=== PATIENT | female | born 1940 | race African-American/Black ===

== ENCOUNTER 2020-01-22 16:33 | Inpatient (IN) | payer OTHER ==
[2020-01-22] MEDS ORDERED: ATROPINE SULFATE 1 MG/10 ML DISP.SYRIN ONE (17:16)
[2020-01-22] MEDS ORDERED: CALCIUM GLUCONATE 10% - 1,000 MG/10 ML VIAL IVPUSH ONE ×2 (17:20→18:12)
[2020-01-22 17:25] LABS: EOS % 0.3 % (0-4.5); HEMATOCRIT 29.9 % (32.4-45.2); HEMOGLOBIN 9.5 GM/dL (10.7-15.3); MCH 26.5 pg (25.7-33.7); MCHC 31.7 g/dl (32.0-36.0); MEAN CELL VOLUME 83.5 fl (80-96); MEAN PLT VOLUME 8.8 fl (7.5-11.1); MONO % 4.9 % (3.8-10.2); NEUT % 78.8 % (42.8-82.8); PLATELET COUNT 324 K/MM3 (134-434); RBC 3.59 M/mm3 (3.60-5.2); RDW 16.8 % (11.6-15.6); WHITE BLOOD COUNT 11.9 K/mm3 (4.0-10.0)
[2020-01-22] MEDS ORDERED: CALCIUM CHLORIDE 1 GM/10 ML *DISP.SYRIN ONE (17:29)
[2020-01-22] MEDS ORDERED: CALCIUM GLUCONATE 10% - 1,000 MG/10 ML VIAL ONE ×2 (17:29→18:13)
[2020-01-22 17:43] LABS: INR 0.94 (0.83-1.09); PROTHROMBIN TIME (PATIENT) 11.1 SEC (9.7-13.0)
--- NOTE | 2020-01-22 17:49 | PDOC ---
History of Present Illness <Jessica Lou - Last Filed: 01/22/20 17:49> - History of Present Illness Initial Comments: 01/22/20 17:44 HPI: 79 y/o F hx of NIDDM, Parkinson's, HTN presenting with generalized weakness and nausea x3-4 days. Reports mildly decreased appetite. She reports symptoms started without triggers. She denied fever, chills, chest pain, abd pain, SOB, dysuria; reports was otherwise feeling well. On EMS arrival noted to be ankita 40s and given atropine. On arrival to ED, HR 40s-50s. EKG performed and showed peaked T waves and wide QRS with SIN appearance. PMHx: as noted above ROS: as noted SHx: Denies tobacco use; no alcohol use; no rec drugs Allergies: NKDA ROS: GENERAL/CONSTITUTIONAL: No fever or chills. +gen weakness. HEAD, EYES, EARS, NOSE AND THROAT: No change in vision. No ear pain or discharge. No sore throat. CARDIOVASCULAR: No chest pain or shortness of breath RESPIRATORY: No cough, wheezing, or hemoptysis. GASTROINTESTINAL: +nausea, vomiting; no diarrhea or constipation. GENITOURINARY: No dysuria, frequency, or change in urination. MUSCULOSKELETAL: No joint or muscle swelling or pain. No neck or back pain. SKIN: No rash NEUROLOGIC: No headache, vertigo, loss of consciousness, or change in strength/sensation. ENDOCRINE: No increased thirst. No abnormal weight change HEMATOLOGIC/LYMPHATIC: No anemia, easy bleeding, or history of blood clots. ALLERGIC/IMMUNOLOGIC: No hives or skin allergy. PE: GENERAL: Awake, alert, and fully oriented, no acute distress HEAD: No signs of trauma, normocephalic, atraumatic EYES: EOMI, sclera anicteric, conjunctiva clear ENT: Auricles normal inspection, hearing grossly normal, nares patent, oropharynx clear without exudates. Moist mucosa NECK: Normal ROM, no lymphadenopathy LUNGS: No increased work of breathing, symmetrical chest rise, clear to auscultation bilaterally, no wheezes, crackles or rhonchi HEART: bradycardia, regular rhythm ABDOMEN: Soft, nondistended, nontender. No guarding, no rebound. No masses. No CVAT MUSCULOSKELETAL: FROM NEUROLOGICAL: Cranial nerves II through XII grossly intact. Normal speech, no focal sensorimotor deficits SKIN: Warm, Dry, normal turgor, no rashes or lesions noted <Kelle Rosario - Last Filed: 01/22/20 20:05> - General Chief Complaint: Nausea/Vomiting Stated Complaint: Altered Mental Status Time Seen by Provider: 01/22/20 17:21 Past History <Jessica Lou - Last Filed: 01/22/20 17:49> - Medical History Anemia: No Asthma: No Cancer: No Cardiac Disorders: No CVA: No COPD: No CHF: Yes Dementia: No Diabetes: Yes GI Disorders: No Disorders: No HTN: Yes Liver Disease: No Seizures: No Thyroid Disease: No - Surgical History Abdominal Surgery: No Appendectomy: No Cardiac Surgery: No Cholecystectomy: No Lung Surgery: No Neurologic Surgery: No Orthopedic Surgery: No - Psycho-Social/Smoking History Smoking History: Unknown if ever smoked Have you smoked in the past 12 months: No - Substance Abuse Hx (Audit-C & DAST Scrn) How often the patient has a drink containing alcohol: Never Score: In Men: 4 or > Positive; In Women: 3 or > Positive: 0 Screen Result (Pos requires Nsg. Audit-10AR): Negative In the last yr the pt used illegal drug/Rx for NonMed reason: No Score: Yes response is considered Positive: 0 Screen Result (Positive result requires Nsg. DAST-10): Negative <Kelle Rosario - Last Filed: 01/22/20 20:05> - Medical History Allergies/Adverse Reactions: Allergies Allergy/AdvReac Type Severity Reaction Status Date / Time No Known Allergies Allergy Verified 01/22/20 17:43 Home Medications: Ambulatory Orders Amlodipine Besylate [Norvasc -] 10 mg PO DAILY 01/22/20 Bethanechol Chloride [Urecholine -] 50 mg PO QID 01/22/20 Bimatoprost [Lumigan] 1 drop OU HS 01/22/20 Carbidopa/Levodopa *Cr* 50/200 [Sinemet *Cr* 50/200 -] 1 combo PO TID 01/22/20 Carvedilol 6.25 mg PO BID 01/22/20 Chlorthalidone 50 mg PO DAILY 01/22/20 Glycopyrrolate 1 tab PO DAILY 01/22/20 Ketoprofen 50 mg PO BID 01/22/20 Lisinopril [Prinivil -] 40 mg PO DAILY 01/22/20 Metformin HCl [Glucophage] 1,000 mg PO BID 01/22/20 Pantoprazole Sodium [Protonix -] 40 mg PO BID 01/22/20 *Physical Exam - Vital Signs Last Vital Signs Temp Pulse Resp BP Pulse Ox 40 L 32 H 99/56 L 99 01/22/20 17:04 01/22/20 17:04 01/22/20 17:04 01/22/20 17:04 <Jessica Lou - Last Filed: 01/22/20 17:49> - Vital Signs Last Vital Signs Temp Pulse Resp BP Pulse Ox 40 L 32 H 99/56 L 99 01/22/20 17:04 01/22/20 17:04 01/22/20 17:04 01/22/20 17:04 <Kelle Rosario - Last Filed: 01/22/20 20:05> Procedures - Central Line Central Line Lumen: triple Central Line Position: internal jugular (R) Anesthesia: 1% Lidocaine Amount of anesthesia (ccs): 5 Complications: none Post Central Line Insertion: sutured, good blood return, position confirmed w/ CXR <Kelle Rosario - Last Filed: 01/22/20 20:05> ED Treatment Course - LABORATORY CBC & Chemistry Diagram: 01/22/20 17:00 01/22/20 17:00 - ADDITIONAL ORDERS Additional order review: Laboratory Results 01/22/20 17:00 PT with INR 11.10 INR 0.94 01/22/20 17:00 RBC 3.59 L MCV 83.5 MCHC 31.7 L RDW 16.8 H MPV 8.8 D Neutrophils % 78.8 Lymphocytes % 15.0 Monocytes % 4.9 Eosinophils % 0.3 D Basophils % 1.0 - RADIOLOGY Radiology Studies Ordered: Category Date Time Status CHEST X-RAY PORTABLE* [RAD] Stat Radiology 01/22/20 17:21 Ordered - Medications Given in the ED: ED Medications Discontinued Medications Generic Name Dose Route Start Last Admin Trade Name Freq PRN Reason Stop Dose Admin Calcium Gluconate 1,000 mg 01/22/20 17:20 01/22/20 17:32 Calcium Gluconate 10% - IVPUSH 01/22/20 17:21 1,000 mg ONCE ONE Administration <Jessica Lou - Last Filed: 01/22/20 17:49> - LABORATORY CBC & Chemistry Diagram: 01/22/20 17:00 01/22/20 17:00 - ADDITIONAL ORDERS Additional order review: Laboratory Results 01/22/20 17:00 PT with INR 11.10 INR 0.94 01/22/20 17:00 RBC 3.59 L MCV 83.5 MCHC 31.7 L RDW 16.8 H MPV 8.8 D Neutrophils % 78.8 Lymphocytes % 15.0 Monocytes % 4.9 Eosinophils % 0.3 D Basophils % 1.0 - Medications Given in the ED: ED Medications Discontinued Medications Generic Name Dose Route Start Last Admin Trade Name Freq PRN Reason Stop Dose Admin Calcium Gluconate 1,000 mg 01/22/20 17:20 01/22/20 17:32 Calcium Gluconate 10% - IVPUSH 01/22/20 17:21 1,000 mg ONCE ONE Administration <Kelle Rosario - Last Filed: 01/22/20 20:05> Medical Decision Making - Medical Decision Making 01/22/20 20:01 79 y/o F hx of NIDDM, Parkinson's, HTN presenting with generalized weakness and nausea x3-4 days. HR 40s BP 90s/50s. PE otherwise unremarkable. Initial EKG with peaked t waves and sin wave. 1gm Ca given -cbc, cmp, ua, ucx, coags, card prod, ekg, cxr, uCr, Yecenia -2amps bicarb, insulin, 1amp D50, albuterol, ivf 01/22/20 20:03 Cr 3.1 BUN 55 K 9.5 renal consulted trialysis placed and confirmed with CXR trasferred to ICU for emergent dialysis <Kelle Rosario - Last Filed: 01/22/20 20:05> Discharge <Jessica Lou - Last Filed: 01/22/20 17:49> - Discharge Information Problems reviewed: Yes <Kelle Rosario - Last Filed: 01/22/20 20:05> - Discharge Information Clinical Impression/Diagnosis: UTI (urinary tract infection), Acute kidney injury, Hyperkalemia, Acute electrocardiogram changes Condition: Guarded - Follow up/Referral Referrals: Melisa Samuel MD [Primary Care Provider] - - Patient Discharge Instructions - Post Discharge Activity Vital Signs - Vital Signs Pulse Rate: 46 Respiratory Rate: 12 Blood Pressure: 107/80 <Jessica Lou - Last Filed: 01/22/20 17:49>
--- NOTE | 2020-01-22 17:57 | PDOC ---
Attending Attestation - Resident Resident Name: Kelle Rosario - ED Attending Attestation I have performed the following: I have examined & evaluated the patient, The case was reviewed & discussed with the resident, I agree w/resident's findings & plan, Exceptions are as noted - HPI HPI: 01/22/20 17:49 79 yo F multiple medical problems p/w generalized weakness, n/v diarrhea and abdominal discomfort x3-4 days. Denies cough, CP and SOB. Denies changes in urination. Denies sick contacts. Lives with grandson who has been feeling fine. No recent change in medications. - Physicial Exam PE: 01/22/20 17:50 General: non-toxic appearing Chest: CTAB, good air entry CVS: +s1 s2, ankita Abdomen: soft, nt nd no rebound no guarding Extremities: no LE edema, moving all extremities Neuro: awake, alert, responds appropriately to questions, no focal deficits - Critical Care Time Total Critical Care Time: 35 Critical Care Statement: The care of this patient involved high complexity decision making to prevent further life threatening deterioration of the patient's condition and/or to evaluate & treat vital organ system(s) failure or risk of failure. - Medical Decision Making 01/22/20 17:52 79 yo F here with weakness n/v/d, EKG ankita wth widened qrs, peaked T waves concerning for hyperkalemia. Possible ULICES vs. infection vs. ACS. Plan: -labs -cxr -urine -cardiac monitoring -pt given 1g calcium with increase in HR from 40's to 60's -IVF -albuterol -bicarb -insulin +/- D50 pending results of glucose -renal consult for possible dialysis pending results of K and Cr -critical care consult for concern for likely hyperkalemia with EKG changes possibly requiring dialysis This clinical encounter is taking place during a federal and state health care emergency attributable to the novel Leyva Virus pandemic. The Par[employer] of the Department of Health and Human Services has declared, pursuant to the Public Health Service Act 319F-3 (42 [place].S[place]C. 247d-6d), that a covered persons activities related to medical countermeasures against COVID-19 will be immune from liability under Federal and State law. k 9.5. Patient currently receiving medications for hyperkalemia. Renal consulted and recommend dialysis. Will place trialysis catheter for dialysis and consult critical care for possible ICU admission. Heart Score/ECG Review - ECG Impressions Comment:: 01/22/20 18:41 ankita, wide qrs, peaked T waves Discharge - Discharge Information Problems reviewed: Yes Clinical Impression/Diagnosis: UTI (urinary tract infection), Acute kidney injury, Hyperkalemia, Acute electrocardiogram changes Condition: Guarded - Follow up/Referral - Patient Discharge Instructions - Post Discharge Activity
[2020-01-22 17:58] LABS: ALBUMIN 3.4 g/dl (3.4-5.0); ALK PHOS 71 U/L (45-117); BILIRUBIN,TOTAL 0.4 mg/dL (0.2-1); BLOOD UREA NITROGEN 55.1 mg/dL (7-18); CALCIUM 8.9 mg/dL (8.5-10.1); CHLORIDE 108 mmol/L (98-107); CO2 10 mmol/L (21-32); CREATININE 3.1 mg/dL (0.55-1.3); GLUCOSE,RANDOM 92 mg/dL (74-106); SGOT/AST 47 U/L (15-37); SGPT/ALT 6 U/L (13-61); SODIUM 133 mmol/L (136-145); TOT PROT 8.4 g/dl (6.4-8.2)
[2020-01-22] MEDS ORDERED: SODIUM CHLORIDE 1,000 ML IV SCH (18:00)
[2020-01-22] MEDS ORDERED: SODIUM BICARBONATE 8.4% 50 MEQ/50 ML DISP.SYRIN IVPUSH ONE ×2 (18:08)
[2020-01-22] MEDS ORDERED: SODIUM BICARBONATE 8.4% 50 MEQ/50 ML VIAL ONE (18:09)
[2020-01-22] MEDS ORDERED: ALBUTEROL SO4 0.083% IH SOL 2.5 MG/3 ML VIAL.NEB. NEB ONE ×2 (18:09→18:23)
[2020-01-22] MEDS ORDERED: INSULIN REGULAR HUMAN 100 UNITS/ML *VIAL IVPUSH ONE ×2 (18:09→18:11)
[2020-01-22 18:10] LABS: ANION GAP 15 MMOL/L (8-16)
[2020-01-22] MEDS ORDERED: DEXTROSE 50%-WATER - 25 GM/50 ML VIAL IVPUSH ONE (18:10)
[2020-01-22 18:11] LABS: POTASSIUM 9.5 mmol/L (3.5-5.1)
[2020-01-22] MEDS ORDERED: DEXTROSE 50%-WATER 25 GM/50 ML DISP.SYRIN ONE (18:14)
[2020-01-22 18:25] LABS: EPI CELLS 9 /uL (0-25.1); HYALINE CASTS 2 /uL (0-3.1); PH,URINE >= 9.0 (5.0-8.0); URINE APPEARANCE TURBID; URINE BILIRUBIN NEGATIVE (NEGATIVE); URINE COLOR DK YELLOW; URINE GLUCOSE (UA) NEGATIVE (NEGATIVE); URINE KETONE TRACE (NEGATIVE); URINE LEUK ESTERASE 3+ (NEGATIVE); URINE NITRITE NEGATIVE (NEGATIVE); URINE PROTEIN 2+ (NEGATIVE); URINE RBC 547 /uL (0-23.9); URINE WBC 5148 /uL (0-25.8)
[2020-01-22] MEDS ORDERED: CEFTRIAXONE 1,000 MG in DEXTROSE 5%-WATER - 50 ML IVPB ONE (19:15)
--- NOTE | 2020-01-22 19:39 | PDOC ---
*Physical Exam - Vital Signs Last Vital Signs Temp Pulse Resp BP Pulse Ox 92 H 28 H 117/61 100 01/22/20 18:32 01/22/20 18:32 01/22/20 18:32 01/22/20 18:32 ED Treatment Course - LABORATORY CBC & Chemistry Diagram: 01/22/20 17:00 01/22/20 19:21 - ADDITIONAL ORDERS Additional order review: Laboratory Results 01/22/20 01/22/20 01/22/20 17:35 17:30 17:00 PT with INR INR Sodium 133 L Potassium 9.5 H* Chloride 108 H Carbon Dioxide 10 L Anion Gap 15 BUN 55.1 H Creatinine 3.1 H Est GFR (CKD-EPI)AfAm 15.69 Est GFR (CKD-EPI)NonAf 13.54 Random Glucose 92 Calcium 8.9 Total Bilirubin 0.4 AST 47 H ALT 6 L Alkaline Phosphatase 71 Creatine Kinase 51 Troponin I < 0.02 Total Protein 8.4 H Albumin 3.4 Urine Color Dk yellow Urine Appearance Turbid Urine pH >= 9.0 H D Ur Specific [place] 1.015 Urine Protein 2+ H Urine Glucose (UA) Negative Urine Ketones Trace H Urine Blood 3+ H Urine Nitrite Negative Urine Bilirubin Negative Urine Urobilinogen 1.0 Ur Leukocyte Esterase 3+ H Urine WBC (Auto) 5148 Urine RBC (Auto) 547 Urine Casts (Auto) 2 U Epithel Cells (Auto) 9 Urine Bacteria (Auto) >10,000 Ur Random Creatinine 114.0 Ur Random Sodium 42 01/22/20 17:00 PT with INR 11.10 INR 0.94 Sodium Potassium Chloride Carbon Dioxide Anion Gap BUN Creatinine Est GFR (CKD-EPI)AfAm Est GFR (CKD-EPI)NonAf Random Glucose Calcium Total Bilirubin AST ALT Alkaline Phosphatase Creatine Kinase Troponin I Total Protein Albumin Urine Color Urine Appearance Urine pH Ur Specific [place] Urine Protein Urine Glucose (UA) Urine Ketones Urine Blood Urine Nitrite Urine Bilirubin Urine Urobilinogen Ur Leukocyte Esterase Urine WBC (Auto) Urine RBC (Auto) Urine Casts (Auto) U Epithel Cells (Auto) Urine Bacteria (Auto) Ur Random Creatinine Ur Random Sodium 01/22/20 17:00 RBC 3.59 L MCV 83.5 MCHC 31.7 L RDW 16.8 H MPV 8.8 D Neutrophils % 78.8 Lymphocytes % 15.0 Monocytes % 4.9 Eosinophils % 0.3 D Basophils % 1.0 - Medications Given in the ED: ED Medications Discontinued Medications Generic Name Dose Route Start Last Admin Trade Name Lou PRN Reason Stop Dose Admin Albuterol Sulfate 1 amp 01/22/20 18:09 01/22/20 18:24 Ventolin 0.083% Nebulizer Soln - NEB 01/22/20 18:10 1 amp ONCE ONE Administration Calcium Gluconate 1,000 mg 01/22/20 17:20 01/22/20 17:32 Calcium Gluconate 10% - IVPUSH 01/22/20 17:21 1,000 mg ONCE ONE Administration Calcium Gluconate 1,000 mg 01/22/20 18:12 01/22/20 18:24 Calcium Gluconate 10% - IVPUSH 01/22/20 18:13 1,000 mg ONCE ONE Administration Dextrose 25 gm 01/22/20 18:10 01/22/20 18:24 D50w (Vial) - IVPUSH 01/22/20 18:11 25 gm NOW ONE Administration Insulin Human Regular 10 units 01/22/20 18:09 01/22/20 18:53 Novolin R Vial *For Ivpush Or Iv Drip Only* IVPUSH 01/22/20 18:10 Not Given ONCE ONE Insulin Human Regular 5 units 01/22/20 18:11 01/22/20 18:24 Novolin R Vial *For Ivpush Or Iv Drip Only* IVPUSH 01/22/20 18:12 5 units ONCE ONE Administration Sodium Bicarbonate 50 meq 01/22/20 18:08 01/22/20 18:10 Sodium Bicarbonate 8.4% - IVPUSH 01/22/20 18:09 50 meq ONCE ONE Administration Sodium Bicarbonate 50 meq 01/22/20 18:08 01/22/20 18:05 Sodium Bicarbonate 8.4% - IVPUSH 01/22/20 18:09 50 meq ONCE ONE Administration Medical Decision Making - Medical Decision Making 01/22/20 19:39 Pt signed out to me; multiple meds given; pt feels well at this time. 01/22/20 19:47 Pt's 2nd EKG shows narrower complex QRS; pt has peaked T waves still. She has a UTI and will require rocephin. Pt admitted to the ICU and she will be getting dialysis there. 01/22/20 19:48 Pt already accepted to the ICU Discharge - Discharge Information Problems reviewed: Yes Clinical Impression/Diagnosis: UTI (urinary tract infection), Acute kidney injury, Hyperkalemia, Acute electrocardiogram changes Condition: Guarded - Follow up/Referral - Patient Discharge Instructions - Post Discharge Activity
[2020-01-22 20:03] LABS: BLOOD UREA NITROGEN 53.1 mg/dL (7-18); CALCIUM 8.7 mg/dL (8.5-10.1); CREATININE 2.8 mg/dL (0.55-1.3)
--- NOTE | 2020-01-22 20:12 | CON.NEP ---
Consult Consult Specialty:: nephrology Reason for Consultation:: hyperkalermia - History of Present Illness Chief Complaint: weakness, nausea History of Present Illness: 79 year old woman with history of dm, htn parkinsons disease who presented with weakness and nausea and was found to have a potassium of over 9 with bradycardia and other hyperkalemia findings. She says she was discharged on medications that caused her potassium to go up. She was previously admitted in November 2019 with abdomibnal pain and had a bladder scan that showed a pvr of 1000. In ED I asked for a barboza placement after she had 200+ cc in bladder from a straight cath. I asked for a dialysis catheter which has been placed and she will be dialyzed tonight given her ekg changes even though her creat and k may improve with fluids and better urine flow. She denies vomiting and diarrhea - History Source Limitations to Obtaining History: No Limitations - Past Medical History Cardio/Vascular: Yes: HTN Gastrointestinal: Yes: Constipation Hepatobiliary: Yes: Cholelithiasis Endocrine: Yes: Diabetes Mellitus - Alcohol/Substance Use Hx Alcohol Use: No - Smoking History Smoking history: Unknown if ever smoked Have you smoked in the past 12 months: No Home Medications - Allergies Allergies/Adverse Reactions: Allergies Allergy/AdvReac Type Severity Reaction Status Date / Time No Known Allergies Allergy Verified 01/22/20 17:43 - Home Medications Home Medications: Ambulatory Orders Amlodipine Besylate [Norvasc -] 10 mg PO DAILY 01/22/20 Bethanechol Chloride [Urecholine -] 50 mg PO QID 01/22/20 Bimatoprost [Lumigan] 1 drop OU HS 01/22/20 Carbidopa/Levodopa *Cr* 50/200 [Sinemet *Cr* 50/200 -] 1 combo PO TID 01/22/20 Carvedilol 6.25 mg PO BID 01/22/20 Chlorthalidone 50 mg PO DAILY 01/22/20 Glycopyrrolate 1 tab PO DAILY 01/22/20 Ketoprofen 50 mg PO BID 01/22/20 Lisinopril [Prinivil -] 40 mg PO DAILY 01/22/20 Metformin HCl [Glucophage] 1,000 mg PO BID 01/22/20 Pantoprazole Sodium [Protonix -] 40 mg PO BID 01/22/20 Review of Systems - Review of Systems Constitutional: reports: Weakness Eyes: reports: No Symptoms HENT: reports: No Symptoms Neck: reports: No Symptoms Cardiovascular: reports: Shortness of Breath Respiratory: reports: No Symptoms Gastrointestinal: reports: Nausea Genitourinary: reports: No Symptoms Breasts: reports: No Symptoms Reported Musculoskeletal: reports: No Symptoms Integumentary: reports: No Symptoms Neurological: reports: No Symptoms Endocrine: reports: No Symptoms Hematology/Lymphatic: reports: No Symptoms Psychiatric: reports: No Symptoms Nephrology Consult - Height Height: 5 ft 4 in - Weight Weight: 180 lb 12.465 oz - BMI Body Mass Index (BMI): 31.0 - Lab Results CBC,BMP: CBC, BMP 01/22/20 17:00 01/22/20 19:21 Anion Gap: Anion Gap Anion Gap 15 MMOL/L (8-16) 01/22/20 17:00 - Imaging Chest X-ray: Image Reviewed (trialysis catheter in proper position, no pneumothrax seen) - Physical Examination Vital Signs: Vital Signs Temperature Pulse Rate 92 H 01/22/20 18:32 Respiratory Rate 28 H 01/22/20 18:32 Blood Pressure 117/61 01/22/20 18:32 O2 Sat by Pulse Oximetry (%) 100 01/22/20 18:32 Constitutional: Yes: Well Nourished, No Distress, Calm, Other Eyes: Yes: Conjunctiva Clear HENT: Yes: Atraumatic, Normocephalic, Other (has a catheter in right ij) Neck: Yes: Supple, Trachea Midline Cardiovascular: Yes: Bradycardia Respiratory: Yes: Regular Gastrointestinal: Yes: Normal Bowel Sounds Renal/: Yes: Barboza Present Musculoskeletal: Yes: WNL Extremities: Yes: WNL Edema: No Peripheral Pulses WNL: Yes Neurological: Yes: Alert, Oriented Psychiatric: Yes: Alert, Oriented Assessment/Plan IMPRESSION ULICES probably from combination of retention and nsaids hypokalemia- ulices, acei, nsaids, acidosis PLAN cxr reviewed and appears in proper position and good to use will dialyze tonight continue barboza hydrate gently- give 1/2 ns with 50 meq of bicarb at 75 cc hold acei, metformin, nsaids MV
[2020-01-22 20:16] LABS: POTASSIUM 7.9 mmol/L (3.5-5.1)
[2020-01-22] MEDS ORDERED: SODIUM CHLORIDE 250 ML IV PRN (20:26)
--- NOTE | 2020-01-22 20:58 | CONSULT ---
Consultation: REQUESTING PROVIDER: Dr. Lou CONSULT REQUEST: We have been asked to medically evaluate this patient for hyperkalemia. HISTORY OF PRESENT ILLNESS: Pt is an 79 y/o female with NIDDM, HTN, Parkinson's, osteoarthritis, ?GERD who presents with generalized weakness and nausea and loss of appetite x3 days. Per ED note, pt was given atropine by EMS for HR in 40s and was found to be hyperkalemic with peaked T waves at presentation. She stated after discharge from [facility] in November 2019, she was given medicine to raise her potassium. Unable to obtain more information from patient as she could not stay awake. Pt's daughters report a few days of nausea but no other symptoms. She takes Advil PM sometimes for arthritis "all over her body." She has not had any recent changes to medications. REVIEW OF SYSTEMS: see HPI PHYSICAL EXAMINATION Vital Signs - 24 hr 01/22/20 01/22/20 01/22/20 17:04 17:50 18:32 Pulse Rate 40 L 46 L Pulse Rate [ 92 H Apical] Respiratory 32 H 12 28 H Rate Blood Pressure 99/56 L 107/80 Blood Pressure 117/61 [Right Arm] O2 Sat by Pulse 99 100 Oximetry (%) 01/22/20 01/22/20 20:45 20:50 Pulse Rate 50 L 51 L Pulse Rate [ Apical] Respiratory 13 15 Rate Blood Pressure 103/67 108/57 L Blood Pressure [Right Arm] O2 Sat by Pulse Oximetry (%) GENERAL: Sleeping, arousable but goes right back to sleep. HEAD: Normal with no signs of trauma. EYES: Pupils equal, round and reactive to light, extraocular movements intact, conjunctiva clear. EARS, NOSE, THROAT: Ears normal, nares patent, moist mucous membranes. NECK: Normal range of motion. RIJ running HD. LUNGS: Clear to auscultation anteriorly, no wheezes. HEART: Regular rate and rhythm, no murmur appreciated. ABDOMEN: Soft, nontender, not distended, normoactive bowel sounds. UPPER EXTREMITIES: Warm, well-perfused. No peripheral edema. LOWER EXTREMITIES: Warm, well-perfused. No peripheral edema. NEUROLOGICAL: unable to fully assess PSYCHIATRIC: unable to assess SKIN: Warm, dry, normal turgor. Laboratory Results - last 24 hr 07/03/20 07/03/20 07/03/20 17:00 17:00 17:00 WBC 11.9 H RBC 3.59 L Hgb 9.5 L Hct 29.9 L D MCV 83.5 MCH 26.5 MCHC 31.7 L RDW 16.8 H Plt Count 324 D MPV 8.8 D Absolute Neuts (auto) 9.4 H Neutrophils % 78.8 Lymphocytes % 15.0 Monocytes % 4.9 Eosinophils % 0.3 D Basophils % 1.0 Nucleated RBC % 0 PT with INR 11.10 INR 0.94 Sodium 133 L Potassium 9.5 H* Chloride 108 H Carbon Dioxide 10 L Anion Gap 15 BUN 55.1 H Creatinine 3.1 H Est GFR (CKD-EPI)AfAm 15.69 Est GFR (CKD-EPI)NonAf 13.54 Random Glucose 92 Calcium 8.9 Total Bilirubin 0.4 AST 47 H ALT 6 L Alkaline Phosphatase 71 Creatine Kinase 51 Troponin I < 0.02 Total Protein 8.4 H Albumin 3.4 Urine Color Urine Appearance Urine pH Ur Specific [place] Urine Protein Urine Glucose (UA) Urine Ketones Urine Blood Urine Nitrite Urine Bilirubin Urine Urobilinogen Ur Leukocyte Esterase Urine WBC (Auto) Urine RBC (Auto) Urine Casts (Auto) U Epithel Cells (Auto) Urine Bacteria (Auto) Ur Random Creatinine Ur Random Sodium 01/22/20 01/22/20 01/22/20 17:30 17:35 19:21 WBC RBC Hgb Hct MCV MCH MCHC RDW Plt Count MPV Absolute Neuts (auto) Neutrophils % Lymphocytes % Monocytes % Eosinophils % Basophils % Nucleated RBC % PT with INR INR Sodium 138 Potassium 7.9 H* Chloride 111 H Carbon Dioxide 13 L Anion Gap 14 BUN 53.1 H Creatinine 2.8 H Est GFR (CKD-EPI)AfAm 17.75 Est GFR (CKD-EPI)NonAf 15.31 Random Glucose 105 Calcium 8.7 Total Bilirubin AST ALT Alkaline Phosphatase Creatine Kinase Troponin I Total Protein Albumin Urine Color Dk yellow Urine Appearance Turbid Urine pH >= 9.0 H D Ur Specific [place] 1.015 Urine Protein 2+ H Urine Glucose (UA) Negative Urine Ketones Trace H Urine Blood 3+ H Urine Nitrite Negative Urine Bilirubin Negative Urine Urobilinogen 1.0 Ur Leukocyte Esterase 3+ H Urine WBC (Auto) 5148 Urine RBC (Auto) 547 Urine Casts (Auto) 2 U Epithel Cells (Auto) 9 Urine Bacteria (Auto) >10,000 Ur Random Creatinine 114.0 Ur Random Sodium 42 Active Medications Current Medications Generic Name Dose Route Start Last Admin Trade Name Freq PRN Reason Stop Dose Admin Amlodipine Besylate 10 mg 01/23/20 10:00 Norvasc - PO DAILY KOBY Carbidopa/Levodopa 1 combo 01/23/20 06:00 Sinemet *Cr* 50/200 - PO TID KOBY Chlorhexidine Gluconate 1 applic 01/22/20 22:00 01/22/20 21:36 Hibiclens For Decolonization - TP 1 applic HS KOBY Administration Heparin Sodium (Porcine) 5,000 unit 01/22/20 22:00 01/23/20 05:31 Heparin - SQ 5,000 unit TID KOBY Administration Sodium Chloride 250 mls @ 3,000 mls/hr 01/22/20 20:26 Normal Saline - IV 01/23/20 20:27 PRN PRN Hypotension during Dialysis Sodium Bicarbonate 50 meq/ 1,050 mls @ 75 mls/hr 01/22/20 21:15 01/22/20 21:45 Sodium Chloride IV 75 mls/hr Q14H KOBY Administration Mupirocin 1 applic 01/22/20 22:00 01/22/20 21:45 Bactroban Ointment (For Decolonization) - NS 01/27/20 21:59 1 applic BID KOBY Administration Pantoprazole Sodium 40 mg 01/23/20 10:00 Protonix - PO BID KOBY ASSESSMENT/PLAN: Pt is an 79 y/o female with NIDDM, HTN, Parkinson's, osteoarthritis who presents with generalized weakness and nausea and loss of appetite x3 days. Per ED note, pt was given atropine by EMS for HR in 40s and was found to be hyperkalemic with peaked T waves at presentation. She was admitted in November 2019 for ULICES and hypokalemia. #neuro -awake and alert during ED interview but sleepy during my interview/exam, not concerned for encephalopathy -continue Sinemet #cardio -EKG shows widened QRS complex -repeat EKG in morning after HD and fluids -HTN -restart amlodipine, can add carvedilol if needed -hold chlorthalidone, lisinopril #pulm -keep SpO2 >88% #renal -ULICES -Cr 3.1 -hyperkalemia 9.5 -emergent HD overnight -sodium bicarb in 1/2NS -renal following #ID -ceftriaxone x1 ordered in ED -will hold further tx until symptomatic or urine culture positive # -UA >10k bacteria, +3 leuk esterase -urine cx pending -pt did not endorse symptoms, would not consider further tx for with abx unless cx comes back positive -urology consult #endo -hold metformin -BGMs near 100 -BGM TID while NPO -if hyperglycemic, add SSI #GI -?hx of GERD -protonix #heme -chronic normocytic anemia -Hb stable 9.5 #integumentary -previous sacral ulcer -monitor and wound care DVT Ppx heparin FEN sodium bicarb in 1/2 NS @75mL/hr monitor K NPO Dispo: ICU. We will continue to follow the patient. Thank you for this consultative opportunity. FULL CODE Visit type - Emergency Visit Emergency Visit: Yes ED Registration Date: 01/22/20 Care time: The patient presented to the Emergency Department on the above date and was hospitalized for further evaluation of their emergent condition. - New Patient This patient is new to me today: Yes Date on this admission: 01/22/20 - Critical Care Critical Care patient: Yes Total Critical Care Time (in minutes): 37 Critical Care Statement: The care of this patient involved high complexity decision making to prevent further life threatening deterioration of the patient's condition and/or to evaluate & treat vital organ system(s) failure or risk of failure. ATTENDING PHYSICIAN STATEMENT I saw and evaluated the patient. I reviewed the resident's note and discussed the case with the resident. I agree with the resident's findings and plan as documented. SUBJECTIVE: OBJECTIVE: ASSESSMENT AND PLAN:
[2020-01-22] MEDS ORDERED: SODIUM CHLORIDE 0.45% 1,000 ML with SODIUM BICARBONATE 8.4% - 50 MEQ IV SCH (21:00)
[2020-01-22] MEDS: CHLORHEXIDINE GLUCONATE 4% CLEANSER FOR DECOLONIZATION TP SCH (21:36)
[2020-01-22] MEDS: SODIUM BICARBONATE 8.4% - 50 MEQ in SODIUM CHLORIDE 0.45% 1,000 ML IV SCH (21:45)
[2020-01-22] MEDS: MUPIROCIN 2% TOPICAL OINTMENT FOR DECOLONIZATION NS SCH (21:45)
[2020-01-22] MEDS: HEPARIN NA (PORCINE) 5,000 UNITS/ML 1ML VIAL SQ SCH (21:46)
[2020-01-23] MEDS ORDERED: CEFTRIAXONE 1 GM in DEXTROSE 5%-WATER - 50 ML IVPB ONE (00:15)
[2020-01-23] MEDS ORDERED: DEXTROSE 5%-WATER - 50 ML IVPB ONE (02:05)
[2020-01-23] MEDS ORDERED: cefTRIAXone SODIUM 1 GM VIAL ONE (02:05)
[2020-01-23] MEDS: HEPARIN NA (PORCINE) 5,000 UNITS/ML 1ML VIAL SQ SCH ×3 (05:31→21:20)
--- NOTE | 2020-01-23 06:37 | CON.CARD ---
Consult Consult Specialty:: Cardiology Referred by:: Dr. Richey Reason for Consultation:: abnl ECG - History of Present Illness Chief Complaint: Fatigue, acute renal failure History of Present Illness: Pt is an 79 y/o female with NIDDM, HTN, Parkinson's, osteoarthritis, ?GERD who presents with generalized weakness and nausea and loss of appetite x3 days. Per ED note, pt was given atropine by EMS for HR in 40s and was found to be hyperkalemic with peaked T waves at presentation. Pt's daughters report a few days of nausea but no other symptoms. She takes Advil PM sometimes for arthritis "all over her body." She has not had any recent changes to medications. She was emergently dialyzed last evening, seen by renal. Initial ECG in setting of marked hyperK+ showed Peaked Ts, flat ps and wide QRS--now resolved. She is awake and alert in ICU. Denies hx of CP/SOB/palps. Denies hx of AK. Does see Dr. Fernandez at [facility] for "high blood pressure" PMD: Dr. Yahir Flannery. - History Source History Provided By: Patient, Medical Record - Past Medical History Cardio/Vascular: Yes: HTN Gastrointestinal: Yes: Constipation Hepatobiliary: Yes: Cholelithiasis Musculoskeletal: Yes: Osteoarthritis Endocrine: Yes: Diabetes Mellitus - Alcohol/Substance Use Hx Alcohol Use: No - Smoking History Smoking history: Unknown if ever smoked Have you smoked in the past 12 months: No - Social History ADL: Independent History of Recent Travel: No Home Medications - Allergies Allergies/Adverse Reactions: Allergies Allergy/AdvReac Type Severity Reaction Status Date / Time No Known Allergies Allergy Verified 01/22/20 17:43 - Home Medications Home Medications: Ambulatory Orders Amlodipine Besylate [Norvasc -] 10 mg PO DAILY 01/22/20 Bethanechol Chloride [Urecholine -] 50 mg PO QID 01/22/20 Bimatoprost [Lumigan] 1 drop OU HS 01/22/20 Carbidopa/Levodopa *Cr* 50/200 [Sinemet *Cr* 50/200 -] 1 combo PO TID 01/22/20 Carvedilol 6.25 mg PO BID 01/22/20 Chlorthalidone 50 mg PO DAILY 01/22/20 Glycopyrrolate 1 tab PO DAILY 01/22/20 Ketoprofen 50 mg PO BID 01/22/20 Lisinopril [Prinivil -] 40 mg PO DAILY 01/22/20 Metformin HCl [Glucophage] 1,000 mg PO BID 01/22/20 Pantoprazole Sodium [Protonix -] 40 mg PO BID 01/22/20 Family Medical History Family History: Unremarkable (not pertinent to this presentation) Review of Systems Findings/Remarks: see HPI - Review of Systems Constitutional: reports: Malaise, Weakness Eyes: reports: No Symptoms HENT: reports: No Symptoms Neck: reports: No Symptoms Cardiovascular: reports: No Symptoms Respiratory: reports: No Symptoms Gastrointestinal: reports: Nausea Genitourinary: reports: No Symptoms Breasts: reports: No Symptoms Reported Musculoskeletal: reports: Joint Pain Integumentary: denies: No Symptoms, Blister, Bruising, Change in Color, Eczema, Erythema, Incision, Lesions, Lump, Pallor, Pruritis, Rash, Wound, Other Neurological: reports: Confusion, Weakness Endocrine: denies: No Symptoms, Excessive Sweating, Flushing, Increased Hunger, Increased Thirst, Intolerance to Cold, Intolerance to Heat, Unexplained Weight Gain, Unexplained Weight Loss, Other Hematology/Lymphatic: denies: No Symptoms, Easily Bruised, Excessive Bleeding, Swollen Glands, Other Psychiatric: denies: No Symptoms, Altered Sleep Pattern, Anxiety, Depression, Hallucinations, Panic, Paranoia, Suicidal, Other - Risk Factors Known Risk Factors: Yes: Diabetes Mellitus, Hypertension Vital Signs: Vital Signs Temperature 98 F 01/23/20 06:00 Pulse Rate 85 01/23/20 06:00 Respiratory Rate 15 01/23/20 06:00 Blood Pressure 135/74 01/23/20 06:00 O2 Sat by Pulse Oximetry (%) 100 01/22/20 21:00 Constitutional: Yes: No Distress, Calm Eyes: Yes: Conjunctiva Clear Neck: Yes: Supple, Other (HD catheter) Respiratory: Yes: CTA Bilaterally Gastrointestinal: Yes: Soft (nt) Cardiovascular: Yes: Regular Rate and Rhythm JVD: No Carotid Bruit: No PMI: Non-Displaced Heart Sounds: Yes: S1, S2 (rrr) Edema: No Peripheral Pulses WNL: Yes Neurological: Yes: Alert, Oriented ...Motor Strength: WNL - Other Data Labs, Other Data: CBC, BMP 01/22/20 17:00 01/22/20 19:21 INR, PTT INR 0.94 (0.83-1.09) 01/22/20 17:00 Troponin, BNP 01/22/20 17:00 Troponin I < 0.02 Troponin, BNP 01/22/20 17:00 Troponin I < 0.02 Laboratory Tests 01/22/20 01/22/20 01/22/20 17:00 17:00 19:21 WBC 11.9 H Hgb 9.5 L Plt Count 324 D Sodium 133 L 138 Potassium 9.5 H* 7.9 H* BUN 55.1 H 53.1 H Creatinine 3.1 H 2.8 H Troponin I < 0.02 Laboratory Tests 01/22/20 01/22/20 01/22/20 17:00 17:00 17:00 WBC 11.9 H Hgb 9.5 L Plt Count 324 D INR 0.94 Sodium 133 L Potassium 9.5 H* Creatinine 3.1 H Magnesium Total Bilirubin AST ALT Alkaline Phosphatase Albumin 01/22/20 01/23/20 01/23/20 19:21 06:48 06:48 WBC 10.0 Hgb 8.6 L Plt Count 243 D INR Sodium 138 140 Potassium 7.9 H* 4.5 Creatinine 2.8 H 1.5 H Magnesium 2.0 Total Bilirubin 0.5 AST 171 H ALT 7 L Alkaline Phosphatase 78 Albumin 2.8 L accelerated jxal rhythm, wide qrs, peaked T waves7/4 at 17:07 Subsequent ECGs with narrow QRS, P waves seem evident though low amplitude T wave still Peaked Imaging - Results X-ray: Image Reviewed EKG: Image Reviewed Assessment/Plan IMP: 1. Hyperkalemia, marked 2. Acute renal failure (baseline creat 1) 3. Sinus ankita in setting severe hyperK+ 4. DM REC: 1. ARF/HyperK+: -All improved after emergent HD -Renal following -Holding LYDIA-I 2. Abnl ECG: -presenting ECG with classic changes of hyperK+: peaked Ts/flat Ps/Wide QRS now resolved. -Tele shows NSR with rare single PVCs -Cont ICU tele monitoring for additional 24 hours -Repeat 12 lead ECG 3. HTN: -Home meds list Lisinopril and Carvedilol and she sees Dr. Fernandez as outpatient -These meds suggest the possibility of a cardiomyopathy, although patient denies (?reliable hx?) -Echo -Will try to obtain further hx from Dr. Fernandez -On Amlodipine, would institute hold parameters to hold for SBP < 110 to avoid hypotension 4. DM: -Holding Metformin in setting ARF 5. OA: -Hold NSAIDS 6. Possible UTI: -f/u cultures -On Ceftriaxone, defer to critical care team
[2020-01-23 07:34] LABS: BASO % 0.8 % (0-2.0); EOS % 1.6 % (0-4.5); HEMOGLOBIN 8.6 GM/dL (10.7-15.3); LYMPH % 18.5 % (8-40); MCH 26.6 pg (25.7-33.7); MCHC 33.2 g/dl (32.0-36.0); MEAN CELL VOLUME 80.2 fl (80-96); MEAN PLT VOLUME 8.2 fl (7.5-11.1); MONO % 10.5 % (3.8-10.2); NEUT % 68.6 % (42.8-82.8); PLATELET COUNT 243 K/MM3 (134-434); RBC 3.24 M/mm3 (3.60-5.2); RDW 16.5 % (11.6-15.6)
[2020-01-23 08:03] LABS: ALBUMIN 2.8 g/dl (3.4-5.0); BILIRUBIN,TOTAL 0.5 mg/dL (0.2-1); CALCIUM 8.2 mg/dL (8.5-10.1); CREATININE 1.5 mg/dL (0.55-1.3); PHOSPHOROUS 2.9 mg/dL (2.5-4.9); POTASSIUM 4.5 mmol/L (3.5-5.1); TOT PROT 7.2 g/dl (6.4-8.2)
[2020-01-23 08:06] LABS: BLOOD UREA NITROGEN 20.5 mg/dL (7-18)
[2020-01-23] MEDS: MUPIROCIN 2% TOPICAL OINTMENT FOR DECOLONIZATION NS SCH ×2 (09:36→21:19)
[2020-01-23] MEDS: amLODIPine BESYLATE 10 MG TABLET (FP) PO SCH (09:36)
[2020-01-23] MEDS: PANTOPRAZOLE 40 MG TABLET PO SCH ×2 (09:36→21:20)
--- NOTE | 2020-01-23 09:59 | CONSULT ---
Consult Consult Specialty:: UROLOGY Reason for Consultation:: ULICES & Hematuria - History of Present Illness Chief Complaint: 79 y/o Female patient with hx of NIDDM, Parkinson's, HTN presenting with generalized weakness and nausea x3-4 days. she has hx of chronic urinary retention, no dysuria or gross hematuria, nocturia 2, frequency 3. She is admitted for dialysis, barboza catheter was inserted and drain 1000cc urine. O/E soft lax abd no palpable bladder. 14 F barboza catheter in place drain clear urine. WBC 10 HB 8.6. BUN 20 S.Creat 1.5 - Past Medical History Cardio/Vascular: Yes: HTN Gastrointestinal: Yes: Constipation Hepatobiliary: Yes: Cholelithiasis Musculoskeletal: Yes: Osteoarthritis Endocrine: Yes: Diabetes Mellitus - Alcohol/Substance Use Hx Alcohol Use: No - Smoking History Smoking history: Unknown if ever smoked Have you smoked in the past 12 months: No - Social History ADL: Independent History of Recent Travel: No Home Medications - Allergies Allergies/Adverse Reactions: Allergies Allergy/AdvReac Type Severity Reaction Status Date / Time No Known Allergies Allergy Verified 01/22/20 17:43 - Home Medications Home Medications: Ambulatory Orders Amlodipine Besylate [Norvasc -] 10 mg PO DAILY 01/22/20 Bethanechol Chloride [Urecholine -] 50 mg PO QID 01/22/20 Bimatoprost [Lumigan] 1 drop OU HS 01/22/20 Carbidopa/Levodopa *Cr* 50/200 [Sinemet *Cr* 50/200 -] 1 combo PO TID 01/22/20 Carvedilol 6.25 mg PO BID 01/22/20 Chlorthalidone 50 mg PO DAILY 01/22/20 Glycopyrrolate 1 tab PO DAILY 01/22/20 Ketoprofen 50 mg PO BID 01/22/20 Lisinopril [Prinivil -] 40 mg PO DAILY 01/22/20 Metformin HCl [Glucophage] 1,000 mg PO BID 01/22/20 Pantoprazole Sodium [Protonix -] 40 mg PO BID 01/22/20 Physical Exam Vital Signs: Vital Signs Temperature 98.6 F 01/23/20 09:19 Pulse Rate 98 H 01/23/20 09:19 Respiratory Rate 13 01/23/20 09:19 Blood Pressure 128/78 01/23/20 09:19 O2 Sat by Pulse Oximetry (%) 100 07/04/20 09:19 Labs: CBC, BMP 01/23/20 06:48 01/23/20 06:48 Assessment/Plan ULICES Chronic Urinary retention Microscopic Hematuria Plan: Renal and pelvic U/S Keep barboza catheter will schedule her for Cystoscopy when her medical condition allow.
--- NOTE | 2020-01-23 10:01 | PN ---
Progress Note (short form) - Note Progress Note: RENAL Pt is awake and alert comfortable making urine Last Vital Signs Temp Pulse Resp BP Pulse Ox 98.6 F 98 H 13 128/78 100 01/23/20 09:19 01/23/20 09:19 01/23/20 09:19 01/23/20 09:19 01/23/20 09:19 lungs clear cvs s1s2 rr abd soft ext no edema neuro a+ox3 skin no edema CBC, BMP 01/23/20 06:48 01/23/20 06:48 Current Medications Generic Name Dose Route Start Last Admin Trade Name Freq PRN Reason Stop Dose Admin Amlodipine Besylate 10 mg 01/23/20 10:00 01/23/20 09:36 Norvasc - PO 10 mg DAILY KOBY Administration Carbidopa/Levodopa 1 combo 01/23/20 06:00 01/23/20 06:42 Sinemet *Cr* 50/200 - PO 1 combo TID KOBY Administration Chlorhexidine Gluconate 1 applic 01/22/20 22:00 01/22/20 21:36 Hibiclens For Decolonization - TP 1 applic HS KOBY Administration Heparin Sodium (Porcine) 5,000 unit 01/22/20 22:00 01/23/20 05:31 Heparin - SQ 5,000 unit TID KOBY Administration Sodium Chloride 250 mls @ 3,000 mls/hr 01/22/20 20:26 Normal Saline - IV 01/23/20 20:27 PRN PRN Hypotension during Dialysis Sodium Bicarbonate 50 meq/ 1,050 mls @ 75 mls/hr 01/22/20 21:15 01/22/20 21:45 Sodium Chloride IV 75 mls/hr Q14H KOBY Administration Mupirocin 1 applic 01/22/20 22:00 01/23/20 09:36 Bactroban Ointment (For Decolonization) - NS 01/27/20 21:59 1 applic BID KOBY Administration Pantoprazole Sodium 40 mg 01/23/20 10:00 01/23/20 09:36 Protonix - PO 40 mg BID KOBY Administration IMPRESSION Shahid htn probable urinary retention PLAN josé miguel [place] follow urology dc fluids feed MV
--- NOTE | 2020-01-23 11:38 | PN ---
Teaching Attending Note Name of Resident: Lucrecia Keyes ATTENDING PHYSICIAN STATEMENT I saw and evaluated the patient. I reviewed the resident's note and discussed the case with the resident. I agree with the resident's findings and plan as documented. SUBJECTIVE: Pt seen and examined in the ICU. s/p emergent dialysis with improvement in hyperkalemia. Good urine output overnight. OBJECTIVE: Vital Signs Period Temp Pulse Resp BP Sys/Myers Pulse Ox Last 24 Hr 97.4 F-98.6 F 40-98 12-32 99-137/56-83 99-100 Intake & Output 01/20/20 01/21/20 01/22/20 01/23/20 23:59 23:59 23:59 23:59 Intake Total 1200 900 Output Total 200 1000 Balance 1000 -100 Weight 80.739 kg 79.923 kg Gen: NAD at rest Heart: RRR Lung: decreased breath sounds at the bases Abd: soft, nontender Ext: no edema CBC, BMP 01/23/20 06:48 01/23/20 06:48 Active Medications Amlodipine Besylate (Norvasc -) 10 mg PO DAILY [facility] Last Admin: 01/23/20 09:36 Dose: 10 mg Documented by: Carbidopa/Levodopa (Sinemet *Cr* 50/200 -) 1 combo PO TID [facility] Last Admin: 01/23/20 06:42 Dose: 1 combo Documented by: Chlorhexidine Gluconate (Hibiclens For Decolonization -) 1 applic TP HS [facility] Last Admin: 01/22/20 21:36 Dose: 1 applic Documented by: Heparin Sodium (Porcine) (Heparin -) 5,000 unit SQ TID [facility] Last Admin: 01/23/20 05:31 Dose: 5,000 unit Documented by: Sodium Chloride (Normal Saline -) 250 mls @ 3,000 mls/hr IV PRN PRN PRN Reason: Hypotension during Dialysis Stop: 01/23/20 20:27 Sodium Bicarbonate 50 meq/ (Sodium Chloride) 1,050 mls @ 75 mls/hr IV Q14H [facility] Last Admin: 01/22/20 21:45 Dose: 75 mls/hr Documented by: Mupirocin (Bactroban Ointment (For Decolonization) -) 1 applic NS BID [facility] Stop: 01/27/20 21:59 Last Admin: 01/23/20 09:36 Dose: 1 applic Documented by: Pantoprazole Sodium (Protonix -) 40 mg PO BID [facility] Last Admin: 01/23/20 09:36 Dose: 40 mg Documented by: ASSESSMENT AND PLAN: Acute Kidney Injury requiring emergent HD Hyperkalemia Bradycardia improved DM HTN Parkinsons Anemia - continue IVF - monitor urine output, creatinine - PO as tolerated - DVT prophylaxis - can monitor on floor
[2020-01-23] MEDS: SODIUM BICARBONATE 8.4% - 50 MEQ in SODIUM CHLORIDE 0.45% 1,000 ML IV SCH (15:00)
[2020-01-23] MEDS: CHLORHEXIDINE GLUCONATE 4% CLEANSER FOR DECOLONIZATION TP SCH (21:20)
--- NOTE | 2020-01-24 01:23 | PN ---
Physical Exam: SUBJECTIVE: Patient seen and examined. Very sleepy in the morning but remained oriented and interactive. Much more alert throughout the day and seemed to be returning to her baseline. Urine output 3000cc. OBJECTIVE: Vital Signs Period Temp Pulse Resp BP Sys/Myers Pulse Ox Last 24 Hr 97.6 F-98.9 F 73-98 13-21 114-135/66-79 100-100 GENERAL: The patient is sleepy, fully oriented, in no acute distress. HEAD: Normal with no signs of trauma. Poor dentition NECK: Full range of motion, R trialysis line LUNGS: Breath sounds equal, clear to auscultation bilaterally, no wheezes, no crackles. HEART: Regular rate and rhythm, S1, S2 without murmur, rub or gallop. ABDOMEN: Soft, nontender, nondistended, active bowel sounds. : barboza catheter in place EXTREMITIES: warm, no edema. NEUROLOGICAL: Normal speech, gait not observed. PSYCH: Normal mood, normal affect. SKIN: Warm, no rashes or lesions noted Laboratory Results - last 24 hr 01/23/20 01/23/20 01/23/20 06:30 06:48 06:48 WBC 10.0 RBC 3.24 L Hgb 8.6 L Hct 26.0 L MCV 80.2 MCH 26.6 MCHC 33.2 RDW 16.5 H Plt Count 243 D MPV 8.2 Absolute Neuts (auto) 6.9 Neutrophils % 68.6 Lymphocytes % 18.5 D Monocytes % 10.5 H D Eosinophils % 1.6 D Basophils % 0.8 Nucleated RBC % 0 Sodium 140 Potassium 4.5 Chloride 105 Carbon Dioxide 26 Anion Gap 9 BUN 20.5 H Creatinine 1.5 H Est GFR (CKD-EPI)AfAm 37.74 Est GFR (CKD-EPI)NonAf 32.56 POC Glucometer 69 Random Glucose 73 L Calcium 8.2 L Phosphorus 2.9 Magnesium 2.0 Total Bilirubin 0.5 AST 171 H ALT 7 L Alkaline Phosphatase 78 Total Protein 7.2 Albumin 2.8 L 01/23/20 01/23/20 01/23/20 10:34 17:28 20:59 WBC RBC Hgb Hct MCV MCH MCHC RDW Plt Count MPV Absolute Neuts (auto) Neutrophils % Lymphocytes % Monocytes % Eosinophils % Basophils % Nucleated RBC % Sodium Potassium Chloride Carbon Dioxide Anion Gap BUN Creatinine Est GFR (CKD-EPI)AfAm Est GFR (CKD-EPI)NonAf POC Glucometer 84 98 100 Random Glucose Calcium Phosphorus Magnesium Total Bilirubin AST ALT Alkaline Phosphatase Total Protein Albumin Active Medications Generic Name Dose Route Start Last Admin Trade Name Lou PRN Reason Stop Dose Admin Amlodipine Besylate 10 mg 01/23/20 10:00 01/23/20 09:36 Norvasc - PO 10 mg DAILY KOBY Administration Carbidopa/Levodopa 1 combo 01/23/20 06:00 01/23/20 21:20 Sinemet *Cr* 50/200 - PO 1 combo TID KOBY Administration Chlorhexidine Gluconate 1 applic 01/22/20 22:00 01/23/20 21:20 Hibiclens For Decolonization - TP 1 applic HS K[facility]Y Administration Heparin Sodium (Porcine) 5,000 unit 01/22/20 22:00 01/23/20 21:20 Heparin - SQ 5,000 unit TID KOBY Administration Sodium Bicarbonate 50 meq/ 1,050 mls @ 75 mls/hr 01/22/20 21:15 01/23/20 15:00 Sodium Chloride IV 75 mls/hr Q14H K[facility]Y Administration Mupirocin 1 applic 01/22/20 22:00 01/23/20 21:19 Bactroban Ointment (For Decolonization) - NS 01/27/20 21:59 1 applic BID KOBY Administration Pantoprazole Sodium 40 mg 01/23/20 10:00 01/23/20 21:20 Protonix - PO 40 mg BID K[facility]Y Administration CXR 01/22/2020 - unremarkable ASSESSMENT/PLAN: Pt is an 79 y/o female with NIDDM, HTN, Parkinson's, osteoarthritis who was admitted in November 2019 for ULICES and hypokalemia. She presented this time with generalized weakness and nausea and loss of appetite x3 days. Per ED note, pt was given atropine by EMS for HR in 40s and was found to be hyperkalemic with peaked T waves at presentation. She received emergent HD and fluids, and repeat labs showed improvement. #neuro AOx3 but very sleepy in the morning. Was awake, cheerful, and interactive towards the afternoon and into the night. -continue Carbi/Levodopa #cardio EKG showed widened QRS complex and peaked T waves indicative of hyperkalemia - repeat EKG in morning after HD and fluids showed return to normal sinus rhythm wave forms - PMHx of HTN - started amlodipine, can add carvedilol if needed - hold chlorthalidone, lisinopril #pulm - satting 99% on 2L nasal canula - keep SpO2 >88% #renal ULICES - resolving s/p emergent HD and fluids - Cr from 3.1 down to 1.5 - hyperkalemia from 9.5 down to 4.5 - d/c'd sodium bicarb in 1/2NS - renal following #ID -ceftriaxone x1 ordered in ED # -UA >10k bacteria, +3 leuk esterase -urine cx pending -pt did not endorse symptoms, would not consider further tx with abx unless cx comes back positive -per urology consult: ULICES, Chronic Urinary retention and Microscopic Hematuria - ordered a Renal and pelvic U/S and will keep barboza catheter. Will schedule her for Cystoscopy when her medical condition allow. #endo -hold metformin -BGMs near 100 -if hyperglycemic, add SSI #heme chronic normocytic anemia -Hb stable 9.5 #integumentary -previous sacral ulcer -monitor and wound care #PPX - DVT: heparin - GI: pantoprazole #FEN - d/c'd sodium bicarb in 1/2 NS @75mL/hr - continue monitoring K - advanced to Chol/Fat/Sodium restricted diet - trialysis catheter - need to remove if renal decides to no longer preform HD Dispo: transfer to med-surg. Luiza Robison #: [phone] FULL CODE Visit type - Emergency Visit Emergency Visit: Yes ED Registration Date: 01/22/20 Care time: The patient presented to the Emergency Department on the above date and was hospitalized for further evaluation of their emergent condition. - New Patient This patient is new to me today: No - Critical Care Critical Care patient: Yes Total Critical Care Time (in minutes): 36 Critical Care Statement: The care of this patient involved high complexity decision making to prevent further life threatening deterioration of the patient's condition and/or to evaluate & treat vital organ system(s) failure or risk of failure. ATTENDING PHYSICIAN STATEMENT I saw and evaluated the patient. I reviewed the resident's note and discussed the case with the resident. I agree with the resident's findings and plan as documented. SUBJECTIVE: OBJECTIVE: ASSESSMENT AND PLAN:
[2020-01-24] MEDS: SODIUM BICARBONATE 8.4% - 50 MEQ in SODIUM CHLORIDE 0.45% 1,000 ML IV SCH (02:07)
[2020-01-24] MEDS: HEPARIN NA (PORCINE) 5,000 UNITS/ML 1ML VIAL SQ SCH ×3 (06:08→21:35)
[2020-01-24 07:07] LABS: BASO % 0.4 % (0-2.0); EOS % 1.2 % (0-4.5); HEMATOCRIT 27.1 % (32.4-45.2); HEMOGLOBIN 8.9 GM/dL (10.7-15.3); LYMPH % 11.2 % (8-40); MCH 26.3 pg (25.7-33.7); MCHC 32.7 g/dl (32.0-36.0); MEAN CELL VOLUME 80.6 fl (80-96); MEAN PLT VOLUME 8.1 fl (7.5-11.1); NEUT % 76.2 % (42.8-82.8); PLATELET COUNT 252 K/MM3 (134-434); RBC 3.37 M/mm3 (3.60-5.2); RDW 16.4 % (11.6-15.6); WHITE BLOOD COUNT 13.4 K/mm3 (4.0-10.0)
[2020-01-24 07:25] LABS: ALBUMIN 2.8 g/dl (3.4-5.0); ALK PHOS 96 U/L (45-117); ANION GAP 7 MMOL/L (8-16); BILIRUBIN,TOTAL 0.7 mg/dL (0.2-1); BLOOD UREA NITROGEN 15.6 mg/dL (7-18); CALCIUM 8.2 mg/dL (8.5-10.1); CHLORIDE 102 mmol/L (98-107); CO2 28 mmol/L (21-32); CREATININE 1.2 mg/dL (0.55-1.3); GLUCOSE,RANDOM 103 mg/dL (74-106); MAGNESIUM 1.9 mg/dL (1.8-2.4); PHOSPHOROUS 2.7 mg/dL (2.5-4.9); POTASSIUM 3.9 mmol/L (3.5-5.1); SGOT/AST 85 U/L (15-37); SODIUM 136 mmol/L (136-145); TOT PROT 7.2 g/dl (6.4-8.2)
[2020-01-24 07:26] LABS: SGPT/ALT < 6 U/L (13-61)
--- NOTE | 2020-01-24 08:16 | PN ---
Progress Note, Physician Chief Complaint: no CP/SOB/dizziness TELE NSR, rare VPC History of Present Illness: BP low today Hyper K ARF HTN now with relative hypotension - Current Medication List Current Medications: Active Medications Amlodipine Besylate (Norvasc -) 10 mg PO DAILY [facility] Last Admin: 01/23/20 09:36 Dose: 10 mg Documented by: Carbidopa/Levodopa (Sinemet *Cr* 50/200 -) 1 combo PO TID [facility] Last Admin: 01/24/20 06:09 Dose: 1 combo Documented by: Chlorhexidine Gluconate (Hibiclens For Decolonization -) 1 applic TP HS [facility] Last Admin: 01/23/20 21:20 Dose: 1 applic Documented by: Heparin Sodium (Porcine) (Heparin -) 5,000 unit SQ TID [facility] Last Admin: 01/24/20 06:08 Dose: 5,000 unit Documented by: Lidocaine (Lidoderm Patch -) 1 patch TP DAILY [facility] Miscellaneous (Lidoderm Patch Removal) 1 each MC DAILY@2200 [facility] Mupirocin (Bactroban Ointment (For Decolonization) -) 1 applic NS BID [facility] Stop: 01/27/20 21:59 Last Admin: 01/23/20 21:19 Dose: 1 applic Documented by: Pantoprazole Sodium (Protonix -) 40 mg PO BID [facility] Last Admin: 01/23/20 21:20 Dose: 40 mg Documented by: - Objective Vital Signs: Vital Signs Temperature 98.3 F 01/24/20 06:00 Pulse Rate 82 01/24/20 07:25 Respiratory Rate 19 01/24/20 07:25 Blood Pressure 130/76 01/24/20 07:25 O2 Sat by Pulse Oximetry (%) 100 01/23/20 20:25 Constitutional: Yes: No Distress Cardiovascular: Yes: Regular Rate and Rhythm Respiratory: Yes: CTA Bilaterally Gastrointestinal: Yes: Soft (nt) Edema: No Neurological: Yes: Alert, Oriented Labs: CBC, BMP 01/24/20 06:38 01/24/20 06:38 INR, PTT INR 0.94 (0.83-1.09) 01/22/20 17:00 - ....Imaging EKG: Image Reviewed Assessment/Plan Assessment/Plan IMP: 1. Hyperkalemia, marked 2. Acute renal failure (baseline creat 1) 3. Sinus ankita in setting severe hyperK+ 4. DM REC: 1. ARF/HyperK+: -All improved after emergent HD -Renal following -Holding LYDIA-I 2. Abnl ECG: -presenting ECG with classic changes of hyperK+: peaked Ts/flat Ps/Wide QRS now resolved. -Tele shows NSR with rare single PVCs -No sig arrhythmias on telemetry 3. HTN: -Home meds list Lisinopril and Carvedilol and she sees Dr. Fernandez as outpatient -These meds suggest the possibility of a cardiomyopathy, although patient denies (?reliable hx?) -Echo -Will try to obtain further hx from Dr. Fernandez -Hold Amlodipine as BP soft 4. DM: -Holding Metformin in setting ARF 5. OA: -Hold NSAIDS 6. Possible UTI: -f/u cultures -On Ceftriaxone, defer to critical care team
[2020-01-24] MEDS: MUPIROCIN 2% TOPICAL OINTMENT FOR DECOLONIZATION NS SCH ×2 (09:05→21:36)
[2020-01-24] MEDS: PANTOPRAZOLE 40 MG TABLET PO SCH ×2 (09:05→21:35)
[2020-01-24] MEDS: amLODIPine BESYLATE 10 MG TABLET (FP) PO SCH (09:05)
[2020-01-24] MEDS: LIDOCAINE 5% TOPICAL PATCH TP SCH (09:06)
--- NOTE | 2020-01-24 09:24 | PN ---
Progress Note (short form) - Note Progress Note: RENAL Pt is awake and alert comfortable making urine Last Vital Signs Temp Pulse Resp BP Pulse Ox 99.6 F 83 18 130/70 100 01/24/20 09:00 01/24/20 09:00 01/24/20 09:00 01/24/20 09:00 01/23/20 20:25 lungs clear cvs s1s2 rr abd soft ext no edema neuro a+ox3 skin no edema CBC, BMP 01/24/20 06:38 01/24/20 06:38 Current Medications Generic Name Dose Route Start Last Admin Trade Name Lou PRN Reason Stop Dose Admin Amlodipine Besylate 10 mg 01/23/20 10:00 01/24/20 09:05 Norvasc - PO 10 mg DAILY KOBY Administration Carbidopa/Levodopa 1 combo 01/23/20 06:00 01/24/20 06:09 Sinemet *Cr* 50/200 - PO 1 combo TID [facility] Administration Chlorhexidine Gluconate 1 applic 01/22/20 22:00 01/23/20 21:20 Hibiclens For Decolonization - TP 1 applic HS K[facility]Y Administration Heparin Sodium (Porcine) 5,000 unit 01/22/20 22:00 01/24/20 06:08 Heparin - SQ 5,000 unit TID K[facility] Administration Lidocaine 1 patch 01/24/20 10:00 01/24/20 09:06 Lidoderm Patch - TP 1 patch DAILY [facility] Administration Miscellaneous 1 each 01/24/20 22:00 Lidoderm Patch Removal MC DAILY@2200 [facility] Mupirocin 1 applic 01/22/20 22:00 01/24/20 09:05 Bactroban Ointment (For Decolonization) - NS 01/27/20 21:59 1 applic BID K[facility]Y Administration Pantoprazole Sodium 40 mg 01/23/20 10:00 01/24/20 09:05 Protonix - PO 40 mg BID KOBY Administration IMPRESSION Shahid htn probable urinary retention PLAN josé miguel [place] follow urology continue current management MV
[2020-01-24] MEDS ORDERED: DEXTROSE 5%-WATER - 50 ML IVPB ONE (09:56)
[2020-01-24] MEDS ORDERED: cefTRIAXone SODIUM 1 GM VIAL ONE (09:56)
[2020-01-24] MEDS: CEFTRIAXONE 1 GM in DEXTROSE 5%-WATER - 50 ML IVPB SCH (09:59)
--- NOTE | 2020-01-24 11:19 | PN ---
Teaching Attending Note Name of Resident: Nidhi Martin ATTENDING PHYSICIAN STATEMENT I saw and evaluated the patient. I reviewed the resident's note and discussed the case with the resident. I agree with the resident's findings and plan as documented. SUBJECTIVE: Pt seen and examined in the ICU. Good urine output overnight. Tolerating PO. Noted to have renal mass on ultrasound. OBJECTIVE: Vital Signs Period Temp Pulse Resp BP Sys/Myers Pulse Ox Last 24 Hr 98.1 F-99.6 F 71-84 14-22 112-136/64-79 100-100 Intake & Output 01/21/20 01/22/20 01/23/20 01/24/20 23:59 23:59 23:59 23:59 Intake Total 1200 1725 300 Output Total 200 3000 500 Balance 1000 -1275 -200 Weight 80.739 kg 79.923 kg 80.24 kg Gen: NAD at rest Heart: RRR Lung: decreased breath sounds at the bases Abd: soft, nontender Ext: no edema CBC, BMP 01/24/20 06:38 01/24/20 06:38 Active Medications Amlodipine Besylate (Norvasc -) 10 mg PO DAILY [facility] Last Admin: 01/24/20 09:05 Dose: 10 mg Documented by: Carbidopa/Levodopa (Sinemet *Cr* 50/200 -) 1 combo PO TID [facility] Last Admin: 01/24/20 06:09 Dose: 1 combo Documented by: Chlorhexidine Gluconate (Hibiclens For Decolonization -) 1 applic TP HS [facility] Last Admin: 01/23/20 21:20 Dose: 1 applic Documented by: Heparin Sodium (Porcine) (Heparin -) 5,000 unit SQ TID [facility] Last Admin: 01/24/20 06:08 Dose: 5,000 unit Documented by: Ceftriaxone Sodium 1 gm/ (Dextrose) 50 mls @ 100 mls/hr IVPB DAILY [facility]; Protocol Last Admin: 01/24/20 09:59 Dose: 100 mls/hr Documented by: Lidocaine (Lidoderm Patch -) 1 patch TP DAILY [facility] Last Admin: 01/24/20 09:06 Dose: 1 patch Documented by: Miscellaneous (Lidoderm Patch Removal) 1 each MC DAILY@2200 [facility] Mupirocin (Bactroban Ointment (For Decolonization) -) 1 applic NS BID [facility] Stop: 01/27/20 21:59 Last Admin: 01/24/20 09:05 Dose: 1 applic Documented by: Pantoprazole Sodium (Protonix -) 40 mg PO BID [facility] Last Admin: 01/24/20 09:05 Dose: 40 mg Documented by: ASSESSMENT AND PLAN: Acute Kidney Injury requiring emergent HD Hyperkalemia Bradycardia improved UTI Renal Mass DM HTN Parkinsons Anemia - continue antibiotics - monitor urine output, creatinine - d/c HD catheter - urology f/u - PO as tolerated - DVT prophylaxis - can monitor on floor
--- NOTE | 2020-01-24 11:26 | PN ---
Progress Note, Physician - Current Medication List Current Medications: Active Medications Amlodipine Besylate (Norvasc -) 10 mg PO DAILY [facility] Last Admin: 01/24/20 09:05 Dose: 10 mg Documented by: Carbidopa/Levodopa (Sinemet *Cr* 50/200 -) 1 combo PO TID [facility] Last Admin: 01/24/20 06:09 Dose: 1 combo Documented by: Chlorhexidine Gluconate (Hibiclens For Decolonization -) 1 applic TP HS [facility] Last Admin: 01/23/20 21:20 Dose: 1 applic Documented by: Heparin Sodium (Porcine) (Heparin -) 5,000 unit SQ TID [facility] Last Admin: 01/24/20 06:08 Dose: 5,000 unit Documented by: Ceftriaxone Sodium 1 gm/ (Dextrose) 50 mls @ 100 mls/hr IVPB DAILY [facility]; Protocol Last Admin: 01/24/20 09:59 Dose: 100 mls/hr Documented by: Lidocaine (Lidoderm Patch -) 1 patch TP DAILY [facility] Last Admin: 01/24/20 09:06 Dose: 1 patch Documented by: Miscellaneous (Lidoderm Patch Removal) 1 each MC DAILY@2200 [facility] Mupirocin (Bactroban Ointment (For Decolonization) -) 1 applic NS BID [facility] Stop: 01/27/20 21:59 Last Admin: 01/24/20 09:05 Dose: 1 applic Documented by: Pantoprazole Sodium (Protonix -) 40 mg PO BID [facility] Last Admin: 01/24/20 09:05 Dose: 40 mg Documented by: - Objective Vital Signs: Vital Signs Temperature 99.5 F 01/24/20 11:00 Pulse Rate 76 01/24/20 11:00 Respiratory Rate 19 01/24/20 11:00 Blood Pressure 94/58 L 01/24/20 11:00 O2 Sat by Pulse Oximetry (%) 100 01/24/20 09:00 Labs: CBC, BMP 01/24/20 06:38 01/24/20 06:38 INR, PTT INR 0.94 (0.83-1.09) 01/22/20 17:00
--- NOTE | 2020-01-24 14:08 | EKG ---
Test Reason : Blood Pressure : / mmHG Vent. Rate : 078 BPM Atrial Rate : 078 BPM P-R Int : 182 ms QRS Dur : 080 ms QT Int : 408 ms P-R-T Axes : 044 -28 017 degrees QTc Int : 465 ms NORMAL SINUS RHYTHM POSSIBLE LEFT ATRIAL ENLARGEMENT BORDERLINE ECG WHEN COMPARED WITH ECG OF 22-JAN-2020 19:48, SINUS RHYTHM HAS REPLACED JUNCTIONAL RHYTHM T WAVE AMPLITUDE HAS DECREASED IN INFERIOR LEADS T WAVE AMPLITUDE HAS DECREASED IN ANTEROLATERAL LEADS Confirmed by JEY OLIVERA MD ([id number]) on 01/24/2020 2:07:26 PM Referred By: Sixto HOWARD Confirmed By:JEY OLIVERA MD
--- NOTE | 2020-01-24 14:12 | EKG ---
Test Reason : Blood Pressure : / mmHG Vent. Rate : 089 BPM Atrial Rate : 076 BPM P-R Int : 000 ms QRS Dur : 096 ms QT Int : 416 ms P-R-T Axes : 000 -26 036 degrees QTc Int : 506 ms ?JUNCTIONAL RHYTHM PROLONGED QT ABNORMAL ECG WHEN COMPARED WITH ECG OF 22-JAN-2020 17:07, QRS DURATION HAS NARROWED Confirmed by JEY OLIVERA MD ([id number]) on 01/24/2020 2:12:09 PM Referred By: Confirmed By:JEY OLIVERA MD
--- NOTE | 2020-01-24 14:15 | EKG ---
Test Reason : Blood Pressure : / mmHG Vent. Rate : 064 BPM Atrial Rate : 045 BPM P-R Int : 000 ms QRS Dur : 164 ms QT Int : 494 ms P-R-T Axes : 000 -51 031 degrees QTc Int : 509 ms WIDE QRS RHYTHM ?JUCTIONAL RHYTHM LEFT AXIS DEVIATION NON-SPECIFIC INTRA-VENTRICULAR CONDUCTION BLOCK ABNORMAL ECG WHEN COMPARED WITH ECG OF 16-DEC-2019 03:32, WIDE QRS RHYTHM HAS REPLACED SINUS RHYTHM Confirmed by JOSELIN REDDY, JEY ([id number]) on 01/24/2020 2:15:24 PM Referred By: Confirmed By:JEY OLIVERA MD
--- NOTE | 2020-01-24 16:14 | PN ---
Physical Exam: SUBJECTIVE: Patient seen and examined Patient A&Ox3, and states she is feeling better. No acute events overnight, patient tolerating diet well. OBJECTIVE: Vital Signs Period Temp Pulse Resp BP Sys/Myers Pulse Ox Last 24 Hr 98.1 F-99.6 F 71-83 14-24 94-136/58-79 100-100 GENERAL: The patient is awake, alert, and fully oriented, in no acute distress. HEAD: Normal with no signs of trauma. ENT: Ears normal, nares patent, oropharynx clear without exudates, moist mucous membranes. LUNGS: Breath sounds equal, clear to auscultation bilaterally, no wheezes, no crackles, no accessory muscle use. HEART: Regular rate and rhythm, S1, S2 without murmur, rub or gallop. ABDOMEN: Soft, nontender, nondistended, normoactive bowel sounds, no guarding, no rebound. EXTREMITIES: 2+ pulses, warm, well-perfused, no edema. SKIN: Warm, dry, normal turgor, no rashes or lesions noted Laboratory Results - last 24 hr CBC, BMP 01/24/20 06:38 01/24/20 06:38 Active Medications Generic Name Dose Route Start Last Admin Trade Name Freq PRN Reason Stop Dose Admin Amlodipine Besylate 10 mg 01/23/20 10:00 01/24/20 09:05 Norvasc - PO 10 mg DAILY [facility] Administration Carbidopa/Levodopa 1 combo 01/23/20 06:00 01/24/20 15:00 Sinemet *Cr* 50/200 - PO 1 combo TID [facility] Administration Chlorhexidine Gluconate 1 applic 01/22/20 22:00 01/23/20 21:20 Hibiclens For Decolonization - TP 1 applic HS [facility] Administration Heparin Sodium (Porcine) 5,000 unit 01/22/20 22:00 01/24/20 15:00 Heparin - SQ 5,000 unit TID [facility] Administration Ceftriaxone Sodium 1 gm/ 50 mls @ 100 mls/hr 01/24/20 10:00 01/24/20 09:59 Dextrose IVPB 100 mls/hr DAILY [facility] Administration Protocol Lidocaine 1 patch 01/24/20 10:00 01/24/20 09:06 Lidoderm Patch - TP 1 patch DAILY [facility] Administration Miscellaneous 1 each 01/24/20 22:00 Lidoderm Patch Removal MC DAILY@2200 [facility] Mupirocin 1 applic 01/22/20 22:00 01/24/20 09:05 Bactroban Ointment (For Decolonization) - NS 01/27/20 21:59 1 applic BID [facility] Administration Pantoprazole Sodium 40 mg 01/23/20 10:00 01/24/20 09:05 Protonix - PO 40 mg BID [facility] Administration ASSESSMENT/PLAN: The patient is an 79 year old female with history of diabetes on metformin, hypertension, Parkinson's disease, who presented to the ED via EMS complaining of nausea and weakness. She was bradycardic with heart rate of 40, and initial EKG displayed peaked T waves, consistent with hyperkalemia. She required emergent dialysis. Neuro -Parkinson's disease: continue Carbi/Levodopa - Patient appears to be at her baseline Cardiovascular -EKG on admission revealed bradycardia along with classic findings of hyperkalemia (peaked t-waves, widened QRS) -Bradycardia resolved after dialysis 1x -Patient has hypertension, is on amlodipine 10; if additional medication needed to control BP, can add lisinopril -Tele shows NSR with rare single PVC -Follow up echo tomorrow - Followed by cardiology, appreciate recommendations Pulmonary - Stable, maintain oxygenation Renal -Hyperkalemia resolved after hemodialysis; her potassium is now down to 3.9. Continue to monitor. -ULICES (likely secondary to urinary retention, NSAID use) is resolving with creatinine at 1.2 -Urinalysis revealed >10k bacteria with 3+ leukocyte esterase -Urine culture was positive for Proteus; Ceftriaxone was started -Renal ultrasound performed shows a hypoechoic mass concerning for malignancy -Urology is following Hematology -Patient is anemic with Hb of 8.9. This is likely due to a chronic normocytic anemia. DVT Prophylaxis -Heparin tid Disposition: stable for transfer to the floor Visit type - Emergency Visit Emergency Visit: No - New Patient This patient is new to me today: Yes Date on this admission: 01/24/20 - Critical Care Critical Care patient: Yes Total Critical Care Time (in minutes): 40 Critical Care Statement: The care of this patient involved high complexity decision making to prevent further life threatening deterioration of the patient's condition and/or to evaluate & treat vital organ system(s) failure or risk of failure. ATTENDING PHYSICIAN STATEMENT I saw and evaluated the patient. I reviewed the resident's note and discussed the case with the resident. I agree with the resident's findings and plan as documented. SUBJECTIVE: OBJECTIVE: ASSESSMENT AND PLAN:
[2020-01-24] MEDS: ACETAMINOPHEN 325 MG TABLET (FP) PO PRN (20:15)
[2020-01-24] MEDS: LIDOCAINE PATCH REMOVAL MC SCH (21:36)
[2020-01-24] MEDS: CHLORHEXIDINE GLUCONATE 4% CLEANSER FOR DECOLONIZATION TP SCH (21:36)
[2020-01-25] MEDS: ACETAMINOPHEN 325 MG TABLET (FP) PO PRN ×2 (03:56→19:59)
[2020-01-25] MEDS: HEPARIN NA (PORCINE) 5,000 UNITS/ML 1ML VIAL SQ SCH ×3 (05:22→21:22)
[2020-01-25 07:32] LABS: BASO % 0.2 % (0-2.0); EOS % 0.7 % (0-4.5); HEMOGLOBIN 7.9 GM/dL (10.7-15.3); MCH 26.3 pg (25.7-33.7); MCHC 32.8 g/dl (32.0-36.0); MEAN CELL VOLUME 80.4 fl (80-96); MEAN PLT VOLUME 8.5 fl (7.5-11.1); MONO % 12.5 % (3.8-10.2); NEUT % 72.6 % (42.8-82.8); PLATELET COUNT 206 K/MM3 (134-434); RBC 2.99 M/mm3 (3.60-5.2); RDW 16.9 % (11.6-15.6); WHITE BLOOD COUNT 14.2 K/mm3 (4.0-10.0)
[2020-01-25 08:02] LABS: ALBUMIN 2.4 g/dl (3.4-5.0); ALK PHOS 82 U/L (45-117); ANION GAP 12 MMOL/L (8-16); BILIRUBIN,TOTAL 0.6 mg/dL (0.2-1); BLOOD UREA NITROGEN 19.4 mg/dL (7-18); CALCIUM 7.7 mg/dL (8.5-10.1); CHLORIDE 99 mmol/L (98-107); CO2 24 mmol/L (21-32); CREATININE 1.3 mg/dL (0.55-1.3); GLUCOSE,RANDOM 94 mg/dL (74-106); MAGNESIUM 1.8 mg/dL (1.8-2.4); PHOSPHOROUS 3.4 mg/dL (2.5-4.9); POTASSIUM 3.2 mmol/L (3.5-5.1); SGOT/AST 31 U/L (15-37); SGPT/ALT < 6 U/L (13-61); SODIUM 135 mmol/L (136-145); TOT PROT 6.3 g/dl (6.4-8.2)
--- NOTE | 2020-01-25 09:19 | PN ---
Physical Exam: SUBJECTIVE: Patient seen and examined as she was waking up, pleasant as always. No events overnight, 850cc urine and night team did not remove trialysis catheter in case of possible HD. Several BMs over the past few days. On 2L nasal canula breathing well. She explained that she has been experiencing continued knee pain and that the lidocaine patch definitely helped her but then peeled off. She has also been getting tylenol for pain. OBJECTIVE: Vital Signs Period Temp Pulse Resp BP Sys/Myers Pulse Ox Last 24 Hr 98.3 F-99.8 F 63-84 15-24 92-128/55-73 94-100 GENERAL: The patient was waking up, fully oriented, in no acute distress. HEAD: Normal with no signs of trauma. Poor dentition NECK: Full range of motion, R trialysis line LUNGS: Breath sounds equal, clear to auscultation bilaterally, no wheezes, no crackles. HEART: Regular rate and rhythm, S1, S2 without murmur, rub or gallop. ABDOMEN: Soft, nontender, nondistended, active bowel sounds. : barboza catheter in place EXTREMITIES: warm, no edema. NEUROLOGICAL: Normal speech, gait not observed. PSYCH: Normal mood, normal affect. SKIN: Warm, no rashes or lesions noted Laboratory Results - last 24 hr 01/22/20 01/24/20 01/24/20 17:00 12:38 17:33 WBC RBC Hgb Hct MCV MCH MCHC RDW Plt Count MPV Absolute Neuts (auto) Neutrophils % Lymphocytes % Monocytes % Eosinophils % Basophils % Nucleated RBC % Sodium Potassium Chloride Carbon Dioxide Anion Gap BUN Creatinine Est GFR (CKD-EPI)AfAm Est GFR (CKD-EPI)NonAf POC Glucometer 146 121 Random Glucose Calcium Phosphorus Magnesium Total Bilirubin AST ALT Alkaline Phosphatase Total Protein Albumin COVID-19 ([facility]) Not detected 01/25/20 01/25/20 01/25/20 05:45 05:45 06:01 WBC 14.2 H RBC 2.99 L Hgb 7.9 L Hct 24.0 L MCV 80.4 MCH 26.3 MCHC 32.8 RDW 16.9 H Plt Count 206 MPV 8.5 Absolute Neuts (auto) 10.3 H Neutrophils % 72.6 Lymphocytes % 14.0 D Monocytes % 12.5 H Eosinophils % 0.7 Basophils % 0.2 Nucleated RBC % 0 Sodium 135 L Potassium 3.2 L Chloride 99 Carbon Dioxide 24 Anion Gap 12 BUN 19.4 H Creatinine 1.3 Est GFR (CKD-EPI)AfAm 44.87 Est GFR (CKD-EPI)NonAf 38.71 POC Glucometer 108 Random Glucose 94 Calcium 7.7 L Phosphorus 3.4 Magnesium 1.8 Total Bilirubin 0.6 AST 31 ALT < 6 L Alkaline Phosphatase 82 Total Protein 6.3 L Albumin 2.4 L COVID-19 ([facility]) Active Medications Generic Name Dose Route Start Last Admin Trade Name Freq PRN Reason Stop Dose Admin Acetaminophen 650 mg 01/24/20 20:08 01/25/20 03:56 Tylenol - PO 650 mg Q6H PRN Administration PAIN LEVEL 1-5 Amlodipine Besylate 10 mg 01/23/20 10:00 01/24/20 09:05 Norvasc - PO 10 mg DAILY KOBY Administration Carbidopa/Levodopa 1 combo 01/23/20 06:00 01/25/20 05:22 Sinemet *Cr* 50/200 - PO 1 combo TID KOBY Administration Chlorhexidine Gluconate 1 applic 01/22/20 22:00 01/24/20 21:36 Hibiclens For Decolonization - TP 1 applic HS KOBY Administration Heparin Sodium (Porcine) 5,000 unit 01/22/20 22:00 01/25/20 05:22 Heparin - SQ 5,000 unit TID KOBY Administration Ceftriaxone Sodium 1 gm/ 50 mls @ 100 mls/hr 01/24/20 10:00 01/24/20 09:59 Dextrose IVPB 100 mls/hr DAILY KOBY Administration Protocol Lidocaine 1 patch 01/24/20 10:00 01/24/20 09:06 Lidoderm Patch - TP 1 patch DAILY KOBY Administration Miscellaneous 1 each 01/24/20 22:00 01/24/20 21:36 Lidoderm Patch Removal MC 1 each DAILY@2200 KOBY Administration Mupirocin 1 applic 01/22/20 22:00 01/24/20 21:36 Bactroban Ointment (For Decolonization) - NS 01/27/20 21:59 1 applic BID KOBY Administration Pantoprazole Sodium 40 mg 01/23/20 10:00 01/24/20 21:35 Protonix - PO 40 mg BID KOBY Administration VS: a bit hypotensive around midnight (92/55) but otherwise stable Hyponatremia 135 Hypokalemia 3.2 WBC 14.2 (up from 10) Blood culture grew Proteus species - sensitive to meropenem US: density in R kidney concerning for mass/malignancy - recommended contrast- enhanced MRI ASSESSMENT/PLAN: Pt is an 79 y/o female with NIDDM, HTN, Parkinson's, osteoarthritis who was admitted in November 2019 for ULICES and hypokalemia. She presented this time with generalized weakness and nausea and loss of appetite x3 days. Per ED note, pt was given atropine by EMS for HR in 40s and was found to be hyperkalemic with peaked T waves at presentation. She received emergent HD and fluids, and repeat labs showed improvement. Currently treated for UTI #neuro AOx3 -continue Carbi/Levodopa #cardio EKG showed widened QRS complex and peaked T waves indicative of hyperkalemia - resolved - PMHx of HTN - started amlodipine, can add carvedilol if needed - hold chlorthalidone, lisinopril #pulm - satting 99% on 2L nasal canula - keep SpO2 >88% #renal ULICES - resolving s/p emergent HD and fluids - Cr from 3.1 down to 1.3 - hypokalemia 3.2 - repleting - hyponatremia 135 - continue monitoring - renal following #ID urine culture growing proteus species, WBC 14.2 - started meropenem - d/c ceftriaxone # -UA >10k bacteria, +3 leuk esterase -pt did not endorse symptoms, would not consider further tx with abx unless cx comes back positive - started meropenem -Renal and pelvic U/S: density on R kidney concerning for mass/malignancy - recommend contrast enhanced MRI (patient was treated for ULICES) #endo -hold metformin -BGMs near 100 -if hyperglycemic, add SSI #heme chronic normocytic anemia -Hb stable 9.5 #integumentary -previous sacral ulcer -monitor and wound care #PPX - DVT: heparin - GI: pantoprazole #FEN - repleted K - continue monitoring - advanced to Chol/Fat/Sodium restricted diet - trialysis catheter - removing today Dispo: transfer to med-surg. Luiza Robison #: [phone] FULL CODE Visit type - Emergency Visit Emergency Visit: Yes ED Registration Date: 01/22/20 Care time: The patient presented to the Emergency Department on the above date and was hospitalized for further evaluation of their emergent condition. - New Patient This patient is new to me today: No - Critical Care Critical Care patient: Yes Total Critical Care Time (in minutes): 36 Critical Care Statement: The care of this patient involved high complexity decision making to prevent further life threatening deterioration of the patient's condition and/or to evaluate & treat vital organ system(s) failure or risk of failure. ATTENDING PHYSICIAN STATEMENT I saw and evaluated the patient. I reviewed the resident's note and discussed the case with the resident. I agree with the resident's findings and plan as documented. SUBJECTIVE: OBJECTIVE: ASSESSMENT AND PLAN:
[2020-01-25] MEDS ORDERED: DEXTROSE 5%-WATER - 50 ML IVPB ONE (09:38)
[2020-01-25] MEDS ORDERED: cefTRIAXone SODIUM 1 GM VIAL ONE (09:38)
[2020-01-25] MEDS ORDERED: POTASSIUM CHLORIDE ORAL LIQUID 20 MEQ/15 ML PO ONE (10:00)
[2020-01-25] MEDS: PANTOPRAZOLE 40 MG TABLET PO SCH ×2 (10:15→21:22)
[2020-01-25] MEDS: CEFTRIAXONE 1 GM in DEXTROSE 5%-WATER - 50 ML IVPB SCH (10:15)
[2020-01-25] MEDS: LIDOCAINE 5% TOPICAL PATCH TP SCH (10:15)
[2020-01-25] MEDS: KCL 10 MEQ IVPB 10 MEQ/100 ML INFUS.BAG IVPB SCH ×3 (10:15→12:37)
[2020-01-25] MEDS: MUPIROCIN 2% TOPICAL OINTMENT FOR DECOLONIZATION NS SCH ×2 (10:16→21:22)
--- NOTE | 2020-01-25 10:48 | PN ---
Progress Note (short form) - Note Progress Note: RENAL Pt is awake and alert comfortable making urine barboza has been removed Last Vital Signs Temp Pulse Resp BP Pulse Ox 98.5 F 67 15 108/64 98 01/25/20 06:00 01/25/20 06:00 01/25/20 06:00 01/25/20 06:00 01/24/20 21:00 lungs clear cvs s1s2 rr abd soft ext no edema neuro a+ox3 skin no edema CBC, BMP 01/25/20 05:45 01/25/20 05:45 Current Medications Generic Name Dose Route Start Last Admin Trade Name Freq PRN Reason Stop Dose Admin Acetaminophen 650 mg 01/24/20 20:08 01/25/20 03:56 Tylenol - PO 650 mg Q6H PRN Administration PAIN LEVEL 1-5 Amlodipine Besylate 10 mg 01/23/20 10:00 01/24/20 09:05 Norvasc - PO 10 mg DAILY KOBY Administration Carbidopa/Levodopa 1 combo 01/23/20 06:00 01/25/20 05:22 Sinemet *Cr* 50/200 - PO 1 combo TID KOBY Administration Chlorhexidine Gluconate 1 applic 01/22/20 22:00 01/24/20 21:36 Hibiclens For Decolonization - TP 1 applic HS KOBY Administration Heparin Sodium (Porcine) 5,000 unit 01/22/20 22:00 01/25/20 05:22 Heparin - SQ 5,000 unit TID KOBY Administration Potassium Chloride 10 meq in 100 mls @ 100 mls/hr 01/25/20 10:00 01/25/20 10:15 Potassium Chloride 10 Meq Premix Ivpb - IVPB 01/25/20 12:59 100 mls/hr Q60M KOBY Administration Meropenem 1 gm/ Dextrose 100 mls @ 200 mls/hr 01/25/20 10:15 IVPB Q8H-IV KOBY Lidocaine 1 patch 01/24/20 10:00 01/25/20 10:15 Lidoderm Patch - TP 1 patch DAILY KOBY Administration Miscellaneous 1 each 01/24/20 22:00 01/24/20 21:36 Lidoderm Patch Removal MC 1 each DAILY@2200 KOBY Administration Mupirocin 1 applic 01/22/20 22:00 01/25/20 10:16 Bactroban Ointment (For Decolonization) - NS 01/27/20 21:59 1 applic BID KOBY Administration Pantoprazole Sodium 40 mg 01/23/20 10:00 01/25/20 10:15 Protonix - PO 40 mg BID OKBY Administration IMPRESSION Shahid htn probable urinary retention PLAN please have dialysis catheter removed follow urology monitor urine output urology follow up MV
[2020-01-25] MEDS: MEROPENEM 1 GM in DEXTROSE 5%-WATER 100 ML IVPB SCH ×2 (11:37→21:25)
--- NOTE | 2020-01-25 12:14 | PN ---
Teaching Attending Note Name of Resident: Lucrecia Keyes ATTENDING PHYSICIAN STATEMENT I saw and evaluated the patient. I reviewed the resident's note and discussed the case with the resident. I agree with the resident's findings and plan as documented. SUBJECTIVE: Pt seen and examined in the ICU. Tolerating PO. Noted to have renal mass on ultrasound. OBJECTIVE: Vital Signs Period Temp Pulse Resp BP Sys/Myers Pulse Ox Last 24 Hr 98.3 F-99.8 F 63-84 15-24 92-128/55-73 94-98 Intake & Output 01/22/20 01/23/20 01/24/20 01/25/20 23:59 23:59 23:59 23:59 Intake Total 1200 1725 880 100 Output Total 200 3000 850 200 Balance 1000 -1275 30 -100 Weight 80.739 kg 79.923 kg 79.832 kg 76.839 kg Gen: NAD at rest Heart: RRR Lung: decreased breath sounds at the bases Abd: soft, nontender Ext: no edema CBC, BMP 01/25/20 05:45 01/25/20 05:45 Active Medications Acetaminophen (Tylenol -) 650 mg PO Q6H PRN PRN Reason: PAIN LEVEL 1-5 Last Admin: 01/25/20 03:56 Dose: 650 mg Documented by: Amlodipine Besylate (Norvasc -) 10 mg PO DAILY [facility] Last Admin: 01/24/20 09:05 Dose: 10 mg Documented by: Carbidopa/Levodopa (Sinemet *Cr* 50/200 -) 1 combo PO TID [facility] Last Admin: 01/25/20 05:22 Dose: 1 combo Documented by: Chlorhexidine Gluconate (Hibiclens For Decolonization -) 1 applic TP HS [facility] Last Admin: 01/24/20 21:36 Dose: 1 applic Documented by: Heparin Sodium (Porcine) (Heparin -) 5,000 unit SQ TID [facility] Last Admin: 01/25/20 05:22 Dose: 5,000 unit Documented by: Potassium Chloride (Potassium Chloride 10 Meq Premix Ivpb -) 10 meq in 100 mls @ 100 mls/hr IVPB Q60M [facility] Stop: 01/25/20 12:59 Last Admin: 01/25/20 10:15 Dose: 100 mls/hr Documented by: Meropenem 1 gm/ Dextrose 100 mls @ 200 mls/hr IVPB BID [facility] Meropenem 1 gm/ Dextrose 100 mls @ 200 mls/hr IVPB BID [facility] Stop: 01/26/20 10:59 Lidocaine (Lidoderm Patch -) 1 patch TP DAILY [facility] Last Admin: 01/25/20 10:15 Dose: 1 patch Documented by: Miscellaneous (Lidoderm Patch Removal) 1 each MC DAILY@2200 [facility] Last Admin: 01/24/20 21:36 Dose: 1 each Documented by: Mupirocin (Bactroban Ointment (For Decolonization) -) 1 applic NS BID [facility] Stop: 01/27/20 21:59 Last Admin: 01/25/20 10:16 Dose: 1 applic Documented by: Pantoprazole Sodium (Protonix -) 40 mg PO BID [facility] Last Admin: 01/25/20 10:15 Dose: 40 mg Documented by: ASSESSMENT AND PLAN: Acute Kidney Injury requiring emergent HD Hyperkalemia Bradycardia improved UTI Renal Mass DM HTN Parkinsons Anemia - continue antibiotics - monitor urine output, creatinine - d/c HD catheter - urology f/u - PO as tolerated - DVT prophylaxis - can monitor on floor
--- NOTE | 2020-01-25 12:36 | PN ---
Progress Note (short form) - Note Progress Note: s: no cp sob palps dizzy Current Medications Generic Name Dose Route Start Last Admin Trade Name Freq PRN Reason Stop Dose Admin Acetaminophen 650 mg 01/24/20 20:08 01/25/20 03:56 Tylenol - PO 650 mg Q6H PRN Administration PAIN LEVEL 1-5 Amlodipine Besylate 10 mg 01/23/20 10:00 01/24/20 09:05 Norvasc - PO 10 mg DAILY KOBY Administration Carbidopa/Levodopa 1 combo 01/23/20 06:00 01/25/20 05:22 Sinemet *Cr* 50/200 - PO 1 combo TID KOBY Administration Chlorhexidine Gluconate 1 applic 01/22/20 22:00 01/24/20 21:36 Hibiclens For Decolonization - TP 1 applic HS KOBY Administration Heparin Sodium (Porcine) 5,000 unit 01/22/20 22:00 01/25/20 05:22 Heparin - SQ 5,000 unit TID KOBY Administration Potassium Chloride 10 meq in 100 mls @ 100 mls/hr 01/25/20 10:00 01/25/20 10:15 Potassium Chloride 10 Meq Premix Ivpb - IVPB 01/25/20 12:59 100 mls/hr Q60M KOBY Administration Meropenem 1 gm/ Dextrose 100 mls @ 200 mls/hr 01/25/20 22:00 IVPB BID KOBY Meropenem 1 gm/ Dextrose 100 mls @ 200 mls/hr 01/25/20 11:00 IVPB 01/26/20 10:59 BID KOBY Lidocaine 1 patch 01/24/20 10:00 01/25/20 10:15 Lidoderm Patch - TP 1 patch DAILY KOBY Administration Miscellaneous 1 each 01/24/20 22:00 01/24/20 21:36 Lidoderm Patch Removal MC 1 each DAILY@2200 KOBY Administration Mupirocin 1 applic 01/22/20 22:00 01/25/20 10:16 Bactroban Ointment (For Decolonization) - NS 01/27/20 21:59 1 applic BID KOBY Administration Pantoprazole Sodium 40 mg 01/23/20 10:00 01/25/20 10:15 Protonix - PO 40 mg BID KOBY Administration Vital Signs Period Temp Pulse Resp BP Sys/Myers Pulse Ox Last 24 Hr 98.3 F-99.8 F 63-84 15-24 92-128/55-73 94-98 Constitutional: Yes: No Distress Cardiovascular: Yes: Regular Rate and Rhythm Respiratory: Yes: CTA Bilaterally Gastrointestinal: Yes: Soft (nt) Edema: No Neurological: Yes: Alert, Oriented no jaundice diaphoresis CBC, BMP 01/25/20 05:45 01/25/20 05:45 - ....Imaging EKG: Image Reviewed tele: sr, elena pvcs Assessment/Plan IMP: 1. Hyperkalemia, marked 2. Acute renal failure (baseline creat 1) 3. Sinus ankita in setting severe hyperK+ 4. DM REC: 1. ARF/HyperK+: -All improved after emergent HD -Renal following -Holding LYDIA-I 2. Abnl ECG: -presenting ECG with classic changes of hyperK+: peaked Ts/flat Ps/Wide QRS now resolved. -Tele shows NSR with rare single PVCs -No sig arrhythmias on telemetry 3. HTN: -Home meds list Lisinopril and Carvedilol and she sees Dr. Fernandez as outpatient -These meds suggest the possibility of a cardiomyopathy, although patient denies (?reliable hx?) -Echo -Hold Amlodipine as BP soft 4. Possible UTI: -f/u cultures -On Ceftriaxone, defer to critical care team
--- NOTE | 2020-01-25 13:19 | CON.ID ---
Consult Consult Specialty:: infectious diseases Referred by:: dr diaz Reason for Consultation:: esbl uti,sepsis - History of Present Illness Chief Complaint: weakness, History of Present Illness: 79 y/o female with NIDDM, HTN, Parkinson's, osteoarthritis, ?GERD who presents with generalized weakness and nausea and loss of appetite x3 days. Per ED note, pt was given atropine by EMS for HR in 40s and was found to be hyperkalemic with peaked T waves at presentation. Pt's daughters report a few days of nausea but no other symptoms. She takes Advil PM sometimes for arthritis "all over her body." She has not had any recent changes to medications. patient was admitted to icu for worked up and now found to have esbl uti. patient is currently very weak and has dialysis catheter in the neck - History Source History Provided By: Patient Limitations to Obtaining History: No Limitations - Past Medical History Cardio/Vascular: Yes: HTN Gastrointestinal: Yes: Constipation Hepatobiliary: Yes: Cholelithiasis Musculoskeletal: Yes: Osteoarthritis Endocrine: Yes: Diabetes Mellitus - Alcohol/Substance Use Hx Alcohol Use: No - Smoking History Smoking history: Unknown if ever smoked Have you smoked in the past 12 months: No - Social History ADL: Independent History of Recent Travel: No Home Medications - Allergies Allergies/Adverse Reactions: Allergies Allergy/AdvReac Type Severity Reaction Status Date / Time No Known Allergies Allergy Verified 01/22/20 17:43 - Home Medications Home Medications: Ambulatory Orders Amlodipine Besylate [Norvasc -] 10 mg PO DAILY 01/22/20 Bethanechol Chloride [Urecholine -] 50 mg PO QID 01/22/20 Bimatoprost [Lumigan] 1 drop OU HS 01/22/20 Carbidopa/Levodopa *Cr* 50/200 [Sinemet *Cr* 50/200 -] 1 combo PO TID 01/22/20 Carvedilol 6.25 mg PO BID 01/22/20 Chlorthalidone 50 mg PO DAILY 01/22/20 Glycopyrrolate 1 tab PO DAILY 01/22/20 Ketoprofen 50 mg PO BID 01/22/20 Lisinopril [Prinivil -] 40 mg PO DAILY 01/22/20 Metformin HCl [Glucophage] 1,000 mg PO BID 01/22/20 Pantoprazole Sodium [Protonix -] 40 mg PO BID 01/22/20 Review of Systems - Review of Systems Constitutional: reports: Weakness, Other Eyes: reports: No Symptoms HENT: reports: No Symptoms Neck: reports: Other (dialysis catheter in the neck) Cardiovascular: reports: No Symptoms Respiratory: reports: No Symptoms Gastrointestinal: reports: No Symptoms Genitourinary: reports: No Symptoms Musculoskeletal: reports: No Symptoms Integumentary: reports: No Symptoms Neurological: reports: No Symptoms Endocrine: reports: No Symptoms Hematology/Lymphatic: reports: No Symptoms Psychiatric: reports: No Symptoms Physical Exam Vital Signs: Vital Signs Temperature 98.5 F 01/25/20 06:00 Pulse Rate 67 01/25/20 06:00 Respiratory Rate 15 01/25/20 12:00 Blood Pressure 108/64 01/25/20 06:00 O2 Sat by Pulse Oximetry (%) 98 01/25/20 12:00 Constitutional: Yes: No Distress, Calm HENT: Yes: Atraumatic, Normocephalic Cardiovascular: Yes: S1, S2 Respiratory: Yes: Regular, CTA Bilaterally Gastrointestinal: Yes: Normal Bowel Sounds, Soft Musculoskeletal: Yes: WNL Extremities: Yes: WNL Neurological: Yes: Alert, Oriented Psychiatric: Yes: Alert, Oriented Labs: CBC, BMP 01/25/20 05:45 01/25/20 05:45 Imaging - Results Chest X-ray: Report Reviewed, Image Reviewed Ultrasound: Report Reviewed, Image Reviewed Assessment/Plan ASSESSMENT AND PLAN: Acute Kidney Injury requiring emergent HD Hyperkalemia Bradycardia improved UTI Renal Mass DM HTN Parkinsons Anemia agree with change of abx to meropenam continue current mgmt rest as per the team
[2020-01-25 19:06] LABS: HEP B CORE AB, TOT Negative (Negative)
[2020-01-25] MEDS: LIDOCAINE PATCH REMOVAL MC SCH (21:23)
[2020-01-25] MEDS: CHLORHEXIDINE GLUCONATE 4% CLEANSER FOR DECOLONIZATION TP SCH (21:23)
[2020-01-25] MEDS ORDERED: MEROPENEM 1 GM VIAL (RESTRICTED TO ID) IVPB ONE (21:24)
[2020-01-25] MEDS ORDERED: DEXTROSE 5%-WATER 100 ML IVPB ONE (21:25)
[2020-01-25] MEDS ORDERED: ACETAMINOPHEN 325 MG TABLET (FP) PO ONE (22:01)
[2020-01-26] MEDS: HEPARIN NA (PORCINE) 5,000 UNITS/ML 1ML VIAL SQ SCH ×3 (05:23→21:32)
[2020-01-26 06:48] LABS: BASO % 0.2 % (0-2.0); EOS % 1.1 % (0-4.5); HEMATOCRIT 23.7 % (32.4-45.2); HEMOGLOBIN 7.6 GM/dL (10.7-15.3); LYMPH % 16.1 % (8-40); MCHC 32.1 g/dl (32.0-36.0); MEAN PLT VOLUME 8.8 fl (7.5-11.1); MONO % 12.1 % (3.8-10.2); NEUT % 70.5 % (42.8-82.8); PLATELET COUNT 189 K/MM3 (134-434); RBC 2.92 M/mm3 (3.60-5.2); RDW 16.4 % (11.6-15.6); WHITE BLOOD COUNT 11.6 K/mm3 (4.0-10.0)
[2020-01-26 07:09] LABS: ALBUMIN 2.2 g/dl (3.4-5.0); ANION GAP 7 MMOL/L (8-16); BLOOD UREA NITROGEN 21.1 mg/dL (7-18); CALCIUM 7.7 mg/dL (8.5-10.1); CHLORIDE 99 mmol/L (98-107); CO2 26 mmol/L (21-32); GLUCOSE,RANDOM 83 mg/dL (74-106); MAGNESIUM 1.9 mg/dL (1.8-2.4); POTASSIUM 3.5 mmol/L (3.5-5.1); SODIUM 132 mmol/L (136-145)
[2020-01-26 07:14] LABS: ALK PHOS 88 U/L (45-117); BILIRUBIN,TOTAL 0.6 mg/dL (0.2-1); CREATININE 1.3 mg/dL (0.55-1.3); PHOSPHOROUS 3.4 mg/dL (2.5-4.9); SGOT/AST 20 U/L (15-37); TOT PROT 6.2 g/dl (6.4-8.2)
[2020-01-26 07:26] LABS: SGPT/ALT < 6 U/L (13-61)
[2020-01-26] MEDS ORDERED: MEROPENEM 1 GM VIAL (RESTRICTED TO ID) IVPB ONE ×2 (09:08→21:09)
[2020-01-26] MEDS ORDERED: DEXTROSE 5%-WATER 100 ML IVPB ONE ×2 (09:09→21:09)
[2020-01-26] MEDS: PANTOPRAZOLE 40 MG TABLET PO SCH ×2 (09:17→21:33)
[2020-01-26] MEDS: MEROPENEM 1 GM in DEXTROSE 5%-WATER 100 ML IVPB SCH ×2 (09:17→21:33)
[2020-01-26] MEDS: LIDOCAINE 5% TOPICAL PATCH TP SCH (09:19)
[2020-01-26] MEDS: MUPIROCIN 2% TOPICAL OINTMENT FOR DECOLONIZATION NS SCH ×2 (09:20→21:32)
--- NOTE | 2020-01-26 12:18 | PN ---
Teaching Attending Note Name of Resident: Lucrecia Keyes ATTENDING PHYSICIAN STATEMENT I saw and evaluated the patient. I reviewed the resident's note and discussed the case with the resident. I agree with the resident's findings and plan as documented. SUBJECTIVE: Pt seen and examined in the ICU. Low grade fever overnight. c/o some leg pain. OBJECTIVE: Vital Signs Period Temp Pulse Resp BP Sys/Myers Pulse Ox Last 24 Hr 97.7 F-100.5 F 64-111 15-22 106-135/60-76 94-98 Intake & Output 01/23/20 01/24/20 01/25/20 01/26/20 23:59 23:59 23:59 23:59 Intake Total 1725 880 400 200 Output Total 3000 850 200 Balance -1275 30 200 200 Weight 79.923 kg 79.832 kg 76.839 kg 78.29 kg Gen: NAD at rest Heart: RRR Lung: decreased breath sounds at the bases Abd: soft, nontender Ext: no edema CBC, BMP 01/26/20 05:30 01/26/20 05:30 Active Medications Acetaminophen (Tylenol -) 650 mg PO Q6H PRN PRN Reason: PAIN LEVEL 1-5 Last Admin: 01/25/20 19:59 Dose: 650 mg Documented by: Carbidopa/Levodopa (Sinemet *Cr* 50/200 -) 1 combo PO TID [facility] Last Admin: 01/26/20 05:23 Dose: 1 combo Documented by: Chlorhexidine Gluconate (Hibiclens For Decolonization -) 1 applic TP HS [facility] Last Admin: 01/25/20 21:23 Dose: Not Given Documented by: Heparin Sodium (Porcine) (Heparin -) 5,000 unit SQ TID [facility] Last Admin: 01/26/20 05:23 Dose: 5,000 unit Documented by: Meropenem 1 gm/ Dextrose 100 mls @ 200 mls/hr IVPB BID [facility] Lidocaine (Lidoderm Patch -) 1 patch TP DAILY [facility] Last Admin: 01/26/20 09:19 Dose: 1 patch Documented by: Miscellaneous (Lidoderm Patch Removal) 1 each MC DAILY@2200 [facility] Last Admin: 01/25/20 21:23 Dose: 1 each Documented by: Mupirocin (Bactroban Ointment (For Decolonization) -) 1 applic NS BID [facility] Stop: 01/27/20 21:59 Last Admin: 01/26/20 09:20 Dose: 1 applic Documented by: Pantoprazole Sodium (Protonix -) 40 mg PO BID [facility] Last Admin: 01/26/20 09:17 Dose: 40 mg Documented by: ASSESSMENT AND PLAN: Acute Kidney Injury requiring emergent HD Hyperkalemia Bradycardia improved UTI Renal Mass DM HTN Parkinsons Anemia - continue antibiotics - monitor urine output, creatinine - urology f/u - PO as tolerated - DVT prophylaxis - can monitor on floor
--- NOTE | 2020-01-26 12:31 | PN ---
Physical Exam: SUBJECTIVE: Patient seen and examined as she was waking up, pleasant as always. No events overnight, 200cc urine. Several BMs over the past few days. Breathing comfortably on RA. Still complaining of knee pain. Hoping she can go home today. Started yesterday on meropenem due to urine cultures growing proteus mirabilis. Getting abdominal/pelvic CT today. OBJECTIVE: Vital Signs Period Temp Pulse Resp BP Sys/Myers Pulse Ox Last 24 Hr 97.7 F-100.5 F 64-111 15-22 106-135/60-76 94-98 GENERAL: The patient was waking up, fully oriented, in no acute distress. HEAD: Normal with no signs of trauma. Poor dentition NECK: Full range of motion, R trialysis line LUNGS: Breath sounds equal, clear to auscultation bilaterally, no wheezes, no crackles. HEART: Regular rate and rhythm, S1, S2 without murmur, rub or gallop. ABDOMEN: Soft, nontender, nondistended, active bowel sounds. : barboza catheter in place EXTREMITIES: warm, no edema. NEUROLOGICAL: Normal speech, gait not observed. PSYCH: Normal mood, normal affect. SKIN: Warm, no rashes or lesions noted Laboratory Results - last 24 hr 01/22/20 01/26/20 01/26/20 20:50 05:30 05:30 WBC 11.6 H RBC 2.92 L Hgb 7.6 L Hct 23.7 L MCV 81.0 MCH 26.0 MCHC 32.1 RDW 16.4 H Plt Count 189 MPV 8.8 Absolute Neuts (auto) 8.1 H Neutrophils % 70.5 Lymphocytes % 16.1 Monocytes % 12.1 H Eosinophils % 1.1 Basophils % 0.2 Nucleated RBC % 0 Sodium 132 L Potassium 3.5 Chloride 99 Carbon Dioxide 26 Anion Gap 7 L BUN 21.1 H Creatinine 1.3 Est GFR (CKD-EPI)AfAm 44.87 Est GFR (CKD-EPI)NonAf 38.71 Random Glucose 83 Calcium 7.7 L Phosphorus 3.4 Magnesium 1.9 Total Bilirubin 0.6 AST 20 ALT < 6 L Alkaline Phosphatase 88 Total Protein 6.2 L Albumin 2.2 L Hep A IgM Ab Confirm Negative Hepatitis A Ab Total Positive H Hep Bs Antigen Negative Hep Bs Antibody Non reactive Hep B Core Total Ab Negative Hep B Core IgM Ab Negative Hepatitis Be Antibody Negative Hepatitis Be Antigen Negative Active Medications Generic Name Dose Route Start Last Admin Trade Name Freq PRN Reason Stop Dose Admin Acetaminophen 650 mg 01/24/20 20:08 01/25/20 19:59 Tylenol - PO 650 mg Q6H PRN Administration PAIN LEVEL 1-5 Carbidopa/Levodopa 1 combo 01/23/20 06:00 01/26/20 05:23 Sinemet *Cr* 50/200 - PO 1 combo TID KOBY Administration Chlorhexidine Gluconate 1 applic 01/22/20 22:00 01/25/20 21:23 Hibiclens For Decolonization - TP Not Given HS KOBY Heparin Sodium (Porcine) 5,000 unit 01/22/20 22:00 01/26/20 05:23 Heparin - SQ 5,000 unit TID KOBY Administration Meropenem 1 gm/ Dextrose 100 mls @ 200 mls/hr 01/25/20 22:00 IVPB BID KOBY Lidocaine 1 patch 01/24/20 10:00 01/26/20 09:19 Lidoderm Patch - TP 1 patch DAILY KOBY Administration Miscellaneous 1 each 01/24/20 22:00 01/25/20 21:23 Lidoderm Patch Removal MC 1 each DAILY@2200 KOBY Administration Mupirocin 1 applic 01/22/20 22:00 01/26/20 09:20 Bactroban Ointment (For Decolonization) - NS 01/27/20 21:59 1 applic BID KOBY Administration Pantoprazole Sodium 40 mg 01/23/20 10:00 01/26/20 09:17 Protonix - PO 40 mg BID KOBY Administration VS: a bit hypotensive around midnight (92/55) but otherwise stable Hyponatremia 135 Hypokalemia 3.2 WBC 14.2 (up from 10) Blood culture grew Proteus species - sensitive to meropenem US: density in R kidney concerning for mass/malignancy - recommended contrast- enhanced MRI ASSESSMENT/PLAN: Pt is an 79 y/o female with NIDDM, HTN, Parkinson's, osteoarthritis who was admitted in November 2019 for ULICES and hypokalemia. She presented this time with generalized weakness and nausea and loss of appetite x3 days. Per ED note, pt was given atropine by EMS for HR in 40s and was found to be hyperkalemic with peaked T waves at presentation. She received emergent HD and fluids, and repeat labs showed improvement. Currently treated for UTI #neuro AOx3 -continue Carbi/Levodopa #cardio EKG showed widened QRS complex and peaked T waves indicative of hyperkalemia - resolved - PMHx of HTN - holding amplodipine per cardio - hold chlorthalidone, lisinopril - Echo ordered by cardio (symptomatic bradycardia) #pulm - satting 93% on RA - keep SpO2 >88% #renal ULICES - resolving s/p emergent HD and fluids - Cr from 3.1 down to 1.3 - hypokalemia 3.2 - repleting - hyponatremia 135 - continue monitoring - renal following #ID urine culture growing proteus species, WBC 11.6 (yesterday 14.2) - started meropenem - d/c ceftriaxone # - UA >10k bacteria, +3 leuk esterase - pt did not endorse symptoms, would not consider further tx with abx unless cx comes back positive - started meropenem - Renal and pelvic U/S: density on R kidney concerning for mass/malignancy - recommend contrast enhanced MRI (patient was treated for ULICES) - getting renal and pelvic CT today #endo - hold metformin - BGMs near 100 - if hyperglycemic, add SSI #heme chronic normocytic anemia - Hb downtrending at 7.6 today - continue monitoring #integumentary - previous sacral ulcer - monitor and wound care #PPX - DVT: heparin - GI: pantoprazole #FEN - repleted K - continue monitoring - hyponatremia 132 - hypocalcemia 7.7 - hypoalbuminemia 2.2 - Chol/Fat/Sodium restricted diet Dispo: transfer to med-surg. Luiza Robison #: [phone] FULL CODE Visit type - Emergency Visit Emergency Visit: Yes ED Registration Date: 01/22/20 Care time: The patient presented to the Emergency Department on the above date and was hospitalized for further evaluation of their emergent condition. - New Patient This patient is new to me today: No - Critical Care Critical Care patient: Yes Total Critical Care Time (in minutes): 37 Critical Care Statement: The care of this patient involved high complexity decision making to prevent further life threatening deterioration of the patient's condition and/or to evaluate & treat vital organ system(s) failure or risk of failure. ATTENDING PHYSICIAN STATEMENT I saw and evaluated the patient. I reviewed the resident's note and discussed the case with the resident. I agree with the resident's findings and plan as documented. SUBJECTIVE: OBJECTIVE: ASSESSMENT AND PLAN:
--- NOTE | 2020-01-26 13:03 | PN ---
Progress Note (short form) - Note Progress Note: = s: no cp sob palps dizzy Current Medications Generic Name Dose Route Start Last Admin Trade Name Freq PRN Reason Stop Dose Admin Acetaminophen 650 mg 01/24/20 20:08 01/25/20 19:59 Tylenol - PO 650 mg Q6H PRN Administration PAIN LEVEL 1-5 Carbidopa/Levodopa 1 combo 01/23/20 06:00 01/26/20 05:23 Sinemet *Cr* 50/200 - PO 1 combo TID KOBY Administration Chlorhexidine Gluconate 1 applic 01/22/20 22:00 01/25/20 21:23 Hibiclens For Decolonization - TP Not Given HS KOBY Heparin Sodium (Porcine) 5,000 unit 01/22/20 22:00 01/26/20 05:23 Heparin - SQ 5,000 unit TID KOBY Administration Meropenem 1 gm/ Dextrose 100 mls @ 200 mls/hr 01/25/20 22:00 IVPB BID KOBY Lidocaine 1 patch 01/24/20 10:00 01/26/20 09:19 Lidoderm Patch - TP 1 patch DAILY KOBY Administration Miscellaneous 1 each 01/24/20 22:00 01/25/20 21:23 Lidoderm Patch Removal MC 1 each DAILY@2200 KOBY Administration Mupirocin 1 applic 01/22/20 22:00 01/26/20 09:20 Bactroban Ointment (For Decolonization) - NS 01/27/20 21:59 1 applic BID KOBY Administration Pantoprazole Sodium 40 mg 01/23/20 10:00 01/26/20 09:17 Protonix - PO 40 mg BID KOBY Administration Vital Signs Period Temp Pulse Resp BP Sys/Myers Pulse Ox Last 24 Hr 97.7 F-100.5 F 64-111 15-22 106-135/60-76 94-98 Constitutional: Yes: No Distress Cardiovascular: Yes: Regular Rate and Rhythm Respiratory: Yes: CTA Bilaterally Gastrointestinal: Yes: Soft (nt) Edema: No Neurological: Yes: Alert, Oriented no jaundice diaphoresis not agitated - ....Imaging EKG: Image Reviewed tele: sr, occ pvcs Assessment/Plan IMP: 1. Hyperkalemia, marked 2. Acute renal failure (baseline creat 1) 3. Sinus ankita in setting severe hyperK+ 4. DM REC: 1. ARF/HyperK+: -All improved after emergent HD -Renal following -Holding LYDIA-I 2. Abnl ECG: -presenting ECG with classic changes of hyperK+: peaked Ts/flat Ps/Wide QRS now resolved. -Tele shows NSR with rare PVCs -No sig arrhythmias on telemetry 3. HTN: -Home meds list Lisinopril and Carvedilol and she sees Dr. Fernandez as outpatient -These meds suggest the possibility of a cardiomyopathy, although patient denies (?reliable hx?) -Echo pending -Hold Amlodipine as BP soft 4. Possible UTI: -f/u cultures - abx per primary
--- NOTE | 2020-01-26 13:40 | PN ---
Progress Note, Physician History of Present Illness: stable no new issues - Current Medication List Current Medications: Active Medications Acetaminophen (Tylenol -) 650 mg PO Q6H PRN PRN Reason: PAIN LEVEL 1-5 Last Admin: 01/25/20 19:59 Dose: 650 mg Documented by: Carbidopa/Levodopa (Sinemet *Cr* 50/200 -) 1 combo PO TID [facility] Last Admin: 01/26/20 05:23 Dose: 1 combo Documented by: Chlorhexidine Gluconate (Hibiclens For Decolonization -) 1 applic TP HS [facility] Last Admin: 01/25/20 21:23 Dose: Not Given Documented by: Heparin Sodium (Porcine) (Heparin -) 5,000 unit SQ TID [facility] Last Admin: 01/26/20 05:23 Dose: 5,000 unit Documented by: Meropenem 1 gm/ Dextrose 100 mls @ 200 mls/hr IVPB BID [facility] Lidocaine (Lidoderm Patch -) 1 patch TP DAILY [facility] Last Admin: 01/26/20 09:19 Dose: 1 patch Documented by: Miscellaneous (Lidoderm Patch Removal) 1 each MC DAILY@2200 [facility] Last Admin: 01/25/20 21:23 Dose: 1 each Documented by: Mupirocin (Bactroban Ointment (For Decolonization) -) 1 applic NS BID [facility] Stop: 01/27/20 21:59 Last Admin: 01/26/20 09:20 Dose: 1 applic Documented by: Pantoprazole Sodium (Protonix -) 40 mg PO BID [facility] Last Admin: 01/26/20 09:17 Dose: 40 mg Documented by: - Objective Vital Signs: Vital Signs Temperature 97.7 F 01/26/20 10:00 Pulse Rate 70 01/26/20 12:24 Respiratory Rate 16 01/26/20 12:24 Blood Pressure 132/74 01/26/20 12:24 O2 Sat by Pulse Oximetry (%) 94 L 01/26/20 10:00 Constitutional: Yes: No Distress, Calm Cardiovascular: Yes: S1, S2 Respiratory: Yes: Regular, CTA Bilaterally Gastrointestinal: Yes: Normal Bowel Sounds, Soft Musculoskeletal: Yes: WNL Extremities: Yes: WNL Neurological: Yes: Alert Psychiatric: Yes: Alert Labs: CBC, BMP 01/26/20 05:30 01/26/20 05:30 INR, PTT INR 0.94 (0.83-1.09) 01/22/20 17:00 Assessment/Plan ASSESSMENT AND PLAN: Acute Kidney Injury requiring emergent HD Hyperkalemia Bradycardia improved UTI Renal Mass DM HTN Parkinsons Anemia plan continue current abx continue monitoring rest as per the team
--- NOTE | 2020-01-26 15:21 | ECHO ---
Name: MEGAN MARSH Exam:Adult Echocardiogram Study Date: 01/26/2020 12:11 PM Age: 79 yrs Reason For Study: Symptomatic bradycardia Height: 64 in Weight: 176 lb BSA: 1.9 m2 BP: 132/74 mmHg MMode/2D Measurements & Calculations IVSd: 1.0 cm Ao root diam: 3.8 cm LVIDd: 4.2 cm LA dimension: 3.6 cm LVIDs: 3.0 cm ACS: 1.6 cm LVPWd: 1.0 cm EDV(Teich): 76.6 ml LVOT diam: 2.0 cm ESV(Teich): 34.0 ml LAV (MOD-bp): 61.0 ml TAPSE: 2.3 cm RV S Alfa: 14.3 cm/sec Doppler Measurements & Calculations MV E max alfa: 58.0 cm/sec Ao V2 max: 154.7 cm/sec MV A max alfa: 145.0 cm/sec Ao max P.6 mmHg MV E/A: 0.40 Ao V2 mean: 97.7 cm/sec MV dec time: 0.30 sec Ao mean P.7 mmHg Ao V2 VTI: 27.2 cm GAVIN(I,D): 2.4 cm2 AI P1/2t: 895.9 msec GAVIN(V,D): 2.0 cm2 AI max alfa: 342.1 cm/sec LV V1 max P.9 mmHg AI max P.8 mmHg LV V1 mean P.9 mmHg AI dec slope: 111.8 cm/sec2 LV V1 max: 98.7 cm/sec LV V1 mean: 63.5 cm/sec LV V1 VTI: 20.1 cm SV(LVOT): 64.4 ml TR max alfa: 222.2 cm/sec TR max P.8 mmHg PA V2 max: 77.4 cm/sec PI end-d alfa: 71.9 cm/sec PA max P.4 mmHg PA acc slope: 582.9 cm/sec2 PA acc time: 0.13 sec Med Peak E' Alfa: 4.6 cm/sec PA pr(Accel): 18.8 mmHg Med E/e': 12.7 Lat Peak E' Alfa: 5.6 cm/sec Lat E/e': 10.4 Pulm Sys Alfa: 65.2 cm/sec Pulm Myers Alfa: 29.6 cm/sec Pulm S/D: 2.2 Tech Comments TDS. Patient scanned supine. Left Ventricle The left ventricular size, thickness and function are normal. Ejection Fraction = 56%. Abnormal diast olic relaxation. Right Ventricle The right ventricle is normal in size and function. Atria Normal left and right atrial size and function. Mitral Valve The mitral valve is grossly normal. Tricuspid Valve The tricuspid valve is not well visualized, but is grossly normal. There is mild tricuspid regurgitat ion. PASP 25 mmHg. Aortic Valve The aortic valve is normal in structure and function. Mild aortic regurgitation. Pulmonic Valve The pulmonic valve is not well visualized. Great Vessels The aortic root is normal size. Pericardium/Pleura There is no pericardial effusion. Interpretation Summary The left ventricular size, thickness and function are normal Ejection Fraction = 56%. Abnormal diastolic relaxation The right ventricle is normal in size and function. Normal left and right atrial size and function. The mitral valve is grossly normal. The tricuspid valve is not well visualized, but is grossly normal. There is mild tricuspid regurgitation. The aortic valve is normal in structure and function. Mild aortic regurgitation. PASP 25 mmHg The pulmonic valve is not well visualized. The aortic root is normal size. There is no pericardial effusion. MD Jc Ernandez 01/26/2020 03:20 PM
[2020-01-26] MEDS ORDERED: PT OWN MED DRAWER 7, Y5N ONE (21:09)
[2020-01-26] MEDS: ACETAMINOPHEN 325 MG TABLET (FP) PO PRN (21:22)
[2020-01-26] MEDS: LIDOCAINE PATCH REMOVAL MC SCH (21:32)
[2020-01-26] MEDS: CHLORHEXIDINE GLUCONATE 4% CLEANSER FOR DECOLONIZATION TP SCH (21:32)
[2020-01-27] MEDS ORDERED: IBUPROFEN 400 MG TABLET (FP) PO ONE (00:25)
[2020-01-27] MEDS: HEPARIN NA (PORCINE) 5,000 UNITS/ML 1ML VIAL SQ SCH ×3 (06:48→21:23)
[2020-01-27] MEDS ORDERED: PT OWN MED DRAWER 7, Y5N ONE ×2 (07:00→15:52)
[2020-01-27 07:37] LABS: BASO % 0.3 % (0-2.0); EOS % 1.3 % (0-4.5); HEMATOCRIT 24.4 % (32.4-45.2); HEMOGLOBIN 7.8 GM/dL (10.7-15.3); LYMPH % 15.7 % (8-40); MCH 25.9 pg (25.7-33.7); MEAN PLT VOLUME 8.9 fl (7.5-11.1); MONO % 10.1 % (3.8-10.2); NEUT % 72.6 % (42.8-82.8); PLATELET COUNT 227 K/MM3 (134-434); RBC 3.02 M/mm3 (3.60-5.2); RDW 17.1 % (11.6-15.6); WHITE BLOOD COUNT 11.1 K/mm3 (4.0-10.0)
[2020-01-27 08:06] LABS: ALBUMIN 2.4 g/dl (3.4-5.0); ALK PHOS 115 U/L (45-117); ANION GAP 11 MMOL/L (8-16); BILIRUBIN,TOTAL 0.5 mg/dL (0.2-1); BLOOD UREA NITROGEN 24.3 mg/dL (7-18); CALCIUM 8.2 mg/dL (8.5-10.1); CHLORIDE 100 mmol/L (98-107); CO2 24 mmol/L (21-32); CREATININE 1.3 mg/dL (0.55-1.3); GLUCOSE,RANDOM 97 mg/dL (74-106); MAGNESIUM 2.2 mg/dL (1.8-2.4); PHOSPHOROUS 3.7 mg/dL (2.5-4.9); SGOT/AST 18 U/L (15-37); SGPT/ALT < 6 U/L (13-61); SODIUM 134 mmol/L (136-145); TOT PROT 6.8 g/dl (6.4-8.2)
[2020-01-27] MEDS ORDERED: MEROPENEM 1 GM VIAL (RESTRICTED TO ID) IVPB ONE ×2 (09:07→21:15)
[2020-01-27] MEDS ORDERED: DEXTROSE 5%-WATER 100 ML IVPB ONE ×2 (09:07→21:15)
--- NOTE | 2020-01-27 09:21 | PN ---
Progress Note, Physician Chief Complaint: Patient seen and examined at the bedside, no acute events from last night, stage III decubitus of the coccyx. History of Present Illness: This 79 yr old female with PMH of HTN, NIDDM, and Parkinson's disease admitted via ER with an acute generalized weakness, nausea, vomiting, diarrhea, abdominal discomfort, acute hyperkalemia, acute renal failure, sinus bradycardia, hypoechoic mass-like density in the right renal upper pole measuring 4.4cm x 3.3cm with peripheral color Doppler flow that is very suspicious for mass/malignancy. - Current Medication List Current Medications: Active Medications Acetaminophen (Tylenol -) 650 mg PO Q6H PRN PRN Reason: PAIN LEVEL 1-5 Last Admin: 01/26/20 21:22 Dose: 650 mg Documented by: Carbidopa/Levodopa (Sinemet *Cr* 50/200 -) 1 combo PO TID [facility] Last Admin: 01/27/20 06:48 Dose: 1 combo Documented by: Chlorhexidine Gluconate (Hibiclens For Decolonization -) 1 applic TP HS [facility] Last Admin: 01/26/20 21:32 Dose: Not Given Documented by: Heparin Sodium (Porcine) (Heparin -) 5,000 unit SQ TID [facility] Last Admin: 01/27/20 06:48 Dose: 5,000 unit Documented by: Meropenem 1 gm/ Dextrose 100 mls @ 200 mls/hr IVPB BID [facility] Last Admin: 01/26/20 21:33 Dose: 200 mls/hr Documented by: Lidocaine (Lidoderm Patch -) 1 patch TP DAILY [facility] Last Admin: 01/26/20 09:19 Dose: 1 patch Documented by: Miscellaneous (Lidoderm Patch Removal) 1 each MC DAILY@2200 [facility] Last Admin: 01/26/20 21:32 Dose: 1 each Documented by: Mupirocin (Bactroban Ointment (For Decolonization) -) 1 applic NS BID [facility] Stop: 01/27/20 21:59 Last Admin: 01/26/20 21:32 Dose: Not Given Documented by: Pantoprazole Sodium (Protonix -) 40 mg PO BID [facility] Last Admin: 01/26/20 21:33 Dose: 40 mg Documented by: - Objective Vital Signs: Vital Signs Temperature 97.4 F L 01/27/20 06:00 Pulse Rate 68 01/27/20 06:00 Respiratory Rate 18 01/27/20 06:00 Blood Pressure 109/69 01/27/20 06:00 O2 Sat by Pulse Oximetry (%) 100 01/26/20 21:00 Constitutional: Yes: Well Nourished, No Distress, Calm Eyes: Yes: Conjunctiva Clear, EOM Intact HENT: Yes: Atraumatic, Normocephalic Neck: Yes: Supple, Trachea Midline Cardiovascular: Yes: Regular Rate and Rhythm Respiratory: Yes: Regular, CTA Bilaterally Gastrointestinal: Yes: Normal Bowel Sounds, Soft ...Rectal Exam: Yes: Deferred Genitourinary: Yes: Incontinence (acute urinary retention) Breast(s): Yes: WNL Musculoskeletal: Yes: Muscle Weakness Edema: No Peripheral Pulses WNL: Yes Integumentary: Yes: Pressure Ulcer (stage 3 decubitus ulcer of coccyx) Neurological: Yes: Alert ...Motor Strength: LUE (generalized muscle weakness of all extremities) Psychiatric: Yes: Alert Labs: CBC, BMP 01/27/20 06:25 01/27/20 06:25 INR, PTT INR 0.94 (0.83-1.09) 01/22/20 17:00 - ....Imaging Other: Report Reviewed (lab data reviewed) Assessment/Plan Assessment/plan: acute UTI, acute sinus bradycardia, acute hyperkalemia, renal mass, DM, HTN, Parkison's disease, anemia, hyponatremia, hypocalcemia, hypoalbuminemia; IV Meropenem for UTI, DVT/GI prophylaxis with Heparin and Jimenez toprazole, Carbidopa/levodopa for Parkinson's disease, Lidoderm patch for pain control, physical therapy, consult to vascular surgeon re stage III decubitus of the coccyx, 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
[2020-01-27] MEDS: MEROPENEM 1 GM in DEXTROSE 5%-WATER 100 ML IVPB SCH ×2 (10:39→21:21)
[2020-01-27] MEDS: MUPIROCIN 2% TOPICAL OINTMENT FOR DECOLONIZATION NS SCH (10:40)
[2020-01-27] MEDS: PANTOPRAZOLE 40 MG TABLET PO SCH ×2 (10:40→21:21)
[2020-01-27] MEDS: LIDOCAINE 5% TOPICAL PATCH TP SCH (10:40)
--- NOTE | 2020-01-27 11:15 | PN ---
DATE OF VISIT: DATE OF DICTATION: 01/26/2020 Patient is an 79-year-old female who presented with hyperkalemia and bradycardia, underwent dialysis to correct her hyperkalemia. She also has history of diabetes, hypertension, anemia, and Parkinson's disease. A renal ultrasound revealed a 6-cm right renal mass. 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 Patient should undergo a laparoscopic nephrectomy when medically stable. Will arrange for procedure at a tertiary center when patient is medically cleared for discharge. Will follow with you. APRIL JUDGE M.D. [id number]
--- NOTE | 2020-01-27 11:30 | PN ---
Progress Note, Physician History of Present Illness: stable no new issues - Current Medication List Current Medications: Active Medications Acetaminophen (Tylenol -) 650 mg PO Q6H PRN PRN Reason: PAIN LEVEL 1-5 Last Admin: 01/26/20 21:22 Dose: 650 mg Documented by: Carbidopa/Levodopa (Sinemet *Cr* 50/200 -) 1 combo PO TID [facility] Last Admin: 01/27/20 06:48 Dose: 1 combo Documented by: Chlorhexidine Gluconate (Hibiclens For Decolonization -) 1 applic TP HS [facility] Last Admin: 01/26/20 21:32 Dose: Not Given Documented by: Heparin Sodium (Porcine) (Heparin -) 5,000 unit SQ TID [facility] Last Admin: 01/27/20 06:48 Dose: 5,000 unit Documented by: Meropenem 1 gm/ Dextrose 100 mls @ 200 mls/hr IVPB BID [facility] Last Admin: 01/27/20 10:39 Dose: 200 mls/hr Documented by: Lidocaine (Lidoderm Patch -) 1 patch TP DAILY [facility] Last Admin: 01/27/20 10:40 Dose: 1 patch Documented by: Miscellaneous (Lidoderm Patch Removal) 1 each MC DAILY@2200 [facility] Last Admin: 01/26/20 21:32 Dose: 1 each Documented by: Mupirocin (Bactroban Ointment (For Decolonization) -) 1 applic NS BID [facility] Stop: 01/27/20 21:59 Last Admin: 01/27/20 10:40 Dose: Not Given Documented by: Pantoprazole Sodium (Protonix -) 40 mg PO BID [facility] Last Admin: 01/27/20 10:40 Dose: 40 mg Documented by: - Objective Vital Signs: Vital Signs Temperature 98.1 F 01/27/20 10:00 Pulse Rate 77 01/27/20 10:00 Respiratory Rate 20 01/27/20 10:00 Blood Pressure 116/55 L 01/27/20 10:00 O2 Sat by Pulse Oximetry (%) 100 01/26/20 21:00 Constitutional: Yes: No Distress, Calm Cardiovascular: Yes: S1, S2 Respiratory: Yes: Regular, CTA Bilaterally Gastrointestinal: Yes: Normal Bowel Sounds, Soft Musculoskeletal: Yes: WNL Extremities: Yes: WNL Neurological: Yes: Alert, Oriented Psychiatric: Yes: Alert, Oriented Labs: CBC, BMP 01/27/20 06:25 01/27/20 06:25 INR, PTT INR 0.94 (0.83-1.09) 01/22/20 17:00 Assessment/Plan ASSESSMENT AND PLAN: Acute Kidney Injury requiring emergent HD Hyperkalemia Bradycardia improved UTI Renal Mass DM HTN Parkinsons Anemia plan continue current abx continue monitoring rest as per the team patient will need abx for at least 2 weeks
--- NOTE | 2020-01-27 12:41 | PN ---
Progress Note (short form) - Note Progress Note: s: no cp sob palps dizzy Current Medications Generic Name Dose Route Start Last Admin Trade Name Freq PRN Reason Stop Dose Admin Acetaminophen 650 mg 01/24/20 20:08 01/26/20 21:22 Tylenol - PO 650 mg Q6H PRN Administration PAIN LEVEL 1-5 Carbidopa/Levodopa 1 combo 01/23/20 06:00 01/27/20 06:48 Sinemet *Cr* 50/200 - PO 1 combo TID KOBY Administration Chlorhexidine Gluconate 1 applic 01/22/20 22:00 01/26/20 21:32 Hibiclens For Decolonization - TP Not Given HS KOBY Heparin Sodium (Porcine) 5,000 unit 01/22/20 22:00 01/27/20 06:48 Heparin - SQ 5,000 unit TID KOBY Administration Meropenem 1 gm/ Dextrose 100 mls @ 200 mls/hr 01/26/20 22:00 01/27/20 10:39 IVPB 200 mls/hr BID [facility] Administration Lidocaine 1 patch 01/24/20 10:00 01/27/20 10:40 Lidoderm Patch - TP 1 patch DAILY [facility]Y Administration Miscellaneous 1 each 01/24/20 22:00 01/26/20 21:32 Lidoderm Patch Removal MC 1 each DAILY@2200 KOBY Administration Mupirocin 1 applic 01/22/20 22:00 01/27/20 10:40 Bactroban Ointment (For Decolonization) - NS 01/27/20 21:59 Not Given BID KOBY Pantoprazole Sodium 40 mg 01/23/20 10:00 01/27/20 10:40 Protonix - PO 40 mg BID KOBY Administration Vital Signs Period Temp Pulse Resp BP Sys/Myers Pulse Ox Last 24 Hr 97.4 F-98.5 F 68-81 14-20 109-129/55-77 94-100 Constitutional: Yes: No Distress Cardiovascular: Yes: Regular Rate and Rhythm Respiratory: Yes: CTA Bilaterally Gastrointestinal: Yes: Soft (nt) Edema: No Neurological: Yes: Alert, Oriented no jaundice diaphoresis not agitated echo 01/2020 nl LV function, E/A reversal, nl RV function, mild AR Assessment/Plan IMP: 1. Hyperkalemia, marked 2. Acute renal failure (baseline creat 1) 3. Sinus ankita in setting severe hyperK+ 4. DM REC: 1. ARF/HyperK+: -All improved after emergent HD -Renal following -Holding LYDIA-I 2. Abnl ECG: -presenting ECG with classic changes of hyperK+: peaked Ts/flat Ps/Wide QRS now resolved. -Tele shows NSR with rare PVCs -No sig arrhythmias on telemetry 3. HTN: -Home meds list Lisinopril and Carvedilol and she sees Dr. Fernandez as outpatient -Hold Amlodipine as BP soft 4. UTI: -f/u cultures - abx per primary 5. 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 plan for surgery at tertiary center
--- NOTE | 2020-01-27 15:27 | CONSULT ---
- Consultation REQUESTING PROVIDER: Wound Care/Surgery - Dr. Delmar Garcia CONSULT REQUEST: We have been asked to surgically evaluate this patient's sacral wound PCP: Hernan Danielle HPI: Asked to eval sacral wound. On contact isolation for ESBL in urine PE: GEN: Awake, alert, in no acute distress. SKIN: Stage 2 sacral ulcer ~ 5mm x 5mm. Clean. No undermining or evidence of infection Last Vital Signs Temp Pulse Resp BP Pulse Ox 98.4 F 79 18 117/64 98 01/27/20 14:47 01/27/20 14:47 01/27/20 14:47 01/27/20 14:47 01/27/20 09:00 CBC, BMP 01/27/20 06:25 01/27/20 06:25 Serology Test 01/22/20 17:00 COVID-19 (ALEXX) Not detected A/P: Small stage 2 sacral ulcer 5 mm x 5 mm. Clean. Recommend the following care: -Reposition every two hours while in bed -Air mattress recommended -Use drawsheets and Trendelenburg when repositioning to reduce friction and shear -Manageincontinence via timely cleansing, use of appropriate incontinence disposables and use of barrier ointment to intact skin -Ensure adequate hydration/nutrition, supplementation per primary team -Ensure off-loading to all bony areas (heels, ankles, hips and tailbone) with Allevyn/Optifoam -Cont medical management -Reonsult surgery PRN Above plan discussed with Dr. Garcia and agrees. Problem List - Problems (1) Decubitus ulcer of sacral region, stage 2 Code(s): L89.152 - PRESSURE ULCER OF SACRAL REGION, STAGE 2 (2) UTI (urinary tract infection) Code(s): N39.0 - URINARY TRACT INFECTION, SITE NOT SPECIFIED (3) Neurogenic bladder Code(s): N31.9 - NEUROMUSCULAR DYSFUNCTION OF BLADDER, UNSPECIFIED Visit type - Case Type Case Type: ED Admission - Emergency Emergency Visit: Yes ED Registration Date: 01/22/20 Care time: The patient presented to the Emergency Department on the above date and was hospitalized for further evaluation of their emergent condition. - New patient This patient is new to me today: Yes Date on this admission: 01/27/20
--- NOTE | 2020-01-27 18:56 | PN ---
Progress Note, Physician History of Present Illness: Pt seen and examined at bedside. She is awake and alert. She denies shortness of breath. - Current Medication List Current Medications: Active Medications Acetaminophen (Tylenol -) 650 mg PO Q6H PRN PRN Reason: PAIN LEVEL 1-5 Last Admin: 01/26/20 21:22 Dose: 650 mg Documented by: Acetaminophen (Tylenol -) 325 mg PO Q4H PRN PRN Reason: PAIN 6-10 Stop: 01/30/20 13:59 Carbidopa/Levodopa (Sinemet *Cr* 50/200 -) 1 combo PO TID [facility] Last Admin: 01/27/20 15:54 Dose: 1 combo Documented by: Chlorhexidine Gluconate (Hibiclens For Decolonization -) 1 applic TP HS [facility] Last Admin: 01/26/20 21:32 Dose: Not Given Documented by: Heparin Sodium (Porcine) (Heparin -) 5,000 unit SQ TID [facility] Last Admin: 01/27/20 15:54 Dose: 5,000 unit Documented by: Meropenem 1 gm/ Dextrose 100 mls @ 200 mls/hr IVPB BID [facility] Last Admin: 01/27/20 10:39 Dose: 200 mls/hr Documented by: Lidocaine (Lidoderm Patch -) 1 patch TP DAILY [facility] Last Admin: 01/27/20 10:40 Dose: 1 patch Documented by: Miscellaneous (Lidoderm Patch Removal) 1 each MC DAILY@2200 [facility] Last Admin: 01/26/20 21:32 Dose: 1 each Documented by: Mupirocin (Bactroban Ointment (For Decolonization) -) 1 applic NS BID [facility] Stop: 01/27/20 21:59 Last Admin: 01/27/20 10:40 Dose: Not Given Documented by: Oxycodone HCl (Roxicodone -) 5 mg PO Q4H PRN PRN Reason: PAIN 6-10 Pantoprazole Sodium (Protonix -) 40 mg PO BID [facility] Last Admin: 01/27/20 10:40 Dose: 40 mg Documented by: - Objective Vital Signs: Vital Signs Temperature 98.4 F 01/27/20 14:47 Pulse Rate 79 01/27/20 14:47 Respiratory Rate 18 01/27/20 17:49 Blood Pressure 117/64 01/27/20 14:47 O2 Sat by Pulse Oximetry (%) 98 01/27/20 09:00 Constitutional: Yes: Calm Eyes: Yes: Conjunctiva Clear HENT: Yes: Atraumatic Cardiovascular: Yes: S1, S2 Respiratory: Yes: CTA Bilaterally Gastrointestinal: Yes: Soft Genitourinary: Yes: WNL Edema: No Neurological: Yes: Oriented Labs: CBC, BMP 01/27/20 06:25 01/27/20 06:25 INR, PTT INR 0.94 (0.83-1.09) 01/22/20 17:00 Assessment/Plan Current Medications Generic Name Dose Route Start Last Admin Trade Name Freq PRN Reason Stop Dose Admin Acetaminophen 650 mg 01/24/20 20:08 01/26/20 21:22 Tylenol - PO 650 mg Q6H PRN Administration PAIN LEVEL 1-5 Acetaminophen 325 mg 01/27/20 14:00 Tylenol - PO 01/30/20 13:59 Q4H PRN PAIN 6-10 Carbidopa/Levodopa 1 combo 01/23/20 06:00 01/27/20 15:54 Sinemet *Cr* 50/200 - PO 1 combo TID [facility] Administration Chlorhexidine Gluconate 1 applic 01/22/20 22:00 01/26/20 21:32 Hibiclens For Decolonization - TP Not Given HS [facility] Heparin Sodium (Porcine) 5,000 unit 01/22/20 22:00 01/27/20 15:54 Heparin - SQ 5,000 unit TID [facility] Administration Meropenem 1 gm/ Dextrose 100 mls @ 200 mls/hr 01/26/20 22:00 01/27/20 10:39 IVPB 200 mls/hr BID [facility] Administration Lidocaine 1 patch 01/24/20 10:00 01/27/20 10:40 Lidoderm Patch - TP 1 patch DAILY [facility] Administration Miscellaneous 1 each 01/24/20 22:00 01/26/20 21:32 Lidoderm Patch Removal MC 1 each DAILY@2200 [facility] Administration Mupirocin 1 applic 01/22/20 22:00 01/27/20 10:40 Bactroban Ointment (For Decolonization) - NS 01/27/20 21:59 Not Given BID [facility] Oxycodone HCl 5 mg 01/27/20 14:00 Roxicodone - PO Q4H PRN PAIN 6-10 Pantoprazole Sodium 40 mg 01/23/20 10:00 01/27/20 10:40 Protonix - PO 40 mg BID [facility] Administration Impression 1. ULICES resolved 2. right kidney mass concerning for malignancy found on ct scan 3. uti 4. hyperkalemia resolved Plan - renal function has stabilized - urology eval appreciated - avoid nephrotocins - avoid nsaids - montor renal function
[2020-01-27] MEDS: oxyCODONE HCL 5 MG TABLET PO PRN (21:21)
[2020-01-27] MEDS: ACETAMINOPHEN 325 MG TABLET (FP) PO PRN (21:23)
[2020-01-27] MEDS: LIDOCAINE PATCH REMOVAL MC SCH (21:24)
[2020-01-27] MEDS: CHLORHEXIDINE GLUCONATE 4% CLEANSER FOR DECOLONIZATION TP SCH (21:24)
[2020-01-28] MEDS: oxyCODONE HCL 5 MG TABLET PO PRN ×3 (02:55→22:28)
[2020-01-28] MEDS: ACETAMINOPHEN 325 MG TABLET (FP) PO PRN ×3 (02:56→22:29)
[2020-01-28] MEDS ORDERED: PT OWN MED DRAWER 7, Y5N ONE (03:24)
[2020-01-28] MEDS: HEPARIN NA (PORCINE) 5,000 UNITS/ML 1ML VIAL SQ SCH ×3 (06:03→21:47)
[2020-01-28 07:42] LABS: BASO % 0.4 % (0-2.0); EOS % 1.9 % (0-4.5); HEMATOCRIT 25.2 % (32.4-45.2); HEMOGLOBIN 8.2 GM/dL (10.7-15.3); LYMPH % 18.2 % (8-40); MCH 26.2 pg (25.7-33.7); MCHC 32.6 g/dl (32.0-36.0); MEAN CELL VOLUME 80.3 fl (80-96); MEAN PLT VOLUME 8.5 fl (7.5-11.1); MONO % 10.6 % (3.8-10.2); NEUT % 68.9 % (42.8-82.8); PLATELET COUNT 267 K/MM3 (134-434); RBC 3.13 M/mm3 (3.60-5.2); RDW 16.5 % (11.6-15.6); WHITE BLOOD COUNT 10.4 K/mm3 (4.0-10.0)
[2020-01-28 07:45] LABS: ALBUMIN 2.4 g/dl (3.4-5.0); ALK PHOS 114 U/L (45-117); ANION GAP 9 MMOL/L (8-16); BILIRUBIN,TOTAL 0.5 mg/dL (0.2-1); BLOOD UREA NITROGEN 21.8 mg/dL (7-18); CALCIUM 8.4 mg/dL (8.5-10.1); CHLORIDE 101 mmol/L (98-107); CO2 26 mmol/L (21-32); GLUCOSE,RANDOM 88 mg/dL (74-106); POTASSIUM 3.5 mmol/L (3.5-5.1); SGOT/AST 16 U/L (15-37); SGPT/ALT < 6 U/L (13-61); SODIUM 136 mmol/L (136-145); TOT PROT 6.8 g/dl (6.4-8.2)
[2020-01-28] MEDS ORDERED: MEROPENEM 1 GM VIAL (RESTRICTED TO ID) IVPB ONE ×2 (08:46→17:36)
[2020-01-28] MEDS ORDERED: DEXTROSE 5%-WATER 100 ML IVPB ONE ×2 (08:46→17:36)
[2020-01-28] MEDS: PANTOPRAZOLE 40 MG TABLET PO SCH ×2 (09:33→21:47)
[2020-01-28] MEDS: MEROPENEM 1 GM in DEXTROSE 5%-WATER 100 ML IVPB SCH ×2 (09:33→17:41)
[2020-01-28] MEDS: LIDOCAINE 5% TOPICAL PATCH TP SCH (09:34)
--- NOTE | 2020-01-28 10:01 | PN ---
Progress Note, Physician Chief Complaint: Patient seen and examined at the bedside, no acute events from last night, afebrile. History of Present Illness: This 79 yr old female with PMH of HTN, NIDDM, Parkinson's disease admitted via ER with an acute generalized weakness, nausea, vomiting, diarrhea, abdominal discomfort, acute severe hyperkalemia, acute bradycardia, acute renal failure, and a hypoechoic masslike density in the right renal upper pole 4.4cm x 3.3cm with peripheral color Doppler flow that is very suspicious for mass/malignancy. - Current Medication List Current Medications: Active Medications Acetaminophen (Tylenol -) 650 mg PO Q6H PRN PRN Reason: PAIN LEVEL 1-5 Last Admin: 01/26/20 21:22 Dose: 650 mg Documented by: Acetaminophen (Tylenol -) 325 mg PO Q4H PRN PRN Reason: PAIN 6-10 Stop: 01/30/20 13:59 Last Admin: 01/28/20 06:53 Dose: 325 mg Documented by: Carbidopa/Levodopa (Sinemet *Cr* 50/200 -) 1 combo PO TID [facility] Last Admin: 01/28/20 06:02 Dose: 1 combo Documented by: Chlorhexidine Gluconate (Hibiclens For Decolonization -) 1 applic TP HS [facility] Last Admin: 01/27/20 21:24 Dose: Not Given Documented by: Heparin Sodium (Porcine) (Heparin -) 5,000 unit SQ TID [facility] Last Admin: 01/28/20 06:03 Dose: 5,000 unit Documented by: Meropenem 1 gm/ Dextrose 100 mls @ 200 mls/hr IVPB BID [facility] Last Admin: 01/28/20 09:33 Dose: 200 mls/hr Documented by: Lidocaine (Lidoderm Patch -) 1 patch TP DAILY [facility] Last Admin: 01/28/20 09:34 Dose: 1 patch Documented by: Miscellaneous (Lidoderm Patch Removal) 1 each MC DAILY@2200 [facility] Last Admin: 01/27/20 21:24 Dose: 1 each Documented by: Oxycodone HCl (Roxicodone -) 5 mg PO Q4H PRN PRN Reason: PAIN 6-10 Last Admin: 01/28/20 06:52 Dose: 5 mg Documented by: Pantoprazole Sodium (Protonix -) 40 mg PO BID [facility] Last Admin: 01/28/20 09:33 Dose: 40 mg Documented by: - Objective Vital Signs: Vital Signs Temperature 97.4 F L 01/28/20 06:00 Pulse Rate 71 01/28/20 06:00 Respiratory Rate 18 01/28/20 06:00 Blood Pressure 113/68 01/28/20 06:00 O2 Sat by Pulse Oximetry (%) 100 01/27/20 21:00 Constitutional: Yes: Well Nourished, No Distress, Calm Eyes: Yes: Conjunctiva Clear, EOM Intact HENT: Yes: Atraumatic, Normocephalic Neck: Yes: Supple, Trachea Midline Cardiovascular: Yes: Regular Rate and Rhythm Respiratory: Yes: Regular, CTA Bilaterally Gastrointestinal: Yes: Normal Bowel Sounds, Soft ...Rectal Exam: Yes: Deferred Genitourinary: Yes: WNL Breast(s): Yes: WNL Musculoskeletal: Yes: Muscle Weakness Extremities: Yes: WNL Edema: No Peripheral Pulses WNL: Yes Integumentary: Yes: Pressure Ulcer (stage II decubitus of the coccyx) Neurological: Yes: Alert, Unsteady Gait, Weakness ...Motor Strength: LUE (generalized muscle weakness of all extremties) Psychiatric: Yes: Alert Labs: CBC, BMP 01/28/20 06:20 01/28/20 06:20 INR, PTT INR 0.94 (0.83-1.09) 01/22/20 17:00 - ....Imaging Other: Report Reviewed (lab data reviewed) Problem List - Problems (1) Acute electrocardiogram changes Code(s): R94.31 - ABNORMAL ELECTROCARDIOGRAM [ECG] [EKG] (2) Acute kidney injury Code(s): N17.9 - ACUTE KIDNEY FAILURE, UNSPECIFIED (3) Decubitus ulcer of sacral region, stage 2 Code(s): L89.152 - PRESSURE ULCER OF SACRAL REGION, STAGE 2 (4) Hyperkalemia Code(s): E87.5 - HYPERKALEMIA (5) UTI (urinary tract infection) Code(s): N39.0 - URINARY TRACT INFECTION, SITE NOT SPECIFIED (6) Acute dehydration Code(s): E86.0 - DEHYDRATION (7) Acute urinary retention Code(s): R33.8 - OTHER RETENTION OF URINE (8) Anemia Code(s): D64.9 - ANEMIA, UNSPECIFIED (9) Cholelithiasis Code(s): K80.20 - CALCULUS OF GALLBLADDER W/O CHOLECYSTITIS W/O OBSTRUCTION (10) Degenerative joint disease of both hips Code(s): M16.0 - BILATERAL PRIMARY OSTEOARTHRITIS OF HIP (11) Diarrhea Code(s): R19.7 - DIARRHEA, UNSPECIFIED (12) Hypokalemia Code(s): E87.6 - HYPOKALEMIA (13) Hyponatremia Code(s): E87.1 - HYPO-OSMOLALITY AND HYPONATREMIA (14) LLQ abdominal pain Code(s): R10.32 - LEFT LOWER QUADRANT PAIN (15) Left hip pain Code(s): M25.552 - PAIN IN LEFT HIP (16) Leukocytosis Code(s): D72.829 - ELEVATED WHITE BLOOD CELL COUNT, UNSPECIFIED (17) Neurogenic bladder Code(s): N31.9 - NEUROMUSCULAR DYSFUNCTION OF BLADDER, UNSPECIFIED (18) Prerenal azotemia Code(s): R79.89 - OTHER SPECIFIED ABNORMAL FINDINGS OF BLOOD CHEMISTRY (19) Pressure ulcer of coccygeal region, stage 2 Code(s): L89.152 - PRESSURE ULCER OF SACRAL REGION, STAGE 2 (20) Renal cyst, [place], hemorrhage Code(s): N28.89 - OTHER SPECIFIED DISORDERS OF KIDNEY AND URETER; N28.1 - CYST OF KIDNEY, ACQUIRED (21) Renal failure Code(s): N19 - UNSPECIFIED KIDNEY FAILURE (22) Sinus bradycardia Code(s): R00.1 - BRADYCARDIA, UNSPECIFIED (23) Renal mass, right Code(s): N28.89 - OTHER SPECIFIED DISORDERS OF KIDNEY AND URETER Assessment/Plan Assessment/plan: acute generalized weakness, acute nausea and vomiting, acute diarrhea, acute abdominal discomfort, acute severe hyperkalemia, acute sinus bradycardia, wide QRS ?junctional rhythm, acute UTI, ULICES, acute prerenal azotemia, acute dehydration, right renal mass/malignancy, HTN, NIDDM, Parkinson's diseae; IV Meropenem for an acute UTI, DVT/GI prophylaxis with SQ He claudia and oral Pantoprazole, acetaminophen, lidoderm patch and oxycodone for pain control, follow up with Urologist Dr. Jennifer Parker regarding further management of the right renal mass/malignancy.
--- NOTE | 2020-01-28 10:59 | PN ---
Progress Note, Physician History of Present Illness: stable no new issues - Current Medication List Current Medications: Active Medications Acetaminophen (Tylenol -) 650 mg PO Q6H PRN PRN Reason: PAIN LEVEL 1-5 Last Admin: 01/26/20 21:22 Dose: 650 mg Documented by: Acetaminophen (Tylenol -) 325 mg PO Q4H PRN PRN Reason: PAIN 6-10 Stop: 01/30/20 13:59 Last Admin: 01/28/20 06:53 Dose: 325 mg Documented by: Carbidopa/Levodopa (Sinemet *Cr* 50/200 -) 1 combo PO TID [facility] Last Admin: 01/28/20 06:02 Dose: 1 combo Documented by: Chlorhexidine Gluconate (Hibiclens For Decolonization -) 1 applic TP HS [facility] Last Admin: 01/27/20 21:24 Dose: Not Given Documented by: Heparin Sodium (Porcine) (Heparin -) 5,000 unit SQ TID [facility] Last Admin: 01/28/20 06:03 Dose: 5,000 unit Documented by: Meropenem 1 gm/ Dextrose 100 mls @ 200 mls/hr IVPB BID [facility] Last Admin: 01/28/20 09:33 Dose: 200 mls/hr Documented by: Lidocaine (Lidoderm Patch -) 1 patch TP DAILY [facility] Last Admin: 01/28/20 09:34 Dose: 1 patch Documented by: Miscellaneous (Lidoderm Patch Removal) 1 each MC DAILY@2200 [facility] Last Admin: 01/27/20 21:24 Dose: 1 each Documented by: Oxycodone HCl (Roxicodone -) 5 mg PO Q4H PRN PRN Reason: PAIN 6-10 Last Admin: 01/28/20 06:52 Dose: 5 mg Documented by: Pantoprazole Sodium (Protonix -) 40 mg PO BID [facility] Last Admin: 01/28/20 09:33 Dose: 40 mg Documented by: - Objective Vital Signs: Vital Signs Temperature 97.4 F L 01/28/20 06:00 Pulse Rate 71 01/28/20 06:00 Respiratory Rate 18 01/28/20 06:00 Blood Pressure 113/68 01/28/20 06:00 O2 Sat by Pulse Oximetry (%) 100 01/27/20 21:00 Constitutional: Yes: No Distress, Calm Cardiovascular: Yes: S1, S2 Respiratory: Yes: Regular, CTA Bilaterally Gastrointestinal: Yes: Normal Bowel Sounds, Soft Musculoskeletal: Yes: WNL Extremities: Yes: WNL Neurological: Yes: Alert, Oriented Psychiatric: Yes: Alert, Oriented Labs: CBC, BMP 01/28/20 06:20 01/28/20 06:20 INR, PTT INR 0.94 (0.83-1.09) 01/22/20 17:00 Assessment/Plan ASSESSMENT AND PLAN: Acute Kidney Injury requiring emergent HD Hyperkalemia Bradycardia improved UTI Renal Mass DM HTN Parkinsons Anemia plan continue current abx continue monitoring rest as per the team patient will need abx for at least 2 weeks if plan to send home can switch to ertapenam 1 gm daily
--- NOTE | 2020-01-28 11:26 | PN ---
Progress Note (short form) - Note Progress Note: s: no cp sob palps dizzy Current Medications Generic Name Dose Route Start Last Admin Trade Name Freq PRN Reason Stop Dose Admin Acetaminophen 650 mg 01/24/20 20:08 01/26/20 21:22 Tylenol - PO 650 mg Q6H PRN Administration PAIN LEVEL 1-5 Acetaminophen 325 mg 01/27/20 14:00 01/28/20 06:53 Tylenol - PO 01/30/20 13:59 325 mg Q4H PRN Administration PAIN 6-10 Carbidopa/Levodopa 1 combo 01/23/20 06:00 01/28/20 06:02 Sinemet *Cr* 50/200 - PO 1 combo TID [facility] Administration Chlorhexidine Gluconate 1 applic 01/22/20 22:00 01/27/20 21:24 Hibiclens For Decolonization - TP Not Given HS [facility] Heparin Sodium (Porcine) 5,000 unit 01/22/20 22:00 01/28/20 06:03 Heparin - SQ 5,000 unit TID [facility] Administration Meropenem 1 gm/ Dextrose 100 mls @ 200 mls/hr 01/28/20 18:00 IVPB Q8H-IV [facility] Lidocaine 1 patch 01/24/20 10:00 01/28/20 09:34 Lidoderm Patch - TP 1 patch DAILY [facility] Administration Miscellaneous 1 each 01/24/20 22:00 01/27/20 21:24 Lidoderm Patch Removal MC 1 each DAILY@2200 [facility] Administration Oxycodone HCl 5 mg 01/27/20 14:00 01/28/20 06:52 Roxicodone - PO 5 mg Q4H PRN Administration PAIN 6-10 Pantoprazole Sodium 40 mg 01/23/20 10:00 01/28/20 09:33 Protonix - PO 40 mg BID [facility] Administration Vital Signs Period Temp Pulse Resp BP Sys/Myers Pulse Ox Last 24 Hr 97.4 F-98.4 F 71-80 16-18 113-139/54-69 100 Constitutional: Yes: No Distress Cardiovascular: Yes: Regular Rate and Rhythm Respiratory: Yes: CTA Bilaterally Gastrointestinal: Yes: Soft (nt) Edema: No Neurological: Yes: Alert, Oriented no jaundice diaphoresis CBC, BMP 01/28/20 06:20 01/28/20 06:20 - ....Imaging EKG: Image Reviewed echo 01/2020 nl LV function, E/A reversal, nl RV function, mild AR Assessment/Plan IMP: 1. Hyperkalemia, marked 2. Acute renal failure (baseline creat 1) 3. Sinus ankita in setting severe hyperK+ 4. DM REC: 1. ARF/HyperK+: -All improved after emergent HD -Renal following -Holding LYDIA-I 2. Abnl ECG: -presenting ECG with classic changes of hyperK+: peaked Ts/flat Ps/Wide QRS now resolved. -Tele shows NSR with rare PVCs -No sig arrhythmias on telemetry 3. HTN: -Home meds list Lisinopril and Carvedilol and she sees Dr. Fernandez as outpatient -Hold Amlodipine as BP soft 4. UTI: -f/u cultures - abx per primary 5. 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 plan for surgery at tertiary center
[2020-01-28 13:00] LABS: IRON SERUM 17 ug/dL (50-175); TOTAL IRON BINDING CAPACITY 151 ug/dL (250-450)
[2020-01-28 15:12] VITALS: BMI 29.5
--- NOTE | 2020-01-28 19:00 | PN ---
Progress Note, Physician History of Present Illness: Pt seen and examined at bedside. She feels well. Daughter at bedside, care discussed with her. - Current Medication List Current Medications: Active Medications Acetaminophen (Tylenol -) 650 mg PO Q6H PRN PRN Reason: PAIN LEVEL 1-5 Last Admin: 01/26/20 21:22 Dose: 650 mg Documented by: Acetaminophen (Tylenol -) 325 mg PO Q4H PRN PRN Reason: PAIN 6-10 Stop: 01/30/20 13:59 Last Admin: 01/28/20 06:53 Dose: 325 mg Documented by: Carbidopa/Levodopa (Sinemet *Cr* 50/200 -) 1 combo PO TID [facility] Last Admin: 01/28/20 13:05 Dose: 1 combo Documented by: Chlorhexidine Gluconate (Hibiclens For Decolonization -) 1 applic TP HS [facility] Last Admin: 01/27/20 21:24 Dose: Not Given Documented by: Heparin Sodium (Porcine) (Heparin -) 5,000 unit SQ TID [facility] Last Admin: 01/28/20 13:06 Dose: 5,000 unit Documented by: Meropenem 1 gm/ Dextrose 100 mls @ 200 mls/hr IVPB Q8H-IV [facility] Last Admin: 01/28/20 17:41 Dose: 200 mls/hr Documented by: Lidocaine (Lidoderm Patch -) 1 patch TP DAILY [facility] Last Admin: 01/28/20 09:34 Dose: 1 patch Documented by: Miscellaneous (Lidoderm Patch Removal) 1 each MC DAILY@2200 [facility] Last Admin: 01/27/20 21:24 Dose: 1 each Documented by: Oxycodone HCl (Roxicodone -) 5 mg PO Q4H PRN PRN Reason: PAIN 6-10 Last Admin: 01/28/20 06:52 Dose: 5 mg Documented by: Pantoprazole Sodium (Protonix -) 40 mg PO BID [facility] Last Admin: 01/28/20 09:33 Dose: 40 mg Documented by: - Objective Vital Signs: Vital Signs Temperature 98.8 F 01/28/20 17:32 Pulse Rate 74 01/28/20 17:32 Respiratory Rate 20 01/28/20 17:32 Blood Pressure 142/76 01/28/20 17:32 O2 Sat by Pulse Oximetry (%) 97 01/28/20 09:00 Constitutional: Yes: Calm Eyes: Yes: Conjunctiva Clear HENT: Yes: Atraumatic Neck: Yes: Supple Cardiovascular: Yes: S1, S2 Respiratory: Yes: CTA Bilaterally Gastrointestinal: Yes: Soft Musculoskeletal: Yes: WNL Edema: No Neurological: Yes: Oriented Labs: CBC, BMP 01/28/20 06:20 01/28/20 06:20 INR, PTT INR 0.94 (0.83-1.09) 01/22/20 17:00 Assessment/Plan Current Medications Generic Name Dose Route Start Last Admin Trade Name Freq PRN Reason Stop Dose Admin Acetaminophen 650 mg 01/24/20 20:08 01/26/20 21:22 Tylenol - PO 650 mg Q6H PRN Administration PAIN LEVEL 1-5 Acetaminophen 325 mg 01/27/20 14:00 01/28/20 06:53 Tylenol - PO 01/30/20 13:59 325 mg Q4H PRN Administration PAIN 6-10 Carbidopa/Levodopa 1 combo 01/23/20 06:00 01/28/20 13:05 Sinemet *Cr* 50/200 - PO 1 combo TID [facility] Administration Chlorhexidine Gluconate 1 applic 01/22/20 22:00 01/27/20 21:24 Hibiclens For Decolonization - TP Not Given HS [facility] Heparin Sodium (Porcine) 5,000 unit 01/22/20 22:00 01/28/20 13:06 Heparin - SQ 5,000 unit TID [facility] Administration Meropenem 1 gm/ Dextrose 100 mls @ 200 mls/hr 01/28/20 18:00 01/28/20 17:41 IVPB 200 mls/hr Q8H-IV [facility] Administration Lidocaine 1 patch 01/24/20 10:00 01/28/20 09:34 Lidoderm Patch - TP 1 patch DAILY [facility] Administration Miscellaneous 1 each 01/24/20 22:00 01/27/20 21:24 Lidoderm Patch Removal MC 1 each DAILY@2200 [facility] Administration Oxycodone HCl 5 mg 01/27/20 14:00 01/28/20 06:52 Roxicodone - PO 5 mg Q4H PRN Administration PAIN 6-10 Pantoprazole Sodium 40 mg 01/23/20 10:00 01/28/20 09:33 Protonix - PO 40 mg BID [facility] Administration Impression 1. ULICES resolved 2. right kidney mass concerning for malignancy found on ct scan 3. uti 4. hyperkalemia resolved Plan - discussed plan with pt and family - [place] hand improved - pt has appointment with urology on the 16th - abx per ID - avoid nsaids - montor renal function
[2020-01-28] MEDS: LIDOCAINE PATCH REMOVAL MC SCH (21:48)
[2020-01-28] MEDS ORDERED: CHLORHEXIDINE GLUCONATE 4% CLEANSER FOR DECOLONIZATION TP SCH (22:00)
[2020-01-29] MEDS ORDERED: DEXTROSE 5%-WATER 100 ML IVPB ONE ×3 (03:06→16:31)
[2020-01-29] MEDS ORDERED: MEROPENEM 1 GM VIAL (RESTRICTED TO ID) IVPB ONE ×3 (03:06→16:31)
[2020-01-29] MEDS: MEROPENEM 1 GM in DEXTROSE 5%-WATER 100 ML IVPB SCH ×3 (03:12→17:01)
[2020-01-29] MEDS: HEPARIN NA (PORCINE) 5,000 UNITS/ML 1ML VIAL SQ SCH ×3 (06:28→22:57)
[2020-01-29 07:37] LABS: BASO % 0.7 % (0-2.0); EOS % 2.8 % (0-4.5); HEMATOCRIT 23.1 % (32.4-45.2); HEMOGLOBIN 7.6 GM/dL (10.7-15.3); LYMPH % 16.7 % (8-40); MCH 26.3 pg (25.7-33.7); MCHC 32.9 g/dl (32.0-36.0); MEAN CELL VOLUME 79.8 fl (80-96); MEAN PLT VOLUME 8.2 fl (7.5-11.1); MONO % 11.7 % (3.8-10.2); NEUT % 68.1 % (42.8-82.8); PLATELET COUNT 266 K/MM3 (134-434); RBC 2.89 M/mm3 (3.60-5.2); RDW 16.6 % (11.6-15.6); WHITE BLOOD COUNT 8.9 K/mm3 (4.0-10.0)
[2020-01-29 08:06] LABS: ALBUMIN 2.3 g/dl (3.4-5.0); ALK PHOS 95 U/L (45-117); ANION GAP 8 MMOL/L (8-16); BILIRUBIN,TOTAL 0.9 mg/dL (0.2-1); BLOOD UREA NITROGEN 23.1 mg/dL (7-18); CALCIUM 8.3 mg/dL (8.5-10.1); CHLORIDE 100 mmol/L (98-107); CO2 25 mmol/L (21-32); CREATININE 1.2 mg/dL (0.55-1.3); GLUCOSE,RANDOM 87 mg/dL (74-106); SGOT/AST 17 U/L (15-37); SGPT/ALT < 6 U/L (13-61); SODIUM 133 mmol/L (136-145); TOT PROT 6.6 g/dl (6.4-8.2)
--- NOTE | 2020-01-29 09:13 | PN ---
Progress Note, Physician Chief Complaint: Patient seen and examined at the bedside, no acute events from last night, afebrile. History of Present Illness: This 79 yr old female with PMH of HTN, NIDDM, Parkinson's disease admitted via ER with an acute generalized weakness, nausea and vomiting, diarrhea, abdominal discomfort, severe hyperkalemia, sinus bradycardia, ULICES, acute prerenal azotemia, and an hypoechoic masslike density in right renal upper pole 4.4cm x 3.3cm with peripheral color Doppler flow that is very suspicious for mass/malignancy. - Current Medication List Current Medications: Active Medications Acetaminophen (Tylenol -) 650 mg PO Q6H PRN PRN Reason: PAIN LEVEL 1-5 Last Admin: 01/26/20 21:22 Dose: 650 mg Documented by: Acetaminophen (Tylenol -) 325 mg PO Q4H PRN PRN Reason: PAIN 6-10 Stop: 01/30/20 13:59 Last Admin: 01/28/20 22:29 Dose: 325 mg Documented by: Carbidopa/Levodopa (Sinemet *Cr* 50/200 -) 1 combo PO TID [facility] Last Admin: 01/29/20 06:28 Dose: 1 combo Documented by: Heparin Sodium (Porcine) (Heparin -) 5,000 unit SQ TID [facility] Last Admin: 01/29/20 06:28 Dose: 5,000 unit Documented by: Meropenem 1 gm/ Dextrose 100 mls @ 200 mls/hr IVPB Q8H-IV [facility] Last Admin: 01/29/20 03:12 Dose: 200 mls/hr Documented by: Lidocaine (Lidoderm Patch -) 1 patch TP DAILY [facility] Last Admin: 01/28/20 09:34 Dose: 1 patch Documented by: Miscellaneous (Lidoderm Patch Removal) 1 each [facility] DAILY@2200 [facility] Last Admin: 01/28/20 21:48 Dose: 1 each Documented by: Oxycodone HCl (Roxicodone -) 5 mg PO Q4H PRN PRN Reason: PAIN 6-10 Last Admin: 01/28/20 22:28 Dose: 5 mg Documented by: Pantoprazole Sodium (Protonix -) 40 mg PO BID [facility] Last Admin: 01/28/20 21:47 Dose: 40 mg Documented by: - Objective Vital Signs: Vital Signs Temperature 98.7 F 01/29/20 08:22 Pulse Rate 70 01/29/20 08:22 Respiratory Rate 18 01/29/20 08:22 Blood Pressure 128/77 01/29/20 08:22 O2 Sat by Pulse Oximetry (%) 97 01/28/20 21:00 Constitutional: Yes: Well Nourished, No Distress, Calm Eyes: Yes: Conjunctiva Clear, EOM Intact HENT: Yes: Atraumatic, Normocephalic Neck: Yes: Supple, Trachea Midline Cardiovascular: Yes: Regular Rate and Rhythm Respiratory: Yes: Regular, CTA Bilaterally Gastrointestinal: Yes: Normal Bowel Sounds, Soft ...Rectal Exam: Yes: Deferred Genitourinary: Yes: WNL Breast(s): Yes: WNL Musculoskeletal: Yes: Muscle Weakness Extremities: Yes: WNL Edema: No Peripheral Pulses WNL: Yes Integumentary: Yes: WNL Neurological: Yes: Alert, Unsteady Gait, Weakness ...Motor Strength: LUE (generalized muscle weakness of all extremities) Psychiatric: Yes: Alert Labs: CBC, BMP 01/29/20 06:18 01/29/20 06:18 INR, PTT INR 0.94 (0.83-1.09) 01/22/20 17:00 Problem List - Problems (1) Acute electrocardiogram changes Code(s): R94.31 - ABNORMAL ELECTROCARDIOGRAM [ECG] [EKG] (2) Acute kidney injury Code(s): N17.9 - ACUTE KIDNEY FAILURE, UNSPECIFIED (3) Decubitus ulcer of sacral region, stage 2 Code(s): L89.152 - PRESSURE ULCER OF SACRAL REGION, STAGE 2 (4) Hyperkalemia Code(s): E87.5 - HYPERKALEMIA (5) UTI (urinary tract infection) Code(s): N39.0 - URINARY TRACT INFECTION, SITE NOT SPECIFIED (6) Acute dehydration Code(s): E86.0 - DEHYDRATION (7) Acute urinary retention Code(s): R33.8 - OTHER RETENTION OF URINE (8) Anemia Code(s): D64.9 - ANEMIA, UNSPECIFIED (9) Cholelithiasis Code(s): K80.20 - CALCULUS OF GALLBLADDER W/O CHOLECYSTITIS W/O OBSTRUCTION (10) Degenerative joint disease of both hips Code(s): M16.0 - BILATERAL PRIMARY OSTEOARTHRITIS OF HIP (11) Diarrhea Code(s): R19.7 - DIARRHEA, UNSPECIFIED (12) Hypokalemia Code(s): E87.6 - HYPOKALEMIA (13) Hyponatremia Code(s): E87.1 - HYPO-OSMOLALITY AND HYPONATREMIA (14) LLQ abdominal pain Code(s): R10.32 - LEFT LOWER QUADRANT PAIN (15) Left hip pain Code(s): M25.552 - PAIN IN LEFT HIP (16) Leukocytosis Code(s): D72.829 - ELEVATED WHITE BLOOD CELL COUNT, UNSPECIFIED (17) Neurogenic bladder Code(s): N31.9 - NEUROMUSCULAR DYSFUNCTION OF BLADDER, UNSPECIFIED (18) Prerenal azotemia Code(s): R79.89 - OTHER SPECIFIED ABNORMAL FINDINGS OF BLOOD CHEMISTRY (19) Pressure ulcer of coccygeal region, stage 2 Code(s): L89.152 - PRESSURE ULCER OF SACRAL REGION, STAGE 2 (20) Renal cyst, [place], hemorrhage Code(s): N28.89 - OTHER SPECIFIED DISORDERS OF KIDNEY AND URETER; N28.1 - CYST OF KIDNEY, ACQUIRED (21) Renal failure Code(s): N19 - UNSPECIFIED KIDNEY FAILURE (22) Sinus bradycardia Code(s): R00.1 - BRADYCARDIA, UNSPECIFIED (23) Renal mass, right Code(s): N28.89 - OTHER SPECIFIED DISORDERS OF KIDNEY AND URETER Assessment/Plan Assessment/plan: acute generalized muscle weakness, acute hyponatremia, acute anemia, nausea and vomiting, diarrhea, acute dehydration, acute hyperkalemia, sinus bradycardia, acute renal failure, right renal mass, acute UTI; IV Meropenem for acute UTI, DVT/GI prophylaxis, Oxycodone and tylenol for pain control, Venofer 200mg IV infusion for iron deficiency anemia.
[2020-01-29] MEDS: PANTOPRAZOLE 40 MG TABLET PO SCH ×2 (09:19→22:57)
[2020-01-29] MEDS: LIDOCAINE 5% TOPICAL PATCH TP SCH (09:20)
--- NOTE | 2020-01-29 10:34 | PN ---
Progress Note, Physician History of Present Illness: stable no new issues - Current Medication List Current Medications: Active Medications Acetaminophen (Tylenol -) 650 mg PO Q6H PRN PRN Reason: PAIN LEVEL 1-5 Last Admin: 01/26/20 21:22 Dose: 650 mg Documented by: Acetaminophen (Tylenol -) 325 mg PO Q4H PRN PRN Reason: PAIN 6-10 Stop: 01/30/20 13:59 Last Admin: 01/28/20 22:29 Dose: 325 mg Documented by: Carbidopa/Levodopa (Sinemet *Cr* 50/200 -) 1 combo PO TID [facility] Last Admin: 01/29/20 06:28 Dose: 1 combo Documented by: Heparin Sodium (Porcine) (Heparin -) 5,000 unit SQ TID [facility] Last Admin: 01/29/20 06:28 Dose: 5,000 unit Documented by: Meropenem 1 gm/ Dextrose 100 mls @ 200 mls/hr IVPB Q8H-IV [facility] Last Admin: 01/29/20 09:19 Dose: 200 mls/hr Documented by: Iron Sucrose 200 mg/ Sodium (Chloride) 100 mls @ 100 mls/hr IVPB ONCE ONE Stop: 01/29/20 11:59 Lidocaine (Lidoderm Patch -) 1 patch TP DAILY [facility] Last Admin: 01/29/20 09:20 Dose: 1 patch Documented by: Miscellaneous (Lidoderm Patch Removal) 1 each [facility] DAILY@2200 [facility] Last Admin: 01/28/20 21:48 Dose: 1 each Documented by: Oxycodone HCl (Roxicodone -) 5 mg PO Q4H PRN PRN Reason: PAIN 6-10 Last Admin: 01/28/20 22:28 Dose: 5 mg Documented by: Pantoprazole Sodium (Protonix -) 40 mg PO BID [facility] Last Admin: 01/29/20 09:19 Dose: 40 mg Documented by: - Objective Vital Signs: Vital Signs Temperature 98.7 F 01/29/20 08:22 Pulse Rate 70 01/29/20 08:22 Respiratory Rate 18 01/29/20 08:22 Blood Pressure 128/77 01/29/20 08:22 O2 Sat by Pulse Oximetry (%) 97 01/28/20 21:00 Constitutional: Yes: No Distress, Calm Cardiovascular: Yes: S1, S2 Respiratory: Yes: Regular, CTA Bilaterally Gastrointestinal: Yes: Normal Bowel Sounds, Soft Musculoskeletal: Yes: WNL Extremities: Yes: WNL Neurological: Yes: Alert, Oriented Psychiatric: Yes: Alert, Oriented Labs: CBC, BMP 01/29/20 06:18 01/29/20 06:18 INR, PTT INR 0.94 (0.83-1.09) 01/22/20 17:00 Assessment/Plan ASSESSMENT AND PLAN: Acute Kidney Injury requiring emergent HD Hyperkalemia Bradycardia improved UTI Renal Mass DM HTN Parkinsons Anemia plan continue current abx continue monitoring rest as per the team patient will need abx for at least 2 weeks if plan to send home can switch to ertapenam 1 gm daily
[2020-01-29] MEDS ORDERED: IRON SUCROSE INJECTION 200 MG in SODIUM CHLORIDE 90 ML IVPB ONE (11:00)
--- NOTE | 2020-01-29 14:40 | PN ---
Progress Note, Physician Chief Complaint: Denies chest pain or SOB - Current Medication List Current Medications: Active Medications Acetaminophen (Tylenol -) 650 mg PO Q6H PRN PRN Reason: PAIN LEVEL 1-5 Last Admin: 01/26/20 21:22 Dose: 650 mg Documented by: Acetaminophen (Tylenol -) 325 mg PO Q4H PRN PRN Reason: PAIN 6-10 Stop: 01/30/20 13:59 Last Admin: 01/28/20 22:29 Dose: 325 mg Documented by: Carbidopa/Levodopa (Sinemet *Cr* 50/200 -) 1 combo PO TID [facility] Last Admin: 01/29/20 14:06 Dose: 1 combo Documented by: Heparin Sodium (Porcine) (Heparin -) 5,000 unit SQ TID [facility] Last Admin: 01/29/20 14:07 Dose: 5,000 unit Documented by: Meropenem 1 gm/ Dextrose 100 mls @ 200 mls/hr IVPB Q8H-IV [facility] Last Admin: 01/29/20 09:19 Dose: 200 mls/hr Documented by: Lidocaine (Lidoderm Patch -) 1 patch TP DAILY [facility] Last Admin: 01/29/20 09:20 Dose: 1 patch Documented by: Miscellaneous (Lidoderm Patch Removal) 1 each [facility] DAILY@2200 [facility] Last Admin: 01/28/20 21:48 Dose: 1 each Documented by: Oxycodone HCl (Roxicodone -) 5 mg PO Q4H PRN PRN Reason: PAIN 6-10 Last Admin: 01/28/20 22:28 Dose: 5 mg Documented by: Pantoprazole Sodium (Protonix -) 40 mg PO BID [facility] Last Admin: 01/29/20 09:19 Dose: 40 mg Documented by: - Objective Vital Signs: Vital Signs Temperature 98.7 F 01/29/20 08:22 Pulse Rate 70 01/29/20 08:22 Respiratory Rate 18 01/29/20 08:22 Blood Pressure 128/77 01/29/20 08:22 O2 Sat by Pulse Oximetry (%) 97 01/28/20 21:00 Constitutional: Yes: No Distress, Calm Eyes: Yes: Conjunctiva Clear Cardiovascular: Yes: Regular Rate and Rhythm Respiratory: Yes: CTA Bilaterally Gastrointestinal: Yes: Soft (nt) Edema: No Neurological: Yes: Alert Labs: CBC, BMP 01/29/20 06:18 01/29/20 06:18 INR, PTT INR 0.94 (0.83-1.09) 01/22/20 17:00 Laboratory Tests 01/24/20 01/24/20 01/29/20 06:38 06:38 06:18 WBC 13.4 H 8.9 Hgb 8.9 L 7.6 L Plt Count 252 266 Sodium 136 Potassium 3.9 BUN Creatinine 1.2 01/29/20 06:18 WBC Hgb Plt Count Sodium 133 L Potassium 4.0 BUN 23.1 H Creatinine 1.2 Assessment/Plan echo 01/2020 nl LV function, E/A reversal, nl RV function, mild AR Assessment/Plan IMP: 1. Hyperkalemia, marked 2. Acute renal failure (baseline creat 1) 3. Sinus ankita in setting severe hyperK+ 4. DM REC: 1. ARF/HyperK+: -All improved after emergent HD -Renal following -Holding LYDIA-I 2. Abnl ECG: -presenting ECG with classic changes of hyperK+: peaked Ts/flat Ps/Wide QRS now resolved. -Tele shows NSR with rare PVCs -No sig arrhythmias on telemetry 3. HTN: -Home meds list Lisinopril and Carvedilol and she sees Dr. Fernandez as outpatient -Hold Amlodipine as BP soft 4. UTI: -f/u cultures - abx per primary 5. 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 plan for surgery at tertiary center
--- NOTE | 2020-01-29 14:50 | PN ---
Progress Note, Physician History of Present Illness: Pt seen and examined. She denies fevers or chills. - Current Medication List Current Medications: Active Medications Acetaminophen (Tylenol -) 650 mg PO Q6H PRN PRN Reason: PAIN LEVEL 1-5 Last Admin: 01/26/20 21:22 Dose: 650 mg Documented by: Acetaminophen (Tylenol -) 325 mg PO Q4H PRN PRN Reason: PAIN 6-10 Stop: 01/30/20 13:59 Last Admin: 01/28/20 22:29 Dose: 325 mg Documented by: Carbidopa/Levodopa (Sinemet *Cr* 50/200 -) 1 combo PO TID [facility] Last Admin: 01/29/20 14:06 Dose: 1 combo Documented by: Heparin Sodium (Porcine) (Heparin -) 5,000 unit SQ TID [facility] Last Admin: 01/29/20 14:07 Dose: 5,000 unit Documented by: Meropenem 1 gm/ Dextrose 100 mls @ 200 mls/hr IVPB Q8H-IV [facility] Last Admin: 01/29/20 09:19 Dose: 200 mls/hr Documented by: Lidocaine (Lidoderm Patch -) 1 patch TP DAILY [facility] Last Admin: 01/29/20 09:20 Dose: 1 patch Documented by: Miscellaneous (Lidoderm Patch Removal) 1 each MC DAILY@2200 [facility] Last Admin: 01/28/20 21:48 Dose: 1 each Documented by: Oxycodone HCl (Roxicodone -) 5 mg PO Q4H PRN PRN Reason: PAIN 6-10 Last Admin: 01/28/20 22:28 Dose: 5 mg Documented by: Pantoprazole Sodium (Protonix -) 40 mg PO BID [facility] Last Admin: 01/29/20 09:19 Dose: 40 mg Documented by: - Objective Vital Signs: Vital Signs Temperature 98.7 F 01/29/20 08:22 Pulse Rate 70 01/29/20 08:22 Respiratory Rate 18 01/29/20 08:22 Blood Pressure 128/77 01/29/20 08:22 O2 Sat by Pulse Oximetry (%) 97 01/28/20 21:00 Constitutional: Yes: Calm Eyes: Yes: Conjunctiva Clear HENT: Yes: Atraumatic Neck: Yes: Supple Cardiovascular: Yes: S1, S2 Respiratory: Yes: CTA Bilaterally Gastrointestinal: Yes: Soft Musculoskeletal: Yes: WNL Edema: No Neurological: Yes: Oriented Psychiatric: Yes: Oriented Labs: CBC, BMP 01/29/20 06:18 01/29/20 06:18 INR, PTT INR 0.94 (0.83-1.09) 01/22/20 17:00 Assessment/Plan Current Medications Generic Name Dose Route Start Last Admin Trade Name Freq PRN Reason Stop Dose Admin Acetaminophen 650 mg 01/24/20 20:08 01/26/20 21:22 Tylenol - PO 650 mg Q6H PRN Administration PAIN LEVEL 1-5 Acetaminophen 325 mg 01/27/20 14:00 01/28/20 22:29 Tylenol - PO 01/30/20 13:59 325 mg Q4H PRN Administration PAIN 6-10 Carbidopa/Levodopa 1 combo 01/28/20 22:00 01/29/20 14:06 Sinemet *Cr* 50/200 - PO 1 combo TID [facility] Administration Heparin Sodium (Porcine) 5,000 unit 01/28/20 22:00 01/29/20 14:07 Heparin - SQ 5,000 unit TID [facility] Administration Meropenem 1 gm/ Dextrose 100 mls @ 200 mls/hr 01/28/20 18:00 01/29/20 09:19 IVPB 200 mls/hr Q8H-IV [facility] Administration Lidocaine 1 patch 01/24/20 10:00 01/29/20 09:20 Lidoderm Patch - TP 1 patch DAILY [facility] Administration Miscellaneous 1 each 01/24/20 22:00 01/28/20 21:48 Lidoderm Patch Removal MC 1 each DAILY@2200 [facility] Administration Oxycodone HCl 5 mg 01/27/20 14:00 01/28/20 22:28 Roxicodone - PO 5 mg Q4H PRN Administration PAIN 6-10 Pantoprazole Sodium 40 mg 01/28/20 22:00 01/29/20 09:19 Protonix - PO 40 mg BID [facility] Administration Impression 1. ULICES resolved 2. right kidney mass concerning for malignancy found on ct scan 3. uti 4. 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
[2020-01-29] MEDS: LIDOCAINE PATCH REMOVAL MC SCH (22:57)
[2020-01-29] MEDS: oxyCODONE HCL 5 MG TABLET PO PRN (22:58)
[2020-01-29] MEDS: ACETAMINOPHEN 325 MG TABLET (FP) PO PRN (22:59)
[2020-01-30] MEDS ORDERED: DEXTROSE 5%-WATER 100 ML IVPB ONE ×3 (01:00→18:10)
[2020-01-30] MEDS ORDERED: MEROPENEM 1 GM VIAL (RESTRICTED TO ID) IVPB ONE ×3 (01:00→18:10)
[2020-01-30] MEDS: MEROPENEM 1 GM in DEXTROSE 5%-WATER 100 ML IVPB SCH ×3 (01:30→19:28)
[2020-01-30] MEDS: HEPARIN NA (PORCINE) 5,000 UNITS/ML 1ML VIAL SQ SCH ×3 (06:01→21:03)
[2020-01-30 07:29] LABS: BASO % 0.2 % (0-2.0); EOS % 3.3 % (0-4.5); HEMATOCRIT 23.9 % (32.4-45.2); HEMOGLOBIN 7.9 GM/dL (10.7-15.3); LYMPH % 25.3 % (8-40); MCH 26.6 pg (25.7-33.7); MCHC 33.2 g/dl (32.0-36.0); MEAN CELL VOLUME 80.1 fl (80-96); MEAN PLT VOLUME 8.2 fl (7.5-11.1); MONO % 11.4 % (3.8-10.2); NEUT % 59.8 % (42.8-82.8); PLATELET COUNT 300 K/MM3 (134-434); RBC 2.98 M/mm3 (3.60-5.2); RDW 16.8 % (11.6-15.6); WHITE BLOOD COUNT 9.9 K/mm3 (4.0-10.0)
[2020-01-30 07:52] LABS: ALBUMIN 2.3 g/dl (3.4-5.0); ALK PHOS 93 U/L (45-117); ANION GAP 7 MMOL/L (8-16); BILIRUBIN,TOTAL 0.5 mg/dL (0.2-1); BLOOD UREA NITROGEN 26.4 mg/dL (7-18); CALCIUM 8.4 mg/dL (8.5-10.1); CHLORIDE 99 mmol/L (98-107); CO2 29 mmol/L (21-32); CREATININE 1.1 mg/dL (0.55-1.3); GLUCOSE,RANDOM 84 mg/dL (74-106); POTASSIUM 3.9 mmol/L (3.5-5.1); SGOT/AST 20 U/L (15-37); SODIUM 134 mmol/L (136-145); TOT PROT 6.5 g/dl (6.4-8.2)
[2020-01-30 08:03] LABS: SGPT/ALT < 6 U/L (13-61)
--- NOTE | 2020-01-30 08:15 | PN ---
Progress Note, Physician Chief Complaint: Patient seen and examined at the bedside, no acute events from last night, afebrile. History of Present Illness: This 79 yr female with PMH of HTN, NIDDM, Parkinson's disease admitted via ER with an acute generalized muscle weakness, nausea and vomiting, diarrhea, abdominal discomfort, severe hyperkalemia, sinus bradycardia, acute renal failure, and right renal mass/malignancy, and an acute UTI. - Current Medication List Current Medications: Active Medications Acetaminophen (Tylenol -) 650 mg PO Q6H PRN PRN Reason: PAIN LEVEL 1-5 Last Admin: 01/26/20 21:22 Dose: 650 mg Documented by: Acetaminophen (Tylenol -) 325 mg PO Q4H PRN PRN Reason: PAIN 6-10 Stop: 01/30/20 13:59 Last Admin: 01/29/20 22:59 Dose: 325 mg Documented by: Carbidopa/Levodopa (Sinemet *Cr* 50/200 -) 1 combo PO TID [facility] Last Admin: 01/30/20 06:01 Dose: 1 combo Documented by: Heparin Sodium (Porcine) (Heparin -) 5,000 unit SQ TID [facility] Last Admin: 01/30/20 06:01 Dose: 5,000 unit Documented by: Meropenem 1 gm/ Dextrose 100 mls @ 200 mls/hr IVPB Q8H-IV [facility] Last Admin: 01/30/20 01:30 Dose: 200 mls/hr Documented by: Lidocaine (Lidoderm Patch -) 1 patch TP DAILY [facility] Last Admin: 01/29/20 09:20 Dose: 1 patch Documented by: Miscellaneous (Lidoderm Patch Removal) 1 each MC DAILY@2200 [facility] Last Admin: 01/29/20 22:57 Dose: 1 each Documented by: Oxycodone HCl (Roxicodone -) 5 mg PO Q4H PRN PRN Reason: PAIN 6-10 Last Admin: 01/29/20 22:58 Dose: 5 mg Documented by: Pantoprazole Sodium (Protonix -) 40 mg PO BID [facility] Last Admin: 01/29/20 22:57 Dose: 40 mg Documented by: - Objective Vital Signs: Vital Signs Temperature 98.9 F 01/30/20 06:00 Pulse Rate 70 01/30/20 06:00 Respiratory Rate 18 01/30/20 06:00 Blood Pressure 117/62 07/11/20 06:00 O2 Sat by Pulse Oximetry (%) 97 01/29/20 21:00 Constitutional: Yes: Well Nourished, No Distress, Calm Eyes: Yes: Conjunctiva Clear, EOM Intact HENT: Yes: Atraumatic, Normocephalic Neck: Yes: Supple, Trachea Midline Cardiovascular: Yes: Regular Rate and Rhythm Respiratory: Yes: Regular, CTA Bilaterally Gastrointestinal: Yes: Normal Bowel Sounds, Soft ...Rectal Exam: Yes: Deferred Genitourinary: Yes: Other (right renal mass/malignancy) Breast(s): Yes: WNL Musculoskeletal: Yes: Muscle Weakness Edema: No Peripheral Pulses WNL: Yes Integumentary: Yes: WNL Neurological: Yes: Alert, Unsteady Gait, Weakness ...Motor Strength: LUE (generalized muscle weakness of all extremities) Psychiatric: Yes: Alert Labs: CBC, BMP 01/30/20 06:05 01/30/20 06:05 INR, PTT INR 0.94 (0.83-1.09) 01/22/20 17:00 - ....Imaging Other: Report Reviewed (lab data reviewed) Problem List - Problems (1) Acute electrocardiogram changes Code(s): R94.31 - ABNORMAL ELECTROCARDIOGRAM [ECG] [EKG] (2) Acute kidney injury Code(s): N17.9 - ACUTE KIDNEY FAILURE, UNSPECIFIED (3) Decubitus ulcer of sacral region, stage 2 Code(s): L89.152 - PRESSURE ULCER OF SACRAL REGION, STAGE 2 (4) Hyperkalemia Code(s): E87.5 - HYPERKALEMIA (5) UTI (urinary tract infection) Code(s): N39.0 - URINARY TRACT INFECTION, SITE NOT SPECIFIED (6) Acute dehydration Code(s): E86.0 - DEHYDRATION (7) Acute urinary retention Code(s): R33.8 - OTHER RETENTION OF URINE (8) Anemia Code(s): D64.9 - ANEMIA, UNSPECIFIED (9) Cholelithiasis Code(s): K80.20 - CALCULUS OF GALLBLADDER W/O CHOLECYSTITIS W/O OBSTRUCTION (10) Degenerative joint disease of both hips Code(s): M16.0 - BILATERAL PRIMARY OSTEOARTHRITIS OF HIP (11) Diarrhea Code(s): R19.7 - DIARRHEA, UNSPECIFIED (12) Hypokalemia Code(s): E87.6 - HYPOKALEMIA (13) Hyponatremia Code(s): E87.1 - HYPO-OSMOLALITY AND HYPONATREMIA (14) LLQ abdominal pain Code(s): R10.32 - LEFT LOWER QUADRANT PAIN (15) Left hip pain Code(s): M25.552 - PAIN IN LEFT HIP (16) Leukocytosis Code(s): D72.829 - ELEVATED WHITE BLOOD CELL COUNT, UNSPECIFIED (17) Neurogenic bladder Code(s): N31.9 - NEUROMUSCULAR DYSFUNCTION OF BLADDER, UNSPECIFIED (18) Prerenal azotemia Code(s): R79.89 - OTHER SPECIFIED ABNORMAL FINDINGS OF BLOOD CHEMISTRY (19) Pressure ulcer of coccygeal region, stage 2 Code(s): L89.152 - PRESSURE ULCER OF SACRAL REGION, STAGE 2 (20) Renal cyst, [place], hemorrhage Code(s): N28.89 - OTHER SPECIFIED DISORDERS OF KIDNEY AND URETER; N28.1 - CYST OF KIDNEY, ACQUIRED (21) Renal failure Code(s): N19 - UNSPECIFIED KIDNEY FAILURE (22) Sinus bradycardia Code(s): R00.1 - BRADYCARDIA, UNSPECIFIED (23) Renal mass, right Code(s): N28.89 - OTHER SPECIFIED DISORDERS OF KIDNEY AND URETER Assessment/Plan Assessment/plan: acute generalized muscle weakness, acute nausea and vomiting, acute diarrhea, severe hyperkalemia, sinus bradycardia, acute renal failure, right renal upper pole mass/malignancy, acute UTI, HTN, NIDDM, Parkinson's disease; IV Meropenem for acute UTI, DVT/GI prophylaxis, physical therapy.
[2020-01-30] MEDS: oxyCODONE HCL 5 MG TABLET PO PRN (10:07)
[2020-01-30] MEDS: ACETAMINOPHEN 325 MG TABLET (FP) PO PRN ×2 (10:13→10:14)
[2020-01-30] MEDS: LIDOCAINE 5% TOPICAL PATCH TP SCH (10:13)
[2020-01-30] MEDS: PANTOPRAZOLE 40 MG TABLET PO SCH ×2 (10:13→21:03)
--- NOTE | 2020-01-30 11:27 | PN ---
Progress Note (short form) - Note Progress Note: s: no cp sob palps dizzy Current Medications Generic Name Dose Route Start Last Admin Trade Name Freq PRN Reason Stop Dose Admin Acetaminophen 650 mg 01/24/20 20:08 01/30/20 10:13 Tylenol - PO 650 mg Q6H PRN Administration PAIN LEVEL 1-5 Acetaminophen 325 mg 01/27/20 14:00 01/30/20 10:14 Tylenol - PO 01/30/20 13:59 325 mg Q4H PRN Administration PAIN 6-10 Carbidopa/Levodopa 1 combo 01/28/20 22:00 01/30/20 06:01 Sinemet *Cr* 50/200 - PO 1 combo TID [facility] Administration Heparin Sodium (Porcine) 5,000 unit 01/28/20 22:00 01/30/20 06:01 Heparin - SQ 5,000 unit TID [facility] Administration Meropenem 1 gm/ Dextrose 100 mls @ 200 mls/hr 01/28/20 18:00 01/30/20 10:13 IVPB 200 mls/hr Q8H-IV [facility] Administration Lidocaine 1 patch 01/24/20 10:00 01/30/20 10:13 Lidoderm Patch - TP 1 patch DAILY [facility] Administration Miscellaneous 1 each 01/24/20 22:00 01/29/20 22:57 Lidoderm Patch Removal MC 1 each DAILY@2200 [facility] Administration Oxycodone HCl 5 mg 01/27/20 14:00 01/29/20 22:58 Roxicodone - PO 5 mg Q4H PRN Administration PAIN 6-10 Pantoprazole Sodium 40 mg 01/28/20 22:00 01/30/20 10:13 Protonix - PO 40 mg BID [facility] Administration Vital Signs Period Temp Pulse Resp BP Sys/Myers Pulse Ox Last 24 Hr 98.3 F-99 F 70-79 18-20 117-134/57-77 97 Constitutional: Yes: No Distress Cardiovascular: Yes: Regular Rate and Rhythm Respiratory: Yes: CTA Bilaterally Gastrointestinal: Yes: Soft (nt) Edema: No Neurological: Yes: Alert, Oriented no jaundice diaphoresis CBC, BMP 01/30/20 06:05 01/30/20 06:05 - ....Imaging EKG: Image Reviewed echo 01/2020 nl LV function, E/A reversal, nl RV function, mild AR Assessment/Plan IMP: 1. Hyperkalemia, marked 2. Acute renal failure (baseline creat 1) 3. Sinus ankita in setting severe hyperK+ 4. DM REC: 1. ARF/HyperK+: -All improved after emergent HD -Renal following -Holding LYDIA-I 2. Abnl ECG: -presenting ECG with classic changes of hyperK+: peaked Ts/flat Ps/Wide QRS now resolved. -Tele shows NSR with rare PVCs -No sig arrhythmias on telemetry 3. HTN: -Home meds list Lisinopril and Carvedilol and she sees Dr. Fernandez as outpatient -Hold Amlodipine as BP soft 4. UTI: -f/u cultures - abx per primary 5. 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 plan for surgery at tertiary center
--- NOTE | 2020-01-30 15:24 | PN ---
Progress Note, Physician History of Present Illness: stable no new issues afebrile - Current Medication List Current Medications: Active Medications Acetaminophen (Tylenol -) 650 mg PO Q6H PRN PRN Reason: PAIN LEVEL 1-5 Last Admin: 01/30/20 10:13 Dose: 650 mg Documented by: Carbidopa/Levodopa (Sinemet *Cr* 50/200 -) 1 combo PO TID [facility] Last Admin: 01/30/20 06:01 Dose: 1 combo Documented by: Heparin Sodium (Porcine) (Heparin -) 5,000 unit SQ TID [facility] Last Admin: 01/30/20 06:01 Dose: 5,000 unit Documented by: Meropenem 1 gm/ Dextrose 100 mls @ 200 mls/hr IVPB Q8H-IV [facility] Last Admin: 01/30/20 10:13 Dose: 200 mls/hr Documented by: Lidocaine (Lidoderm Patch -) 1 patch TP DAILY [facility] Last Admin: 01/30/20 10:13 Dose: 1 patch Documented by: Miscellaneous (Lidoderm Patch Removal) 1 each [facility] DAILY@2200 [facility] Last Admin: 01/29/20 22:57 Dose: 1 each Documented by: Pantoprazole Sodium (Protonix -) 40 mg PO BID [facility] Last Admin: 01/30/20 10:13 Dose: 40 mg Documented by: - Objective Vital Signs: Vital Signs Temperature 98.3 F 01/30/20 10:00 Pulse Rate 70 01/30/20 10:00 Respiratory Rate 20 01/30/20 10:00 Blood Pressure 129/57 L 01/30/20 10:00 O2 Sat by Pulse Oximetry (%) 97 01/29/20 21:00 Constitutional: Yes: No Distress, Calm Cardiovascular: Yes: S1, S2 Respiratory: Yes: Regular, CTA Bilaterally Gastrointestinal: Yes: Normal Bowel Sounds, Soft Musculoskeletal: Yes: WNL Extremities: Yes: WNL Neurological: Yes: Alert, Oriented Psychiatric: Yes: Alert, Oriented Labs: CBC, BMP 01/30/20 06:05 01/30/20 06:05 INR, PTT INR 0.94 (0.83-1.09) 01/22/20 17:00 Assessment/Plan ASSESSMENT AND PLAN: Acute Kidney Injury requiring emergent HD Hyperkalemia Bradycardia improved UTI Renal Mass DM HTN Parkinsons Anemia plan continue current abx continue monitoring rest as per the team patient will need abx for at least 2 weeks if plan to send home can switch to ertapenam 1 gm daily
[2020-01-30] MEDS: LIDOCAINE PATCH REMOVAL MC SCH (21:03)
[2020-01-30] MEDS ORDERED: ACETAMINOPHEN 325 MG TABLET (FP) PO PRN (21:25)
[2020-01-31] MEDS ORDERED: MEROPENEM 1 GM VIAL (RESTRICTED TO ID) IVPB ONE ×3 (01:03→17:16)
[2020-01-31] MEDS ORDERED: DEXTROSE 5%-WATER 100 ML IVPB ONE ×3 (01:03→17:16)
[2020-01-31] MEDS: MEROPENEM 1 GM in DEXTROSE 5%-WATER 100 ML IVPB SCH ×3 (01:10→17:28)
[2020-01-31] MEDS: oxyCODONE HCL 5 MG TABLET PO PRN ×3 (04:23→17:29)
[2020-01-31] MEDS: HEPARIN NA (PORCINE) 5,000 UNITS/ML 1ML VIAL SQ SCH ×3 (05:27→22:27)
[2020-01-31 07:52] LABS: BASO % 0.3 % (0-2.0); EOS % 2.7 % (0-4.5); HEMATOCRIT 24.4 % (32.4-45.2); HEMOGLOBIN 8.2 GM/dL (10.7-15.3); LYMPH % 15.5 % (8-40); MCH 26.7 pg (25.7-33.7); MCHC 33.5 g/dl (32.0-36.0); MEAN CELL VOLUME 79.7 fl (80-96); MEAN PLT VOLUME 7.8 fl (7.5-11.1); MONO % 10.8 % (3.8-10.2); NEUT % 70.7 % (42.8-82.8); PLATELET COUNT 331 K/MM3 (134-434); RBC 3.06 M/mm3 (3.60-5.2); RDW 16.6 % (11.6-15.6); WHITE BLOOD COUNT 10.6 K/mm3 (4.0-10.0)
[2020-01-31 07:59] LABS: ALBUMIN 2.4 g/dl (3.4-5.0); ALK PHOS 99 U/L (45-117); ANION GAP 9 MMOL/L (8-16); BILIRUBIN,TOTAL 0.4 mg/dL (0.2-1); BLOOD UREA NITROGEN 32.5 mg/dL (7-18); CALCIUM 8.6 mg/dL (8.5-10.1); CHLORIDE 98 mmol/L (98-107); CO2 27 mmol/L (21-32); CREATININE 1.2 mg/dL (0.55-1.3); GLUCOSE,RANDOM 91 mg/dL (74-106); SGOT/AST 19 U/L (15-37); SODIUM 134 mmol/L (136-145)
[2020-01-31 08:05] LABS: SGPT/ALT < 6 U/L (13-61)
--- NOTE | 2020-01-31 08:34 | PN ---
Progress Note, Physician Chief Complaint: Patient seen and examined at the bedside, no acute events from last night, afebrile, no pain. History of Present Illness: This 79 yr old female with PMH of HTN, NIDDM, Parkinson's disease admitted via ER with an acute generalized muscle weakness, nausea and v omiting, diarrhea, abdominal discomfort, severe hyperkalemia, sinus bradycardia, acute renal failure, right renal upper pole mass/malignancy, and an acute UTI. - Current Medication List Current Medications: Active Medications Acetaminophen (Tylenol -) 650 mg PO Q6H PRN PRN Reason: PAIN LEVEL 1-5 Last Admin: 01/30/20 10:13 Dose: 650 mg Documented by: Acetaminophen (Tylenol -) 325 mg PO Q8H PRN PRN Reason: PAIN 4-6 Carbidopa/Levodopa (Sinemet *Cr* 50/200 -) 1 combo PO TID [facility] Last Admin: 01/31/20 05:27 Dose: 1 combo Documented by: Heparin Sodium (Porcine) (Heparin -) 5,000 unit SQ TID [facility] Last Admin: 01/31/20 05:27 Dose: 5,000 unit Documented by: Meropenem 1 gm/ Dextrose 100 mls @ 200 mls/hr IVPB Q8H-IV [facility] Last Admin: 01/31/20 01:10 Dose: 200 mls/hr Documented by: Lidocaine (Lidoderm Patch -) 1 patch TP DAILY [facility] Last Admin: 01/30/20 10:13 Dose: 1 patch Documented by: Miscellaneous (Lidoderm Patch Removal) 1 each MC DAILY@2200 [facility] Last Admin: 01/30/20 21:03 Dose: 1 each Documented by: Oxycodone HCl (Roxicodone -) 5 mg PO Q8H PRN PRN Reason: PAIN LEVEL 4 - 6 Last Admin: 01/31/20 04:23 Dose: 5 mg Documented by: Pantoprazole Sodium (Protonix -) 40 mg PO BID [facility] Last Admin: 01/30/20 21:03 Dose: 40 mg Documented by: - Objective Vital Signs: Vital Signs Temperature 98.3 F 01/31/20 06:23 Pulse Rate 69 01/31/20 06:23 Respiratory Rate 18 01/31/20 06:23 Blood Pressure 126/72 01/31/20 06:23 O2 Sat by Pulse Oximetry (%) 98 01/30/20 20:19 Constitutional: Yes: Well Nourished, No Distress, Calm Eyes: Yes: Conjunctiva Clear, EOM Intact HENT: Yes: Atraumatic, Normocephalic Neck: Yes: Supple, Trachea Midline Cardiovascular: Yes: Regular Rate and Rhythm Respiratory: Yes: Regular, CTA Bilaterally Gastrointestinal: Yes: Normal Bowel Sounds, Soft ...Rectal Exam: Yes: Deferred Genitourinary: Yes: WNL Breast(s): Yes: WNL Musculoskeletal: Yes: Muscle Weakness Extremities: Yes: WNL Edema: No Peripheral Pulses WNL: Yes Integumentary: Yes: Pressure Ulcer (left posterior thigh and coccyx) Neurological: Yes: Alert, Oriented ...Motor Strength: LUE (generalized muscle weakness of all extremities) Psychiatric: Yes: Alert, Oriented Labs: CBC, BMP 01/31/20 07:05 01/31/20 07:05 INR, PTT INR 0.94 (0.83-1.09) 01/22/20 17:00 - ....Imaging Other: Report Reviewed (lab data reviewed) Problem List - Problems (1) Acute electrocardiogram changes Code(s): R94.31 - ABNORMAL ELECTROCARDIOGRAM [ECG] [EKG] (2) Acute kidney injury Code(s): N17.9 - ACUTE KIDNEY FAILURE, UNSPECIFIED (3) Decubitus ulcer of sacral region, stage 2 Code(s): L89.152 - PRESSURE ULCER OF SACRAL REGION, STAGE 2 (4) Hyperkalemia Code(s): E87.5 - HYPERKALEMIA (5) UTI (urinary tract infection) Code(s): N39.0 - URINARY TRACT INFECTION, SITE NOT SPECIFIED (6) Acute dehydration Code(s): E86.0 - DEHYDRATION (7) Acute urinary retention Code(s): R33.8 - OTHER RETENTION OF URINE (8) Anemia Code(s): D64.9 - ANEMIA, UNSPECIFIED (9) Cholelithiasis Code(s): K80.20 - CALCULUS OF GALLBLADDER W/O CHOLECYSTITIS W/O OBSTRUCTION (10) Degenerative joint disease of both hips Code(s): M16.0 - BILATERAL PRIMARY OSTEOARTHRITIS OF HIP (11) Diarrhea Code(s): R19.7 - DIARRHEA, UNSPECIFIED (12) Hypokalemia Code(s): E87.6 - HYPOKALEMIA (13) Hyponatremia Code(s): E87.1 - HYPO-OSMOLALITY AND HYPONATREMIA (14) LLQ abdominal pain Code(s): R10.32 - LEFT LOWER QUADRANT PAIN (15) Left hip pain Code(s): M25.552 - PAIN IN LEFT HIP (16) Leukocytosis Code(s): D72.829 - ELEVATED WHITE BLOOD CELL COUNT, UNSPECIFIED (17) Neurogenic bladder Code(s): N31.9 - NEUROMUSCULAR DYSFUNCTION OF BLADDER, UNSPECIFIED (18) Prerenal azotemia Code(s): R79.89 - OTHER SPECIFIED ABNORMAL FINDINGS OF BLOOD CHEMISTRY (19) Pressure ulcer of coccygeal region, stage 2 Code(s): L89.152 - PRESSURE ULCER OF SACRAL REGION, STAGE 2 (20) Renal cyst, [place], hemorrhage Code(s): N28.89 - OTHER SPECIFIED DISORDERS OF KIDNEY AND URETER; N28.1 - CYST OF KIDNEY, ACQUIRED (21) Renal failure Code(s): N19 - UNSPECIFIED KIDNEY FAILURE (22) Sinus bradycardia Code(s): R00.1 - BRADYCARDIA, UNSPECIFIED (23) Renal mass, right Code(s): N28.89 - OTHER SPECIFIED DISORDERS OF KIDNEY AND URETER Assessment/Plan Assessment/plan: acute generalized muscle weakness, nausea and vomiting, diarrhea, severe hyperkalemia, sinus bradycardia, EKG with flat p waves, peaked T waves, and wide QRS complexes, acute renal failure, right renal upper pole mass/malignancy, acute UTI; IV Meropenem, DVT/GI prophylaxis, physical therapy, Tylenol and Oxycodone for pain control, Carbidopa/levodopa for Parkinson's disease, follow up with Dr. Jennifer Parker regarding right renal upper pole mass, wound care.
[2020-01-31] MEDS: ACETAMINOPHEN 325 MG TABLET (FP) PO PRN ×2 (10:02→17:30)
[2020-01-31] MEDS: PANTOPRAZOLE 40 MG TABLET PO SCH ×2 (10:03→22:28)
[2020-01-31] MEDS: LIDOCAINE 5% TOPICAL PATCH TP SCH (10:10)
--- NOTE | 2020-01-31 11:02 | PN ---
Progress Note (short form) - Note Progress Note: s: no cp sob palps dizzy Current Medications Generic Name Dose Route Start Last Admin Trade Name Freq PRN Reason Stop Dose Admin Acetaminophen 650 mg 01/24/20 20:08 01/31/20 10:02 Tylenol - PO 650 mg Q6H PRN Administration PAIN LEVEL 1-5 Acetaminophen 325 mg 01/30/20 21:25 Tylenol - PO Q8H PRN PAIN 4-6 Carbidopa/Levodopa 1 combo 01/28/20 22:00 01/31/20 05:27 Sinemet *Cr* 50/200 - PO 1 combo TID [facility] Administration Heparin Sodium (Porcine) 5,000 unit 01/28/20 22:00 01/31/20 05:27 Heparin - SQ 5,000 unit TID [facility] Administration Meropenem 1 gm/ Dextrose 100 mls @ 200 mls/hr 01/28/20 18:00 01/31/20 10:03 IVPB 200 mls/hr Q8H-IV [facility] Administration Lidocaine 1 patch 01/24/20 10:00 01/31/20 10:10 Lidoderm Patch - TP 1 patch DAILY [facility] Administration Miscellaneous 1 each 01/24/20 22:00 01/30/20 21:03 Lidoderm Patch Removal MC 1 each DAILY@2200 [facility] Administration Oxycodone HCl 5 mg 01/30/20 21:25 01/31/20 10:03 Roxicodone - PO 5 mg Q8H PRN Administration PAIN LEVEL 4 - 6 Pantoprazole Sodium 40 mg 01/28/20 22:00 01/31/20 10:03 Protonix - PO 40 mg BID [facility] Administration Vital Signs Period Temp Pulse Resp BP Sys/Myers Pulse Ox Last 24 Hr 97.5 F-98.3 F 69-80 18-20 126-126/71-72 98 Constitutional: Yes: No Distress Cardiovascular: Yes: Regular Rate and Rhythm Respiratory: Yes: CTA Bilaterally Gastrointestinal: Yes: Soft (nt) Edema: No Neurological: Yes: Alert, Oriented no jaundice diaphoresis CBC, BMP 01/31/20 07:05 01/31/20 07:05 - ....Imaging EKG: Image Reviewed echo 01/2020 nl LV function, E/A reversal, nl RV function, mild AR Assessment/Plan IMP: 1. Hyperkalemia, marked 2. Acute renal failure (baseline creat 1) 3. Sinus ankita in setting severe hyperK+ 4. DM REC: 1. ARF/HyperK+: -All improved after emergent HD -Renal following -Holding LYDIA-I 2. Abnl ECG: -presenting ECG with classic changes of hyperK+: peaked Ts/flat Ps/Wide QRS now resolved. -Tele showed NSR with rare PVCs -No sig arrhythmias on telemetry 3. HTN: -bp stable off meds for now 4. UTI: -f/u cultures - abx per primary 5. 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
--- NOTE | 2020-01-31 12:05 | PN ---
Progress Note, Physician History of Present Illness: stable no new issues afebrile - Current Medication List Current Medications: Active Medications Acetaminophen (Tylenol -) 650 mg PO Q6H PRN PRN Reason: PAIN LEVEL 1-5 Last Admin: 01/31/20 10:02 Dose: 650 mg Documented by: Acetaminophen (Tylenol -) 325 mg PO Q8H PRN PRN Reason: PAIN 4-6 Carbidopa/Levodopa (Sinemet *Cr* 50/200 -) 1 combo PO TID [facility] Last Admin: 01/31/20 05:27 Dose: 1 combo Documented by: Heparin Sodium (Porcine) (Heparin -) 5,000 unit SQ TID [facility] Last Admin: 01/31/20 05:27 Dose: 5,000 unit Documented by: Meropenem 1 gm/ Dextrose 100 mls @ 200 mls/hr IVPB Q8H-IV [facility] Last Admin: 01/31/20 10:03 Dose: 200 mls/hr Documented by: Lidocaine (Lidoderm Patch -) 1 patch TP DAILY [facility] Last Admin: 01/31/20 10:10 Dose: 1 patch Documented by: Miscellaneous (Lidoderm Patch Removal) 1 each MC DAILY@2200 [facility] Last Admin: 01/30/20 21:03 Dose: 1 each Documented by: Oxycodone HCl (Roxicodone -) 5 mg PO Q8H PRN PRN Reason: PAIN LEVEL 4 - 6 Last Admin: 01/31/20 10:03 Dose: 5 mg Documented by: Pantoprazole Sodium (Protonix -) 40 mg PO BID [facility] Last Admin: 01/31/20 10:03 Dose: 40 mg Documented by: - Objective Vital Signs: Vital Signs Temperature 98.3 F 01/31/20 06:23 Pulse Rate 69 01/31/20 06:23 Respiratory Rate 18 01/31/20 06:23 Blood Pressure 126/72 01/31/20 06:23 O2 Sat by Pulse Oximetry (%) 98 01/30/20 20:19 Constitutional: Yes: No Distress, Calm Cardiovascular: Yes: S1, S2 Respiratory: Yes: Regular, CTA Bilaterally Gastrointestinal: Yes: Normal Bowel Sounds, Soft Musculoskeletal: Yes: WNL Extremities: Yes: WNL Neurological: Yes: Alert, Oriented Psychiatric: Yes: Alert, Oriented Labs: CBC, BMP 01/31/20 07:05 01/31/20 07:05 INR, PTT INR 0.94 (0.83-1.09) 01/22/20 17:00 Assessment/Plan ASSESSMENT AND PLAN: Acute Kidney Injury requiring emergent HD Hyperkalemia Bradycardia improved UTI Renal Mass DM HTN Parkinsons Anemia plan continue current abx abx for at least 2 weeks if plan to send home can switch to ertapenam 1 gm daily
[2020-01-31] MEDS: LIDOCAINE PATCH REMOVAL MC SCH (22:28)
[2020-02-01] MEDS ORDERED: MEROPENEM 1 GM VIAL (RESTRICTED TO ID) IVPB ONE ×3 (00:32→18:49)
[2020-02-01] MEDS ORDERED: DEXTROSE 5%-WATER 100 ML IVPB ONE ×3 (00:32→18:50)
[2020-02-01] MEDS: MEROPENEM 1 GM in DEXTROSE 5%-WATER 100 ML IVPB SCH ×3 (01:22→18:51)
[2020-02-01] MEDS: HEPARIN NA (PORCINE) 5,000 UNITS/ML 1ML VIAL SQ SCH ×3 (06:14→23:08)
[2020-02-01 08:38] LABS: BASO % 0.6 % (0-2.0); EOS % 2.7 % (0-4.5); HEMATOCRIT 23.8 % (32.4-45.2); HEMOGLOBIN 7.7 GM/dL (10.7-15.3); MCH 26.1 pg (25.7-33.7); MCHC 32.5 g/dl (32.0-36.0); MEAN CELL VOLUME 80.1 fl (80-96); MONO % 9.3 % (3.8-10.2); NEUT % 67.4 % (42.8-82.8); RBC 2.97 M/mm3 (3.60-5.2); RDW 16.7 % (11.6-15.6); WHITE BLOOD COUNT 13.3 K/mm3 (4.0-10.0)
--- NOTE | 2020-02-01 09:01 | PN ---
Progress Note, Physician Chief Complaint: Patient seen and examined at the bedside, no acute events from last night, afebrile, no abdominal pain. History of Present Illness: This 79 yr old female with PMH of HTN, NIDDM, Parkinson's disease admitted via ER with an acute generalized muscle weakness, nausea and vomiting, diarrhea, severe hyperkalemia, sinus bradycardia, acute real failure, and a right renal upper pole mass/malignancy. - Current Medication List Current Medications: Active Medications Acetaminophen (Tylenol -) 650 mg PO Q6H PRN PRN Reason: PAIN LEVEL 1-5 Last Admin: 01/31/20 17:30 Dose: 650 mg Documented by: Acetaminophen (Tylenol -) 325 mg PO Q8H PRN PRN Reason: PAIN 4-6 Carbidopa/Levodopa (Sinemet *Cr* 50/200 -) 1 combo PO TID [facility] Last Admin: 02/01/20 06:14 Dose: 1 combo Documented by: Heparin Sodium (Porcine) (Heparin -) 5,000 unit SQ TID [facility] Last Admin: 02/01/20 06:14 Dose: 5,000 unit Documented by: Meropenem 1 gm/ Dextrose 100 mls @ 200 mls/hr IVPB Q8H-IV [facility] Last Admin: 02/01/20 01:22 Dose: 200 mls/hr Documented by: Lidocaine (Lidoderm Patch -) 1 patch TP DAILY [facility] Last Admin: 01/31/20 10:10 Dose: 1 patch Documented by: Miscellaneous (Lidoderm Patch Removal) 1 each MC DAILY@2200 [facility] Last Admin: 01/31/20 22:28 Dose: 1 each Documented by: Oxycodone HCl (Roxicodone -) 5 mg PO Q8H PRN PRN Reason: PAIN LEVEL 4 - 6 Last Admin: 01/31/20 17:29 Dose: 5 mg Documented by: Pantoprazole Sodium (Protonix -) 40 mg PO BID [facility] Last Admin: 01/31/20 22:28 Dose: 40 mg Documented by: - Objective Vital Signs: Vital Signs Temperature 97.8 F 02/01/20 06:00 Pulse Rate 67 02/01/20 06:00 Respiratory Rate 18 02/01/20 06:00 Blood Pressure 141/71 02/01/20 06:00 O2 Sat by Pulse Oximetry (%) 100 01/31/20 21:00 Constitutional: Yes: Well Nourished, No Distress, Calm Eyes: Yes: Conjunctiva Clear, EOM Intact HENT: Yes: Atraumatic, Normocephalic Neck: Yes: Supple, Trachea Midline Cardiovascular: Yes: Regular Rate and Rhythm Respiratory: Yes: Regular, CTA Bilaterally Gastrointestinal: Yes: Normal Bowel Sounds, Soft ...Rectal Exam: Yes: Deferred Genitourinary: Yes: Other (UTI) Musculoskeletal: Yes: Muscle Weakness Extremities: Yes: WNL Edema: No Peripheral Pulses WNL: Yes Integumentary: Yes: WNL Neurological: Yes: Alert, Oriented ...Motor Strength: LUE (generalized muscle weakness of all extremities) Psychiatric: Yes: Alert, Oriented Labs: CBC, BMP 02/01/20 06:20 01/31/20 07:05 INR, PTT INR 0.94 (0.83-1.09) 01/22/20 17:00 - ....Imaging Other: Report Reviewed (lab data reviewed) Problem List - Problems (1) Acute electrocardiogram changes Code(s): R94.31 - ABNORMAL ELECTROCARDIOGRAM [ECG] [EKG] (2) Acute kidney injury Code(s): N17.9 - ACUTE KIDNEY FAILURE, UNSPECIFIED (3) Decubitus ulcer of sacral region, stage 2 Code(s): L89.152 - PRESSURE ULCER OF SACRAL REGION, STAGE 2 (4) Hyperkalemia Code(s): E87.5 - HYPERKALEMIA (5) UTI (urinary tract infection) Code(s): N39.0 - URINARY TRACT INFECTION, SITE NOT SPECIFIED (6) Acute dehydration Code(s): E86.0 - DEHYDRATION (7) Acute urinary retention Code(s): R33.8 - OTHER RETENTION OF URINE (8) Anemia Code(s): D64.9 - ANEMIA, UNSPECIFIED (9) Cholelithiasis Code(s): K80.20 - CALCULUS OF GALLBLADDER W/O CHOLECYSTITIS W/O OBSTRUCTION (10) Degenerative joint disease of both hips Code(s): M16.0 - BILATERAL PRIMARY OSTEOARTHRITIS OF HIP (11) Diarrhea Code(s): R19.7 - DIARRHEA, UNSPECIFIED (12) Hypokalemia Code(s): E87.6 - HYPOKALEMIA (13) Hyponatremia Code(s): E87.1 - HYPO-OSMOLALITY AND HYPONATREMIA (14) LLQ abdominal pain Code(s): R10.32 - LEFT LOWER QUADRANT PAIN (15) Left hip pain Code(s): M25.552 - PAIN IN LEFT HIP (16) Leukocytosis Code(s): D72.829 - ELEVATED WHITE BLOOD CELL COUNT, UNSPECIFIED (17) Neurogenic bladder Code(s): N31.9 - NEUROMUSCULAR DYSFUNCTION OF BLADDER, UNSPECIFIED (18) Prerenal azotemia Code(s): R79.89 - OTHER SPECIFIED ABNORMAL FINDINGS OF BLOOD CHEMISTRY (19) Pressure ulcer of coccygeal region, stage 2 Code(s): L89.152 - PRESSURE ULCER OF SACRAL REGION, STAGE 2 (20) Renal cyst, [place], hemorrhage Code(s): N28.89 - OTHER SPECIFIED DISORDERS OF KIDNEY AND URETER; N28.1 - CYST OF KIDNEY, ACQUIRED (21) Renal failure Code(s): N19 - UNSPECIFIED KIDNEY FAILURE (22) Sinus bradycardia Code(s): R00.1 - BRADYCARDIA, UNSPECIFIED (23) Renal mass, right Code(s): N28.89 - OTHER SPECIFIED DISORDERS OF KIDNEY AND URETER Assessment/Plan Assessment/plan: acute generalized muscle weakness, nausea and vomiting, diarrhea, severe hyperkalemia, sinus bradycardia, acute renal failure, right renal upper pole mass/malignancy, anemia, hyponatremia; IV Meropenem for an acute UTI, DVT/GI prophylaxis, carbidopa/levodopa for Parkinson's disease, oxycodone and tylenol for pain control, transfer to [facility] for further management of the right renal upper pole mass/malignancy, discharge planning, social services coordinator request.
[2020-02-01] MEDS: LIDOCAINE 5% TOPICAL PATCH TP SCH (09:53)
[2020-02-01] MEDS: PANTOPRAZOLE 40 MG TABLET PO SCH ×2 (09:53→23:04)
--- NOTE | 2020-02-01 10:42 | PN ---
Progress Note (short form) - Note Progress Note: s: no cp sob palps dizzy Current Medications Generic Name Dose Route Start Last Admin Trade Name Freq PRN Reason Stop Dose Admin Acetaminophen 650 mg 01/24/20 20:08 01/31/20 17:30 Tylenol - PO 650 mg Q6H PRN Administration PAIN LEVEL 1-5 Acetaminophen 325 mg 01/30/20 21:25 Tylenol - PO Q8H PRN PAIN 4-6 Carbidopa/Levodopa 1 combo 01/28/20 22:00 02/01/20 06:14 Sinemet *Cr* 50/200 - PO 1 combo TID [facility] Administration Heparin Sodium (Porcine) 5,000 unit 01/28/20 22:00 02/01/20 06:14 Heparin - SQ 5,000 unit TID [facility] Administration Meropenem 1 gm/ Dextrose 100 mls @ 200 mls/hr 01/28/20 18:00 02/01/20 09:52 IVPB 200 mls/hr Q8H-IV [facility] Administration Lidocaine 1 patch 01/24/20 10:00 02/01/20 09:53 Lidoderm Patch - TP 1 patch DAILY [facility] Administration Miscellaneous 1 each 01/24/20 22:00 01/31/20 22:28 Lidoderm Patch Removal MC 1 each DAILY@2200 [facility] Administration Oxycodone HCl 5 mg 01/30/20 21:25 01/31/20 17:29 Roxicodone - PO 5 mg Q8H PRN Administration PAIN LEVEL 4 - 6 Pantoprazole Sodium 40 mg 01/28/20 22:00 02/01/20 09:53 Protonix - PO 40 mg BID [facility] Administration Vital Signs Period Temp Pulse Resp BP Sys/Myers Pulse Ox Last 24 Hr 97.8 F-98.5 F 65-82 18-20 84-141/53-77 96-100 Constitutional: Yes: No Distress Cardiovascular: Yes: Regular Rate and Rhythm Respiratory: Yes: CTA Bilaterally Gastrointestinal: Yes: Soft (nt) Edema: No Neurological: Yes: Alert, Oriented no jaundice diaphoresis CBC, BMP 02/01/20 06:20 01/31/20 07:05 - ....Imaging EKG: Image Reviewed echo 01/2020 nl LV function, E/A reversal, nl RV function, mild AR Assessment/Plan IMP: 1. Hyperkalemia, marked 2. Acute renal failure (baseline creat 1) 3. Sinus ankita in setting severe hyperK+ 4. DM REC: 1. ARF/HyperK+: -All improved after emergent HD -Renal following -Holding LYDIA-I 2. Abnl ECG: -presenting ECG with classic changes of hyperK+: peaked Ts/flat Ps/Wide QRS now resolved. -Tele showed NSR with rare PVCs -No sig arrhythmias on telemetry 3. HTN: -bp stable off meds for now 4. UTI: -f/u cultures - abx per primary 5. 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
--- NOTE | 2020-02-01 11:13 | PN ---
Progress Note (short form) - Note Progress Note: RENAL Pt is awake and alert comfortable making urine barboza has been removed Last Vital Signs Temp Pulse Resp BP Pulse Ox 98 F 69 18 120/70 96 02/01/20 09:00 02/01/20 09:00 02/01/20 09:00 02/01/20 09:00 02/01/20 09:00 lungs clear cvs s1s2 rr abd soft ext no edema neuro a+ox3 skin no edema CBC, BMP 02/01/20 06:20 01/31/20 07:05 Current Medications Generic Name Dose Route Start Last Admin Trade Name Freq PRN Reason Stop Dose Admin Acetaminophen 650 mg 01/24/20 20:08 01/31/20 17:30 Tylenol - PO 650 mg Q6H PRN Administration PAIN LEVEL 1-5 Acetaminophen 325 mg 01/30/20 21:25 Tylenol - PO Q8H PRN PAIN 4-6 Carbidopa/Levodopa 1 combo 01/28/20 22:00 02/01/20 06:14 Sinemet *Cr* 50/200 - PO 1 combo TID [facility] Administration Heparin Sodium (Porcine) 5,000 unit 01/28/20 22:00 02/01/20 06:14 Heparin - SQ 5,000 unit TID [facility] Administration Meropenem 1 gm/ Dextrose 100 mls @ 200 mls/hr 01/28/20 18:00 02/01/20 09:52 IVPB 200 mls/hr Q8H-IV [facility] Administration Lidocaine 1 patch 01/24/20 10:00 02/01/20 09:53 Lidoderm Patch - TP 1 patch DAILY [facility] Administration Miscellaneous 1 each 01/24/20 22:00 01/31/20 22:28 Lidoderm Patch Removal MC 1 each DAILY@2200 [facility] Administration Oxycodone HCl 5 mg 01/30/20 21:25 01/31/20 17:29 Roxicodone - PO 5 mg Q8H PRN Administration PAIN LEVEL 4 - 6 Pantoprazole Sodium 40 mg 01/28/20 22:00 02/01/20 09:53 Protonix - PO 40 mg BID [facility] Administration IMPRESSION Shahid- renal function is better htn urinary retention PLAN for transfer to [facility] for possible biopsy of kidney lesion given age and comorbidities would favor cryotherapy if an intervention is necessary MV
--- NOTE | 2020-02-01 11:29 | PN ---
Progress Note, Physician History of Present Illness: stable no new issues further plan for renal biopsy - Current Medication List Current Medications: Active Medications Acetaminophen (Tylenol -) 650 mg PO Q6H PRN PRN Reason: PAIN LEVEL 1-5 Last Admin: 01/31/20 17:30 Dose: 650 mg Documented by: Acetaminophen (Tylenol -) 325 mg PO Q8H PRN PRN Reason: PAIN 4-6 Carbidopa/Levodopa (Sinemet *Cr* 50/200 -) 1 combo PO TID [facility] Last Admin: 02/01/20 06:14 Dose: 1 combo Documented by: Heparin Sodium (Porcine) (Heparin -) 5,000 unit SQ TID [facility] Last Admin: 02/01/20 06:14 Dose: 5,000 unit Documented by: Meropenem 1 gm/ Dextrose 100 mls @ 200 mls/hr IVPB Q8H-IV [facility] Last Admin: 02/01/20 09:52 Dose: 200 mls/hr Documented by: Lidocaine (Lidoderm Patch -) 1 patch TP DAILY [facility] Last Admin: 02/01/20 09:53 Dose: 1 patch Documented by: Miscellaneous (Lidoderm Patch Removal) 1 each MC DAILY@2200 [facility] Last Admin: 01/31/20 22:28 Dose: 1 each Documented by: Oxycodone HCl (Roxicodone -) 5 mg PO Q8H PRN PRN Reason: PAIN LEVEL 4 - 6 Last Admin: 01/31/20 17:29 Dose: 5 mg Documented by: Pantoprazole Sodium (Protonix -) 40 mg PO BID [facility] Last Admin: 02/01/20 09:53 Dose: 40 mg Documented by: - Objective Vital Signs: Vital Signs Temperature 98 F 02/01/20 09:00 Pulse Rate 69 02/01/20 09:00 Respiratory Rate 18 02/01/20 09:00 Blood Pressure 120/70 02/01/20 09:00 O2 Sat by Pulse Oximetry (%) 96 02/01/20 09:00 Constitutional: Yes: No Distress, Calm Cardiovascular: Yes: S1, S2 Respiratory: Yes: Regular, CTA Bilaterally Gastrointestinal: Yes: Normal Bowel Sounds, Soft Musculoskeletal: Yes: WNL Extremities: Yes: WNL Neurological: Yes: Alert, Oriented Psychiatric: Yes: Alert, Oriented Labs: CBC, BMP 02/01/20 06:01/31/20 07:05 INR, PTT INR 0.94 (0.83-1.09) 01/22/20 17:00 Assessment/Plan ASSESSMENT AND PLAN: Acute Kidney Injury requiring emergent HD Hyperkalemia Bradycardia improved UTI Renal Mass DM HTN Parkinsons Anemia plan continue current abx complete 2 week course of abx
[2020-02-01 12:15] LABS: PLATELET ESTIMATE ADEQUATE; TARGET CELLS 1+
[2020-02-01 13:51] LABS: IRON SERUM 26 ug/dL (50-175); TOTAL IRON BINDING CAPACITY 172 ug/dL (250-450)
[2020-02-01] MEDS: ACETAMINOPHEN 325 MG TABLET (FP) PO PRN (23:04)
[2020-02-01] MEDS: LIDOCAINE PATCH REMOVAL MC SCH (23:08)
--- NOTE | 2020-02-01 23:48 | PN ---
DATE OF VISIT: DATE OF DICTATION: 02/01/2020 HISTORY OF PRESENT ILLNESS: The patient is an 79-year-old female who underwent hemodialysis for hyperkalemia and bradycardia. She is presently stable. She does have history of diabetes, high blood pressure, and Parkinson disease. CAT scan with contrast of the kidneys revealed a solid left renal mass with enhancement in the upper pole of the left kidney suspicious for malignancy. There was also a hyperdense left renal cyst measuring 1.8 cm. There were gallstones. IMPRESSION: Impression at present is a solid right upper pole renal mass. Will recommend a partial laparoscopic nephrectomy. Will ask Dr. Teddy Spivey from [facility] to be consulted on case and to treat patient accordingly. Will follow with you. APRIL JUDGE M.D. [id number]
[2020-02-02] MEDS ORDERED: DEXTROSE 5%-WATER 100 ML IVPB ONE (00:57)
[2020-02-02] MEDS ORDERED: MEROPENEM 1 GM VIAL (RESTRICTED TO ID) IVPB ONE (00:57)
[2020-02-02] MEDS: MEROPENEM 1 GM in DEXTROSE 5%-WATER 100 ML IVPB SCH (01:20)
[2020-02-02] MEDS: HEPARIN NA (PORCINE) 5,000 UNITS/ML 1ML VIAL SQ SCH (06:05)
[2020-02-02] MEDS: ACETAMINOPHEN 325 MG TABLET (FP) PO PRN (06:05)
--- NOTE | 2020-02-02 09:29 | PN ---
Progress Note, Physician Chief Complaint: Patient seen and examined at the bedside, no acute events from last night, afebrile. History of Present Illness: This 79 yr old female with PMH of HTN, NIDDM, Parkinson's disease admitted via ER with an acute generalized muscle weakness, nausea and vomiting, diarrhea, severe hyperkalemia, sinus bradycardia, acute renal failure, and right renal upper pole mass/malignancy. - Current Medication List Current Medications: Active Medications Acetaminophen (Tylenol -) 650 mg PO Q6H PRN PRN Reason: PAIN LEVEL 1-5 Last Admin: 02/02/20 06:05 Dose: 650 mg Documented by: Acetaminophen (Tylenol -) 325 mg PO Q8H PRN PRN Reason: PAIN 4-6 Carbidopa/Levodopa (Sinemet *Cr* 50/200 -) 1 combo PO TID [facility] Last Admin: 02/02/20 06:05 Dose: 1 combo Documented by: Heparin Sodium (Porcine) (Heparin -) 5,000 unit SQ TID [facility] Last Admin: 02/02/20 06:05 Dose: 5,000 unit Documented by: Meropenem 1 gm/ Dextrose 100 mls @ 200 mls/hr IVPB Q8H-IV [facility] Last Admin: 02/02/20 01:20 Dose: 200 mls/hr Documented by: Lidocaine (Lidoderm Patch -) 1 patch TP DAILY [facility] Last Admin: 02/01/20 09:53 Dose: 1 patch Documented by: Miscellaneous (Lidoderm Patch Removal) 1 each MC DAILY@2200 [facility] Last Admin: 02/01/20 23:08 Dose: 1 each Documented by: Oxycodone HCl (Roxicodone -) 5 mg PO Q8H PRN PRN Reason: PAIN LEVEL 4 - 6 Last Admin: 01/31/20 17:29 Dose: 5 mg Documented by: Pantoprazole Sodium (Protonix -) 40 mg PO BID [facility] Last Admin: 02/01/20 23:04 Dose: 40 mg Documented by: - Objective Vital Signs: Vital Signs Temperature 98.2 F 02/02/20 05:37 Pulse Rate 64 02/02/20 05:37 Respiratory Rate 17 02/02/20 05:37 Blood Pressure 138/66 02/02/20 05:37 O2 Sat by Pulse Oximetry (%) 96 02/01/20 21:00 Constitutional: Yes: Well Nourished, No Distress, Calm Eyes: Yes: Conjunctiva Clear, EOM Intact HENT: Yes: Atraumatic, Normocephalic Neck: Yes: Supple, Trachea Midline Cardiovascular: Yes: Regular Rate and Rhythm Respiratory: Yes: Regular, CTA Bilaterally Gastrointestinal: Yes: Normal Bowel Sounds, Soft ...Rectal Exam: Yes: Deferred Genitourinary: Yes: WNL Breast(s): Yes: WNL Musculoskeletal: Yes: Muscle Weakness Extremities: Yes: WNL Edema: No Peripheral Pulses WNL: Yes Integumentary: Yes: WNL Neurological: Yes: Alert, Oriented, Weakness ...Motor Strength: LUE (generalized muscle weakness of all extremities) Psychiatric: Yes: Alert, Oriented Labs: CBC, BMP 02/01/20 06:20 01/31/20 07:05 INR, PTT INR 0.94 (0.83-1.09) 01/22/20 17:00 - ....Imaging Other: Report Reviewed (lab data reviewed) Problem List - Problems (1) Acute electrocardiogram changes Code(s): R94.31 - ABNORMAL ELECTROCARDIOGRAM [ECG] [EKG] (2) Acute kidney injury Code(s): N17.9 - ACUTE KIDNEY FAILURE, UNSPECIFIED (3) Decubitus ulcer of sacral region, stage 2 Code(s): L89.152 - PRESSURE ULCER OF SACRAL REGION, STAGE 2 (4) Hyperkalemia Code(s): E87.5 - HYPERKALEMIA (5) UTI (urinary tract infection) Code(s): N39.0 - URINARY TRACT INFECTION, SITE NOT SPECIFIED (6) Acute dehydration Code(s): E86.0 - DEHYDRATION (7) Acute urinary retention Code(s): R33.8 - OTHER RETENTION OF URINE (8) Anemia Code(s): D64.9 - ANEMIA, UNSPECIFIED (9) Cholelithiasis Code(s): K80.20 - CALCULUS OF GALLBLADDER W/O CHOLECYSTITIS W/O OBSTRUCTION (10) Degenerative joint disease of both hips Code(s): M16.0 - BILATERAL PRIMARY OSTEOARTHRITIS OF HIP (11) Diarrhea Code(s): R19.7 - DIARRHEA, UNSPECIFIED (12) Hypokalemia Code(s): E87.6 - HYPOKALEMIA (13) Hyponatremia Code(s): E87.1 - HYPO-OSMOLALITY AND HYPONATREMIA (14) LLQ abdominal pain Code(s): R10.32 - LEFT LOWER QUADRANT PAIN (15) Left hip pain Code(s): M25.552 - PAIN IN LEFT HIP (16) Leukocytosis Code(s): D72.829 - ELEVATED WHITE BLOOD CELL COUNT, UNSPECIFIED (17) Neurogenic bladder Code(s): N31.9 - NEUROMUSCULAR DYSFUNCTION OF BLADDER, UNSPECIFIED (18) Prerenal azotemia Code(s): R79.89 - OTHER SPECIFIED ABNORMAL FINDINGS OF BLOOD CHEMISTRY (19) Pressure ulcer of coccygeal region, stage 2 Code(s): L89.152 - PRESSURE ULCER OF SACRAL REGION, STAGE 2 (20) Renal cyst, [place], hemorrhage Code(s): N28.89 - OTHER SPECIFIED DISORDERS OF KIDNEY AND URETER; N28.1 - CYST OF KIDNEY, ACQUIRED (21) Renal failure Code(s): N19 - UNSPECIFIED KIDNEY FAILURE (22) Sinus bradycardia Code(s): R00.1 - BRADYCARDIA, UNSPECIFIED (23) Renal mass, right Code(s): N28.89 - OTHER SPECIFIED DISORDERS OF KIDNEY AND URETER Assessment/Plan Assessment/plan: acute generalized muscle weakness, nausea and vomiting, diarrhea, severe hyperkalemia, acute renal failure, sinus bradycardia, right renal upper pole mass/malignancy, anemia; blood transfusion, discharge planning, social service director request, follow up with Dr. Teddy Spivey for right renal mass biopsy, Ertapenem 1gm IVPB daily for 7 days for UTI at home.
[2020-02-02] MEDS: LIDOCAINE 5% TOPICAL PATCH TP SCH (09:48)
--- NOTE | 2020-02-02 13:20 | PN ---
Progress Note, Physician History of Present Illness: stable no new issues further plan for renal biopsy - Current Medication List Current Medications: Active Medications Acetaminophen (Tylenol -) 650 mg PO Q6H PRN PRN Reason: PAIN LEVEL 1-5 Last Admin: 02/02/20 06:05 Dose: 650 mg Documented by: Acetaminophen (Tylenol -) 325 mg PO Q8H PRN PRN Reason: PAIN 4-6 Carbidopa/Levodopa (Sinemet *Cr* 50/200 -) 1 combo PO TID [facility] Last Admin: 02/02/20 06:05 Dose: 1 combo Documented by: Ertapenem (Invanz -) 1 gm IM DAILY [facility]; Protocol Stop: 02/09/20 08:00 Lidocaine (Lidoderm Patch -) 1 patch TP DAILY [facility] Last Admin: 02/02/20 09:48 Dose: 1 patch Documented by: Miscellaneous (Lidoderm Patch Removal) 1 each MC DAILY@2200 [facility] Last Admin: 02/01/20 23:08 Dose: 1 each Documented by: Oxycodone HCl (Roxicodone -) 5 mg PO Q8H PRN PRN Reason: PAIN LEVEL 4 - 6 Last Admin: 01/31/20 17:29 Dose: 5 mg Documented by: - Objective Vital Signs: Vital Signs Temperature 98.3 F 02/02/20 09:15 Pulse Rate 70 02/02/20 09:15 Respiratory Rate 18 02/02/20 09:15 Blood Pressure 122/68 02/02/20 09:15 O2 Sat by Pulse Oximetry (%) 96 02/01/20 21:00 Constitutional: Yes: No Distress, Calm Cardiovascular: Yes: S1, S2 Respiratory: Yes: Regular, CTA Bilaterally Gastrointestinal: Yes: Normal Bowel Sounds, Soft Musculoskeletal: Yes: WNL Extremities: Yes: WNL Neurological: Yes: Alert, Oriented Psychiatric: Yes: Alert, Oriented Labs: CBC, BMP 02/01/20 06:20 01/31/20 07:05 INR, PTT INR 0.94 (0.83-1.09) 01/22/20 17:00 Assessment/Plan ASSESSMENT AND PLAN: Acute Kidney Injury requiring emergent HD Hyperkalemia Bradycardia improved UTI Renal Mass DM HTN Parkinsons Anemia plan continue current abx complete 2 week course of abx
--- NOTE | 2020-02-02 13:56 | PN ---
Progress Note (short form) - Note Progress Note: s: no cp sob palps dizzy Current Medications Generic Name Dose Route Start Last Admin Trade Name Freq PRN Reason Stop Dose Admin Acetaminophen 650 mg 01/24/20 20:08 02/02/20 06:05 Tylenol - PO 650 mg Q6H PRN Administration PAIN LEVEL 1-5 Acetaminophen 325 mg 01/30/20 21:25 Tylenol - PO Q8H PRN PAIN 4-6 Carbidopa/Levodopa 1 combo 01/28/20 22:00 02/02/20 13:48 Sinemet *Cr* 50/200 - PO 1 combo TID [facility] Administration Ertapenem 1 gm 02/03/20 08:00 Invanz - IM 02/09/20 08:00 DAILY [facility] Protocol Lidocaine 1 patch 01/24/20 10:00 02/02/20 09:48 Lidoderm Patch - TP 1 patch DAILY [facility] Administration Miscellaneous 1 each 01/24/20 22:00 02/01/20 23:08 Lidoderm Patch Removal MC 1 each DAILY@2200 [facility] Administration Oxycodone HCl 5 mg 01/30/20 21:25 01/31/20 17:29 Roxicodone - PO 5 mg Q8H PRN Administration PAIN LEVEL 4 - 6 Vital Signs Period Temp Pulse Resp BP Sys/Myers Pulse Ox Last 24 Hr 98.2 F-98.5 F 64-80 17-20 90-138/51-68 96 Constitutional: Yes: No Distress Cardiovascular: Yes: Regular Rate and Rhythm Respiratory: Yes: CTA Bilaterally Gastrointestinal: Yes: Soft (nt) Edema: No Neurological: Yes: Alert, Oriented no jaundice diaphoresis not agitated echo 01/2020 nl LV function, E/A reversal, nl RV function, mild AR Assessment/Plan IMP: 1. Hyperkalemia, marked 2. Acute renal failure (baseline creat 1) 3. Sinus ankita in setting severe hyperK+ 4. DM REC: 1. ARF/HyperK+: -All improved after emergent HD -Renal following -Holding LYDIA-I 2. Abnl ECG: -presenting ECG with classic changes of hyperK+: peaked Ts/flat Ps/Wide QRS now resolved. -Tele showed NSR with rare PVCs -No sig arrhythmias on telemetry 3. HTN: -bp stable off meds for now 4. UTI: -f/u cultures - abx per primary 5. 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
--- NOTE | 2020-02-02 14:28 | PN ---
Progress Note (short form) - Note Progress Note: RENAL Pt is awake and alert comfortable making urine comfortable Last Vital Signs Temp Pulse Resp BP Pulse Ox 97.8 F 76 20 120/61 96 02/02/20 13:53 02/02/20 13:53 02/02/20 13:53 02/02/20 13:53 02/01/20 21:00 lungs clear cvs s1s2 rr abd soft ext no edema neuro a+ox3 skin no edema CBC, BMP 02/01/20 06:20 01/31/20 07:05 Current Medications Generic Name Dose Route Start Last Admin Trade Name Freq PRN Reason Stop Dose Admin Acetaminophen 650 mg 01/24/20 20:08 02/02/20 06:05 Tylenol - PO 650 mg Q6H PRN Administration PAIN LEVEL 1-5 Acetaminophen 325 mg 01/30/20 21:25 Tylenol - PO Q8H PRN PAIN 4-6 Carbidopa/Levodopa 1 combo 01/28/20 22:00 02/02/20 13:48 Sinemet *Cr* 50/200 - PO 1 combo TID [facility] Administration Ertapenem 1 gm 02/03/20 08:00 Invanz - IM 02/09/20 08:00 DAILY [facility] Protocol Lidocaine 1 patch 01/24/20 10:00 02/02/20 09:48 Lidoderm Patch - TP 1 patch DAILY [facility] Administration Miscellaneous 1 each 01/24/20 22:00 02/01/20 23:08 Lidoderm Patch Removal MC 1 each DAILY@2200 [facility] Administration Oxycodone HCl 5 mg 01/30/20 21:25 01/31/20 17:29 Roxicodone - PO 5 mg Q8H PRN Administration PAIN LEVEL 4 - 6 IMPRESSION Shahid- renal function is better htn urinary retention renal mass PLAN will be discharged will be biopsied as outpatient can see me in my office post discharge MV
[2020-02-02] MEDS ORDERED: ERTAPENEM SODIUM 1 GM VIAL ONE (17:43)
[2020-02-02] MEDS ORDERED: SODIUM CHLORIDE 50 ML IVPB ONE (17:43)
[2020-02-02] MEDS: ERTAPENEM SODIUM 1 GM in SODIUM CHLORIDE 50 ML IVPB SCH (18:31)
[2020-02-02] MEDS: LIDOCAINE PATCH REMOVAL MC SCH (21:48)
[2020-02-03] MEDS ORDERED: ERTAPENEM SODIUM 1 GM VIAL IM SCH (08:00)
--- NOTE | 2020-02-03 08:53 | PN ---
Progress Note, Physician Chief Complaint: Patient seen and examined at the bedside, no acute events from last night, afebrile, no pain. History of Present Illness: This 79 yr old female with PMH of HTN, NIDDM, Parkinson's disease admitted via ER with an acute generalized muscle weakness, nausea and v omiting, diarrhea, severe hyperkalemia, sinus bradycardia, acute renal failure, and right renal upper pole mass/malignancy. - Current Medication List Current Medications: Active Medications Acetaminophen (Tylenol -) 650 mg PO Q6H PRN PRN Reason: PAIN LEVEL 1-5 Last Admin: 02/02/20 06:05 Dose: 650 mg Documented by: Acetaminophen (Tylenol -) 325 mg PO Q8H PRN PRN Reason: PAIN 4-6 Carbidopa/Levodopa (Sinemet *Cr* 50/200 -) 1 combo PO TID [facility] Last Admin: 02/03/20 05:24 Dose: 1 combo Documented by: Ertapenem 1 gm/ Sodium (Chloride) 50 mls @ 100 mls/hr IVPB DAILY [facility] Last Admin: 02/02/20 18:31 Dose: 100 mls/hr Documented by: Lidocaine (Lidoderm Patch -) 1 patch TP DAILY [facility] Last Admin: 02/02/20 09:48 Dose: 1 patch Documented by: Miscellaneous (Lidoderm Patch Removal) 1 each MC DAILY@2200 [facility] Last Admin: 02/02/20 21:48 Dose: 1 each Documented by: - Objective Vital Signs: Vital Signs Temperature 98.1 F 02/03/20 06:00 Pulse Rate 66 02/03/20 06:00 Respiratory Rate 18 02/03/20 06:00 Blood Pressure 152/71 02/03/20 06:00 O2 Sat by Pulse Oximetry (%) 97 02/02/20 22:00 Constitutional: Yes: Well Nourished, No Distress, Calm Eyes: Yes: Conjunctiva Clear, EOM Intact HENT: Yes: Atraumatic, Normocephalic Neck: Yes: Supple, Trachea Midline Cardiovascular: Yes: Regular Rate and Rhythm Respiratory: Yes: Regular, CTA Bilaterally Gastrointestinal: Yes: Normal Bowel Sounds, Soft ...Rectal Exam: Yes: Deferred Genitourinary: Yes: Other (right renal upper pole mass/malignancy) Breast(s): Yes: WNL Musculoskeletal: Yes: Muscle Weakness Extremities: Yes: WNL Edema: No Peripheral Pulses WNL: Yes Integumentary: Yes: Pressure Ulcer (coccyx, left posterior thigh) Neurological: Yes: Alert, Oriented, Unsteady Gait, Weakness ...Motor Strength: LUE (generalized muscle weakness of all extremities) Psychiatric: Yes: Alert, Oriented Labs: CBC, BMP 02/01/20 06:20 01/31/20 07:05 INR, PTT INR 0.94 (0.83-1.09) 01/22/20 17:00 - ....Imaging Other: Report Reviewed (lab date reviewed) Problem List - Problems (1) Acute electrocardiogram changes Code(s): R94.31 - ABNORMAL ELECTROCARDIOGRAM [ECG] [EKG] (2) Acute kidney injury Code(s): N17.9 - ACUTE KIDNEY FAILURE, UNSPECIFIED (3) Decubitus ulcer of sacral region, stage 2 Code(s): L89.152 - PRESSURE ULCER OF SACRAL REGION, STAGE 2 (4) Hyperkalemia Code(s): E87.5 - HYPERKALEMIA (5) UTI (urinary tract infection) Code(s): N39.0 - URINARY TRACT INFECTION, SITE NOT SPECIFIED (6) Acute dehydration Code(s): E86.0 - DEHYDRATION (7) Acute urinary retention Code(s): R33.8 - OTHER RETENTION OF URINE (8) Anemia Code(s): D64.9 - ANEMIA, UNSPECIFIED (9) Cholelithiasis Code(s): K80.20 - CALCULUS OF GALLBLADDER W/O CHOLECYSTITIS W/O OBSTRUCTION (10) Degenerative joint disease of both hips Code(s): M16.0 - BILATERAL PRIMARY OSTEOARTHRITIS OF HIP (11) Diarrhea Code(s): R19.7 - DIARRHEA, UNSPECIFIED (12) Hypokalemia Code(s): E87.6 - HYPOKALEMIA (13) Hyponatremia Code(s): E87.1 - HYPO-OSMOLALITY AND HYPONATREMIA (14) LLQ abdominal pain Code(s): R10.32 - LEFT LOWER QUADRANT PAIN (15) Left hip pain Code(s): M25.552 - PAIN IN LEFT HIP (16) Leukocytosis Code(s): D72.829 - ELEVATED WHITE BLOOD CELL COUNT, UNSPECIFIED (17) Neurogenic bladder Code(s): N31.9 - NEUROMUSCULAR DYSFUNCTION OF BLADDER, UNSPECIFIED (18) Prerenal azotemia Code(s): R79.89 - OTHER SPECIFIED ABNORMAL FINDINGS OF BLOOD CHEMISTRY (19) Pressure ulcer of coccygeal region, stage 2 Code(s): L89.152 - PRESSURE ULCER OF SACRAL REGION, STAGE 2 (20) Renal cyst, [place], hemorrhage Code(s): N28.89 - OTHER SPECIFIED DISORDERS OF KIDNEY AND URETER; N28.1 - CYST OF KIDNEY, ACQUIRED (21) Renal failure Code(s): N19 - UNSPECIFIED KIDNEY FAILURE (22) Sinus bradycardia Code(s): R00.1 - BRADYCARDIA, UNSPECIFIED (23) Renal mass, right Code(s): N28.89 - OTHER SPECIFIED DISORDERS OF KIDNEY AND URETER Assessment/Plan Assessment/plan: acute generalized muscle weakness, nausea and vomiting, diarrhea, severe hyperkalemia, sinus bradycardia, acute renal failure, right renal upper pole mass/malignancy; IV Ertapenem as per ID for UTI, oral tylenol prn for pain, follow up with Dr. Teddy Spivey for biopsy of the right renal upper pole mass, carbidopa/levodopa for Parkinson's disease, PICC line insertion, discharge planning, social service agency director request.
[2020-02-03] MEDS ORDERED: ERTAPENEM SODIUM 1 GM VIAL ONE (09:16)
[2020-02-03] MEDS ORDERED: SODIUM CHLORIDE 50 ML IVPB ONE (09:16)
[2020-02-03] MEDS: ERTAPENEM SODIUM 1 GM in SODIUM CHLORIDE 50 ML IVPB SCH (09:28)
[2020-02-03] MEDS: LIDOCAINE 5% TOPICAL PATCH TP SCH (09:29)
[2020-02-03] MEDS ORDERED: ERTAPENEM SODIUM 1 GM in SODIUM CHLORIDE 50 ML IVPB SCH (10:00)
[2020-02-03 14:31] VITALS: BP 144/77; PULSE 70; TEMP 98.5
--- NOTE | 2020-02-03 20:48 | DS ---
Physical Examination Vital Signs: Vital Signs Temperature 98.5 F 02/03/20 14:29 Pulse Rate 70 02/03/20 14:29 Respiratory Rate 20 02/03/20 14:29 Blood Pressure 144/77 02/03/20 14:29 O2 Sat by Pulse Oximetry (%) 97 02/03/20 10:00 Constitutional: Yes: Well Nourished, No Distress, Calm Eyes: Yes: Conjunctiva Clear, EOM Intact HENT: Yes: Atraumatic, Normocephalic Neck: Yes: Supple, Trachea Midline Cardiovascular: Yes: Regular Rate and Rhythm Respiratory: Yes: Regular, CTA Bilaterally Gastrointestinal: Yes: Normal Bowel Sounds, Soft ...Rectal Exam: Yes: Deferred Breast(s): Yes: WNL Musculoskeletal: Yes: Muscle Weakness Extremities: Yes: WNL Edema: No Peripheral Pulses WNL: Yes Integumentary: Yes: Pressure Ulcer (left posterior thigh and coccyx) Neurological: Yes: Alert, Oriented, Weakness ...Motor Strength: LUE (generalized muscle weakness of all extremities) Psychiatric: Yes: Alert, Oriented Labs: CBC, BMP 02/01/20 06:20 01/31/20 07:05 Discharge Summary Problems reviewed: Yes Reason For Visit: ABNORMAL ELECTROCARDIOGRAPHY Condition: Stable - Instructions Diet, Activity, Other Instructions: Continue on Ertapenem 1gm IV daily for 5 days. Activity as tolerated. Follow up with Dr. Teddy Spivey for right renal mass biopsy, tel . Total time spent over 30 minutes. Referrals: Teddy Spivey DO [Non Staff, Medical] - Disposition: HOME - Home Medications Comprehensive Discharge Medication List: Ambulatory Orders Amlodipine Besylate [Norvasc -] 10 mg PO DAILY 01/22/20 Bethanechol Chloride [Bethanechol Chloride -] 50 mg PO QID 01/22/20 Bimatoprost [Lumigan] 1 drop OU HS 01/22/20 Carbidopa/Levodopa *Cr* 50/200 [Sinemet *Cr* 50/200 -] 1 combo PO TID 01/22/20 Carvedilol 6.25 mg PO BID 01/22/20 Chlorthalidone 50 mg PO DAILY 01/22/20 Glycopyrrolate 1 tab PO DAILY 01/22/20 Lisinopril [Prinivil -] 40 mg PO DAILY 01/22/20 Metformin HCl [Glucophage] 1,000 mg PO BID 01/22/20 Acetaminophen [Tylenol .Regular Strength -] 325 mg PO Q8H PRN tablet 02/02/20 Acetaminophen [Tylenol .Regular Strength -] 650 mg PO Q6H PRN tablet 02/02/20 Ertapenem Sodium [Invanz -] 1 gm IM DAILY #7 vial 02/02/20 Ertapenem Sodium [Invanz -] 1 gm IVPB DAILY #7 vial 02/02/20 Lidocaine 5% Patch [Lidoderm -] 1 patch TP DAILY patch 02/02/20 Lidocaine Patch Removal [Lidoderm Patch Removal] 1 each MC DAILY@2200 each 02/02/20 Sodium Chloride [Normal Saline 50 ml Minibag] 50 ml IVPB DAILY #7 ivpb 02/02/20 Syringe, Disposable, 20 ml [Syringe] 1 each IM DAILY #7 disp.syrin 02/02/20
== END 2020-02-03 18:00 | disposition home or self-care (01) | DRG 683 ==
LOC: JER 16:33 → JICU 17:21 → J7W 01-26 18:33
PROVIDERS: ADMIT Internal Medicine Pulmonary Disease; ATTEND Internal Medicine
DX: N17.9 Acute kidney failure, unspecified (principal); E87.2 Acidosis; N39.0 Urinary tract infection, site not specified; E87.1 Hypo-osmolality and hyponatremia; I10 Essential (primary) hypertension; G20 Parkinson's disease; E11.9 Type 2 diabetes mellitus without complications; R10.32 Left lower quadrant pain; R19.7 Diarrhea, unspecified; M19.90 Unspecified osteoarthritis, unspecified site; R33.8 Other retention of urine; R31.29 Other microscopic hematuria; R63.0 Anorexia; R11.0 Nausea; E87.5 Hyperkalemia; R00.1 Bradycardia, unspecified; M25.552 Pain in left hip; D64.9 Anemia, unspecified; D72.829 Elevated white blood cell count, unspecified; L89.152 Pressure ulcer of sacral region, stage 2; N28.89 Other specified disorders of kidney and ureter; N28.1 Cyst of kidney, acquired; M16.0 Bilateral primary osteoarthritis of hip; N31.9 Neuromuscular dysfunction of bladder, unspecified; E87.6 Hypokalemia; E83.41 Hypermagnesemia; E86.0 Dehydration; K59.09 Other constipation; E66.9 Obesity, unspecified; Z68.31 Body mass index [BMI] 31.0-31.9, adult
CPT/HCPCS: 36415; 36430; 36511; 36569; 71045-TC-FY; 74178-TC; 76775-TC; 76856-TC; 77001-TC-FY; 80048; 80053; 81003; 82550; 82565; 82728; 82962; 83540; 83550; 83735; 84100; 84300; 84484; 85025; 85610; 86704; 86706; 86707; 86708; 86709; 86803; 86850; 86900; 86901; 86922; 87086; 87186; 87340; 93005; 93010; 93306-TC; 97116-GP; 97162-GP; 99291; C1751; J1644; J1756; P9038; P9058; U0003

== ENCOUNTER 2020-02-08 07:50 | Inpatient (IN) | payer OTHER ==
--- NOTE | 2020-02-08 07:59 | PDOC ---
History of Present Illness - General Chief Complaint: Weakness Stated Complaint: PAIN Time Seen by Provider: 02/08/20 07:59 History Source: Patient Exam Limitations: No Limitations Past History - Medical History Allergies/Adverse Reactions: Allergies Allergy/AdvReac Type Severity Reaction Status Date / Time No Known Allergies Allergy Verified 01/22/20 17:43 Home Medications: Ambulatory Orders Amlodipine Besylate [Norvasc -] 10 mg PO DAILY 01/22/20 Bethanechol Chloride [Bethanechol Chloride -] 50 mg PO QID 01/22/20 Bimatoprost [Lumigan] 1 drop OU HS 01/22/20 Carbidopa/Levodopa *Cr* 50/200 [Sinemet *Cr* 50/200 -] 1 combo PO TID 01/22/20 Carvedilol 6.25 mg PO BID 01/22/20 Chlorthalidone 50 mg PO DAILY 01/22/20 Glycopyrrolate 1 tab PO DAILY 01/22/20 Lisinopril [Prinivil -] 40 mg PO DAILY 01/22/20 Metformin HCl [Glucophage] 1,000 mg PO BID 01/22/20 Acetaminophen [Tylenol .Regular Strength -] 325 mg PO Q8H PRN tablet 02/02/20 Acetaminophen [Tylenol .Regular Strength -] 650 mg PO Q6H PRN tablet 02/02/20 Ertapenem Sodium [Invanz -] 1 gm IM DAILY #7 vial 02/02/20 Ertapenem Sodium [Invanz -] 1 gm IVPB DAILY #7 vial 02/02/20 Lidocaine 5% Patch [Lidoderm -] 1 patch TP DAILY patch 02/02/20 Lidocaine Patch Removal [Lidoderm Patch Removal] 1 each MC DAILY@2200 each 02/02/20 Sodium Chloride [Normal Saline 50 ml Minibag] 50 ml IVPB DAILY #7 ivpb 02/02/20 Syringe, Disposable, 20 ml [Syringe] 1 each IM DAILY #7 disp.syrin 02/02/20 Anemia: No Asthma: No Cancer: No Cardiac Disorders: No CVA: No COPD: No CHF: Yes Dementia: No Diabetes: Yes GI Disorders: No Disorders: No HTN: Yes Liver Disease: No Seizures: No Thyroid Disease: No - Surgical History Abdominal Surgery: No Appendectomy: No Cardiac Surgery: No Cholecystectomy: No Lung Surgery: No Neurologic Surgery: No Orthopedic Surgery: No - Psycho-Social/Smoking History Smoking History: Unknown if ever smoked Have you smoked in the past 12 months: No Discharge - Follow up/Referral Referrals: Melisa Samuel MD [Primary Care Provider] - - Patient Discharge Instructions - Post Discharge Activity
--- NOTE | 2020-02-08 08:00 | PDOC ---
History of Present Illness - General Chief Complaint: Weakness Stated Complaint: PAIN Time Seen by Provider: 02/08/20 07:59 History Source: Patient Exam Limitations: No Limitations - History of Present Illness Initial Comments: 02/08/20 07:59 79 yr old F with PMH of HTN, NIDDM, decubitus sacral ulcer, Parkinson's disease, R renal mass presenting w 5d progressive worsening generalized weakness and 3mo intermittent R lateral thigh pain. At baseline was able to walk for short di stances, now cannot lift legs off bed. Denies recent trauma or fall to site of pain. Admitted from 01/21- for generalized muscle weakness, hyperkalemia, sinus bradycardia, ULICES, and right renal upper pole mass/malignancy, DC w ertapenem and renal f/u for R renal mass biopsy. Denies fever, n/v, cough, chest/ABD pain, SOB, urinary/bowel mvmt changes. Past History - Medical History Allergies/Adverse Reactions: Allergies Allergy/AdvReac Type Severity Reaction Status Date / Time No Known Allergies Allergy Verified 01/22/20 17:43 Home Medications: Ambulatory Orders Amlodipine Besylate [Norvasc -] 10 mg PO DAILY 01/22/20 Bethanechol Chloride [Bethanechol Chloride -] 50 mg PO QID 01/22/20 Bimatoprost [Lumigan] 1 drop OU HS 01/22/20 Carbidopa/Levodopa *Cr* 50/200 [Sinemet *Cr* 50/200 -] 1 combo PO TID 01/22/20 Carvedilol 6.25 mg PO BID 01/22/20 Chlorthalidone 50 mg PO DAILY 01/22/20 Glycopyrrolate 1 tab PO DAILY 01/22/20 Lisinopril [Prinivil -] 40 mg PO DAILY 01/22/20 Metformin HCl [Glucophage] 1,000 mg PO BID 01/22/20 Acetaminophen [Tylenol .Regular Strength -] 650 mg PO Q6H PRN tablet 02/02/20 Ertapenem Sodium [Invanz -] 1 gm IM DAILY #7 vial 02/02/20 Ertapenem Sodium [Invanz -] 1 gm IVPB DAILY #7 vial 02/02/20 Lidocaine 5% Patch [Lidoderm -] 1 patch TP DAILY patch 02/02/20 Lidocaine Patch Removal [Lidoderm Patch Removal] 1 each MC DAILY@2200 each 02/02/20 Sodium Chloride [Normal Saline 50 ml Minibag] 50 ml IVPB DAILY #7 ivpb 02/02/20 Syringe, Disposable, 20 ml [Syringe] 1 each IM DAILY #7 disp.syrin 02/02/20 Anemia: No Asthma: No Cancer: No Cardiac Disorders: No CVA: No COPD: No CHF: Yes Dementia: No Diabetes: Yes GI Disorders: No Disorders: No HTN: Yes Liver Disease: No Seizures: No Thyroid Disease: No - Surgical History Abdominal Surgery: No Appendectomy: No Cardiac Surgery: No Cholecystectomy: No Lung Surgery: No Neurologic Surgery: No Orthopedic Surgery: No - Psycho-Social/Smoking History Smoking History: Unknown if ever smoked Have you smoked in the past 12 months: No Review of Systems - Review of Systems Constitutional: No: Chills, Fever HEENTM: No: Eye Pain, Nose Congestion Respiratory: No: Cough, Shortness of Breath Cardiac (ROS): No: Chest Pain, Lightheadedness ABD/GI: No: Nausea, Vomiting : No: Burning, Flank Pain Musculoskeletal: Yes: Muscle Pain. No: Back Pain Integumentary: No: Bruising, Flushing Neurological: No: Headache, Seizure Psychiatric: No: Anxiety, Depression Endocrine: No: Intolerance to Cold, Intolerance to Heat Hematologic/Lymphatic: No: Anemia, Blood Clots *Physical Exam - Physical Exam General Appearance: Yes: Nourished, Appropriately Dressed, Mild Distress HEENT: positive: EOMI, SABINE, Normal Voice, Hearing Grossly Normal. negative: Scleral Icterus (R), Scleral Icterus (L) Respiratory/Chest: positive: Lungs Clear, Normal Breath Sounds. negative: Chest Tender, Respiratory Distress Cardiovascular: positive: Regular Rhythm, Regular Rate, S1, S2, Systolic Murmur. negative: Edema Vascular Pulses: Dorsalis-Pedis (R): 1+, Doralis-Pedis (L): 1+ Comments:: +1 radial pulses lisandro Gastrointestinal/Abdominal: positive: Normal Bowel Sounds, Flat, Soft. negative: Tender, Organomegaly Integumentary: positive: Normal Color, Warm Neurologic: positive: Fully Oriented, Alert, Normal Mood/Affect, Normal Response, Responsive. negative: Motor Strength 5/5 (3/5 BLE hip flexion/extension, 4/5 dorsi/plantarflexion, 4/5 BUE strength), Numbness, Confused, Disoriented ED Treatment Course - LABORATORY CBC & Chemistry Diagram: 02/08/20 09:32 02/08/20 08:19 Medical Decision Making - Medical Decision Making 02/08/20 08:34 CXR - R subclavian line in place, no ptx/failure, possible minimal atelectasis at bases EKG - NSR, LVH, HR 74, QTc 439, new TWI III vs 01/23/[address] - groundglass infiltrates, cardiomegaly, small pericardial effusion, no consolidation/mass/pleural effusion duplex R leg - --- 79 yr old F with PMH of HTN, NIDDM, decubitus sacral ulcer, Parkinson's disease, R renal mass presenting w 5d progressive worsening generalized weakness, hypoxia ([id number] on RA), 3mo intermittent R lateral thigh pain. 1. Weakness/hypoxia - likely covid (elevated inflammatory markers, groundglass) PNA 2. Thigh pain - likely chronic MSK pain 3. ULICES Cr 2.0 from 1.2, likely dehydration. K 4.6 Low concern for CVA (no focal neuro deficits) vs fx/dislocation (no trauma to hip, no hip tenderness) vs DVT (leg not swollen, pending US) Given vanc, ertapenem, 0.5 LR, tylenol. Started 4L NC (93 to 97) Admitted m/s for PNA, acute respiratory failure requiring supplemental O2, BLE weakness, suspected covid, ULICES - pending UA, US Discharge - Discharge Information Problems reviewed: Yes Clinical Impression/Diagnosis: Leg weakness, bilateral, ULICES (acute kidney injury), Suspected COVID-19 virus infection PNA (pneumonia) Qualifiers: Pneumonia type: due to unspecified organism Laterality: bilateral Lung location: lower lobe of lung Qualified Code(s): J18.9 - Pneumonia, unspecified organism Acute respiratory failure Qualifiers: Respiratory failure complication: hypoxia Qualified Code(s): J96.01 - Acute respiratory failure with hypoxia Condition: Stable - Follow up/Referral Referrals: Melisa Samuel MD [Primary Care Provider] - - Patient Discharge Instructions - Post Discharge Activity
[2020-02-08] MEDS ORDERED: VANCOMYCIN 1 GM in D5W (PRE-DOCKED) 1,000 MG/250 ML IVPB ONE (08:21)
[2020-02-08] MEDS ORDERED: ERTAPENEM SODIUM 1 GM in SODIUM CHLORIDE 50 ML IVPB ONE (08:21)
[2020-02-08] MEDS ORDERED: ACETAMINOPHEN 1000 MG/100 ML VIAL (NON FORMULARY) IVPB ONE (08:24)
[2020-02-08] MEDS ORDERED: LACTATED RINGERS SOLUTION 1000 ML INFUS.BAG IV ONE (08:30)
[2020-02-08] MEDS ORDERED: ACETAMINOPHEN INJECTION 100 ML IVPB ONE (09:28)
[2020-02-08] MEDS ORDERED: VANCOMYCIN 1 GRAM (PRE-DOCKED) 1,000 MG/250 ML BAG IVPB ONE (09:28)
[2020-02-08 10:31] LABS: BASO % 0.5 % (0-2.0); EOS % 2.9 % (0-4.5); HEMATOCRIT 25.5 % (32.4-45.2); HEMOGLOBIN 8.5 GM/dL (10.7-15.3); LYMPH % 15.7 % (8-40); MCH 26.3 pg (25.7-33.7); MCHC 33.4 g/dl (32.0-36.0); MEAN CELL VOLUME 78.6 fl (80-96); MONO % 9.3 % (3.8-10.2); NEUT % 71.6 % (42.8-82.8); PLATELET COUNT 434 K/MM3 (134-434); RBC 3.24 M/mm3 (3.60-5.2); RDW 20.5 % (11.6-15.6); WHITE BLOOD COUNT 10.4 K/mm3 (4.0-10.0)
[2020-02-08 10:46] LABS: INR 1.03 (0.83-1.09); PROTHROMBIN TIME (PATIENT) 12.1 SEC (9.7-13.0)
[2020-02-08 10:49] LABS: ACTIVATED PTT 28.7 SECONDS (25.2-36.5)
[2020-02-08 10:55] LABS: ALBUMIN 2.4 g/dl (3.4-5.0); ALK PHOS 80 U/L (45-117); ANION GAP 10 MMOL/L (8-16); BILIRUBIN,TOTAL 0.5 mg/dL (0.2-1); CALCIUM 8.5 mg/dL (8.5-10.1); CHLORIDE 102 mmol/L (98-107); CO2 24 mmol/L (21-32); GLUCOSE,RANDOM 77 mg/dL (74-106); LDH 272 U/L (84-246); POTASSIUM 4.6 mmol/L (3.5-5.1); SGOT/AST 13 U/L (15-37); SGPT/ALT < 6 U/L (13-61); SODIUM 137 mmol/L (136-145); TOT PROT 7.2 g/dl (6.4-8.2)
[2020-02-08 11:11] LABS: ANISOCYTOSIS 1+; MACROCYTOSIS 0; PLATELET ESTIMATE NORMAL
--- NOTE | 2020-02-08 11:53 | EKG ---
Test Reason : Blood Pressure : / mmHG Vent. Rate : 074 BPM Atrial Rate : 074 BPM P-R Int : 174 ms QRS Dur : 086 ms QT Int : 396 ms P-R-T Axes : 031 -23 018 degrees QTc Int : 439 ms POOR DATA QUALITY, INTERPRETATION MAY BE ADVERSELY AFFECTED NORMAL SINUS RHYTHM MINIMAL VOLTAGE CRITERIA FOR LVH, MAY BE NORMAL VARIANT ABNORMAL ECG WHEN COMPARED WITH ECG OF 23-JAN-2020 09:28, NO SIGNIFICANT CHANGE WAS FOUND Confirmed by Erika Almodovar ([id number]) on 02/08/2020 11:52:47 AM Referred By: Confirmed By:Erika Almodovar
--- NOTE | 2020-02-08 13:27 | PDOC ---
Documentation entered by Ruiz Weir SCRIBE, acting as scribe for Cole Krishnan MD. Cole Krishnan MD: This documentation has been prepared by the samibe, Ruiz Weir SCRIBE, under my direction and personally reviewed by me in its entirety. I confirm that the documentation accurately reflects all work, treatment, procedures, and medical decision making performed by me. Attending Attestation - Resident Resident Name: Fritz Mishra - ED Attending Attestation I have performed the following: I have examined & evaluated the patient, The case was reviewed & discussed with the resident, I agree w/resident's findings & plan, Exceptions are as noted - HPI HPI: 02/08/20 13:12 The patient is an 79 year old female with a significant past medical history of DM, CHF, HTN, decubitus sacral ulcer, Parkinson's disease, R renal mass who presents to the ED for evaluation of worsening general weakness that began 3 days ago. She endorses intermittent achy outer right leg pain that began 3 months ago. The patient notes she can usually walk for short distances but in the ED is unable to lift her legs off the bed due to weakness. . The patient denies fever, chills, sob. Denies back pain, focal weakness/nu mbness, headache, dizziness. The patient denies GI or symptoms. The patient denies any other symptoms. PCP: Dr. Vincent Allergies: NKDA - Physicial Exam PE: 02/08/20 13:04 Agree with resident exam except b/l crackles on lung auscultaiton - Medical Decision Making 02/08/20 13:15 79yo F MMP presents to the ED with generalized weakness, later revealed she has cough x 1 week. Vitals unremarkable Exam with diffuse crackles c/f possible PNA Pt is on ertapenem for UTI, will continue and add Vanc for G+ and MRSA cvg CXR was clear, but CT chest with ground glass opacities c/f covid swab pending She is HDS, stable on 4L NC satting 95% with no resp distress Pt admitted for further mgmt Case discussed in detail with admitting physician including history, physical exam and ancillary studies. Admitting physician has assumed care for the patient, will follow all pending diagnostics and will complete the evaluation and treatment. Discharge - Discharge Information Problems reviewed: Yes Clinical Impression/Diagnosis: Leg weakness, bilateral, ULICES (acute kidney injury), Suspected COVID-19 virus infection PNA (pneumonia) Qualifiers: Pneumonia type: due to unspecified organism Laterality: bilateral Lung location: lower lobe of lung Qualified Code(s): J18.9 - Pneumonia, unspecified organism Acute respiratory failure Qualifiers: Respiratory failure complication: hypoxia Qualified Code(s): J96.01 - Acute respiratory failure with hypoxia Condition: Stable - Follow up/Referral - Patient Discharge Instructions - Post Discharge Activity
--- NOTE | 2020-02-08 13:28 | HP ---
Admitting History and Physical - Admission Chief Complaint: Acute dehydration, and acute generalized muscle weakness History of Present Illness: This 79 yr old female with PMH of HTN, NIDDM, Parkinson's disease, decubitus sacral ulcer, right renal mass admitted via ER with an acute dehydration, acute prerenal azotemia, ?acute pneumonia, an acute generalized muscle weakness, and pain in right thigh. 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: No: Alzheimer's, CVA, Dementia, Migraine, Multiple Sclerosis, Peripheral Neuropathy, Parkinson's, Seizure, Syncope, TIA, Vertigo, Other Cardiovascular: Yes: HTN Pulmonary: No: Asthma, Bronchitis, Cancer, COPD, O2 Dependent, Pneumonia, Previously Intubated, Pulmonary Embolus, Pulmonary Fibrosis, Sleep Apnea, Other Gastrointestinal: Yes: Constipation Hepatobiliary: Yes: Cholelithiasis Renal/: Yes: Other (right renal mass) Reproductive: No: Ectopic , Endometriosis, Fibroids, PID, Polycystic Ovary Syndrome, Postmenopausal, Other Heme/Onc: No: Anemia, B12 Deficiency, Bleeding Disorder, Cancer, Current Chemotherapy, Current Radiation Therapy, Hemochromatosis, Hypercoaguable State, Myeloproliferative Synd, Sickle Cell Disease, Sickle Cell Trait, Thromboc ytopenia, Other Infectious Disease: No: AIDS, C-Diff, Herpes Zoster, HIV, MRSA, STD's, Tuberculosis, VREF, Other Psych: No: Addictions, Anxiety, Bipolar, Depression, Panic, Psychosis, Schizophrenia, Other Musculoskeletal: Yes: Osteoarthritis Rheumatology: No: Fibromyalgia, Gout, Lupus, Rheumatoid Arthritis, Sarcoidosis, Vasculitis, Other ENT: No: Allergic Rhinitis, Sinusitis, Other Endocrine: Yes: Diabetes Mellitus Dermatology: No: Basal Cell, Cellulitis, Eczema, Melanoma, Psoriasis, Squamous Cell, Other - Past Surgical History Past Surgical History: No: None, AAA Repair, AICD, Amputation, Appendectomy, Arthrosocopy, AV Fistula/Graft, Bariatric Surgery, Breast Biopsy, Bypass, CABG, Carotid Endarterectomy, Cataract Removal, Cholecystectomy, Colectomy, Colonoscopy, Colostomy, Craniotomy, , Cystectomy, Hernia Repair, Hysterectomy, Ileal Conduit, Ileosotomy, Joint Replacement, Kidney Transplant, Laminectomy, Liver Transplant, Mastectomy, Nephrectomy, Oopherectomy, Or chiectomy, Permanent Pacemaker, Prostatectomy, Splenectomy, Stent, Thoracotomy, TURP, Tonsillectomy, Tubal Ligation, Upper Endoscopy, Valve Replacement, Vasectomy, Vein Stripping/Ligation - Smoking History Smoking history: Unknown if ever smoked Have you smoked in the past 12 months: No - Alcohol/Substance Use Hx Alcohol Use: No - Social History Usual Living Arrangement: Yes: Alone ADL: Independent History of Recent Travel: No Home Medications - Allergies Allergies/Adverse Reactions: Allergies Allergy/AdvReac Type Severity Reaction Status Date / Time No Known Allergies Allergy Verified 01/22/20 17:43 - Home Medications Home Medications: Ambulatory Orders Amlodipine Besylate [Norvasc -] 10 mg PO DAILY 01/22/20 Bethanechol Chloride [Bethanechol Chloride -] 50 mg PO QID 01/22/20 Bimatoprost [Lumigan] 1 drop OU HS 01/22/20 Carbidopa/Levodopa *Cr* 50/200 [Sinemet *Cr* 50/200 -] 1 combo PO TID 01/22/20 Carvedilol 6.25 mg PO BID 01/22/20 Chlorthalidone 50 mg PO DAILY 01/22/20 Glycopyrrolate 1 tab PO DAILY 01/22/20 Lisinopril [Prinivil -] 40 mg PO DAILY 01/22/20 Metformin HCl [Glucophage] 1,000 mg PO BID 01/22/20 Acetaminophen [Tylenol .Regular Strength -] 650 mg PO Q6H PRN tablet 02/02/20 Ertapenem Sodium [Invanz -] 1 gm IM DAILY #7 vial 02/02/20 Ertapenem Sodium [Invanz -] 1 gm IVPB DAILY #7 vial 02/02/20 Lidocaine 5% Patch [Lidoderm -] 1 patch TP DAILY patch 02/02/20 Lidocaine Patch Removal [Lidoderm Patch Removal] 1 each MC DAILY@2200 each 02/02/20 Sodium Chloride [Normal Saline 50 ml Minibag] 50 ml IVPB DAILY #7 ivpb 02/02/20 Syringe, Disposable, 20 ml [Syringe] 1 each IM DAILY #7 disp.syrin 02/02/20 Review of Systems - Review of Systems Constitutional: reports: Weakness Eyes: reports: No Symptoms HENT: reports: No Symptoms Neck: reports: No Symptoms Cardiovascular: reports: No Symptoms Respiratory: reports: No Symptoms Gastrointestinal: reports: No Symptoms Genitourinary: reports: Dysuria, Other (suprapurbic tenderness) Breasts: reports: No Symptoms Reported Musculoskeletal: reports: Muscle Weakness Integumentary: reports: Wound (sacrum) Neurological: reports: No Symptoms Endocrine: reports: No Symptoms Hematology/Lymphatic: reports: No Symptoms Psychiatric: reports: No Symptoms Physical Examination Vital Signs: Vital Signs Temperature Pulse Rate 70 02/08/20 09:57 Respiratory Rate 17 02/08/20 09:57 Blood Pressure 128/54 L 02/08/20 09:57 O2 Sat by Pulse Oximetry (%) 99 02/08/20 09:57 Constitutional: Yes: Well Nourished, Calm, Mild Distress Eyes: Yes: Conjunctiva Clear, EOM Intact HENT: Yes: Atraumatic, Normocephalic Neck: Yes: Supple, Trachea Midline Cardiovascular: Yes: Regular Rate and Rhythm Respiratory: Yes: Regular, CTA Bilaterally, On Nasal O2 Gastrointestinal: Yes: Normal Bowel Sounds, Soft ...Rectal Exam: Yes: Deferred Renal/: Yes: Other (suprapubic tenderness) Breast(s): Yes: WNL Musculoskeletal: Yes: Muscle Weakness Edema: No Peripheral Pulses WNL: Yes Integumentary: Yes: Pressure Ulcer (sacrum) Neurological: Yes: Alert, Oriented, Unsteady Gait, Weakness ...Motor Strength: LUE (genealized muscle weakness of all extremities) Psychiatric: Yes: Alert, Oriented Labs: CBC, BMP 02/08/20 09:32 02/08/20 08:19 Imaging - Results Chest X-ray: Report Reviewed Cat Scan: Report Reviewed Ultrasound: Report Reviewed Other: Report Reviewed (lab data reviewed) Problem List - Problems (1) Acute kidney injury Code(s): N17.9 - ACUTE KIDNEY FAILURE, UNSPECIFIED (2) Acute respiratory failure Code(s): J96.00 - ACUTE RESPIRATORY FAILURE, UNSP W HYPOXIA OR HYPERCAPNIA Qualifiers: Respiratory failure complication: hypoxia Qualified Code(s): J96.01 - Acute respiratory failure with hypoxia (3) Leg weakness, bilateral Code(s): R29.898 - OTH SYMPTOMS AND SIGNS INVOLVING THE MUSCULOSKELETAL SYSTEM (4) PNA (pneumonia) Code(s): J18.9 - PNEUMONIA, UNSPECIFIED ORGANISM Qualifiers: Pneumonia type: due to unspecified organism Laterality: bilateral Lung location: lower lobe of lung Qualified Code(s): J18.9 - Pneumonia, unspecified organism (5) Suspected COVID-19 virus infection Code(s): Z20.828 - CONTACT W AND EXPOSURE TO OTH VIRAL COMMUNICABLE DISEASES (6) Acute dehydration Code(s): E86.0 - DEHYDRATION (7) Acute electrocardiogram changes Code(s): R94.31 - ABNORMAL ELECTROCARDIOGRAM [ECG] [EKG] (8) Acute urinary retention Code(s): R33.8 - OTHER RETENTION OF URINE (9) Anemia Code(s): D64.9 - ANEMIA, UNSPECIFIED (10) Cholelithiasis Code(s): K80.20 - CALCULUS OF GALLBLADDER W/O CHOLECYSTITIS W/O OBSTRUCTION (11) Decubitus ulcer of sacral region, stage 2 Code(s): L89.152 - PRESSURE ULCER OF SACRAL REGION, STAGE 2 (12) Degenerative joint disease of both hips Code(s): M16.0 - BILATERAL PRIMARY OSTEOARTHRITIS OF HIP (13) Neurogenic bladder Code(s): N31.9 - NEUROMUSCULAR DYSFUNCTION OF BLADDER, UNSPECIFIED (14) Prerenal azotemia Code(s): R79.89 - OTHER SPECIFIED ABNORMAL FINDINGS OF BLOOD CHEMISTRY (15) Renal failure Code(s): N19 - UNSPECIFIED KIDNEY FAILURE (16) Renal mass, right Code(s): N28.89 - OTHER SPECIFIED DISORDERS OF KIDNEY AND URETER (17) Sinus bradycardia Code(s): R00.1 - BRADYCARDIA, UNSPECIFIED (18) UTI (urinary tract infection) Code(s): N39.0 - URINARY TRACT INFECTION, SITE NOT SPECIFIED Assessment/Plan Assessment/plan: acute dehydration, acute prerenal azotemia, ULICES, acute generalized muscle weakness, acute pain in right thigh, Chest CT demonstrates groundglass changes in both lung silverman consistent with Covid 19 pneumonitis, HTN, NIDDM, Parkinson's disease, right renal mass; IV fluids for dehydration, antibiotics, oxygen saturation 99% on room air, DVT/GI prophylaxis, physical therapy, consult to ID, metformin for NIDDM, lisinopril, amlodipine, coreg and chlorthalidone for HTN, consult to ID.
[2020-02-08] MEDS ORDERED: PANTOPRAZOLE 40 MG TABLET ONE (15:18)
[2020-02-08] MEDS ORDERED: CARBIDOPA/LEVODOPA 25/100 TABLET (FP) ONE (15:19)
[2020-02-08] MEDS ORDERED: ENOXAPARIN NA (PORCINE) 40 MG/0.4 ML DISP.SYRIN SQ ONE (15:19)
[2020-02-08] MEDS: LACTATED RINGERS SOLUTION 1,000 ML/1,000 ML INFUS.BAG IV SCH (15:32)
[2020-02-08] MEDS: ENOXAPARIN NA (PORCINE) 40 MG/0.4 ML DISP.SYRIN SQ SCH (15:32)
[2020-02-08 15:39] LABS: URINE APPEARANCE CLEAR; URINE BILIRUBIN NEGATIVE (NEGATIVE); URINE COLOR YELLOW; URINE GLUCOSE (UA) NEGATIVE (NEGATIVE); URINE KETONE NEGATIVE (NEGATIVE); URINE LEUK ESTERASE NEGATIVE (NEGATIVE); URINE NITRITE NEGATIVE (NEGATIVE); URINE PROTEIN TRACE (NEGATIVE); URINE UROBILINOGEN 0.2 mg/dL (0.2-1.0)
[2020-02-08] MEDS: BETHANECHOL CHLORIDE 25 MG TABLET PO SCH ×2 (16:15→22:15)
[2020-02-08] MEDS: PANTOPRAZOLE 40 MG TABLET PO SCH (16:16)
--- NOTE | 2020-02-08 17:14 | PN ---
Progress Note (short form) - Note Progress Note: ID CONSULT DICTATED R/O COVID-19 R/O HCAP ESBL UTI ON IV ANTIBIOTIC TX AZOTEMIA RENAL MASS, SUSPECTED MALIGNANCY AWAIT COVID-19 PCR SPUTUM C/S, URINE LEGIONELLA AG EMPIRIC VANCO/MEROPENEM/ ZITHROMAX
--- NOTE | 2020-02-08 18:53 | CONS ---
DATE OF CONSULTATION: DATE OF DICTATION: 02/08/2020 INFECTIOUS DISEASE CONSULTATION HISTORY OF PRESENT ILLNESS: The patient is an 79-year-old female who is evaluated for possible COVID-19 pneumonitis. The patient was recently hospitalized at [facility] from January 21 through February 02. At that time she was diagnosed with an ESBL urinary tract infection. She received a course of an IV carbapenem and was discharged home February 02, 2020, to complete an additional 2 weeks of antibiotic therapy. She now returns with complaints of generalized weakness, right lateral thigh pain. She was evaluated in the emergency room where she was afebrile. Initial evaluation showed hypoxemia with an O2 saturation of 93% on room air. A chest x-ray was performed, and showed atelectasis at the lung bases. CAT scan of the chest subsequently showed areas of acute consolidation, ground glass changes throughout both lung silverman, possibly consistent with COVID-19 pneumonitis. COVID-19 swab was performed and is pending. Patient continues to have presence of a PICC line in her right upper extremity and had been receiving ertapenem after discharge on February 02. She denies any dysuria or hematuria, no complaints of suprapubic or flank pain. She denies any chest pain, shortness of breath, cough, or sputum production. PAST MEDICAL HISTORY: Positive for parkinsonism, history of acute kidney injury, hypertension, diabetes mellitus, history of a right renal mass suspected malignancy, sacral decubitus ulcer, ESBL UTI from January 22, 2020. ALLERGIES: No known allergies. MEDICATION: Include: 1. Bethanechol 2. Lovenox. 3. Amlodipine. 4. Coreg. 5. Lisinopril. 6. Sinemet. 7. Chlorthalidone. 8. Protonix. SOCIAL HISTORY: She resides at home. She is a nonsmoker, nondrinker. Recent hospitalization as noted. SYSTEMS REVIEW: Neurologic: Positive for parkinsonism. No loss of consciousness, seizure activity, focal weakness. Cardiac: Negative for chest pain or palpitations. Respiratory: As per HPI. Gastrointestinal: Negative vomiting or diarrhea. Genitourinary: As per HPI. LABORATORY DATA: White count 10.4, 71 neutrophils, 15 lymphocytes, 9 monocytes. Hematocrit 25.5, platelets 434. BUN 68, creatinine 2.0. Urinalysis negative leukocyte esterase. Cultures are pending. PHYSICAL EXAMINATION: General: On physical examination she is awake and alert, afebrile. Vital signs: Blood pressure 128/54, pulse 70 regular, respirations 78 per minute, O2 saturation 99% on room air. HEENT: Sclerae anicteric. Poor dentition. Cardiovascular: Heart sounds S1, S2. Lungs: Decreased breath sounds bilaterally. Abdomen: Obese. Soft, nontender. Extremities: 1+ pedal edema bilaterally. PICC line is in place right upper extremity. No erythema or tenderness. IMPRESSION: 1. Rule out COVID-19 pneumonitis. 2. Rule out healthcare acquired versus atypical pneumonia. 3. Extended-spectrum beta-lactamases urinary tract infection on intravenous antibiotic therapy. 4. Azotemia. 5. Renal mass, suspected malignancy. Await blood cultures. Obtain sputum culture, urine legionella antigen, await COVID-19 PCR, empiric antibiotic coverage for healthcare acquired versus atypical pneumonia with meropenem, Zithromax and stat dose vancomycin. Patient has had several negative COVID-19 PCRs in the past several weeks. However, in light of ground glass appearance, elevated ferritin, and LDH, agree with retesting and airborne precautions. Will follow. Thank you for the kind referral. FRANCOISE GAVIN M.D. [id number]
[2020-02-08] MEDS ORDERED: metFORMIN HCL 500 MG TABLET (FP) ONE (18:54)
[2020-02-08] MEDS ORDERED: AZITHROMYCIN IVPB 500 MG/250 ML BAG IVPB ONE (18:54)
[2020-02-08] MEDS ORDERED: MEROPENEM 500 MG VIAL (RESTRICTED TO ID) IVPB ONE (18:54)
[2020-02-08] MEDS: AZITHROMYCIN IVPB 500 MG/250 ML BAG IVPB SCH (18:58)
[2020-02-08] MEDS: metFORMIN HCL 500 MG TABLET (FP) PO SCH (18:58)
[2020-02-08] MEDS: MEROPENEM 500 MG in DEXTROSE 5%-WATER 100 ML IVPB SCH (20:56)
[2020-02-08] MEDS: CARVEDILOL 6.25 MG TABLET (FP) PO SCH (22:15)
[2020-02-08] MEDS: LATANOPROST 0.005% OPHTH SOLN 2.5ML BOTTLE OU SCH (22:26)
[2020-02-09 00:25] VITALS: BMI 29.4
[2020-02-09] MEDS ORDERED: MEROPENEM 500 MG VIAL (RESTRICTED TO ID) IVPB ONE ×3 (01:06→17:17)
[2020-02-09] MEDS ORDERED: DEXTROSE 5%-WATER 100 ML IVPB ONE ×3 (01:07→17:17)
[2020-02-09] MEDS: MEROPENEM 500 MG in DEXTROSE 5%-WATER 100 ML IVPB SCH ×3 (01:37→17:27)
[2020-02-09] MEDS: metFORMIN HCL 500 MG TABLET (FP) PO SCH ×2 (06:24→17:27)
--- NOTE | 2020-02-09 08:48 | PN ---
Progress Note, Physician Chief Complaint: Patient seen and examined at the bedside, no acute events from last night, afebrile. History of Present Illness: This 79 yr old female with PMH of HTN, NIDDM, Parkinson's disease, right renal mass, decubitus sacral ulcer, neurogenic bladder admitted via ER with an acute dehydration, acute prerenal azotemia, acute generalized muscle weakness, ESBL UTI, ?pneumonia and pain in the right thigh. - Current Medication List Current Medications: Active Medications Acetaminophen (Tylenol -) 650 mg PO Q6H PRN PRN Reason: PAIN LEVEL 6-10 Amlodipine Besylate (Norvasc -) 10 mg PO DAILY [facility] Bethanechol Chloride (Urecholine -) 50 mg PO QID [facility] Last Admin: 02/08/20 22:15 Dose: 50 mg Documented by: Carbidopa/Levodopa (Sinemet *Cr* 50/200 -) 1 combo PO TID [facility] Last Admin: 02/09/20 06:24 Dose: 1 combo Documented by: Carvedilol (Coreg -) 6.25 mg PO BID [facility] Last Admin: 02/08/20 22:15 Dose: 6.25 mg Documented by: Chlorthalidone (Hygroton -) 50 mg PO DAILY [facility] Enoxaparin Sodium (Lovenox -) 40 mg SQ DAILY [facility] Last Admin: 02/08/20 15:32 Dose: 40 mg Documented by: Glycopyrrolate (Robinul -) 1 mg PO DAILY [facility] Lactated Ringer's (Lactated Ringers Solution) 1,000 ml in 1,000 mls @ 50 mls/hr IV ASDIR [facility] Last Admin: 02/08/20 15:32 Dose: 50 mls/hr Documented by: Meropenem 500 mg/ Dextrose 100 mls @ 200 mls/hr IVPB Q8H-IV [facility] Last Admin: 02/09/20 01:37 Dose: 200 mls/hr Documented by: Azithromycin (Zithromax 500mg Ivpb (Pre-Docked)) 500 mg in 250 mls @ 250 mls/hr IVPB DAILY [facility] Last Admin: 02/08/20 18:58 Dose: 250 mls/hr Documented by: Latanoprost (Xalatan 0.005% Eye Drops -) 1 drop OU HS [facility] Last Admin: 02/08/20 22:26 Dose: 1 drop Documented by: Lisinopril (Prinivil) 40 mg PO DAILY [facility] Metformin HCl (Glucophage -) 500 mg PO BID@0700,1630 [facility] Last Admin: 02/09/20 06:24 Dose: 500 mg Documented by: Pantoprazole Sodium (Protonix -) 40 mg PO DAILY [facility] Last Admin: 02/08/20 16:16 Dose: 40 mg Documented by: - Objective Vital Signs: Vital Signs Temperature 97.4 F L 02/09/20 06:00 Pulse Rate 65 02/09/20 06:00 Respiratory Rate 18 02/09/20 06:00 Blood Pressure 145/83 02/09/20 06:00 O2 Sat by Pulse Oximetry (%) 98 02/09/20 06:41 Constitutional: Yes: Well Nourished, No Distress, Calm Eyes: Yes: Conjunctiva Clear, EOM Intact HENT: Yes: Atraumatic, Normocephalic Neck: Yes: WNL Cardiovascular: Yes: Regular Rate and Rhythm Respiratory: Yes: Regular, CTA Bilaterally Gastrointestinal: Yes: Normal Bowel Sounds, Soft ...Rectal Exam: Yes: Deferred Genitourinary: Yes: Incontinence (neurogenic bladder, acute urinary retention, no response to urecholine 50mg po qid) Breast(s): Yes: WNL Musculoskeletal: Yes: Muscle Weakness Extremities: Yes: WNL Edema: No Peripheral Pulses WNL: Yes Integumentary: Yes: Pressure Ulcer (sacrum) Neurological: Yes: Alert, Oriented, Unsteady Gait, Weakness ...Motor Strength: LUE (generalized muscle weakness of all extremities) Psychiatric: Yes: Alert, Oriented Labs: INR, PTT INR 1.03 (0.83-1.09) 02/08/20 09:32 - ....Imaging Other: Report Reviewed (lab data reviewed) Problem List - Problems (1) Acute kidney injury Code(s): N17.9 - ACUTE KIDNEY FAILURE, UNSPECIFIED (2) Acute respiratory failure Code(s): J96.00 - ACUTE RESPIRATORY FAILURE, UNSP W HYPOXIA OR HYPERCAPNIA Qualifiers: Respiratory failure complication: hypoxia Qualified Code(s): J96.01 - Acute respiratory failure with hypoxia (3) Leg weakness, bilateral Code(s): R29.898 - OTH SYMPTOMS AND SIGNS INVOLVING THE MUSCULOSKELETAL SYSTEM (4) PNA (pneumonia) Code(s): J18.9 - PNEUMONIA, UNSPECIFIED ORGANISM Qualifiers: Pneumonia type: due to unspecified organism Laterality: bilateral Lung location: lower lobe of lung Qualified Code(s): J18.9 - Pneumonia, unspecified organism (5) Suspected COVID-19 virus infection Code(s): Z20.828 - CONTACT W AND EXPOSURE TO OTH VIRAL COMMUNICABLE DISEASES (6) Acute dehydration Code(s): E86.0 - DEHYDRATION (7) Acute electrocardiogram changes Code(s): R94.31 - ABNORMAL ELECTROCARDIOGRAM [ECG] [EKG] (8) Acute urinary retention Code(s): R33.8 - OTHER RETENTION OF URINE (9) Anemia Code(s): D64.9 - ANEMIA, UNSPECIFIED (10) Cholelithiasis Code(s): K80.20 - CALCULUS OF GALLBLADDER W/O CHOLECYSTITIS W/O OBSTRUCTION (11) Decubitus ulcer of sacral region, stage 2 Code(s): L89.152 - PRESSURE ULCER OF SACRAL REGION, STAGE 2 (12) Degenerative joint disease of both hips Code(s): M16.0 - BILATERAL PRIMARY OSTEOARTHRITIS OF HIP (13) Neurogenic bladder Code(s): N31.9 - NEUROMUSCULAR DYSFUNCTION OF BLADDER, UNSPECIFIED (14) Prerenal azotemia Code(s): R79.89 - OTHER SPECIFIED ABNORMAL FINDINGS OF BLOOD CHEMISTRY (15) Renal failure Code(s): N19 - UNSPECIFIED KIDNEY FAILURE (16) Renal mass, right Code(s): N28.89 - OTHER SPECIFIED DISORDERS OF KIDNEY AND URETER (17) Sinus bradycardia Code(s): R00.1 - BRADYCARDIA, UNSPECIFIED (18) UTI (urinary tract infection) Code(s): N39.0 - URINARY TRACT INFECTION, SITE NOT SPECIFIED Assessment/Plan Assessment/plan: acute dehydration, prerenal azotemia, ULICES, acute ESBL UTI, acute pain in right thigh, acute generalized muscle weakness, ?Covid 19 pneumonitis, HTN, NIDDM, Parkinson's disease, right renal mass/malignancy; IV fluids for dehydration, IV Azithromycin and Meropenem as per ID for acute UTI, DVT/GI prophylaxis, cabidopa/levodopa for Parkinson's disease, amlodipine coreg and lisinopril for HTN, d/c urecholine (not effective for neurogenic bladder), physical therapy, tylenol prn for pain, and metformin for NIDDM.
[2020-02-09 08:49] LABS: BASO % 0.9 % (0-2.0); HEMATOCRIT 28.5 % (32.4-45.2); HEMOGLOBIN 9.7 GM/dL (10.7-15.3); LYMPH % 9.3 % (8-40); MCH 26.8 pg (25.7-33.7); MCHC 33.9 g/dl (32.0-36.0); MEAN CELL VOLUME 79.2 fl (80-96); MEAN PLT VOLUME 7.6 fl (7.5-11.1); MONO % 8.5 % (3.8-10.2); NEUT % 78.3 % (42.8-82.8); PLATELET COUNT 443 K/MM3 (134-434); RDW 19.9 % (11.6-15.6); WHITE BLOOD COUNT 10.6 K/mm3 (4.0-10.0)
[2020-02-09] MEDS ORDERED: PT OWN MED DRAWER 7, Y5N ONE ×4 (09:19→20:20)
[2020-02-09 09:24] LABS: ALBUMIN 2.4 g/dl (3.4-5.0); ALK PHOS 78 U/L (45-117); ANION GAP 12 MMOL/L (8-16); BILIRUBIN,TOTAL 0.5 mg/dL (0.2-1); BLOOD UREA NITROGEN 47.5 mg/dL (7-18); CALCIUM 8.9 mg/dL (8.5-10.1); CHLORIDE 104 mmol/L (98-107); CO2 22 mmol/L (21-32); CREATININE 1.3 mg/dL (0.55-1.3); GLUCOSE,RANDOM 85 mg/dL (74-106); SGOT/AST 12 U/L (15-37); SGPT/ALT < 6 U/L (13-61); SODIUM 138 mmol/L (136-145); TOT PROT 7.3 g/dl (6.4-8.2)
[2020-02-09] MEDS: amLODIPine BESYLATE 10 MG TABLET (FP) PO SCH (09:27)
[2020-02-09] MEDS: LISINOPRIL 20 MG TABLET (FP) PO SCH (09:27)
[2020-02-09] MEDS: PANTOPRAZOLE 40 MG TABLET PO SCH (09:27)
[2020-02-09] MEDS: CARVEDILOL 6.25 MG TABLET (FP) PO SCH ×2 (09:27→21:39)
[2020-02-09] MEDS: ENOXAPARIN NA (PORCINE) 40 MG/0.4 ML DISP.SYRIN SQ SCH (09:28)
[2020-02-09] MEDS: BETHANECHOL CHLORIDE 25 MG TABLET PO SCH (09:28)
[2020-02-09] MEDS: CHLORTHALIDONE 25 MG TABLET PO SCH (09:29)
[2020-02-09] MEDS: GLYCOPYRROLATE 1 MG TABLET PO SCH (09:29)
--- NOTE | 2020-02-09 10:10 | PN ---
Progress Note, Physician History of Present Illness: AWAKE, ALERT IN BED NO FOCAL COMPLAINT NO C/O LE PAIN DENIES CHEST PAIN/ DYSPNEA/ COUGH NO DYSURIA - Current Medication List Current Medications: Active Medications Acetaminophen (Tylenol -) 650 mg PO Q6H PRN PRN Reason: PAIN LEVEL 6-10 Amlodipine Besylate (Norvasc -) 10 mg PO DAILY [facility] Last Admin: 02/09/20 09:27 Dose: 10 mg Documented by: Carbidopa/Levodopa (Sinemet *Cr* 50/200 -) 1 combo PO TID [facility] Last Admin: 02/09/20 06:24 Dose: 1 combo Documented by: Carvedilol (Coreg -) 6.25 mg PO BID [facility] Last Admin: 02/09/20 09:27 Dose: 6.25 mg Documented by: Chlorthalidone (Hygroton -) 50 mg PO DAILY [facility] Last Admin: 02/09/20 09:29 Dose: 50 mg Documented by: Enoxaparin Sodium (Lovenox -) 40 mg SQ DAILY [facility] Last Admin: 02/09/20 09:28 Dose: 40 mg Documented by: Glycopyrrolate (Robinul -) 1 mg PO DAILY [facility] Last Admin: 02/09/20 09:29 Dose: 1 mg Documented by: Lactated Ringer's (Lactated Ringers Solution) 1,000 ml in 1,000 mls @ 50 mls/hr IV ASDIR [facility] Last Admin: 02/08/20 15:32 Dose: 50 mls/hr Documented by: Meropenem 500 mg/ Dextrose 100 mls @ 200 mls/hr IVPB Q8H-IV [facility] Last Admin: 02/09/20 09:27 Dose: 200 mls/hr Documented by: Azithromycin (Zithromax 500mg Ivpb (Pre-Docked)) 500 mg in 250 mls @ 250 mls/hr IVPB DAILY [facility] Last Admin: 02/08/20 18:58 Dose: 250 mls/hr Documented by: Latanoprost (Xalatan 0.005% Eye Drops -) 1 drop OU HS [facility] Last Admin: 02/08/20 22:26 Dose: 1 drop Documented by: Lisinopril (Prinivil) 40 mg PO DAILY [facility] Last Admin: 02/09/20 09:27 Dose: 40 mg Documented by: Metformin HCl (Glucophage -) 500 mg PO BID@0700,1630 [facility] Last Admin: 02/09/20 06:24 Dose: 500 mg Documented by: Pantoprazole Sodium (Protonix -) 40 mg PO DAILY [facility] Last Admin: 02/09/20 09:27 Dose: 40 mg Documented by: - Objective Vital Signs: Vital Signs Temperature 97.4 F L 02/09/20 06:00 Pulse Rate 65 02/09/20 06:00 Respiratory Rate 18 02/09/20 06:00 Blood Pressure 145/83 02/09/20 06:00 O2 Sat by Pulse Oximetry (%) 98 02/09/20 06:41 Constitutional: Yes: No Distress, Obese Cardiovascular: Yes: Regular Rate and Rhythm, S1, S2 Respiratory: Yes: CTA Bilaterally Gastrointestinal: Yes: Normal Bowel Sounds, Soft, Abdomen, Obese. No: Tenderness Extremities: Yes: Other (PICC SITE NO ERYTHEMA/ TENDERNESS) Edema: No Labs: CBC, BMP 02/09/20 08:21 02/09/20 08:21 INR, PTT INR 1.03 (0.83-1.09) 02/08/20 09:32 Assessment/Plan R/O PNEUMONIA ? ATYPICAL ? COVID-19 ESBL UTI AWAIT C/S, COVID PCR, [facility] CONTINUE EMPIRIC MEROPENEM/ ZITHROMAX
[2020-02-09] MEDS: AZITHROMYCIN IVPB 500 MG/250 ML BAG IVPB SCH (10:49)
[2020-02-09] MEDS: LACTATED RINGERS SOLUTION 1,000 ML/1,000 ML INFUS.BAG IV SCH (14:01)
[2020-02-09] MEDS: LATANOPROST 0.005% OPHTH SOLN 2.5ML BOTTLE OU SCH (21:39)
[2020-02-10] MEDS ORDERED: DEXTROSE 5%-WATER 100 ML IVPB ONE ×3 (01:05→17:24)
[2020-02-10] MEDS ORDERED: MEROPENEM 500 MG VIAL (RESTRICTED TO ID) IVPB ONE ×3 (01:05→17:24)
[2020-02-10] MEDS: MEROPENEM 500 MG in DEXTROSE 5%-WATER 100 ML IVPB SCH ×3 (01:08→17:41)
[2020-02-10] MEDS ORDERED: PT OWN MED DRAWER 7, Y5N ONE ×4 (05:53→21:27)
[2020-02-10] MEDS: metFORMIN HCL 500 MG TABLET (FP) PO SCH ×2 (06:03→17:41)
[2020-02-10 08:34] LABS: BASO % 0.6 % (0-2.0); EOS % 1.8 % (0-4.5); HEMATOCRIT 30.5 % (32.4-45.2); LYMPH % 10.7 % (8-40); MCH 25.8 pg (25.7-33.7); MCHC 32.8 g/dl (32.0-36.0); MEAN CELL VOLUME 78.8 fl (80-96); MEAN PLT VOLUME 8.1 fl (7.5-11.1); MONO % 8.5 % (3.8-10.2); NEUT % 78.4 % (42.8-82.8); PLATELET COUNT 516 K/MM3 (134-434); RBC 3.86 M/mm3 (3.60-5.2); RDW 19.8 % (11.6-15.6); WHITE BLOOD COUNT 12.3 K/mm3 (4.0-10.0)
--- NOTE | 2020-02-10 08:41 | PN ---
Progress Note, Physician Chief Complaint: Patient seen and examined at the bedside, no acute events from last night, afebrile. History of Present Illness: This 79 yr old female with PMH of HTN, NIDDM, right renal mass, Parkinson's disease, neurogenic bladder admitted via ER with an acute generalized muscle weakness, dehydration, ESBL UTI, ?pneumonia, sacral ulcer. - Current Medication List Current Medications: Active Medications Acetaminophen (Tylenol -) 650 mg PO Q6H PRN PRN Reason: PAIN LEVEL 6-10 Amlodipine Besylate (Norvasc -) 10 mg PO DAILY [facility] Last Admin: 02/09/20 09:27 Dose: 10 mg Documented by: Carbidopa/Levodopa (Sinemet *Cr* 50/200 -) 1 combo PO TID [facility] Last Admin: 02/10/20 05:56 Dose: 1 combo Documented by: Carvedilol (Coreg -) 6.25 mg PO BID [facility] Last Admin: 02/09/20 21:39 Dose: 6.25 mg Documented by: Chlorthalidone (Hygroton -) 50 mg PO DAILY [facility] Last Admin: 02/09/20 09:29 Dose: 50 mg Documented by: Enoxaparin Sodium (Lovenox -) 40 mg SQ DAILY [facility] Last Admin: 02/09/20 09:28 Dose: 40 mg Documented by: Glycopyrrolate (Robinul -) 1 mg PO DAILY [facility] Last Admin: 02/09/20 09:29 Dose: 1 mg Documented by: Lactated Ringer's (Lactated Ringers Solution) 1,000 ml in 1,000 mls @ 50 mls/hr IV ASDIR [facility] Last Admin: 02/09/20 14:01 Dose: 50 mls/hr Documented by: Meropenem 500 mg/ Dextrose 100 mls @ 200 mls/hr IVPB Q8H-IV [facility] Last Admin: 02/10/20 01:08 Dose: 200 mls/hr Documented by: Azithromycin (Zithromax 500mg Ivpb (Pre-Docked)) 500 mg in 250 mls @ 250 mls/hr IVPB DAILY [facility] Last Admin: 02/09/20 10:49 Dose: 250 mls/hr Documented by: Latanoprost (Xalatan 0.005% Eye Drops -) 1 drop OU HS [facility] Last Admin: 07/21/20 21:39 Dose: 1 drop Documented by: Lisinopril (Prinivil) 40 mg PO DAILY [facility] Last Admin: 02/09/20 09:27 Dose: 40 mg Documented by: Metformin HCl (Glucophage -) 500 mg PO BID@0700,1630 [facility] Last Admin: 02/10/20 06:03 Dose: 500 mg Documented by: Pantoprazole Sodium (Protonix -) 40 mg PO DAILY [facility] Last Admin: 02/09/20 09:27 Dose: 40 mg Documented by: - Objective Vital Signs: Vital Signs Temperature 97.6 F 02/10/20 05:43 Pulse Rate 84 02/10/20 05:43 Respiratory Rate 02/10/20 05:43 Blood Pressure 159/89 02/10/20 05:43 O2 Sat by Pulse Oximetry (%) 99 02/10/20 06:00 Constitutional: Yes: Well Nourished, No Distress, Calm Eyes: Yes: Conjunctiva Clear, EOM Intact HENT: Yes: Atraumatic, Normocephalic Neck: Yes: Supple, Trachea Midline Cardiovascular: Yes: Regular Rate and Rhythm Respiratory: Yes: Regular, CTA Bilaterally Gastrointestinal: Yes: Normal Bowel Sounds, Soft ...Rectal Exam: Yes: Deferred Genitourinary: Yes: Incontinence (acute urinary retention, neurogenic bladder) Breast(s): Yes: WNL Musculoskeletal: Yes: Muscle Weakness Extremities: Yes: WNL Edema: No Peripheral Pulses WNL: Yes Integumentary: Yes: Pressure Ulcer (sacrum) Neurological: Yes: Alert, Oriented, Unsteady Gait, Weakness ...Motor Strength: LUE (generalized muscle weakness of all extremities) Psychiatric: Yes: Alert, Oriented Labs: INR, PTT INR 1.03 (0.83-1.09) 02/08/20 09:32 - ....Imaging Other: Report Reviewed (lab data reviewed) Problem List - Problems (1) Acute kidney injury Code(s): N17.9 - ACUTE KIDNEY FAILURE, UNSPECIFIED (2) Acute respiratory failure Code(s): J96.00 - ACUTE RESPIRATORY FAILURE, UNSP W HYPOXIA OR HYPERCAPNIA Qualifiers: Respiratory failure complication: hypoxia Qualified Code(s): J96.01 - Acute respiratory failure with hypoxia (3) Leg weakness, bilateral Code(s): R29.898 - OTH SYMPTOMS AND SIGNS INVOLVING THE MUSCULOSKELETAL SYSTEM (4) PNA (pneumonia) Code(s): J18.9 - PNEUMONIA, UNSPECIFIED ORGANISM Qualifiers: Pneumonia type: due to unspecified organism Laterality: bilateral Lung location: lower lobe of lung Qualified Code(s): J18.9 - Pneumonia, unspecified organism (5) Suspected COVID-19 virus infection Code(s): Z20.828 - CONTACT W AND EXPOSURE TO OTH VIRAL COMMUNICABLE DISEASES (6) Acute dehydration Code(s): E86.0 - DEHYDRATION (7) Acute electrocardiogram changes Code(s): R94.31 - ABNORMAL ELECTROCARDIOGRAM [ECG] [EKG] (8) Acute urinary retention Code(s): R33.8 - OTHER RETENTION OF URINE (9) Anemia Code(s): D64.9 - ANEMIA, UNSPECIFIED (10) Cholelithiasis Code(s): K80.20 - CALCULUS OF GALLBLADDER W/O CHOLECYSTITIS W/O OBSTRUCTION (11) Decubitus ulcer of sacral region, stage 2 Code(s): L89.152 - PRESSURE ULCER OF SACRAL REGION, STAGE 2 (12) Degenerative joint disease of both hips Code(s): M16.0 - BILATERAL PRIMARY OSTEOARTHRITIS OF HIP (13) Neurogenic bladder Code(s): N31.9 - NEUROMUSCULAR DYSFUNCTION OF BLADDER, UNSPECIFIED (14) Prerenal azotemia Code(s): R79.89 - OTHER SPECIFIED ABNORMAL FINDINGS OF BLOOD CHEMISTRY (15) Renal failure Code(s): N19 - UNSPECIFIED KIDNEY FAILURE (16) Renal mass, right Code(s): N28.89 - OTHER SPECIFIED DISORDERS OF KIDNEY AND URETER (17) Sinus bradycardia Code(s): R00.1 - BRADYCARDIA, UNSPECIFIED (18) UTI (urinary tract infection) Code(s): N39.0 - URINARY TRACT INFECTION, SITE NOT SPECIFIED (19) Leukocytosis Code(s): D72.829 - ELEVATED WHITE BLOOD CELL COUNT, UNSPECIFIED Assessment/Plan Assessment/plan: acute ESBL UTI, generalized muscle weakness, acute leukocytosis, anemia, dehydration, prerenal azotemia, sacral ulcer, ULICES, right renal mass, HTN, NIDDM, Parkinson's disease; IV fluids for dehydration, IV Azithromycin and Meropenem as per ID for UTI, DVT/GI prophylaxis, physical therapy, oxygen saturation 99% on room air, carbidopa/levodopa for Parkinson's disease, amlodipine coreg lisinopril chlorthalidone for HTN, tylenol prn for pain, metformin for NIDDM.
[2020-02-10 09:00] LABS: ALBUMIN 2.5 g/dl (3.4-5.0); ALK PHOS 85 U/L (45-117); ANION GAP 11 MMOL/L (8-16); BILIRUBIN,TOTAL 0.7 mg/dL (0.2-1); BLOOD UREA NITROGEN 33.4 mg/dL (7-18); CALCIUM 9.1 mg/dL (8.5-10.1); CHLORIDE 104 mmol/L (98-107); CO2 24 mmol/L (21-32); GLUCOSE,RANDOM 103 mg/dL (74-106); POTASSIUM 3.9 mmol/L (3.5-5.1); SGOT/AST 12 U/L (15-37); SGPT/ALT < 6 U/L (13-61); SODIUM 139 mmol/L (136-145); TOT PROT 7.7 g/dl (6.4-8.2)
[2020-02-10] MEDS: ENOXAPARIN NA (PORCINE) 40 MG/0.4 ML DISP.SYRIN SQ SCH (10:13)
[2020-02-10] MEDS: ACETAMINOPHEN 325 MG TABLET (FP) PO PRN (10:13)
[2020-02-10] MEDS: PANTOPRAZOLE 40 MG TABLET PO SCH (10:15)
[2020-02-10] MEDS: amLODIPine BESYLATE 10 MG TABLET (FP) PO SCH (10:15)
[2020-02-10] MEDS: LISINOPRIL 20 MG TABLET (FP) PO SCH (10:15)
[2020-02-10] MEDS: CARVEDILOL 6.25 MG TABLET (FP) PO SCH ×2 (10:15→22:08)
[2020-02-10] MEDS: CHLORTHALIDONE 25 MG TABLET PO SCH (10:16)
[2020-02-10] MEDS: GLYCOPYRROLATE 1 MG TABLET PO SCH (10:16)
[2020-02-10] MEDS: AZITHROMYCIN IVPB 500 MG/250 ML BAG IVPB SCH (10:19)
[2020-02-10] MEDS: LACTATED RINGERS SOLUTION 1,000 ML/1,000 ML INFUS.BAG IV SCH ×2 (15:11→17:41)
[2020-02-10] MEDS: LATANOPROST 0.005% OPHTH SOLN 2.5ML BOTTLE OU SCH (22:10)
[2020-02-11] MEDS: MEROPENEM 500 MG in DEXTROSE 5%-WATER 100 ML IVPB SCH ×3 (02:37→17:58)
[2020-02-11] MEDS: metFORMIN HCL 500 MG TABLET (FP) PO SCH ×2 (06:24→17:59)
[2020-02-11] MEDS ORDERED: PT OWN MED DRAWER 7, Y5N ONE ×4 (06:35→21:26)
[2020-02-11] MEDS ORDERED: INSULIN (NOVOLOG) ASPART 100 UNITS/ML 10ML VIAL ONE (06:43)
[2020-02-11 07:37] LABS: BASO % 0.9 % (0-2.0); EOS % 1.7 % (0-4.5); HEMATOCRIT 28.8 % (32.4-45.2); HEMOGLOBIN 9.5 GM/dL (10.7-15.3); MEAN CELL VOLUME 78.7 fl (80-96); MONO % 11.3 % (3.8-10.2); NEUT % 69.1 % (42.8-82.8); PLATELET COUNT 506 K/MM3 (134-434); RBC 3.65 M/mm3 (3.60-5.2); WHITE BLOOD COUNT 9.9 K/mm3 (4.0-10.0)
[2020-02-11 08:02] LABS: ALBUMIN 2.6 g/dl (3.4-5.0); ALK PHOS 77 U/L (45-117); ANION GAP 6 MMOL/L (8-16); BILIRUBIN,TOTAL 0.9 mg/dL (0.2-1); BLOOD UREA NITROGEN 31.6 mg/dL (7-18); CALCIUM 9.1 mg/dL (8.5-10.1); CHLORIDE 102 mmol/L (98-107); CO2 30 mmol/L (21-32); CREATININE 1.3 mg/dL (0.55-1.3); GLUCOSE,RANDOM 89 mg/dL (74-106); POTASSIUM 3.9 mmol/L (3.5-5.1); SGOT/AST 13 U/L (15-37); SODIUM 137 mmol/L (136-145); TOT PROT 7.6 g/dl (6.4-8.2)
[2020-02-11 08:03] LABS: SGPT/ALT < 6 U/L (13-61)
--- NOTE | 2020-02-11 08:32 | PN ---
Progress Note, Physician Chief Complaint: Patient seen and examined at the bedside, patient was combative last night, pulled out IV line and Earl catheter. History of Present Illness: This 79 yr old female with PMH of HTN, NIDDM, Parkinson's disease admitted via ER with an acute generalized muscle weakness, ESBL UTI, dehydration, prerenal azotemia, sacral ulcer, ULICES, and right renal mass. - Current Medication List Current Medications: Active Medications Acetaminophen (Tylenol -) 650 mg PO Q6H PRN PRN Reason: PAIN LEVEL 6-10 Last Admin: 02/10/20 10:13 Dose: 650 mg Documented by: Amlodipine Besylate (Norvasc -) 10 mg PO DAILY [facility] Last Admin: 02/10/20 10:15 Dose: 10 mg Documented by: Carbidopa/Levodopa (Sinemet *Cr* 50/200 -) 1 combo PO TID [facility] Last Admin: 02/11/20 06:24 Dose: 1 combo Documented by: Carvedilol (Coreg -) 6.25 mg PO BID [facility] Last Admin: 02/10/20 22:08 Dose: 6.25 mg Documented by: Chlorthalidone (Hygroton -) 50 mg PO DAILY [facility] Last Admin: 02/10/20 10:16 Dose: 50 mg Documented by: Enoxaparin Sodium (Lovenox -) 40 mg SQ DAILY [facility] Last Admin: 02/10/20 10:13 Dose: 40 mg Documented by: Glycopyrrolate (Robinul -) 1 mg PO DAILY [facility] Last Admin: 02/10/20 10:16 Dose: 1 mg Documented by: Lactated Ringer's (Lactated Ringers Solution) 1,000 ml in 1,000 mls @ 50 mls/hr IV ASDIR [facility] Last Admin: 02/10/20 17:41 Dose: 50 mls/hr Documented by: Meropenem 500 mg/ Dextrose 100 mls @ 200 mls/hr IVPB Q8H-IV [facility] Last Admin: 02/11/20 02:37 Dose: 200 mls/hr Documented by: Azithromycin (Zithromax 500mg Ivpb (Pre-Docked)) 500 mg in 250 mls @ 250 mls/hr IVPB DAILY [facility] Last Admin: 02/10/20 10:19 Dose: 250 mls/hr Documented by: Latanoprost (Xalatan 0.005% Eye Drops -) 1 drop OU HS [facility] Last Admin: 02/10/20 22:10 Dose: 1 drop Documented by: Lisinopril (Prinivil) 40 mg PO DAILY [facility] Last Admin: 02/10/20 10:15 Dose: 40 mg Documented by: Metformin HCl (Glucophage -) 500 mg PO BID@0700,1630 [facility] Last Admin: 02/11/20 06:24 Dose: 500 mg Documented by: Pantoprazole Sodium (Protonix -) 40 mg PO DAILY [facility] Last Admin: 02/10/20 10:15 Dose: 40 mg Documented by: - Objective Vital Signs: Vital Signs Temperature 97.6 F 02/11/20 06:00 Pulse Rate 85 02/11/20 06:00 Respiratory Rate 20 02/11/20 07:00 Blood Pressure 132/84 02/11/20 06:00 O2 Sat by Pulse Oximetry (%) 98 02/11/20 07:00 Constitutional: Yes: Well Nourished, Other (combative, pulling out IV line and Earl catheter, confused and disoriented) Eyes: Yes: Conjunctiva Clear, EOM Intact HENT: Yes: Atraumatic, Normocephalic Neck: Yes: Supple, Trachea Midline Cardiovascular: Yes: Regular Rate and Rhythm Respiratory: Yes: Regular, CTA Bilaterally Gastrointestinal: Yes: Normal Bowel Sounds, Soft ...Rectal Exam: Yes: Deferred Genitourinary: Yes: Incontinence (acute urinary retention, neurogenic bladder not responsive to urecholine) Breast(s): Yes: WNL Musculoskeletal: Yes: Muscle Weakness Extremities: Yes: WNL Edema: No Peripheral Pulses WNL: Yes Integumentary: Yes: WNL Neurological: Yes: Alert, Confusion, Unsteady Gait, Weakness ...Motor Strength: LLE (muscle weakness), RLE (muscle weakness) Psychiatric: Yes: Alert, Agitated Labs: CBC, BMP 02/11/20 07:10 02/11/20 07:10 INR, PTT INR 1.03 (0.83-1.09) 02/08/20 09:32 - ....Imaging Other: Report Reviewed (lab data reviewed) Problem List - Problems (1) Acute kidney injury Code(s): N17.9 - ACUTE KIDNEY FAILURE, UNSPECIFIED (2) Acute respiratory failure Code(s): J96.00 - ACUTE RESPIRATORY FAILURE, UNSP W HYPOXIA OR HYPERCAPNIA Qualifiers: Respiratory failure complication: hypoxia Qualified Code(s): J96.01 - Acute respiratory failure with hypoxia (3) Leg weakness, bilateral Code(s): R29.898 - OTH SYMPTOMS AND SIGNS INVOLVING THE MUSCULOSKELETAL SYSTEM (4) PNA (pneumonia) Code(s): J18.9 - PNEUMONIA, UNSPECIFIED ORGANISM Qualifiers: Pneumonia type: due to unspecified organism Laterality: bilateral Lung location: lower lobe of lung Qualified Code(s): J18.9 - Pneumonia, unspecified organism (5) Suspected COVID-19 virus infection Code(s): Z20.828 - CONTACT W AND EXPOSURE TO OT VIRAL COMMUNICABLE DISEASES (6) Acute dehydration Code(s): E86.0 - DEHYDRATION (7) Acute electrocardiogram changes Code(s): R94.31 - ABNORMAL ELECTROCARDIOGRAM [ECG] [EKG] (8) Acute urinary retention Code(s): R33.8 - OTHER RETENTION OF URINE (9) Anemia Code(s): D64.9 - ANEMIA, UNSPECIFIED (10) Cholelithiasis Code(s): K80.20 - CALCULUS OF GALLBLADDER W/O CHOLECYSTITIS W/O OBSTRUCTION (11) Decubitus ulcer of sacral region, stage 2 Code(s): L89.152 - PRESSURE ULCER OF SACRAL REGION, STAGE 2 (12) Degenerative joint disease of both hips Code(s): M16.0 - BILATERAL PRIMARY OSTEOARTHRITIS OF HIP (13) Neurogenic bladder Code(s): N31.9 - NEUROMUSCULAR DYSFUNCTION OF BLADDER, UNSPECIFIED (14) Prerenal azotemia Code(s): R79.89 - OTHER SPECIFIED ABNORMAL FINDINGS OF BLOOD CHEMISTRY (15) Renal failure Code(s): N19 - UNSPECIFIED KIDNEY FAILURE (16) Renal mass, right Code(s): N28.89 - OTHER SPECIFIED DISORDERS OF KIDNEY AND URETER (17) Sinus bradycardia Code(s): R00.1 - BRADYCARDIA, UNSPECIFIED (18) UTI (urinary tract infection) Code(s): N39.0 - URINARY TRACT INFECTION, SITE NOT SPECIFIED (19) Leukocytosis Code(s): D72.829 - ELEVATED WHITE BLOOD CELL COUNT, UNSPECIFIED (20) Delirium Code(s): R41.0 - DISORIENTATION, UNSPECIFIED Assessment/Plan Assessment/plan: acute delirium, acute exacerbation of confusion, combative, pulling out IV line and Earl catheter, acute generalized muscle weakness, acute dehydration, prerenal azotemia, ESBL UTI, sacral ulcer, ULICES, right renal mass, HTN, NIDDM, Parkinson's disease; IV fluids for dehydration, IV Azithromycin and Meropenem as per ID for UTI, DVT/GI prophylaxis, lisinopril amlodipine chlorthalidone and coreg for HTN, metformin for NIDDM, carbidopa/levodopa for Parkinson's disease, Latanoprost for glaucoma, consut to Psychiatry.
[2020-02-11] MEDS ORDERED: MEROPENEM 500 MG VIAL (RESTRICTED TO ID) IVPB ONE ×2 (09:41→17:53)
[2020-02-11] MEDS ORDERED: DEXTROSE 5%-WATER 100 ML IVPB ONE ×2 (09:42→17:54)
[2020-02-11] MEDS: LISINOPRIL 20 MG TABLET (FP) PO SCH (09:51)
[2020-02-11] MEDS: ENOXAPARIN NA (PORCINE) 40 MG/0.4 ML DISP.SYRIN SQ SCH (09:52)
[2020-02-11] MEDS: ACETAMINOPHEN 325 MG TABLET (FP) PO PRN (09:52)
[2020-02-11] MEDS: AZITHROMYCIN IVPB 500 MG/250 ML BAG IVPB SCH (09:53)
[2020-02-11] MEDS: PANTOPRAZOLE 40 MG TABLET PO SCH (09:53)
[2020-02-11] MEDS: CARVEDILOL 6.25 MG TABLET (FP) PO SCH ×2 (09:54→21:43)
[2020-02-11] MEDS: amLODIPine BESYLATE 10 MG TABLET (FP) PO SCH (09:54)
[2020-02-11] MEDS: GLYCOPYRROLATE 1 MG TABLET PO SCH (09:55)
[2020-02-11] MEDS: CHLORTHALIDONE 25 MG TABLET PO SCH (09:56)
[2020-02-11] MEDS: LACTATED RINGERS SOLUTION 1,000 ML/1,000 ML INFUS.BAG IV SCH (15:30)
--- NOTE | 2020-02-11 16:35 | CON.PSY ---
Psychiatry Consult Chief Complaint: 79 year old female witha History of Parkinsons Disease seen for Psych eval. She has been confused and pulling out everything. Symptoms: reports: Memory Impairment, Impulsivity, Disorganized/Disruptive Thoughts - Previous Psychiatric Treatment Outpatient: None Inpatient: None - Previous Substance Abuse Treatment Outpatient: None Inpatient: None - Current Medications Current Medications: Active Medications Acetaminophen (Tylenol -) 650 mg PO Q6H PRN PRN Reason: PAIN LEVEL 6-10 Last Admin: 02/11/20 09:52 Dose: 650 mg Documented by: Amlodipine Besylate (Norvasc -) 10 mg PO DAILY [facility] Last Admin: 02/11/20 09:54 Dose: 10 mg Documented by: Carbidopa/Levodopa (Sinemet *Cr* 50/200 -) 1 combo PO TID [facility] Last Admin: 02/11/20 15:30 Dose: 1 combo Documented by: Carvedilol (Coreg -) 6.25 mg PO BID [facility] Last Admin: 02/11/20 09:54 Dose: 6.25 mg Documented by: Chlorthalidone (Hygroton -) 50 mg PO DAILY [facility] Last Admin: 02/11/20 09:56 Dose: 50 mg Documented by: Enoxaparin Sodium (Lovenox -) 40 mg SQ DAILY [facility] Last Admin: 02/11/20 09:52 Dose: 40 mg Documented by: Lactated Ringer's (Lactated Ringers Solution) 1,000 ml in 1,000 mls @ 50 mls/hr IV ASDIR [facility] Last Admin: 02/11/20 15:30 Dose: 50 mls/hr Documented by: Meropenem 500 mg/ Dextrose 100 mls @ 200 mls/hr IVPB Q8H-IV [facility] Last Admin: 02/11/20 09:52 Dose: 200 mls/hr Documented by: Azithromycin (Zithromax 500mg Ivpb (Pre-Docked)) 500 mg in 250 mls @ 250 mls/hr IVPB DAILY [facility] Last Admin: 02/11/20 09:53 Dose: 250 mls/hr Documented by: Latanoprost (Xalatan 0.005% Eye Drops -) 1 drop OU HS [facility] Last Admin: 02/10/20 22:10 Dose: 1 drop Documented by: Lisinopril (Prinivil) 40 mg PO DAILY [facility] Last Admin: 02/11/20 09:51 Dose: 40 mg Documented by: Metformin HCl (Glucophage -) 500 mg PO BID@0700,1630 [facility] Last Admin: 02/11/20 06:24 Dose: 500 mg Documented by: Pantoprazole Sodium (Protonix -) 40 mg PO DAILY [facility] Last Admin: 02/11/20 09:53 Dose: 40 mg Documented by: - Allergies Allergies: Allergies Allergy/AdvReac Type Severity Reaction Status Date / Time No Known Allergies Allergy Verified 01/22/20 17:43 - Current Living Status Usual Living Arrangement: With Child - Current Mental Status Evaluation Appearance: Well Groomed Attitude: Uncooperative - Affect Affect: Labile Appropriateness: Not Appropriate - Speech/Language Expressive: Delayed - Psychomotor Activity Psychomotor Activity: Hyperactive - Thought Process Thought Process: Circumstantial - Thought Content Hallucinations: Absent Delusions: Absent - Self Perception Self Perception: Depersonalization - Cognition Attention: Diminished - Concentration Serial Sevens Intact: No Simple Calculations Intact: No - Abstraction Proverb Interpretation: [place] Judgement: Moderately Impaired - Insight Insight: Impaired - Suicidal Ideation Suicidal Ideation: No - Homicidal Ideation Homicidal Ideation: No Assessment/Plan 1) [id number] po hs for agitation secondary to Acute Delirium.
--- NOTE | 2020-02-11 20:53 | PN ---
Progress Note, Physician History of Present Illness: AWAKE, SL CONFUSED NO FOCAL COMPLAINT NO C/O LE PAIN DENIES CHEST PAIN/ DYSPNEA/ COUGH NO DYSURIA AFEBRILE WBC IMPROVED - Current Medication List Current Medications: Active Medications Acetaminophen (Tylenol -) 650 mg PO Q6H PRN PRN Reason: PAIN LEVEL 6-10 Last Admin: 02/11/20 09:52 Dose: 650 mg Documented by: Amlodipine Besylate (Norvasc -) 10 mg PO DAILY [facility] Last Admin: 02/11/20 09:54 Dose: 10 mg Documented by: Carbidopa/Levodopa (Sinemet *Cr* 50/200 -) 1 combo PO TID [facility] Last Admin: 02/11/20 15:30 Dose: 1 combo Documented by: Carvedilol (Coreg -) 6.25 mg PO BID [facility] Last Admin: 02/11/20 09:54 Dose: 6.25 mg Documented by: Chlorthalidone (Hygroton -) 50 mg PO DAILY [facility] Last Admin: 02/11/20 09:56 Dose: 50 mg Documented by: Enoxaparin Sodium (Lovenox -) 40 mg SQ DAILY [facility] Last Admin: 02/11/20 09:52 Dose: 40 mg Documented by: Lactated Ringer's (Lactated Ringers Solution) 1,000 ml in 1,000 mls @ 50 mls/hr IV ASDIR [facility] Last Admin: 02/11/20 15:30 Dose: 50 mls/hr Documented by: Meropenem 500 mg/ Dextrose 100 mls @ 200 mls/hr IVPB Q8H-IV [facility] Last Admin: 02/11/20 17:58 Dose: 200 mls/hr Documented by: Azithromycin (Zithromax 500mg Ivpb (Pre-Docked)) 500 mg in 250 mls @ 250 mls/hr IVPB DAILY [facility] Last Admin: 02/11/20 09:53 Dose: 250 mls/hr Documented by: Latanoprost (Xalatan 0.005% Eye Drops -) 1 drop OU HS [facility] Last Admin: 02/10/20 22:10 Dose: 1 drop Documented by: Lisinopril (Prinivil) 40 mg PO DAILY [facility] Last Admin: 02/11/20 09:51 Dose: 40 mg Documented by: Metformin HCl (Glucophage -) 500 mg PO BID@0700,1630 [facility] Last Admin: 02/11/20 17:59 Dose: 500 mg Documented by: Olanzapine (Zyprexa -) 5 mg PO HS [facility] Pantoprazole Sodium (Protonix -) 40 mg PO DAILY [facility] Last Admin: 02/11/20 09:53 Dose: 40 mg Documented by: - Objective Vital Signs: Vital Signs Temperature 98.5 F 02/11/20 16:20 Pulse Rate 68 02/11/20 16:20 Respiratory Rate 18 02/11/20 16:20 Blood Pressure 110/70 02/11/20 16:20 O2 Sat by Pulse Oximetry (%) 96 02/11/20 15:00 Constitutional: Yes: No Distress Eyes: Yes: Conjunctiva Clear Cardiovascular: Yes: Regular Rate and Rhythm, S1, S2 Respiratory: Yes: CTA Bilaterally Gastrointestinal: Yes: Normal Bowel Sounds, Soft Labs: CBC, BMP 02/11/20 07:10 02/11/20 07:10 INR, PTT INR 1.03 (0.83-1.09) 02/08/20 09:32 Assessment/Plan R/O PNEUMONIA ? ATYPICAL ? COVID-19 ESBL UTI CONTINUE EMPIRIC MEROPENEM/ ZITHROMAX
[2020-02-11] MEDS: OLANZapine 5 MG TABLET PO SCH (21:43)
[2020-02-11] MEDS: LATANOPROST 0.005% OPHTH SOLN 2.5ML BOTTLE OU SCH (21:44)
[2020-02-12] MEDS ORDERED: MEROPENEM 500 MG VIAL (RESTRICTED TO ID) IVPB ONE ×3 (01:46→18:51)
[2020-02-12] MEDS ORDERED: DEXTROSE 5%-WATER 100 ML IVPB ONE ×3 (01:47→18:51)
[2020-02-12] MEDS: MEROPENEM 500 MG in DEXTROSE 5%-WATER 100 ML IVPB SCH ×3 (01:56→18:54)
[2020-02-12] MEDS: metFORMIN HCL 500 MG TABLET (FP) PO SCH ×2 (06:07→17:49)
[2020-02-12 07:36] LABS: LYMPH % 21.3 % (8-40); MCH 26.1 pg (25.7-33.7); MCHC 33.2 g/dl (32.0-36.0); MEAN CELL VOLUME 78.6 fl (80-96); MEAN PLT VOLUME 8.2 fl (7.5-11.1); MONO % 11.5 % (3.8-10.2); NEUT % 64.2 % (42.8-82.8); PLATELET COUNT 451 K/MM3 (134-434); RBC 3.44 M/mm3 (3.60-5.2); RDW 19.8 % (11.6-15.6); WHITE BLOOD COUNT 10.3 K/mm3 (4.0-10.0)
[2020-02-12 07:55] LABS: ALBUMIN 2.5 g/dl (3.4-5.0); ALK PHOS 73 U/L (45-117); ANION GAP 7 MMOL/L (8-16); BILIRUBIN,TOTAL 0.6 mg/dL (0.2-1); BLOOD UREA NITROGEN 27.7 mg/dL (7-18); CALCIUM 9.1 mg/dL (8.5-10.1); CHLORIDE 102 mmol/L (98-107); CO2 29 mmol/L (21-32); CREATININE 1.2 mg/dL (0.55-1.3); GLUCOSE,RANDOM 93 mg/dL (74-106); POTASSIUM 3.8 mmol/L (3.5-5.1); SGOT/AST 11 U/L (15-37); SGPT/ALT < 6 U/L (13-61); SODIUM 138 mmol/L (136-145); TOT PROT 7.4 g/dl (6.4-8.2)
--- NOTE | 2020-02-12 08:08 | PN ---
Progress Note, Physician Chief Complaint: Patient seen and examined at the bedside, no acute events from last night, afebrile, in a delirium state. oxygen saturation 98% on 2L/min via nasal cannula. History of Present Illness: This 79 yr old female with PMH of HTN, NIDDM, Parkinson's disease admitted with an acute generalized muscle weakness, dehydration, ESBL UTI, prerenal azotemia, sacral ulcer and right renal mass/malignancy. - Current Medication List Current Medications: Active Medications Acetaminophen (Tylenol -) 650 mg PO Q6H PRN PRN Reason: PAIN LEVEL 6-10 Last Admin: 02/11/20 09:52 Dose: 650 mg Documented by: Amlodipine Besylate (Norvasc -) 10 mg PO DAILY [facility] Last Admin: 02/11/20 09:54 Dose: 10 mg Documented by: Carbidopa/Levodopa (Sinemet *Cr* 50/200 -) 1 combo PO TID [facility] Last Admin: 02/12/20 06:07 Dose: 1 combo Documented by: Carvedilol (Coreg -) 6.25 mg PO BID [facility] Last Admin: 02/11/20 21:43 Dose: 6.25 mg Documented by: Chlorthalidone (Hygroton -) 50 mg PO DAILY [facility] Last Admin: 02/11/20 09:56 Dose: 50 mg Documented by: Enoxaparin Sodium (Lovenox -) 40 mg SQ DAILY [facility] Last Admin: 02/11/20 09:52 Dose: 40 mg Documented by: Lactated Ringer's (Lactated Ringers Solution) 1,000 ml in 1,000 mls @ 50 mls/hr IV ASDIR [facility] Last Admin: 02/11/20 15:30 Dose: 50 mls/hr Documented by: Meropenem 500 mg/ Dextrose 100 mls @ 200 mls/hr IVPB Q8H-IV [facility] Last Admin: 02/12/20 01:56 Dose: 200 mls/hr Documented by: Azithromycin (Zithromax 500mg Ivpb (Pre-Docked)) 500 mg in 250 mls @ 250 mls/hr IVPB DAILY [facility] Last Admin: 02/11/20 09:53 Dose: 250 mls/hr Documented by: Latanoprost (Xalatan 0.005% Eye Drops -) 1 drop OU HS [facility] Last Admin: 02/11/20 21:44 Dose: 1 drop Documented by: Lisinopril (Prinivil) 40 mg PO DAILY [facility] Last Admin: 02/11/20 09:51 Dose: 40 mg Documented by: Metformin HCl (Glucophage -) 500 mg PO BID@0700,1630 [facility] Last Admin: 02/12/20 06:07 Dose: 500 mg Documented by: Olanzapine (Zyprexa -) 5 mg PO HS [facility] Last Admin: 02/11/20 21:43 Dose: 5 mg Documented by: Pantoprazole Sodium (Protonix -) 40 mg PO DAILY [facility] Last Admin: 02/11/20 09:53 Dose: 40 mg Documented by: - Objective Vital Signs: Vital Signs Temperature 97.8 F 02/12/20 05:45 Pulse Rate 77 02/12/20 05:45 Respiratory Rate 20 02/12/20 07:00 Blood Pressure 137/61 02/12/20 05:45 O2 Sat by Pulse Oximetry (%) 98 02/12/20 07:00 Constitutional: Yes: Well Nourished, No Distress, Calm Eyes: Yes: Conjunctiva Clear, EOM Intact HENT: Yes: Atraumatic, Normocephalic Neck: Yes: Supple, Trachea Midline Cardiovascular: Yes: Regular Rate and Rhythm Respiratory: Yes: Regular, CTA Bilaterally Gastrointestinal: Yes: Normal Bowel Sounds, Soft ...Rectal Exam: Yes: Deferred Genitourinary: Yes: Incontinence (acute urinary retention, neurogenic bladder not responsive to urecholine) Breast(s): Yes: WNL Musculoskeletal: Yes: Muscle Weakness Extremities: Yes: WNL Edema: No Peripheral Pulses WNL: Yes Integumentary: Yes: Pressure Ulcer (sacrum) Neurological: Yes: Alert, Confusion, Unsteady Gait, Weakness ...Motor Strength: LUE (generalized muscle weakness of all extremities) Psychiatric: Yes: Alert Labs: CBC, BMP 02/12/20 07:05 02/12/20 07:05 INR, PTT INR 1.03 (0.83-1.09) 02/08/20 09:32 - ....Imaging Other: Report Reviewed (lab data reviewed) Problem List - Problems (1) Acute kidney injury Code(s): N17.9 - ACUTE KIDNEY FAILURE, UNSPECIFIED (2) Acute respiratory failure Code(s): J96.00 - ACUTE RESPIRATORY FAILURE, UNSP W HYPOXIA OR HYPERCAPNIA Qualifiers: Respiratory failure complication: hypoxia Qualified Code(s): J96.01 - Acute respiratory failure with hypoxia (3) Leg weakness, bilateral Code(s): R29.898 - OTH SYMPTOMS AND SIGNS INVOLVING THE MUSCULOSKELETAL SYSTEM (4) PNA (pneumonia) Code(s): J18.9 - PNEUMONIA, UNSPECIFIED ORGANISM Qualifiers: Pneumonia type: due to unspecified organism Laterality: bilateral Lung location: lower lobe of lung Qualified Code(s): J18.9 - Pneumonia, unspecified organism (5) Suspected COVID-19 virus infection Code(s): Z20.828 - CONTACT W AND EXPOSURE TO OT VIRAL COMMUNICABLE DISEASES (6) Acute dehydration Code(s): E86.0 - DEHYDRATION (7) Acute electrocardiogram changes Code(s): R94.31 - ABNORMAL ELECTROCARDIOGRAM [ECG] [EKG] (8) Acute urinary retention Code(s): R33.8 - OTHER RETENTION OF URINE (9) Anemia Code(s): D64.9 - ANEMIA, UNSPECIFIED (10) Cholelithiasis Code(s): K80.20 - CALCULUS OF GALLBLADDER W/O CHOLECYSTITIS W/O OBSTRUCTION (11) Decubitus ulcer of sacral region, stage 2 Code(s): L89.152 - PRESSURE ULCER OF SACRAL REGION, STAGE 2 (12) Degenerative joint disease of both hips Code(s): M16.0 - BILATERAL PRIMARY OSTEOARTHRITIS OF HIP (13) Neurogenic bladder Code(s): N31.9 - NEUROMUSCULAR DYSFUNCTION OF BLADDER, UNSPECIFIED (14) Prerenal azotemia Code(s): R79.89 - OTHER SPECIFIED ABNORMAL FINDINGS OF BLOOD CHEMISTRY (15) Renal failure Code(s): N19 - UNSPECIFIED KIDNEY FAILURE (16) Renal mass, right Code(s): N28.89 - OTHER SPECIFIED DISORDERS OF KIDNEY AND URETER (17) Sinus bradycardia Code(s): R00.1 - BRADYCARDIA, UNSPECIFIED (18) UTI (urinary tract infection) Code(s): N39.0 - URINARY TRACT INFECTION, SITE NOT SPECIFIED (19) Leukocytosis Code(s): D72.829 - ELEVATED WHITE BLOOD CELL COUNT, UNSPECIFIED (20) Delirium Code(s): R41.0 - DISORIENTATION, UNSPECIFIED Assessment/Plan Assessment/plan: acute dehydration, prerenal azotemia, generalized muscle weakness, acute delirium, right renal mass/malignancy, ESBL UTI, sacral ulcer, acute renal failure; DVT/GI prophylaxis, physical therapy, IV Azithromycin and Meropenem for UTI, zyprexa for acute delirium, amlodipine chlorthalidone coreg and lisinopril for HTN, tylenol prn for pain, carbidopa/levodopa for Parkinson's disease, metformin for NIDDM, latanoprost for glaucoma, oxygen 2L/min via nasal cannula with spo2 98%, head CT without contrast.
[2020-02-12] MEDS ORDERED: PT OWN MED DRAWER 7, Y5N ONE ×3 (09:43→21:05)
[2020-02-12] MEDS: AZITHROMYCIN IVPB 500 MG/250 ML BAG IVPB SCH (10:27)
[2020-02-12] MEDS: CARVEDILOL 6.25 MG TABLET (FP) PO SCH ×2 (10:28→21:07)
[2020-02-12] MEDS: LISINOPRIL 20 MG TABLET (FP) PO SCH (10:28)
[2020-02-12] MEDS: amLODIPine BESYLATE 10 MG TABLET (FP) PO SCH (10:28)
[2020-02-12] MEDS: ENOXAPARIN NA (PORCINE) 40 MG/0.4 ML DISP.SYRIN SQ SCH (10:28)
[2020-02-12] MEDS: PANTOPRAZOLE 40 MG TABLET PO SCH (10:29)
[2020-02-12] MEDS: CHLORTHALIDONE 25 MG TABLET PO SCH (10:30)
--- NOTE | 2020-02-12 11:41 | PN ---
Progress Note, Physician History of Present Illness: AWAKE IN BED SOMEWHAT LESS CONFUSED TODAY CT HEAD NO ACUTE PATH PSYCH EVAL NOTED NO FOCAL COMPLAINT DENIES CHEST PAIN/ DYSPNEA/ COUGH NO DYSURIA AFEBRILE WBC 10.3 COVID-19 (-) - Current Medication List Current Medications: Active Medications Acetaminophen (Tylenol -) 650 mg PO Q6H PRN PRN Reason: PAIN LEVEL 6-10 Last Admin: 02/11/20 09:52 Dose: 650 mg Documented by: Amlodipine Besylate (Norvasc -) 10 mg PO DAILY [facility] Last Admin: 02/12/20 10:28 Dose: 10 mg Documented by: Carbidopa/Levodopa (Sinemet *Cr* 50/200 -) 1 combo PO TID [facility] Last Admin: 02/12/20 06:07 Dose: 1 combo Documented by: Carvedilol (Coreg -) 6.25 mg PO BID [facility] Last Admin: 02/12/20 10:28 Dose: 6.25 mg Documented by: Chlorthalidone (Hygroton -) 50 mg PO DAILY [facility] Last Admin: 02/12/20 10:30 Dose: 50 mg Documented by: Enoxaparin Sodium (Lovenox -) 40 mg SQ DAILY [facility] Last Admin: 02/12/20 10:28 Dose: 40 mg Documented by: Lactated Ringer's (Lactated Ringers Solution) 1,000 ml in 1,000 mls @ 50 mls/hr IV ASDIR [facility] Last Admin: 02/11/20 15:30 Dose: 50 mls/hr Documented by: Meropenem 500 mg/ Dextrose 100 mls @ 200 mls/hr IVPB Q8H-IV [facility] Last Admin: 02/12/20 10:28 Dose: 200 mls/hr Documented by: Azithromycin (Zithromax 500mg Ivpb (Pre-Docked)) 500 mg in 250 mls @ 250 mls/hr IVPB DAILY [facility] Last Admin: 02/12/20 10:27 Dose: 250 mls/hr Documented by: Latanoprost (Xalatan 0.005% Eye Drops -) 1 drop OU HS [facility] Last Admin: 02/11/20 21:44 Dose: 1 drop Documented by: Lisinopril (Prinivil) 40 mg PO DAILY [facility] Last Admin: 02/12/20 10:28 Dose: 40 mg Documented by: Metformin HCl (Glucophage -) 500 mg PO BID@0700,1630 [facility] Last Admin: 02/12/20 06:07 Dose: 500 mg Documented by: Olanzapine (Zyprexa -) 5 mg PO HS [facility] Last Admin: 02/11/20 21:43 Dose: 5 mg Documented by: Pantoprazole Sodium (Protonix -) 40 mg PO DAILY [facility] Last Admin: 02/12/20 10:29 Dose: 40 mg Documented by: - Objective Vital Signs: Vital Signs Temperature 97.8 F 02/12/20 05:45 Pulse Rate 77 02/12/20 05:45 Respiratory Rate 02/12/20 07:00 Blood Pressure 137/61 02/12/20 05:45 O2 Sat by Pulse Oximetry (%) 98 02/12/20 07:00 Constitutional: Yes: No Distress, Obese Cardiovascular: Yes: Regular Rate and Rhythm, S1, S2 Respiratory: Yes: CTA Bilaterally Gastrointestinal: Yes: Normal Bowel Sounds, Soft, Abdomen, Obese. No: Tenderness Edema: Yes Labs: CBC, BMP 02/12/20 07:05 02/12/20 07:05 INR, PTT INR 1.03 (0.83-1.09) 02/08/20 09:32 Assessment/Plan R/O PNEUMONIA ? ATYPICAL ESBL UTI DAY #5 MEROPENEM/ ZITHROMAX CONTINUE ANTIBIOTICS X 48HR THEN DISCONTINUE AND D/C PICC
[2020-02-12] MEDS: LACTATED RINGERS SOLUTION 1,000 ML/1,000 ML INFUS.BAG IV SCH (18:00)
[2020-02-12] MEDS: OLANZapine 5 MG TABLET PO SCH (21:07)
[2020-02-12] MEDS: LATANOPROST 0.005% OPHTH SOLN 2.5ML BOTTLE OU SCH (21:08)
[2020-02-13] MEDS ORDERED: MEROPENEM 500 MG VIAL (RESTRICTED TO ID) IVPB ONE ×3 (01:40→17:04)
[2020-02-13] MEDS ORDERED: DEXTROSE 5%-WATER 100 ML IVPB ONE ×3 (01:40→17:04)
[2020-02-13] MEDS: MEROPENEM 500 MG in DEXTROSE 5%-WATER 100 ML IVPB SCH ×3 (01:43→17:37)
[2020-02-13] MEDS: metFORMIN HCL 500 MG TABLET (FP) PO SCH ×2 (06:01→17:36)
[2020-02-13 07:01] LABS: BASO % 0.7 % (0-2.0); EOS % 1.4 % (0-4.5); HEMATOCRIT 26.2 % (32.4-45.2); HEMOGLOBIN 8.6 GM/dL (10.7-15.3); LYMPH % 16.7 % (8-40); MCH 25.8 pg (25.7-33.7); MCHC 32.8 g/dl (32.0-36.0); MEAN CELL VOLUME 78.6 fl (80-96); MONO % 12.2 % (3.8-10.2); PLATELET COUNT 394 K/MM3 (134-434); RBC 3.33 M/mm3 (3.60-5.2); RDW 20.2 % (11.6-15.6); WHITE BLOOD COUNT 11.7 K/mm3 (4.0-10.0)
[2020-02-13 07:33] LABS: ALBUMIN 2.4 g/dl (3.4-5.0); ANION GAP 8 MMOL/L (8-16); BLOOD UREA NITROGEN 23.3 mg/dL (7-18); CHLORIDE 101 mmol/L (98-107); CO2 29 mmol/L (21-32); GLUCOSE,RANDOM 94 mg/dL (74-106); POTASSIUM 3.5 mmol/L (3.5-5.1); SGOT/AST 12 U/L (15-37); SODIUM 138 mmol/L (136-145)
[2020-02-13 07:35] LABS: ALK PHOS 72 U/L (45-117); BILIRUBIN,TOTAL 1.2 mg/dL (0.2-1); CREATININE 1.1 mg/dL (0.55-1.3)
[2020-02-13 07:37] LABS: SGPT/ALT < 6 U/L (13-61)
[2020-02-13] MEDS ORDERED: PT OWN MED DRAWER 7, Y5N ONE ×3 (09:17→21:19)
--- NOTE | 2020-02-13 10:09 | PN ---
Progress Note, Physician Chief Complaint: Patient seen and examined at the bedside, no acute events from last night, not agitated this morning. History of Present Illness: This 79 yr old female with PMH of HTN, NIDDM, Parkinson's disease admitted via ER with an acute generalized muscle weakness, ESBL UTI, dehydration, sacral ulcer, acute renal failure and right renal mass/malignancy. - Current Medication List Current Medications: Active Medications Acetaminophen (Tylenol -) 650 mg PO Q6H PRN PRN Reason: PAIN LEVEL 6-10 Last Admin: 02/11/20 09:52 Dose: 650 mg Documented by: Amlodipine Besylate (Norvasc -) 10 mg PO DAILY [facility] Last Admin: 02/12/20 10:28 Dose: 10 mg Documented by: Carbidopa/Levodopa (Sinemet *Cr* 50/200 -) 1 combo PO TID [facility] Last Admin: 02/13/20 06:00 Dose: 1 combo Documented by: Carvedilol (Coreg -) 6.25 mg PO BID [facility] Last Admin: 02/12/20 21:07 Dose: 6.25 mg Documented by: Chlorthalidone (Hygroton -) 50 mg PO DAILY [facility] Last Admin: 02/12/20 10:30 Dose: 50 mg Documented by: Enoxaparin Sodium (Lovenox -) 40 mg SQ DAILY [facility] Last Admin: 02/12/20 10:28 Dose: 40 mg Documented by: Lactated Ringer's (Lactated Ringers Solution) 1,000 ml in 1,000 mls @ 50 mls/hr IV ASDIR [facility] Last Admin: 02/12/20 18:00 Dose: 50 mls/hr Documented by: Meropenem 500 mg/ Dextrose 100 mls @ 200 mls/hr IVPB Q8H-IV [facility] Last Admin: 02/13/20 01:43 Dose: 200 mls/hr Documented by: Azithromycin (Zithromax 500mg Ivpb (Pre-Docked)) 500 mg in 250 mls @ 250 mls/hr IVPB DAILY [facility] Last Admin: 02/12/20 10:27 Dose: 250 mls/hr Documented by: Latanoprost (Xalatan 0.005% Eye Drops -) 1 drop OU HS [facility] Last Admin: 02/12/20 21:08 Dose: 1 drop Documented by: Lisinopril (Prinivil) 40 mg PO DAILY [facility] Last Admin: 02/12/20 10:28 Dose: 40 mg Documented by: Metformin HCl (Glucophage -) 500 mg PO BID@0700,1630 [facility] Last Admin: 02/13/20 06:01 Dose: 500 mg Documented by: Olanzapine (Zyprexa -) 5 mg PO HS [facility] Last Admin: 02/12/20 21:07 Dose: 5 mg Documented by: Pantoprazole Sodium (Protonix -) 40 mg PO DAILY [facility] Last Admin: 02/12/20 10:29 Dose: 40 mg Documented by: - Objective Vital Signs: Vital Signs Temperature 98.5 F 02/13/20 06:00 Pulse Rate 80 02/13/20 06:00 Respiratory Rate 20 02/13/20 07:00 Blood Pressure 121/70 02/13/20 06:00 O2 Sat by Pulse Oximetry (%) 100 02/13/20 07:00 Constitutional: Yes: Well Nourished, No Distress, Calm Eyes: Yes: Conjunctiva Clear, EOM Intact HENT: Yes: Atraumatic, Normocephalic Neck: Yes: Supple, Trachea Midline Cardiovascular: Yes: Regular Rate and Rhythm Respiratory: Yes: Regular, CTA Bilaterally Gastrointestinal: Yes: Normal Bowel Sounds, Soft ...Rectal Exam: Yes: Deferred Genitourinary: Yes: Incontinence, Other (acute urinary retention, neurogenic bladder not responsive to urecholine) Breast(s): Yes: WNL Musculoskeletal: Yes: Muscle Weakness Extremities: Yes: WNL Edema: No Peripheral Pulses WNL: Yes Integumentary: Yes: Pressure Ulcer (sacrum) Neurological: Yes: Alert, Confusion, Unsteady Gait, Weakness ...Motor Strength: LUE (generalized muscle weakness of all extremities) Psychiatric: Yes: Alert Labs: CBC, BMP 02/13/20 06:20 02/13/20 06:20 INR, PTT INR 1.03 (0.83-1.09) 02/08/20 09:32 - ....Imaging Other: Report Reviewed (lab data reviewed) Problem List - Problems (1) Acute kidney injury Code(s): N17.9 - ACUTE KIDNEY FAILURE, UNSPECIFIED (2) Acute respiratory failure Code(s): J96.00 - ACUTE RESPIRATORY FAILURE, UNSP W HYPOXIA OR HYPERCAPNIA Qualifiers: Respiratory failure complication: hypoxia Qualified Code(s): J96.01 - Acute respiratory failure with hypoxia (3) Leg weakness, bilateral Code(s): R29.898 - OTH SYMPTOMS AND SIGNS INVOLVING THE MUSCULOSKELETAL SYSTEM (4) PNA (pneumonia) Code(s): J18.9 - PNEUMONIA, UNSPECIFIED ORGANISM Qualifiers: Pneumonia type: due to unspecified organism Laterality: bilateral Lung location: lower lobe of lung Qualified Code(s): J18.9 - Pneumonia, unspecified organism (5) Suspected COVID-19 virus infection Code(s): Z20.828 - CONTACT W AND EXPOSURE TO OT VIRAL COMMUNICABLE DISEASES (6) Acute dehydration Code(s): E86.0 - DEHYDRATION (7) Acute electrocardiogram changes Code(s): R94.31 - ABNORMAL ELECTROCARDIOGRAM [ECG] [EKG] (8) Acute urinary retention Code(s): R33.8 - OTHER RETENTION OF URINE (9) Anemia Code(s): D64.9 - ANEMIA, UNSPECIFIED (10) Cholelithiasis Code(s): K80.20 - CALCULUS OF GALLBLADDER W/O CHOLECYSTITIS W/O OBSTRUCTION (11) Decubitus ulcer of sacral region, stage 2 Code(s): L89.152 - PRESSURE ULCER OF SACRAL REGION, STAGE 2 (12) Degenerative joint disease of both hips Code(s): M16.0 - BILATERAL PRIMARY OSTEOARTHRITIS OF HIP (13) Neurogenic bladder Code(s): N31.9 - NEUROMUSCULAR DYSFUNCTION OF BLADDER, UNSPECIFIED (14) Prerenal azotemia Code(s): R79.89 - OTHER SPECIFIED ABNORMAL FINDINGS OF BLOOD CHEMISTRY (15) Renal failure Code(s): N19 - UNSPECIFIED KIDNEY FAILURE (16) Renal mass, right Code(s): N28.89 - OTHER SPECIFIED DISORDERS OF KIDNEY AND URETER (17) Sinus bradycardia Code(s): R00.1 - BRADYCARDIA, UNSPECIFIED (18) UTI (urinary tract infection) Code(s): N39.0 - URINARY TRACT INFECTION, SITE NOT SPECIFIED (19) Leukocytosis Code(s): D72.829 - ELEVATED WHITE BLOOD CELL COUNT, UNSPECIFIED (20) Delirium Code(s): R41.0 - DISORIENTATION, UNSPECIFIED Assessment/Plan Assessment/plan: acute generalized muscle weakness, dehydration, ESBL UTI, prerenal azotemia, sacral ulcer, acute renal failure, right renal mass/malignancy; d/c IV fluids, IV Azithromycin and Meropenem as per ID for UTI, DVT/GI prophylaxis, carbidopa/levodopa for Parkinson's disease, amlodipine coreg, lisinopril and chlorthalidone for HTN, zyprexa for delirium, metformin for NIDDM, Latanoprost for glaucoma, physical therapy, per ID continue abx for next 24 hours then d/c abx and picc line.
[2020-02-13] MEDS: CARVEDILOL 6.25 MG TABLET (FP) PO SCH ×2 (10:33→22:42)
[2020-02-13] MEDS: ACETAMINOPHEN 325 MG TABLET (FP) PO PRN (10:33)
[2020-02-13] MEDS: PANTOPRAZOLE 40 MG TABLET PO SCH (10:34)
[2020-02-13] MEDS: LISINOPRIL 20 MG TABLET (FP) PO SCH (10:34)
[2020-02-13] MEDS: amLODIPine BESYLATE 10 MG TABLET (FP) PO SCH (10:34)
[2020-02-13] MEDS: CHLORTHALIDONE 25 MG TABLET PO SCH (10:35)
[2020-02-13] MEDS: AZITHROMYCIN IVPB 500 MG/250 ML BAG IVPB SCH (10:35)
[2020-02-13] MEDS: ENOXAPARIN NA (PORCINE) 40 MG/0.4 ML DISP.SYRIN SQ SCH (10:35)
[2020-02-13] MEDS: OLANZapine 5 MG TABLET PO SCH (22:42)
[2020-02-13] MEDS: LATANOPROST 0.005% OPHTH SOLN 2.5ML BOTTLE OU SCH (22:43)
[2020-02-14] MEDS ORDERED: MEROPENEM 500 MG VIAL (RESTRICTED TO ID) IVPB ONE ×3 (00:45→16:12)
[2020-02-14] MEDS ORDERED: DEXTROSE 5%-WATER 100 ML IVPB ONE ×3 (00:45→16:12)
[2020-02-14] MEDS: MEROPENEM 500 MG in DEXTROSE 5%-WATER 100 ML IVPB SCH ×3 (01:12→17:02)
[2020-02-14] MEDS: metFORMIN HCL 500 MG TABLET (FP) PO SCH ×2 (06:26→16:18)
[2020-02-14 07:50] LABS: BASO % 0.7 % (0-2.0); EOS % 2.5 % (0-4.5); HEMATOCRIT 25.1 % (32.4-45.2); HEMOGLOBIN 8.1 GM/dL (10.7-15.3); LYMPH % 16.8 % (8-40); MCH 25.5 pg (25.7-33.7); MCHC 32.4 g/dl (32.0-36.0); MEAN CELL VOLUME 78.9 fl (80-96); MEAN PLT VOLUME 7.9 fl (7.5-11.1); MONO % 10.9 % (3.8-10.2); NEUT % 69.1 % (42.8-82.8); PLATELET COUNT 407 K/MM3 (134-434); RBC 3.19 M/mm3 (3.60-5.2); RDW 19.9 % (11.6-15.6); WHITE BLOOD COUNT 11.8 K/mm3 (4.0-10.0)
--- NOTE | 2020-02-14 08:19 | PN ---
Progress Note, Physician Chief Complaint: Patient seen and examined at the bedside, no acute events from last night, very lethargic this morning, afebrile. History of Present Illness: This 79 yr old female with PMH of HTN, NIDDM, Parkinson's disease admitted via ER with an acute generalized muscel weakness, pain in the right right thigh, ESBL UTI, dehydration, sacral ulcer, and right renal mass/mal ignancy. - Current Medication List Current Medications: Active Medications Acetaminophen (Tylenol -) 650 mg PO Q6H PRN PRN Reason: PAIN LEVEL 6-10 Last Admin: 02/13/20 10:33 Dose: 650 mg Documented by: Amlodipine Besylate (Norvasc -) 10 mg PO DAILY [facility] Last Admin: 02/13/20 10:34 Dose: 10 mg Documented by: Carbidopa/Levodopa (Sinemet *Cr* 50/200 -) 1 combo PO TID [facility] Last Admin: 02/14/20 06:26 Dose: 1 combo Documented by: Carvedilol (Coreg -) 6.25 mg PO BID [facility] Last Admin: 02/13/20 22:42 Dose: 6.25 mg Documented by: Chlorthalidone (Hygroton -) 50 mg PO DAILY [facility] Last Admin: 02/13/20 10:35 Dose: 50 mg Documented by: Enoxaparin Sodium (Lovenox -) 40 mg SQ DAILY [facility] Last Admin: 02/13/20 10:35 Dose: 40 mg Documented by: Meropenem 500 mg/ Dextrose 100 mls @ 200 mls/hr IVPB Q8H-IV [facility] Last Admin: 02/14/20 01:12 Dose: 200 mls/hr Documented by: Azithromycin (Zithromax 500mg Ivpb (Pre-Docked)) 500 mg in 250 mls @ 250 mls/hr IVPB DAILY [facility] Last Admin: 02/13/20 10:35 Dose: 250 mls/hr Documented by: Latanoprost (Xalatan 0.005% Eye Drops -) 1 drop OU HS [facility] Last Admin: 02/13/20 22:43 Dose: 1 drop Documented by: Lisinopril (Prinivil) 40 mg PO DAILY [facility] Last Admin: 02/13/20 10:34 Dose: 40 mg Documented by: Metformin HCl (Glucophage -) 500 mg PO BID@0700,1630 [facility] Last Admin: 02/14/20 06:26 Dose: 500 mg Documented by: Olanzapine (Zyprexa -) 5 mg PO HS [facility] Last Admin: 02/13/20 22:42 Dose: 5 mg Documented by: Pantoprazole Sodium (Protonix -) 40 mg PO DAILY [facility] Last Admin: 02/13/20 10:34 Dose: 40 mg Documented by: - Objective Vital Signs: Vital Signs Temperature 98.6 F 02/14/20 06:00 Pulse Rate 67 02/14/20 06:00 Respiratory Rate 18 02/14/20 06:00 Blood Pressure 101/68 02/14/20 06:00 O2 Sat by Pulse Oximetry (%) 100 02/14/20 06:00 Constitutional: Yes: Well Nourished, No Distress, Calm Eyes: Yes: Conjunctiva Clear, EOM Intact HENT: Yes: Atraumatic, Normocephalic Neck: Yes: Supple, Trachea Midline Cardiovascular: Yes: Regular Rate and Rhythm Respiratory: Yes: Regular, CTA Bilaterally Gastrointestinal: Yes: Normal Bowel Sounds, Soft ...Rectal Exam: Yes: Deferred Genitourinary: Yes: Incontinence, Other (acute urinary retention, neurogenic bladder not responsive to urecholine) Breast(s): Yes: WNL Musculoskeletal: Yes: Muscle Weakness Extremities: Yes: WNL Edema: No Peripheral Pulses WNL: Yes Integumentary: Yes: Pressure Ulcer (sacrum) Neurological: Yes: Lethargy, Unsteady Gait, Weakness ...Motor Strength: LUE (generalized muscle weakness of all extremities) Psychiatric: Yes: Other (lethargic) Labs: CBC, BMP 02/14/20 06:40 02/13/20 06:20 INR, PTT INR 1.03 (0.83-1.09) 02/08/20 09:32 - ....Imaging Other: Report Reviewed (lab data reviewed) Problem List - Problems (1) Acute kidney injury Code(s): N17.9 - ACUTE KIDNEY FAILURE, UNSPECIFIED (2) Acute respiratory failure Code(s): J96.00 - ACUTE RESPIRATORY FAILURE, UNSP W HYPOXIA OR HYPERCAPNIA Qualifiers: Respiratory failure complication: hypoxia Qualified Code(s): J96.01 - Acute respiratory failure with hypoxia (3) Leg weakness, bilateral Code(s): R29.898 - OTH SYMPTOMS AND SIGNS INVOLVING THE MUSCULOSKELETAL SYSTEM (4) PNA (pneumonia) Code(s): J18.9 - PNEUMONIA, UNSPECIFIED ORGANISM Qualifiers: Pneumonia type: due to unspecified organism Laterality: bilateral Lung location: lower lobe of lung Qualified Code(s): J18.9 - Pneumonia, unspecified organism (5) Suspected COVID-19 virus infection Code(s): Z20.828 - CONTACT W AND EXPOSURE TO OTH VIRAL COMMUNICABLE DISEASES (6) Acute dehydration Code(s): E86.0 - DEHYDRATION (7) Acute electrocardiogram changes Code(s): R94.31 - ABNORMAL ELECTROCARDIOGRAM [ECG] [EKG] (8) Acute urinary retention Code(s): R33.8 - OTHER RETENTION OF URINE (9) Anemia Code(s): D64.9 - ANEMIA, UNSPECIFIED (10) Cholelithiasis Code(s): K80.20 - CALCULUS OF GALLBLADDER W/O CHOLECYSTITIS W/O OBSTRUCTION (11) Decubitus ulcer of sacral region, stage 2 Code(s): L89.152 - PRESSURE ULCER OF SACRAL REGION, STAGE 2 (12) Degenerative joint disease of both hips Code(s): M16.0 - BILATERAL PRIMARY OSTEOARTHRITIS OF HIP (13) Neurogenic bladder Code(s): N31.9 - NEUROMUSCULAR DYSFUNCTION OF BLADDER, UNSPECIFIED (14) Prerenal azotemia Code(s): R79.89 - OTHER SPECIFIED ABNORMAL FINDINGS OF BLOOD CHEMISTRY (15) Renal failure Code(s): N19 - UNSPECIFIED KIDNEY FAILURE (16) Renal mass, right Code(s): N28.89 - OTHER SPECIFIED DISORDERS OF KIDNEY AND URETER (17) Sinus bradycardia Code(s): R00.1 - BRADYCARDIA, UNSPECIFIED (18) UTI (urinary tract infection) Code(s): N39.0 - URINARY TRACT INFECTION, SITE NOT SPECIFIED (19) Leukocytosis Code(s): D72.829 - ELEVATED WHITE BLOOD CELL COUNT, UNSPECIFIED (20) Delirium Code(s): R41.0 - DISORIENTATION, UNSPECIFIED Assessment/Plan Assessment/plan: acute dehydration, acute ESBL UTI, prerenal azotemia, generalized muscle weakness, anemia, sacral ulcer, right renal mass, HTN, NIDDM, Parkinson's disease, delirium; DVT/GI prophylaxis, carbidopa/levodopa for Parkinson's disease, IV Azithromycin and Meropenem as per ID for UTI, amlodipine coreg lisinopril and chlorthalidone for HTN, zyprexa for delirium and agitation, tylenol prn for pain, latanoprost for glaucoma, metformin for NIDDM, physical therapy, palliative care team, discharge planning, medical social worker request.
[2020-02-14] MEDS ORDERED: PT OWN MED DRAWER 7, Y5N ONE (08:42)
[2020-02-14] MEDS: LISINOPRIL 20 MG TABLET (FP) PO SCH (09:27)
[2020-02-14] MEDS: CARVEDILOL 6.25 MG TABLET (FP) PO SCH ×2 (09:31→21:22)
[2020-02-14] MEDS: ENOXAPARIN NA (PORCINE) 40 MG/0.4 ML DISP.SYRIN SQ SCH (09:31)
[2020-02-14] MEDS: amLODIPine BESYLATE 10 MG TABLET (FP) PO SCH (09:31)
[2020-02-14] MEDS: PANTOPRAZOLE 40 MG TABLET PO SCH (09:31)
[2020-02-14] MEDS: CHLORTHALIDONE 25 MG TABLET PO SCH (09:32)
[2020-02-14] MEDS: AZITHROMYCIN IVPB 500 MG/250 ML BAG IVPB SCH (11:05)
[2020-02-14] MEDS ORDERED: KETOCONAZOLE 200 MG TABLET PO ONE (11:56)
[2020-02-14] MEDS: NYSTATIN POWDER 100,000 UNITS/GM - 15 GM TOPICAL POWDER TP SCH ×2 (12:28→21:23)
[2020-02-14] MEDS: ACETAMINOPHEN 325 MG TABLET (FP) PO PRN (12:28)
[2020-02-14] MEDS: OLANZapine 5 MG TABLET PO SCH (21:21)
[2020-02-14] MEDS: LATANOPROST 0.005% OPHTH SOLN 2.5ML BOTTLE OU SCH (21:23)
[2020-02-15] MEDS: metFORMIN HCL 500 MG TABLET (FP) PO SCH (06:06)
[2020-02-15] MEDS ORDERED: PT OWN MED DRAWER 7, Y5N ONE (08:05)
[2020-02-15] MEDS: ACETAMINOPHEN 325 MG TABLET (FP) PO PRN (08:12)
--- NOTE | 2020-02-15 08:43 | PN ---
Progress Note, Physician Chief Complaint: Patient seen and examined at the bedside, no acute events from last night, afebrile, more awake and alert today, more talkative. History of Present Illness: This 79 yr old female with PMH of HTN, NIDDM, Parkinson's disease admitted via ER with an acute dehydration, prerenal azotemia, ESBL UTI, generalized muscle weakness, stage II sacral ulcer, acute renal failure and right renal mass. - Current Medication List Current Medications: Active Medications Acetaminophen (Tylenol -) 650 mg PO Q6H PRN PRN Reason: PAIN LEVEL 6-10 Last Admin: 02/15/20 08:12 Dose: 650 mg Documented by: Amlodipine Besylate (Norvasc -) 10 mg PO DAILY [facility] Last Admin: 02/14/20 09:31 Dose: 10 mg Documented by: Carbidopa/Levodopa (Sinemet *Cr* 50/200 -) 1 combo PO TID [facility] Last Admin: 02/15/20 05:52 Dose: 1 combo Documented by: Carvedilol (Coreg -) 6.25 mg PO BID [facility] Last Admin: 02/14/20 21:22 Dose: Not Given Documented by: Chlorthalidone (Hygroton -) 50 mg PO DAILY [facility] Last Admin: 02/14/20 09:32 Dose: 50 mg Documented by: Enoxaparin Sodium (Lovenox -) 40 mg SQ DAILY [facility] Last Admin: 02/14/20 09:31 Dose: 40 mg Documented by: Latanoprost (Xalatan 0.005% Eye Drops -) 1 drop OU HS [facility] Last Admin: 02/14/20 21:23 Dose: 1 drop Documented by: Lisinopril (Prinivil) 40 mg PO DAILY [facility] Last Admin: 02/14/20 09:27 Dose: 40 mg Documented by: Metformin HCl (Glucophage -) 500 mg PO BID@0700,1630 [facility] Last Admin: 02/15/20 06:06 Dose: 500 mg Documented by: Nystatin (Nystop Powder -) 1 applic TP BID [facility] Last Admin: 02/14/20 21:23 Dose: 1 applic Documented by: Olanzapine (Zyprexa -) 5 mg PO HS [facility] Last Admin: 02/14/20 21:21 Dose: 5 mg Documented by: Pantoprazole Sodium (Protonix -) 40 mg PO DAILY [facility] Last Admin: 02/14/20 09:31 Dose: 40 mg Documented by: - Objective Vital Signs: Vital Signs Temperature 97.9 F 02/15/20 05:57 Pulse Rate 68 02/14/20 21:25 Respiratory Rate 18 02/15/20 05:57 Blood Pressure 116/69 02/15/20 05:57 O2 Sat by Pulse Oximetry (%) 99 02/15/20 05:57 Constitutional: Yes: Well Nourished, Calm, Mild Distress Eyes: Yes: Conjunctiva Clear, EOM Intact HENT: Yes: Atraumatic, Normocephalic Neck: Yes: Supple, Trachea Midline Cardiovascular: Yes: Regular Rate and Rhythm Respiratory: Yes: Regular, CTA Bilaterally Gastrointestinal: Yes: Normal Bowel Sounds, Soft ...Rectal Exam: Yes: Deferred Genitourinary: Yes: Incontinence, Other (acute urinary retention, neurogenic bladder no responsive to urecholine) Breast(s): Yes: WNL Musculoskeletal: Yes: Muscle Weakness Extremities: Yes: WNL Edema: No Peripheral Pulses WNL: Yes Integumentary: Yes: Pressure Ulcer (sacral ulcer) Neurological: Yes: Alert, Unsteady Gait, Weakness ...Motor Strength: LUE (generalized muscle weakness of all extremities) Psychiatric: Yes: Alert Labs: CBC, BMP 02/14/20 06:40 02/13/20 06:20 INR, PTT INR 1.03 (0.83-1.09) 02/08/20 09:32 - ....Imaging Other: Report Reviewed (lab data reviewed) Problem List - Problems (1) Acute kidney injury Code(s): N17.9 - ACUTE KIDNEY FAILURE, UNSPECIFIED (2) Acute respiratory failure Code(s): J96.00 - ACUTE RESPIRATORY FAILURE, UNSP W HYPOXIA OR HYPERCAPNIA Qualifiers: Respiratory failure complication: hypoxia Qualified Code(s): J96.01 - Acute respiratory failure with hypoxia (3) Leg weakness, bilateral Code(s): R29.898 - OTH SYMPTOMS AND SIGNS INVOLVING THE MUSCULOSKELETAL SYSTEM (4) PNA (pneumonia) Code(s): J18.9 - PNEUMONIA, UNSPECIFIED ORGANISM Qualifiers: Pneumonia type: due to unspecified organism Laterality: bilateral Lung location: lower lobe of lung Qualified Code(s): J18.9 - Pneumonia, unspecified organism (5) Suspected COVID-19 virus infection Code(s): Z20.828 - CONTACT W AND EXPOSURE TO OTH VIRAL COMMUNICABLE DISEASES (6) Acute dehydration Code(s): E86.0 - DEHYDRATION (7) Acute electrocardiogram changes Code(s): R94.31 - ABNORMAL ELECTROCARDIOGRAM [ECG] [EKG] (8) Acute urinary retention Code(s): R33.8 - OTHER RETENTION OF URINE (9) Anemia Code(s): D64.9 - ANEMIA, UNSPECIFIED (10) Cholelithiasis Code(s): K80.20 - CALCULUS OF GALLBLADDER W/O CHOLECYSTITIS W/O OBSTRUCTION (11) Decubitus ulcer of sacral region, stage 2 Code(s): L89.152 - PRESSURE ULCER OF SACRAL REGION, STAGE 2 (12) Degenerative joint disease of both hips Code(s): M16.0 - BILATERAL PRIMARY OSTEOARTHRITIS OF HIP (13) Neurogenic bladder Code(s): N31.9 - NEUROMUSCULAR DYSFUNCTION OF BLADDER, UNSPECIFIED (14) Prerenal azotemia Code(s): R79.89 - OTHER SPECIFIED ABNORMAL FINDINGS OF BLOOD CHEMISTRY (15) Renal failure Code(s): N19 - UNSPECIFIED KIDNEY FAILURE (16) Renal mass, right Code(s): N28.89 - OTHER SPECIFIED DISORDERS OF KIDNEY AND URETER (17) Sinus bradycardia Code(s): R00.1 - BRADYCARDIA, UNSPECIFIED (18) UTI (urinary tract infection) Code(s): N39.0 - URINARY TRACT INFECTION, SITE NOT SPECIFIED (19) Leukocytosis Code(s): D72.829 - ELEVATED WHITE BLOOD CELL COUNT, UNSPECIFIED (20) Delirium Code(s): R41.0 - DISORIENTATION, UNSPECIFIED Assessment/Plan Assessment/plan: acute dehydration, prerenal azotemia, ESBL UTI, delirium, acute renal failure, right renal mass/malignancy, HTN, NIDDM, Parkinson's disease; DVT/GI prophylaxis, off antibiotics, nystatin powder for fungal infection, amlodipine coreg chlorthalidone lisinopril for HTN, atorvastatin for HLD, latanoprost for glaucoma, carbidopa/levodoa for Parkinson's disease, zyprexa for delirium, physical therapy, discharge planning, social work program coordinator request.
[2020-02-15] MEDS: PANTOPRAZOLE 40 MG TABLET PO SCH (09:29)
[2020-02-15] MEDS: LISINOPRIL 20 MG TABLET (FP) PO SCH (09:29)
[2020-02-15] MEDS: amLODIPine BESYLATE 10 MG TABLET (FP) PO SCH (09:29)
[2020-02-15] MEDS: CARVEDILOL 6.25 MG TABLET (FP) PO SCH (09:29)
[2020-02-15] MEDS: CHLORTHALIDONE 25 MG TABLET PO SCH (09:30)
[2020-02-15] MEDS: ENOXAPARIN NA (PORCINE) 40 MG/0.4 ML DISP.SYRIN SQ SCH (09:30)
[2020-02-15] MEDS: NYSTATIN POWDER 100,000 UNITS/GM - 15 GM TOPICAL POWDER TP SCH (09:30)
[2020-02-15 09:59] VITALS: BP 100/48; PULSE 64; TEMP 98
--- NOTE | 2020-02-15 11:59 | DS ---
Physical Examination Vital Signs: Vital Signs Temperature 98 F 02/15/20 09:00 Pulse Rate 64 02/15/20 09:00 Respiratory Rate 18 02/15/20 09:00 Blood Pressure 100/48 L 02/15/20 09:00 O2 Sat by Pulse Oximetry (%) 100 02/15/20 09:00 Constitutional: Yes: Well Nourished, Calm, Mild Distress Eyes: Yes: Conjunctiva Clear, EOM Intact HENT: Yes: Atraumatic, Normocephalic Neck: Yes: Supple, Thyromegaly Cardiovascular: Yes: Regular Rate and Rhythm Respiratory: Yes: Regular, CTA Bilaterally Gastrointestinal: Yes: Normal Bowel Sounds, Soft ...Rectal Exam: Yes: Deferred Renal/: Yes: Other (acute urinary retention, neurogenic bladder not responding to urecholine) Breast(s): Yes: WNL Musculoskeletal: Yes: Muscle Weakness Extremities: Yes: WNL Peripheral Pulses WNL: Yes Integumentary: Yes: Pressure Ulcer (stage II sacral ulcer) Neurological: Yes: Alert, Unsteady Gait ...Motor Strength: LUE (generalized muscle weakness of all extremities) Psychiatric: Yes: Alert Labs: CBC, BMP 02/14/20 06:40 02/13/20 06:20 Discharge Summary Problems reviewed: Yes Reason For Visit: ACUTE KIDNEY INJURY SUSPECTED COVID ACUTE RESP CHUY Current Active Problems Acute kidney injury (Acute) Acute respiratory failure (Acute) Delirium (Acute) Leg weakness, bilateral (Acute) Leukocytosis (Acute) PNA (pneumonia) (Acute) Suspected COVID-19 virus infection (Acute) Condition: Stable - Instructions Diet, Activity, Other Instructions: Continue on present meds. Activity as tolerated. Transfer to [facility] for further care. Total time spent over 30 minutes. Referrals: Melisa Samuel MD [Primary Care Provider] - Disposition: [facility]ACILITY - Home Medications Comprehensive Discharge Medication List: Ambulatory Orders Amlodipine Besylate [Norvasc -] 10 mg PO DAILY 01/22/20 Bimatoprost [Lumigan] 1 drop OU HS 01/22/20 Carbidopa/Levodopa *Cr* 50/200 [Sinemet *Cr* 50/200 -] 1 combo PO TID 01/22/20 Carvedilol 6.25 mg PO BID 01/22/20 Chlorthalidone 50 mg PO DAILY 01/22/20 Glycopyrrolate 1 tab PO DAILY 01/22/20 Lisinopril [Prinivil -] 40 mg PO DAILY 01/22/20 Acetaminophen [Tylenol .Regular Strength -] 650 mg PO Q6H PRN tablet 02/02/20 Lidocaine 5% Patch [Lidoderm -] 1 patch TP DAILY patch 02/02/20 Lidocaine Patch Removal [Lidoderm Patch Removal] 1 each MC DAILY@2200 each 02/02/20 Acetaminophen [Tylenol .Regular Strength -] 650 mg PO Q6H PRN tablet 02/14/20 Amlodipine Besylate [Norvasc -] 10 mg PO DAILY tablet 02/14/20 Carbidopa/Levodopa *Cr* 50/200 [Sinemet *Cr* 50/200 -] 1 combo PO TID tablet.er 02/14/20 Carvedilol [Coreg -] 6.25 mg PO BID tablet 02/14/20 Chlorthalidone [Hygroton -] 50 mg PO DAILY tablet 02/14/20 Lisinopril [Prinivil] 40 mg PO DAILY tablet 02/14/20 Olanzapine [Zyprexa -] 5 mg PO HS tablet 02/14/20 metFORMIN HCL [Glucophage -] 500 mg PO BID@0700,1630 tablet 02/14/20 Nystatin Powder [Nystop Powder -] 1 applic TP BID applic 02/15/20
== END 2020-02-15 15:27 | DRG 682 ==
LOC: JER 07:50 → JERBED 12:45 → J8W 21:13
PROVIDERS: ADMIT Internal Medicine; ATTEND Internal Medicine
PROC: 05H533Z Insertion of Infusion Device into Right Subclavian Vein, Percutaneous Approach (ICD-10-PCS; principal; 2020-02-08)
DX: N17.9 Acute kidney failure, unspecified (principal); J96.01 Acute respiratory failure with hypoxia; J18.9 Pneumonia, unspecified organism; N39.0 Urinary tract infection, site not specified; I31.3 Pericardial effusion (noninflammatory); Z16.12 Extended spectrum beta lactamase (ESBL) resistance; R29.898 Other symptoms and signs involving the musculoskeletal system; E86.0 Dehydration; R94.31 Abnormal electrocardiogram [ECG] [EKG]; R33.8 Other retention of urine; D64.9 Anemia, unspecified; K80.20 Calculus of gallbladder without cholecystitis without obstruction; L89.152 Pressure ulcer of sacral region, stage 2; M16.0 Bilateral primary osteoarthritis of hip; N31.9 Neuromuscular dysfunction of bladder, unspecified; R79.89 Other specified abnormal findings of blood chemistry; N28.89 Other specified disorders of kidney and ureter; R00.1 Bradycardia, unspecified; I51.7 Cardiomegaly; G20 Parkinson's disease; I10 Essential (primary) hypertension; K59.00 Constipation, unspecified; D72.829 Elevated white blood cell count, unspecified
CPT/HCPCS: 36415; 70450-TC; 71045-TC-FY; 71250-TC; 80053; 81003; 82728; 82962; 83605; 83615; 84484; 85025; 85610; 85730; 87040; 87086; 87899; 93005; 93010; 93971-TC; 97116-GP; 97161-GP; 99285-25; J0131; U0003

== ENCOUNTER 2020-03-11 04:53 | Day surgery (SDC) | payer OTHER ==
[2020-03-09 17:31] VITALS: BMI 27.4
[2020-03-11] MEDS ORDERED: ceFAZolin SODIUM 1 GM VIAL ONE (13:54)
[2020-03-11] MEDS ORDERED: PROPOFOL 20 ML ONE ×3 (13:54)
[2020-03-11] MEDS ORDERED: SODIUM CHLORIDE 0.9% P/F 10 ML VIAL IJ ONE (13:54)
[2020-03-11] MEDS ORDERED: DEXAMETHASONE SOD PHOSPHATE 4 MG/1 ML VIAL ONE (13:54)
[2020-03-11] MEDS ORDERED: LIDOCAINE HCL/PF 2% SDV 5ML VIAL ONE (13:54)
[2020-03-11] MEDS ORDERED: oxyCODONE HCL 5 MG TABLET PO PRN (14:31)
[2020-03-11] MEDS ORDERED: ONDANSETRON 4 MG/2 ML VIAL IVPUSH PRN (14:31)
[2020-03-11] MEDS ORDERED: ceFAZolin SODIUM 1 GM VIAL IVPB ONE (14:42)
[2020-03-11] MEDS ORDERED: LACTATED RINGERS SOLUTION 1,000 ML IV SCH (14:45)
[2020-03-11] MEDS ORDERED: ACETAMINOPHEN 325 MG TABLET (FP) PO PRN (14:58)
--- NOTE | 2020-03-11 15:02 | OP ---
Operative Note - Note: Operative Date: 03/11/20 Pre-Operative Diagnosis: hematuria, rec. uti, nb Operation: cysto, bladder biopsy and fulgeration Findings: erythematous bladder lesion, bleeding Post-Operative Diagnosis: Same as Pre-op Surgeon: Jennifer Parker Anesthesia: General Specimens Removed: bladder lesion Estimated Blood Loss (mls): 0 Instrument used (Debridements only): 0 Drains & Tubes with Location: 18f 10 cc barboza Drains, Volume Out (mls): 0 Blood Volume Replaced (mls): 0 Fluid Volume Replaced (mls): 0 Operative Report Dictated: Yes
[2020-03-11 18:24] VITALS: BP 124/71; PULSE 60; TEMP 96.6
--- NOTE | 2020-03-11 18:40 | HP ---
DATE OF ADMISSION: 03/11/2020 HISTORY OF PRESENT ILLNESS: The patient is an 79-year-old female with history of persistent microscopic hematuria. She also complains of stress urinary incontinence and lower abdominal pain. She has history of diabetes, hypertension, and coronary artery disease. She is nulligravida. Presently she is on a beta annie, metformin, chlorothiazide, Norvasc, lisinopril, and levodopa. She does have a permanent Earl catheter because of overflow incontinence and recurrent urosepsis. PHYSICAL EXAMINATION: Abdomen: Soft. The bladder was not distended. Genitourinary: Earl is patent. Urine is clear. Extremities: Full range of motion. LABORATORY: BUN and creatinine were 30 over 1.15 respectively. Prior to placement of the Earl, a bladder scan revealed 1000 mL of residual urine. IMPRESSION: At present is persistent microscopic hematuria, history of neurogenic bladder, recurrent retention. Patient will undergo cystoscopy, possible bladder biopsy. This was explained to patient and patient's family, and she agrees. Nicolle [id number]
--- NOTE | 2020-03-11 19:37 | OP ---
DATE OF OPERATION: 03/11/2020 PREOPERATIVE DIAGNOSIS: Intermittent gross hematuria, recurrent urinary tract infection, neurogenic bladder. POSTOPERATIVE DIAGNOSIS: Bladder lesion. OPERATIVE PROCEDURE: Cystourethroscopy, bladder biopsy, and bladder fulguration. ANESTHESIA: General. DESCRIPTION OF PROCEDURE: Under above stated anesthesia, patient was prepped and draped in the usual sterile manner. She was placed in the dorsal lithotomy position. The previous Earl was removed. Cystoscopy revealed bolus edema of the bladder. There was also squamous metaplasia of the trigone. There appeared to be a hyperemic bleeding area above the left ureteral orifice. This was biopsied. The area was fulgurated for hemostasis. No other lesions were seen. Ureteral orifices were within normal limits with efflux of clear urine. The bladder was emptied. Scope was removed. An 18-Panamanian, 10-mL Earl was inserted. The patient tolerated the procedure well. She returned to the recovery room in good condition. Nicolle [id number]
--- NOTE | 2020-03-15 16:21 | PATH ---
Surgical Pathology Report Patient Name: MEGAN MARSH [facility]. Rec. #: [id number] /Age/Gender: 1940 (Age: 79) / F Account: [id number] Location: [facility] Taken: 03/11/2020 Received: 03/14/2020 Reported: 03/15/2020 Physicians: Jennifer Parker M.D. Specimen(s) Received BLADDER BIOPSY Clinical History Hematuria Final Diagnosis BLADDER BIOPSY: UROTHELIAL MUCOSA WITH MARKED ACUTE AND CHRONIC CYSTITIS. NO EVIDENCE OF MALIGNANCY. Electronically Signed Fernanda Hatch M.D. Gross Description Received in formalin labeled "bladder biopsy," is a 0.5 cm in greatest dimension ibanez soft tissue fragment. The specimen is submitted in toto in one cassette. 03/14/202003/14/2020
== END 2020-03-11 20:15 | disposition home or self-care (01) ==
LOC: JASU-SURG 04:53
PROVIDERS: ATTEND Urology
PROC: 0TBB8ZX Excision of Bladder, Via Natural or Artificial Opening Endoscopic, Diagnostic (ICD-10-PCS; principal; 2020-03-11 12:00)
DX: N30.21 Other chronic cystitis with hematuria (principal); N31.9 Neuromuscular dysfunction of bladder, unspecified
CPT/HCPCS: 88305-TC; 94760

== ENCOUNTER 2020-07-09 15:24 | Inpatient (IN) | payer OTHER ==
[2020-07-09 15:50] VITALS: BMI 29.9
[2020-07-09] MEDS ORDERED: SODIUM CHLORIDE 0.9% 500 ML INFUS.BAG IV ONE (16:18)
[2020-07-09 16:54] LABS: BASO % 0.6 % (0-2.0); EOS % 0.2 % (0-4.5); HEMATOCRIT 29.8 % (32.4-45.2); HEMOGLOBIN 9.8 GM/dL (10.7-15.3); LYMPH % 5.7 % (8-40); MCH 27.2 pg (25.7-33.7); MCHC 32.9 g/dl (32.0-36.0); MEAN CELL VOLUME 82.5 fl (80-96); MEAN PLT VOLUME 8.3 fl (7.5-11.1); MONO % 5.2 % (3.8-10.2); NEUT % 88.3 % (42.8-82.8); PLATELET COUNT 274 K/MM3 (134-434); RBC 3.62 M/mm3 (3.60-5.2); RDW 17.5 % (11.6-15.6); WHITE BLOOD COUNT 12.1 K/mm3 (4.0-10.0)
[2020-07-09 17:02] LABS: INR 0.95 (0.83-1.09); PROTHROMBIN TIME (PATIENT) 11.7 SEC (9.7-13.0)
[2020-07-09 17:05] LABS: ACTIVATED PTT 28.6 SECONDS (25.2-36.5)
[2020-07-09 17:11] LABS: CHLORIDE 108 mmol/L (98-107); POTASSIUM 4.8 mmol/L (3.5-5.1); SODIUM 136 mmol/L (136-145)
[2020-07-09 17:13] LABS: CALCIUM 8.5 mg/dL (8.5-10.1)
[2020-07-09 17:14] LABS: ALBUMIN 2.8 g/dl (3.4-5.0); ANION GAP 13 MMOL/L (8-16); BLOOD UREA NITROGEN 31.6 mg/dL (7-18); CO2 16 mmol/L (21-32); GLUCOSE,RANDOM 113 mg/dL (74-106)
[2020-07-09 17:17] LABS: SGOT/AST 20 U/L (15-37); SGPT/ALT < 6 U/L (13-61)
[2020-07-09 17:18] LABS: BILIRUBIN,TOTAL 0.7 mg/dL (0.2-1)
[2020-07-09 17:19] LABS: TOT PROT 7.1 g/dl (6.4-8.2)
[2020-07-09 17:20] LABS: ALK PHOS 49 U/L (45-117)
[2020-07-09 20:18] LABS: EPI CELLS >36 /uL (0-25.1); HYALINE CASTS 91 /uL (0-3.1); PH,URINE 5.5 (5.0-8.0); URINE APPEARANCE TURBID; URINE BACTERIA 5206 /uL (0-1359); URINE BILIRUBIN NEGATIVE (NEGATIVE); URINE COLOR DK YELLOW; URINE GLUCOSE (UA) NEGATIVE (NEGATIVE); URINE KETONE TRACE (NEGATIVE); URINE LEUK ESTERASE 3+ (NEGATIVE); URINE NITRITE NEGATIVE (NEGATIVE); URINE PROTEIN 3+ (NEGATIVE); URINE WBC 7854 /uL (0-25.8)
[2020-07-09] MEDS ORDERED: MEROPENEM 1 GM in DEXTROSE 5%-WATER 100 ML IVPB ONE (20:55)
[2020-07-09] MEDS ORDERED: MEROPENEM 1 GM VIAL (RESTRICTED TO ID) IVPB ONE (21:25)
[2020-07-09 21:39] LABS: YEAST NEGATIVE (NEGATIVE)
[2020-07-09 21:40] LABS: URINE RBC 278 /uL (0-23.9)
[2020-07-09] MEDS: D5-1/2NS+10 MEQ KCL - 10 MEQ/1,000 ML INFUS.BAG IV SCH (23:16)
[2020-07-10] MEDS ORDERED: CARBIDOPA/LEVODOPA 25/100 TABLET (FP) ONE ×2 (06:30→10:39)
[2020-07-10 07:47] LABS: BASO % 0.3 % (0-2.0); EOS % 0.5 % (0-4.5); HEMATOCRIT 25.5 % (32.4-45.2); HEMOGLOBIN 8.4 GM/dL (10.7-15.3); LYMPH % 11.7 % (8-40); MCH 26.8 pg (25.7-33.7); MCHC 32.8 g/dl (32.0-36.0); MEAN CELL VOLUME 81.5 fl (80-96); MEAN PLT VOLUME 8.4 fl (7.5-11.1); MONO % 7.6 % (3.8-10.2); NEUT % 79.9 % (42.8-82.8); PLATELET COUNT 247 K/MM3 (134-434); RBC 3.13 M/mm3 (3.60-5.2); RDW 17.2 % (11.6-15.6); WHITE BLOOD COUNT 11.8 K/mm3 (4.0-10.0)
[2020-07-10] MEDS ORDERED: metFORMIN HCL 500 MG TABLET (FP) ONE (07:47)
[2020-07-10 07:58] LABS: CHLORIDE 109 mmol/L (98-107); POTASSIUM 3.6 mmol/L (3.5-5.1); SODIUM 138 mmol/L (136-145)
[2020-07-10] MEDS: metFORMIN HCL 500 MG TABLET (FP) PO SCH ×2 (08:00→18:31)
[2020-07-10 08:13] LABS: CALCIUM 7.9 mg/dL (8.5-10.1); IRON SERUM 33 ug/dL (50-175); TOTAL IRON BINDING CAPACITY 128 ug/dL (250-450)
[2020-07-10 08:14] LABS: ALBUMIN 2.5 g/dl (3.4-5.0); ANION GAP 11 MMOL/L (8-16); BLOOD UREA NITROGEN 31.4 mg/dL (7-18); CO2 18 mmol/L (21-32); GLUCOSE,RANDOM 82 mg/dL (74-106)
[2020-07-10 08:17] LABS: SGOT/AST 27 U/L (15-37)
[2020-07-10 08:18] LABS: BILIRUBIN,TOTAL 0.5 mg/dL (0.2-1); CREATININE 1.6 mg/dL (0.55-1.3); TOT PROT 6.2 g/dl (6.4-8.2)
[2020-07-10 08:19] LABS: ALK PHOS 47 U/L (45-117)
[2020-07-10 08:39] LABS: SGPT/ALT < 6 U/L (13-61)
[2020-07-10] MEDS ORDERED: IRON SUCROSE INJECTION 200 MG in SODIUM CHLORIDE 90 ML IVPB ONE (09:00)
[2020-07-10] MEDS ORDERED: LISINOPRIL 20 MG TABLET PO SCH (10:00)
[2020-07-10] MEDS ORDERED: amLODIPine BESYLATE 10 MG TABLET (FP) PO SCH (10:00)
[2020-07-10] MEDS ORDERED: CARVEDILOL 3.125 MG TABLET (FP) ONE (10:38)
[2020-07-10] MEDS ORDERED: amLODIPine BESYLATE 5 MG TABLET (FP) ONE (10:38)
[2020-07-10] MEDS ORDERED: PANTOPRAZOLE 40 MG TABLET ONE (10:38)
[2020-07-10] MEDS ORDERED: LISINOPRIL 20 MG TABLET ONE (10:39)
[2020-07-10] MEDS ORDERED: ENOXAPARIN NA (PORCINE) 30 MG/0.3 ML DISP.SYRIN SQ ONE (10:39)
[2020-07-10] MEDS ORDERED: CITALOPRAM HYDROBROMIDE 10 MG TABLET ONE (10:39)
[2020-07-10] MEDS: CARVEDILOL 6.25 MG TABLET (FP) PO SCH ×2 (10:50→22:27)
[2020-07-10] MEDS: CITALOPRAM HYDROBROMIDE 10 MG TABLET PO SCH (10:50)
[2020-07-10] MEDS: PANTOPRAZOLE 40 MG TABLET PO SCH (10:50)
[2020-07-10] MEDS: ENOXAPARIN NA (PORCINE) 30 MG/0.3 ML DISP.SYRIN SQ SCH (10:50)
[2020-07-10] MEDS: CHLORTHALIDONE 25 MG TABLET PO SCH (12:49)
[2020-07-10] MEDS: GLYCOPYRROLATE 1 MG TABLET PO SCH (12:49)
[2020-07-10] MEDS: POLYETHYLENE GLYCOL 3350 119 GM BTL PO SCH (12:50)
[2020-07-10] MEDS: ERTAPENEM SODIUM 1 GM in SODIUM CHLORIDE 50 ML IVPB SCH (13:45)
[2020-07-10] MEDS: OLANZapine 5 MG TABLET PO SCH (22:13)
[2020-07-10] MEDS: D5-1/2NS+10 MEQ KCL - 10 MEQ/1,000 ML INFUS.BAG IV SCH (23:08)
[2020-07-10] MEDS: LATANOPROST 0.005% OPHTH SOLN 2.5ML BOTTLE OU SCH (23:33)
[2020-07-11] MEDS: metFORMIN HCL 500 MG TABLET (FP) PO SCH (06:18)
[2020-07-11 09:02] LABS: BASO % 0.4 % (0-2.0); EOS % 0.6 % (0-4.5); HEMATOCRIT 24.3 % (32.4-45.2); HEMOGLOBIN 8.1 GM/dL (10.7-15.3); LYMPH % 10.7 % (8-40); MCH 27.3 pg (25.7-33.7); MCHC 33.2 g/dl (32.0-36.0); MEAN CELL VOLUME 82.3 fl (80-96); MEAN PLT VOLUME 8.5 fl (7.5-11.1); MONO % 7.7 % (3.8-10.2); NEUT % 80.6 % (42.8-82.8); PLATELET COUNT 236 K/MM3 (134-434); RBC 2.95 M/mm3 (3.60-5.2); RDW 17.5 % (11.6-15.6); WHITE BLOOD COUNT 8.7 K/mm3 (4.0-10.0)
[2020-07-11 09:15] LABS: CHLORIDE 111 mmol/L (98-107); POTASSIUM 3.5 mmol/L (3.5-5.1); SODIUM 138 mmol/L (136-145)
[2020-07-11 09:20] LABS: ALBUMIN 2.3 g/dl (3.4-5.0); ANION GAP 10 MMOL/L (8-16); BLOOD UREA NITROGEN 25.7 mg/dL (7-18); CALCIUM 7.6 mg/dL (8.5-10.1); CO2 17 mmol/L (21-32)
[2020-07-11 09:21] LABS: GLUCOSE,RANDOM 91 mg/dL (74-106)
[2020-07-11 09:23] LABS: CREATININE 1.2 mg/dL (0.55-1.3); SGOT/AST 19 U/L (15-37)
[2020-07-11 09:25] LABS: ALK PHOS 47 U/L (45-117); BILIRUBIN,TOTAL 0.6 mg/dL (0.2-1); TOT PROT 5.7 g/dl (6.4-8.2)
[2020-07-11 09:36] LABS: SGPT/ALT < 6 U/L (13-61)
[2020-07-11] MEDS: CHLORTHALIDONE 25 MG TABLET PO SCH (09:42)
[2020-07-11] MEDS: GLYCOPYRROLATE 1 MG TABLET PO SCH (09:42)
[2020-07-11] MEDS: CARVEDILOL 6.25 MG TABLET (FP) PO SCH ×2 (09:42→22:13)
[2020-07-11] MEDS: PANTOPRAZOLE 40 MG TABLET PO SCH (09:42)
[2020-07-11] MEDS: amLODIPine BESYLATE 10 MG TABLET (FP) PO SCH (09:43)
[2020-07-11] MEDS: LISINOPRIL 20 MG TABLET PO SCH (09:43)
[2020-07-11] MEDS: POLYETHYLENE GLYCOL 3350 119 GM BTL PO SCH (09:44)
[2020-07-11] MEDS: ERTAPENEM SODIUM 1 GM in SODIUM CHLORIDE 50 ML IVPB SCH (09:45)
[2020-07-11] MEDS: D5-1/2NS+10 MEQ KCL - 10 MEQ/1,000 ML INFUS.BAG IV SCH ×2 (10:05→22:14)
[2020-07-11] MEDS: CITALOPRAM HYDROBROMIDE 10 MG TABLET PO SCH (11:33)
[2020-07-11] MEDS: ENOXAPARIN NA (PORCINE) 30 MG/0.3 ML DISP.SYRIN SQ SCH (11:34)
[2020-07-11] MEDS: AMINO ACIDS/PROTEIN HYDROLYS 30 ML LIQUID.PKT PO SCH (17:03)
[2020-07-11] MEDS ORDERED: AMINO ACIDS/PROTEIN HYDROLYS 30 ML LIQUID.PKT PO SCH (17:30)
[2020-07-11] MEDS: OLANZapine 5 MG TABLET PO SCH (22:13)
[2020-07-11] MEDS: LATANOPROST 0.005% OPHTH SOLN 2.5ML BOTTLE OU SCH (22:13)
[2020-07-12 08:47] LABS: BASO % 0.5 % (0-2.0); EOS % 1.2 % (0-4.5); HEMATOCRIT 25.1 % (32.4-45.2); HEMOGLOBIN 8.3 GM/dL (10.7-15.3); LYMPH % 11.4 % (8-40); MCHC 33.1 g/dl (32.0-36.0); MEAN CELL VOLUME 81.7 fl (80-96); MONO % 7.9 % (3.8-10.2); PLATELET COUNT 222 K/MM3 (134-434); RBC 3.07 M/mm3 (3.60-5.2); RDW 17.8 % (11.6-15.6); WHITE BLOOD COUNT 12.1 K/mm3 (4.0-10.0)
[2020-07-12] MEDS: AMINO ACIDS/PROTEIN HYDROLYS 30 ML LIQUID.PKT PO SCH ×2 (09:02→17:53)
[2020-07-12] MEDS: D5-1/2NS+10 MEQ KCL - 10 MEQ/1,000 ML INFUS.BAG IV SCH (09:03)
[2020-07-12 09:15] LABS: CHLORIDE 109 mmol/L (98-107); SODIUM 135 mmol/L (136-145)
[2020-07-12 09:19] LABS: CALCIUM 7.7 mg/dL (8.5-10.1)
[2020-07-12 09:20] LABS: ALBUMIN 2.4 g/dl (3.4-5.0); BLOOD UREA NITROGEN 27.3 mg/dL (7-18); CO2 17 mmol/L (21-32)
[2020-07-12 09:21] LABS: GLUCOSE,RANDOM 85 mg/dL (74-106); MAGNESIUM 1.6 mg/dL (1.8-2.4)
[2020-07-12 09:22] LABS: PHOSPHOROUS 1.5 mg/dL (2.5-4.9); SGPT/ALT < 6 U/L (13-61)
[2020-07-12 09:23] LABS: CREATININE 1.1 mg/dL (0.55-1.3); SGOT/AST 14 U/L (15-37)
[2020-07-12 09:24] LABS: BILIRUBIN,TOTAL 1.2 mg/dL (0.2-1)
[2020-07-12 09:25] LABS: ALK PHOS 53 U/L (45-117); ANION GAP 9 MMOL/L (8-16)
[2020-07-12 09:25] LABS: ARTERIAL BLD GAS O2 SATURATION 96.9 mmHg (95-98); ARTERIAL BLOOD GAS BASE EXCESS -7.8 mmol/L (-2-2); ARTERIAL BLOOD GAS PO2 89.5 mmHg (80-100); ARTERIAL BLOOD GAS pH 7.386 (7.350-7.450)
[2020-07-12 09:26] LABS: ALLENS TEST POSITIVE
[2020-07-12 09:27] LABS: POTASSIUM 2.9 mmol/L (3.5-5.1)
[2020-07-12] MEDS ORDERED: MAGNESIUM SULF 50% (8.12 MEQ/2 ML-1 GM VIAL) IVPB ONE (10:02)
[2020-07-12] MEDS ORDERED: D5-1/2NS+10 MEQ KCL - 10 MEQ/1,000 ML INFUS.BAG IV SCH (10:09)
[2020-07-12] MEDS ORDERED: MAGNESIUM SULFATE IN WATER 2 GM/50 ML IVPB IVPB ONE (10:15)
[2020-07-12] MEDS ORDERED: OLANZapine 2.5 MG TABLET PO SCH (10:21)
[2020-07-12] MEDS ORDERED: D5-1/2NS+20 MEQ KCL - 20 MEQ/1,000 ML INFUS.BAG IV SCH (10:30)
[2020-07-12] MEDS ORDERED: POTASSIUM PHOSPHATE 30 MM in SODIUM CHLORIDE 500 ML IVPB ONE (11:00)
[2020-07-12] MEDS: ERTAPENEM SODIUM 1 GM in SODIUM CHLORIDE 50 ML IVPB SCH (11:19)
[2020-07-12] MEDS: CITALOPRAM HYDROBROMIDE 10 MG TABLET PO SCH (11:25)
[2020-07-12] MEDS: CARVEDILOL 6.25 MG TABLET (FP) PO SCH ×2 (11:26→22:48)
[2020-07-12] MEDS: LISINOPRIL 20 MG TABLET PO SCH (11:27)
[2020-07-12] MEDS: amLODIPine BESYLATE 10 MG TABLET (FP) PO SCH (11:27)
[2020-07-12] MEDS: POLYETHYLENE GLYCOL 3350 119 GM BTL PO SCH (11:27)
[2020-07-12] MEDS: CHLORTHALIDONE 25 MG TABLET PO SCH (11:27)
[2020-07-12] MEDS: ENOXAPARIN NA (PORCINE) 30 MG/0.3 ML DISP.SYRIN SQ SCH (11:27)
[2020-07-12] MEDS: PANTOPRAZOLE 40 MG TABLET PO SCH (11:31)
[2020-07-12] MEDS: D5-1/2NS+20 MEQ KCL - 20 MEQ/1,000 ML INFUS.BAG IV SCH (11:31)
[2020-07-12] MEDS: GLYCOPYRROLATE 1 MG TABLET PO SCH (11:56)
[2020-07-12] MEDS: KCL 10 MEQ IVPB 10 MEQ/100 ML INFUS.BAG IVPB SCH ×3 (13:56→16:12)
[2020-07-12] MEDS: LATANOPROST 0.005% OPHTH SOLN 2.5ML BOTTLE OU SCH (22:48)
[2020-07-13] MEDS ORDERED: LORazepam 2 MG/ML SDV VIAL IVPUSH PRN (04:18)
[2020-07-13] MEDS ORDERED: levETIRAcetam 500 MG/5 ML INJECTION VIAL IVPB ONE (04:30)
[2020-07-13 07:08] LABS: BASO % 0.4 % (0-2.0); EOS % 0.9 % (0-4.5); HEMATOCRIT 24.7 % (32.4-45.2); HEMOGLOBIN 8.2 GM/dL (10.7-15.3); LYMPH % 9.4 % (8-40); MCHC 33.2 g/dl (32.0-36.0); MEAN CELL VOLUME 81.3 fl (80-96); MEAN PLT VOLUME 8.3 fl (7.5-11.1); MONO % 6.8 % (3.8-10.2); NEUT % 82.5 % (42.8-82.8); PLATELET COUNT 213 K/MM3 (134-434); RBC 3.04 M/mm3 (3.60-5.2); RDW 17.4 % (11.6-15.6); WHITE BLOOD COUNT 12.8 K/mm3 (4.0-10.0)
[2020-07-13 07:20] LABS: CHLORIDE 112 mmol/L (98-107); POTASSIUM 3.9 mmol/L (3.5-5.1); SODIUM 139 mmol/L (136-145)
[2020-07-13 07:23] LABS: CALCIUM 7.6 mg/dL (8.5-10.1)
[2020-07-13 07:24] LABS: ALBUMIN 2.2 g/dl (3.4-5.0); ANION GAP 9 MMOL/L (8-16); BLOOD UREA NITROGEN 25.6 mg/dL (7-18); CO2 18 mmol/L (21-32); GLUCOSE,RANDOM 96 mg/dL (74-106); MAGNESIUM 2.2 mg/dL (1.8-2.4)
[2020-07-13 07:27] LABS: CREATININE 0.9 mg/dL (0.55-1.3); PHOSPHOROUS 2.7 mg/dL (2.5-4.9); SGOT/AST 20 U/L (15-37)
[2020-07-13 07:28] LABS: BILIRUBIN,TOTAL 0.9 mg/dL (0.2-1); TOT PROT 5.7 g/dl (6.4-8.2)
[2020-07-13 07:30] LABS: ALK PHOS 54 U/L (45-117)
[2020-07-13 07:31] LABS: SGPT/ALT < 6 U/L (13-61)
[2020-07-13] MEDS: amLODIPine BESYLATE 10 MG TABLET (FP) PO SCH (09:20)
[2020-07-13] MEDS: LISINOPRIL 20 MG TABLET PO SCH (09:20)
[2020-07-13] MEDS: CARVEDILOL 6.25 MG TABLET (FP) PO SCH ×2 (09:20→21:50)
[2020-07-13] MEDS: PANTOPRAZOLE 40 MG TABLET PO SCH (09:20)
[2020-07-13] MEDS: levETIRAcetam 500 MG/5 ML INJECTION VIAL IVPB SCH ×2 (09:20→21:46)
[2020-07-13] MEDS: AMINO ACIDS/PROTEIN HYDROLYS 30 ML LIQUID.PKT PO SCH ×2 (09:21→18:13)
[2020-07-13] MEDS ORDERED: ENOXAPARIN NA (PORCINE) 30 MG/0.3 ML DISP.SYRIN SQ SCH (10:00)
[2020-07-13] MEDS ORDERED: CHLORTHALIDONE 25 MG TABLET PO SCH (10:00)
[2020-07-13] MEDS: CITALOPRAM HYDROBROMIDE 10 MG TABLET PO SCH (11:10)
[2020-07-13] MEDS: ERTAPENEM SODIUM 1 GM in SODIUM CHLORIDE 50 ML IVPB SCH (11:10)
[2020-07-13] MEDS: D5-1/2NS+20 MEQ KCL - 20 MEQ/1,000 ML INFUS.BAG IV SCH (11:11)
[2020-07-13] MEDS: POLYETHYLENE GLYCOL 3350 119 GM BTL PO SCH (11:12)
[2020-07-13] MEDS ORDERED: PT OWN MED DRAWER 7, Y5N ONE ×2 (11:30→12:57)
[2020-07-13] MEDS: ENOXAPARIN NA (PORCINE) 30 MG/0.3 ML DISP.SYRIN SQ SCH (11:42)
[2020-07-13] MEDS: FUROSEMIDE 20 MG TABLET (FP) PO SCH (18:13)
[2020-07-13] MEDS: OXYBUTYNIN CHLORIDE 5 MG TABLET PO SCH (21:45)
[2020-07-13] MEDS: LATANOPROST 0.005% OPHTH SOLN 2.5ML BOTTLE OU SCH (21:47)
[2020-07-14 07:05] LABS: BASO % 0.4 % (0-2.0); CHLORIDE 113 mmol/L (98-107); EOS % 1.3 % (0-4.5); HEMATOCRIT 24.3 % (32.4-45.2); HEMOGLOBIN 8.1 GM/dL (10.7-15.3); LYMPH % 11.1 % (8-40); MCH 27.3 pg (25.7-33.7); MCHC 33.2 g/dl (32.0-36.0); MEAN CELL VOLUME 82.1 fl (80-96); MEAN PLT VOLUME 8.5 fl (7.5-11.1); MONO % 8.3 % (3.8-10.2); NEUT % 78.9 % (42.8-82.8); PLATELET COUNT 188 K/MM3 (134-434); POTASSIUM 3.7 mmol/L (3.5-5.1); RBC 2.96 M/mm3 (3.60-5.2); RDW 17.9 % (11.6-15.6); SODIUM 140 mmol/L (136-145); WHITE BLOOD COUNT 8.8 K/mm3 (4.0-10.0)
[2020-07-14 07:11] LABS: ALBUMIN 2.1 g/dl (3.4-5.0)
[2020-07-14 07:12] LABS: BLOOD UREA NITROGEN 24.6 mg/dL (7-18); CALCIUM 7.8 mg/dL (8.5-10.1)
[2020-07-14 07:13] LABS: ANION GAP 7 MMOL/L (8-16); CO2 20 mmol/L (21-32); GLUCOSE,RANDOM 89 mg/dL (74-106); MAGNESIUM 1.9 mg/dL (1.8-2.4)
[2020-07-14 07:14] LABS: SGPT/ALT < 6 U/L (13-61)
[2020-07-14 07:15] LABS: CREATININE 0.8 mg/dL (0.55-1.3); SGOT/AST 15 U/L (15-37)
[2020-07-14 07:16] LABS: PHOSPHOROUS 2.9 mg/dL (2.5-4.9); TOT PROT 5.5 g/dl (6.4-8.2)
[2020-07-14 07:17] LABS: ALK PHOS 56 U/L (45-117)
[2020-07-14] MEDS: AMINO ACIDS/PROTEIN HYDROLYS 30 ML LIQUID.PKT PO SCH ×2 (08:10→18:42)
[2020-07-14] MEDS: LISINOPRIL 20 MG TABLET PO SCH (13:15)
[2020-07-14] MEDS: PANTOPRAZOLE 40 MG TABLET PO SCH (13:15)
[2020-07-14] MEDS: POLYETHYLENE GLYCOL 3350 119 GM BTL PO SCH (13:16)
[2020-07-14] MEDS: FUROSEMIDE 20 MG TABLET (FP) PO SCH (13:16)
[2020-07-14] MEDS: CARVEDILOL 6.25 MG TABLET (FP) PO SCH ×2 (13:16→21:43)
[2020-07-14] MEDS: amLODIPine BESYLATE 10 MG TABLET (FP) PO SCH (13:16)
[2020-07-14] MEDS: ENOXAPARIN NA (PORCINE) 30 MG/0.3 ML DISP.SYRIN SQ SCH (13:17)
[2020-07-14] MEDS: OXYBUTYNIN CHLORIDE 5 MG TABLET PO SCH ×2 (13:20→21:44)
[2020-07-14] MEDS: levETIRAcetam 500 MG/5 ML INJECTION VIAL IVPB SCH ×2 (13:20→21:43)
[2020-07-14] MEDS: CITALOPRAM HYDROBROMIDE 10 MG TABLET PO SCH (13:21)
[2020-07-14] MEDS: ERTAPENEM SODIUM 1 GM in SODIUM CHLORIDE 50 ML IVPB SCH (15:16)
[2020-07-14] MEDS: LATANOPROST 0.005% OPHTH SOLN 2.5ML BOTTLE OU SCH (21:44)
[2020-07-15 07:40] LABS: CHLORIDE 112 mmol/L (98-107); POTASSIUM 3.6 mmol/L (3.5-5.1); SODIUM 141 mmol/L (136-145)
[2020-07-15 07:48] LABS: CALCIUM 7.8 mg/dL (8.5-10.1)
[2020-07-15 07:49] LABS: ANION GAP 9 MMOL/L (8-16); BASO % 0.6 % (0-2.0); CO2 21 mmol/L (21-32); EOS % 2.2 % (0-4.5); GLUCOSE,RANDOM 83 mg/dL (74-106); LYMPH % 14.8 % (8-40); MAGNESIUM 1.9 mg/dL (1.8-2.4); MCH 27.1 pg (25.7-33.7); MCHC 33.5 g/dl (32.0-36.0); MEAN CELL VOLUME 80.8 fl (80-96); MEAN PLT VOLUME 8.6 fl (7.5-11.1); MONO % 9.7 % (3.8-10.2); NEUT % 72.7 % (42.8-82.8); PLATELET COUNT 197 K/MM3 (134-434); RBC 2.96 M/mm3 (3.60-5.2); RDW 17.4 % (11.6-15.6); WHITE BLOOD COUNT 8.2 K/mm3 (4.0-10.0)
[2020-07-15 07:52] LABS: CREATININE 0.9 mg/dL (0.55-1.3); PHOSPHOROUS 3.3 mg/dL (2.5-4.9); SGOT/AST 22 U/L (15-37)
[2020-07-15 07:53] LABS: BILIRUBIN,TOTAL 0.7 mg/dL (0.2-1); TOT PROT 5.4 g/dl (6.4-8.2)
[2020-07-15 07:54] LABS: ALK PHOS 55 U/L (45-117)
[2020-07-15 07:55] LABS: SGPT/ALT < 6 U/L (13-61)
[2020-07-15] MEDS ORDERED: levETIRAcetam 500 MG/5 ML INJECTION VIAL IVPB SCH (09:18)
[2020-07-15] MEDS ORDERED: MAGNESIUM SULF 50% (8.12 MEQ/2 ML-1 GM VIAL) IVPB ONE (09:29)
[2020-07-15] MEDS: AMINO ACIDS/PROTEIN HYDROLYS 30 ML LIQUID.PKT PO SCH ×2 (09:40→18:21)
[2020-07-15] MEDS: CITALOPRAM HYDROBROMIDE 10 MG TABLET PO SCH (09:45)
[2020-07-15] MEDS: CARVEDILOL 6.25 MG TABLET (FP) PO SCH ×2 (09:45→22:20)
[2020-07-15] MEDS: FUROSEMIDE 20 MG TABLET (FP) PO SCH (09:45)
[2020-07-15] MEDS: amLODIPine BESYLATE 10 MG TABLET (FP) PO SCH (09:45)
[2020-07-15] MEDS: OXYBUTYNIN CHLORIDE 5 MG TABLET PO SCH ×2 (09:45→22:21)
[2020-07-15] MEDS: POLYETHYLENE GLYCOL 3350 119 GM BTL PO SCH (09:45)
[2020-07-15] MEDS: LISINOPRIL 20 MG TABLET PO SCH (09:46)
[2020-07-15] MEDS: PANTOPRAZOLE 40 MG TABLET PO SCH (09:46)
[2020-07-15] MEDS ORDERED: PHENobarbital SODIUM 65 MG/1 ML VIAL IVPB SCH (10:00)
[2020-07-15] MEDS: ENOXAPARIN NA (PORCINE) 30 MG/0.3 ML DISP.SYRIN SQ SCH (10:16)
[2020-07-15] MEDS: DEXTROSE 5%-0.45% SALINE 1,000 ML IV SCH (13:58)
[2020-07-15] MEDS: ERTAPENEM SODIUM 1 GM in SODIUM CHLORIDE 50 ML IVPB SCH (13:58)
[2020-07-15] MEDS: KCL 10 MEQ IVPB 10 MEQ/100 ML INFUS.BAG IVPB SCH ×3 (15:59→18:20)
[2020-07-15] MEDS: levETIRAcetam 500 MG/5 ML INJECTION VIAL IVPB SCH (22:19)
[2020-07-15] MEDS: LATANOPROST 0.005% OPHTH SOLN 2.5ML BOTTLE OU SCH (22:32)
[2020-07-16] MEDS ORDERED: PT OWN MED DRAWER 7, Y5N ONE ×4 (05:39→20:57)
[2020-07-16 07:48] LABS: CHLORIDE 112 mmol/L (98-107); POTASSIUM 3.9 mmol/L (3.5-5.1); SODIUM 141 mmol/L (136-145)
[2020-07-16 07:59] LABS: BASO % 0.7 % (0-2.0); EOS % 2.1 % (0-4.5); HEMATOCRIT 22.6 % (32.4-45.2); HEMOGLOBIN 7.7 GM/dL (10.7-15.3); LYMPH % 15.7 % (8-40); MCH 27.8 pg (25.7-33.7); MCHC 34.2 g/dl (32.0-36.0); MEAN CELL VOLUME 81.3 fl (80-96); MEAN PLT VOLUME 8.6 fl (7.5-11.1); MONO % 9.9 % (3.8-10.2); NEUT % 71.6 % (42.8-82.8); PLATELET COUNT 180 K/MM3 (134-434); RBC 2.78 M/mm3 (3.60-5.2); RDW 17.4 % (11.6-15.6); WHITE BLOOD COUNT 6.9 K/mm3 (4.0-10.0)
[2020-07-16 08:03] LABS: ALBUMIN 2.1 g/dl (3.4-5.0); ANION GAP 6 MMOL/L (8-16); BLOOD UREA NITROGEN 24.7 mg/dL (7-18); CALCIUM 7.5 mg/dL (8.5-10.1); CO2 22 mmol/L (21-32); GLUCOSE,RANDOM 85 mg/dL (74-106); MAGNESIUM 2.4 mg/dL (1.8-2.4)
[2020-07-16 08:06] LABS: CREATININE 0.9 mg/dL (0.55-1.3); PHOSPHOROUS 2.9 mg/dL (2.5-4.9); SGOT/AST 12 U/L (15-37); SGPT/ALT < 6 U/L (13-61)
[2020-07-16 08:07] LABS: BILIRUBIN,TOTAL 0.6 mg/dL (0.2-1); TOT PROT 5.5 g/dl (6.4-8.2)
[2020-07-16 08:09] LABS: ALK PHOS 57 U/L (45-117)
[2020-07-16] MEDS ORDERED: IRON SUCROSE INJECTION 200 MG in SODIUM CHLORIDE 90 ML IVPB ONE (08:50)
[2020-07-16] MEDS: ENOXAPARIN NA (PORCINE) 30 MG/0.3 ML DISP.SYRIN SQ SCH (09:39)
[2020-07-16] MEDS: AMINO ACIDS/PROTEIN HYDROLYS 30 ML LIQUID.PKT PO SCH ×2 (09:40→17:13)
[2020-07-16] MEDS: ERTAPENEM SODIUM 1 GM in SODIUM CHLORIDE 50 ML IVPB SCH (09:41)
[2020-07-16] MEDS: levETIRAcetam 500 MG/5 ML INJECTION VIAL IVPB SCH ×2 (09:42→21:21)
[2020-07-16] MEDS: FUROSEMIDE 20 MG TABLET (FP) PO SCH (09:44)
[2020-07-16] MEDS: LISINOPRIL 20 MG TABLET PO SCH (09:44)
[2020-07-16] MEDS: CARVEDILOL 6.25 MG TABLET (FP) PO SCH ×2 (09:44→21:20)
[2020-07-16] MEDS: amLODIPine BESYLATE 10 MG TABLET (FP) PO SCH (09:44)
[2020-07-16] MEDS: PANTOPRAZOLE 40 MG TABLET PO SCH (09:44)
[2020-07-16] MEDS: CITALOPRAM HYDROBROMIDE 10 MG TABLET PO SCH (09:45)
[2020-07-16] MEDS: POLYETHYLENE GLYCOL 3350 119 GM BTL PO SCH (09:45)
[2020-07-16] MEDS: OXYBUTYNIN CHLORIDE 5 MG TABLET PO SCH ×2 (09:45→21:20)
[2020-07-16] MEDS ORDERED: EPOETIN ALFA 20,000 UNIT/1 ML VIAL SQ ONE (10:00)
[2020-07-16] MEDS: NYSTATIN 500,000 UNITS/5 ML SUSPENSION PO SCH ×2 (13:33→17:13)
[2020-07-16] MEDS: DEXTROSE 5%-0.45% SALINE 1,000 ML IV SCH (13:33)
[2020-07-16] MEDS: LATANOPROST 0.005% OPHTH SOLN 2.5ML BOTTLE OU SCH (21:21)
[2020-07-17] MEDS: NYSTATIN 500,000 UNITS/5 ML SUSPENSION PO SCH ×4 (01:00→17:29)
[2020-07-17 07:15] LABS: BASO % 0.6 % (0-2.0); EOS % 2.1 % (0-4.5); HEMATOCRIT 23.6 % (32.4-45.2); HEMOGLOBIN 8.1 GM/dL (10.7-15.3); LYMPH % 8.7 % (8-40); MCH 27.7 pg (25.7-33.7); MCHC 34.4 g/dl (32.0-36.0); MEAN CELL VOLUME 80.5 fl (80-96); MEAN PLT VOLUME 8.6 fl (7.5-11.1); MONO % 9.3 % (3.8-10.2); NEUT % 79.3 % (42.8-82.8); PLATELET COUNT 176 K/MM3 (134-434); RBC 2.93 M/mm3 (3.60-5.2); RDW 17.5 % (11.6-15.6); WHITE BLOOD COUNT 6.5 K/mm3 (4.0-10.0)
[2020-07-17 07:19] LABS: POTASSIUM 3.5 mmol/L (3.5-5.1)
[2020-07-17 07:22] LABS: BLOOD UREA NITROGEN 22.6 mg/dL (7-18); CALCIUM 7.7 mg/dL (8.5-10.1)
[2020-07-17 07:25] LABS: CREATININE 0.8 mg/dL (0.55-1.3)
[2020-07-17] MEDS: FUROSEMIDE 20 MG TABLET (FP) PO SCH (10:30)
[2020-07-17] MEDS: PANTOPRAZOLE 40 MG TABLET PO SCH (10:30)
[2020-07-17] MEDS: CARVEDILOL 6.25 MG TABLET (FP) PO SCH ×2 (10:30→21:41)
[2020-07-17] MEDS: LISINOPRIL 20 MG TABLET PO SCH (10:30)
[2020-07-17] MEDS: AMINO ACIDS/PROTEIN HYDROLYS 30 ML LIQUID.PKT PO SCH ×2 (10:30→17:29)
[2020-07-17] MEDS: CITALOPRAM HYDROBROMIDE 10 MG TABLET PO SCH (10:31)
[2020-07-17] MEDS: ENOXAPARIN NA (PORCINE) 30 MG/0.3 ML DISP.SYRIN SQ SCH (10:31)
[2020-07-17] MEDS: OXYBUTYNIN CHLORIDE 5 MG TABLET PO SCH ×2 (10:32→21:41)
[2020-07-17] MEDS: amLODIPine BESYLATE 10 MG TABLET (FP) PO SCH (10:33)
[2020-07-17] MEDS: ERTAPENEM SODIUM 1 GM in SODIUM CHLORIDE 50 ML IVPB SCH (10:34)
[2020-07-17] MEDS: levETIRAcetam 500 MG/5 ML INJECTION VIAL IVPB SCH ×2 (10:49→21:41)
[2020-07-17] MEDS: POLYETHYLENE GLYCOL 3350 119 GM BTL PO SCH (10:52)
[2020-07-17] MEDS: DEXTROSE 5%-0.45% SALINE 1,000 ML IV SCH (14:01)
[2020-07-17] MEDS ORDERED: PT OWN MED DRAWER 7, Y5N ONE (20:56)
[2020-07-17] MEDS: LATANOPROST 0.005% OPHTH SOLN 2.5ML BOTTLE OU SCH (21:47)
[2020-07-18] MEDS: NYSTATIN 500,000 UNITS/5 ML SUSPENSION PO SCH ×4 (00:22→16:59)
[2020-07-18] MEDS: DEXTROSE 5%-0.45% SALINE 1,000 ML IV SCH (04:17)
[2020-07-18 07:28] LABS: BASO % 0.3 % (0-2.0); EOS % 1.5 % (0-4.5); HEMATOCRIT 23.6 % (32.4-45.2); HEMOGLOBIN 7.9 GM/dL (10.7-15.3); LYMPH % 9.6 % (8-40); MCH 27.4 pg (25.7-33.7); MCHC 33.4 g/dl (32.0-36.0); MEAN CELL VOLUME 81.9 fl (80-96); MEAN PLT VOLUME 9.1 fl (7.5-11.1); MONO % 7.2 % (3.8-10.2); NEUT % 81.4 % (42.8-82.8); PLATELET COUNT 179 K/MM3 (134-434); RBC 2.88 M/mm3 (3.60-5.2); RDW 17.7 % (11.6-15.6); WHITE BLOOD COUNT 6.5 K/mm3 (4.0-10.0)
[2020-07-18 07:40] LABS: POTASSIUM 3.2 mmol/L (3.5-5.1)
[2020-07-18 07:45] LABS: CALCIUM 7.6 mg/dL (8.5-10.1)
[2020-07-18 07:46] LABS: BLOOD UREA NITROGEN 25.3 mg/dL (7-18)
[2020-07-18] MEDS ORDERED: DEXTROSE 5%-0.45% SALINE 1,000 ML IV SCH (09:06)
[2020-07-18] MEDS ORDERED: D5-1/2NS+20 MEQ KCL - 20 MEQ/1,000 ML INFUS.BAG IV SCH (09:15)
[2020-07-18] MEDS: ERTAPENEM SODIUM 1 GM in SODIUM CHLORIDE 50 ML IVPB SCH (10:13)
[2020-07-18] MEDS: AMINO ACIDS/PROTEIN HYDROLYS 30 ML LIQUID.PKT PO SCH ×2 (10:13→16:59)
[2020-07-18] MEDS: CARVEDILOL 6.25 MG TABLET (FP) PO SCH ×2 (10:16→22:04)
[2020-07-18] MEDS: LISINOPRIL 20 MG TABLET PO SCH (10:16)
[2020-07-18] MEDS: PANTOPRAZOLE 40 MG TABLET PO SCH (10:16)
[2020-07-18] MEDS: amLODIPine BESYLATE 10 MG TABLET (FP) PO SCH (10:16)
[2020-07-18] MEDS: levETIRAcetam 500 MG/5 ML INJECTION VIAL IVPB SCH ×2 (10:16→22:06)
[2020-07-18] MEDS: KCL 10 MEQ IVPB 10 MEQ/100 ML INFUS.BAG IVPB SCH ×3 (10:17→13:47)
[2020-07-18] MEDS: OXYBUTYNIN CHLORIDE 5 MG TABLET PO SCH ×2 (10:17→22:04)
[2020-07-18] MEDS: CITALOPRAM HYDROBROMIDE 10 MG TABLET PO SCH (10:17)
[2020-07-18] MEDS: ENOXAPARIN NA (PORCINE) 30 MG/0.3 ML DISP.SYRIN SQ SCH (10:19)
[2020-07-18] MEDS: FUROSEMIDE 20 MG TABLET (FP) PO SCH (10:19)
[2020-07-18] MEDS: POLYETHYLENE GLYCOL 3350 119 GM BTL PO SCH (10:19)
[2020-07-18] MEDS: LATANOPROST 0.005% OPHTH SOLN 2.5ML BOTTLE OU SCH (22:08)
[2020-07-19] MEDS: NYSTATIN 500,000 UNITS/5 ML SUSPENSION PO SCH ×4 (00:11→19:54)
[2020-07-19 07:08] LABS: BASO % 0.4 % (0-2.0); EOS % 1.1 % (0-4.5); HEMATOCRIT 23.5 % (32.4-45.2); LYMPH % 12.4 % (8-40); MCH 27.6 pg (25.7-33.7); MCHC 34.3 g/dl (32.0-36.0); MEAN CELL VOLUME 80.5 fl (80-96); MEAN PLT VOLUME 8.9 fl (7.5-11.1); NEUT % 78.1 % (42.8-82.8); PLATELET COUNT 163 K/MM3 (134-434); RBC 2.91 M/mm3 (3.60-5.2); RDW 17.7 % (11.6-15.6); WHITE BLOOD COUNT 8.8 K/mm3 (4.0-10.0)
[2020-07-19 07:15] LABS: POTASSIUM 3.7 mmol/L (3.5-5.1)
[2020-07-19 07:17] LABS: BLOOD UREA NITROGEN 27.2 mg/dL (7-18); CALCIUM 7.6 mg/dL (8.5-10.1); MAGNESIUM 1.8 mg/dL (1.8-2.4)
[2020-07-19 07:20] LABS: PHOSPHOROUS 2.6 mg/dL (2.5-4.9)
[2020-07-19 07:22] LABS: CREATININE 1.1 mg/dL (0.55-1.3)
[2020-07-19] MEDS ORDERED: MAGNESIUM SULF 50% (8.12 MEQ/2 ML-1 GM VIAL) IVPB ONE (08:18)
[2020-07-19] MEDS: AMINO ACIDS/PROTEIN HYDROLYS 30 ML LIQUID.PKT PO SCH ×2 (08:32→18:32)
[2020-07-19] MEDS ORDERED: PT OWN MED DRAWER 7, Y5N ONE ×2 (09:01→10:04)
[2020-07-19] MEDS: OXYBUTYNIN CHLORIDE 5 MG TABLET PO SCH ×2 (09:24→22:58)
[2020-07-19] MEDS: CARVEDILOL 6.25 MG TABLET (FP) PO SCH (09:24)
[2020-07-19] MEDS: levETIRAcetam 500 MG/5 ML INJECTION VIAL IVPB SCH ×2 (09:24→22:13)
[2020-07-19] MEDS: FUROSEMIDE 20 MG TABLET (FP) PO SCH (09:24)
[2020-07-19] MEDS: amLODIPine BESYLATE 10 MG TABLET (FP) PO SCH (09:24)
[2020-07-19] MEDS: LISINOPRIL 20 MG TABLET PO SCH (09:24)
[2020-07-19] MEDS: PANTOPRAZOLE 40 MG TABLET PO SCH (09:24)
[2020-07-19] MEDS: ENOXAPARIN NA (PORCINE) 30 MG/0.3 ML DISP.SYRIN SQ SCH (09:25)
[2020-07-19] MEDS: CITALOPRAM HYDROBROMIDE 10 MG TABLET PO SCH (09:25)
[2020-07-19] MEDS: POLYETHYLENE GLYCOL 3350 119 GM BTL PO SCH (09:26)
[2020-07-19] MEDS: ERTAPENEM SODIUM 1 GM in SODIUM CHLORIDE 50 ML IVPB SCH (11:28)
[2020-07-19] MEDS ORDERED: ATROPINE SO4 0.4 MG/1 ML VIAL IVPUSH ONE (17:53)
[2020-07-19 18:41] LABS: CHLORIDE 112 mmol/L (98-107); POTASSIUM 3.7 mmol/L (3.5-5.1); SODIUM 143 mmol/L (136-145)
[2020-07-19 18:43] LABS: ALBUMIN 2.3 g/dl (3.4-5.0); ANION GAP 8 MMOL/L (8-16); BLOOD UREA NITROGEN 27.5 mg/dL (7-18); CALCIUM 7.8 mg/dL (8.5-10.1); CO2 23 mmol/L (21-32)
[2020-07-19 18:44] LABS: GLUCOSE,RANDOM 114 mg/dL (74-106)
[2020-07-19 18:46] LABS: SGPT/ALT < 6 U/L (13-61)
[2020-07-19 18:47] LABS: CREATININE 1.2 mg/dL (0.55-1.3); SGOT/AST 14 U/L (15-37)
[2020-07-19 18:48] LABS: BILIRUBIN,TOTAL 0.2 mg/dL (0.2-1); TOT PROT 6.1 g/dl (6.4-8.2)
[2020-07-19 18:49] LABS: ALK PHOS 75 U/L (45-117)
[2020-07-19] MEDS: SODIUM BICARBONATE 8.4% - 150 MEQ in DEXTROSE 5%-WATER - 1,000 ML IVPB SCH (19:15)
[2020-07-19] MEDS ORDERED: levETIRAcetam 500 MG/5 ML INJECTION VIAL IVPB ONE (19:27)
[2020-07-19] MEDS: LATANOPROST 0.005% OPHTH SOLN 2.5ML BOTTLE OU SCH (22:16)
[2020-07-19 22:44] LABS: MAGNESIUM 2.2 mg/dL (1.8-2.4)
[2020-07-19 22:47] LABS: PHOSPHOROUS 2.8 mg/dL (2.5-4.9)
[2020-07-20] MEDS: NYSTATIN 500,000 UNITS/5 ML SUSPENSION PO SCH ×4 (00:25→17:27)
[2020-07-20 08:17] LABS: BASO % 0.3 % (0-2.0); EOS % 0.3 % (0-4.5); HEMATOCRIT 23.5 % (32.4-45.2); LYMPH % 13.1 % (8-40); MCH 27.4 pg (25.7-33.7); MCHC 34.1 g/dl (32.0-36.0); MEAN CELL VOLUME 80.2 fl (80-96); MEAN PLT VOLUME 9.4 fl (7.5-11.1); MONO % 6.4 % (3.8-10.2); NEUT % 79.9 % (42.8-82.8); PLATELET COUNT 169 K/MM3 (134-434); RBC 2.93 M/mm3 (3.60-5.2); RDW 17.7 % (11.6-15.6); WHITE BLOOD COUNT 9.7 K/mm3 (4.0-10.0)
[2020-07-20 08:41] LABS: POTASSIUM 3.6 mmol/L (3.5-5.1)
[2020-07-20 08:45] LABS: BLOOD UREA NITROGEN 27.2 mg/dL (7-18); CALCIUM 7.5 mg/dL (8.5-10.1); MAGNESIUM 2.1 mg/dL (1.8-2.4)
[2020-07-20 08:46] LABS: CREATININE 1.1 mg/dL (0.55-1.3)
[2020-07-20 08:48] LABS: PHOSPHOROUS 2.9 mg/dL (2.5-4.9)
[2020-07-20] MEDS: AMINO ACIDS/PROTEIN HYDROLYS 30 ML LIQUID.PKT PO SCH ×2 (10:56→17:27)
[2020-07-20] MEDS: amLODIPine BESYLATE 10 MG TABLET (FP) PO SCH (10:56)
[2020-07-20] MEDS: OXYBUTYNIN CHLORIDE 5 MG TABLET PO SCH (10:56)
[2020-07-20] MEDS: POLYETHYLENE GLYCOL 3350 119 GM BTL PO SCH (10:56)
[2020-07-20] MEDS: LISINOPRIL 20 MG TABLET PO SCH (10:56)
[2020-07-20] MEDS: FUROSEMIDE 20 MG TABLET (FP) PO SCH (10:56)
[2020-07-20] MEDS: PANTOPRAZOLE 40 MG TABLET PO SCH (10:57)
[2020-07-20] MEDS: ENOXAPARIN NA (PORCINE) 30 MG/0.3 ML DISP.SYRIN SQ SCH (11:21)
[2020-07-20] MEDS: levETIRAcetam 500 MG/5 ML INJECTION VIAL IVPB SCH ×3 (11:21→22:07)
[2020-07-20] MEDS ORDERED: PT OWN MED DRAWER 7, Y5N ONE (17:04)
[2020-07-20] MEDS: SODIUM BICARBONATE 8.4% - 150 MEQ in DEXTROSE 5%-WATER - 1,000 ML IVPB SCH (18:26)
[2020-07-20] MEDS ORDERED: levETIRAcetam 500 MG/5 ML INJECTION VIAL IVPB ONE (21:49)
[2020-07-20] MEDS: LATANOPROST 0.005% OPHTH SOLN 2.5ML BOTTLE OU SCH (23:17)
[2020-07-20 23:21] LABS: CHLORIDE 128 mmol/L (98-107); SODIUM 154 mmol/L (136-145)
[2020-07-20 23:23] LABS: CO2 16 mmol/L (21-32)
[2020-07-20 23:24] LABS: MAGNESIUM 0.9 mg/dL (1.8-2.4)
[2020-07-20] MEDS ORDERED: LORazepam 2 MG/ML SDV VIAL IVPUSH ONE (23:25)
[2020-07-20 23:27] LABS: CREATININE 0.4 mg/dL (0.55-1.3); SGOT/AST 3 U/L (15-37)
[2020-07-20 23:28] LABS: BILIRUBIN,TOTAL 0.1 mg/dL (0.2-1)
[2020-07-21 00:13] LABS: ALK PHOS 32 U/L (45-117); ANION GAP 10 MMOL/L (8-16); SGPT/ALT < 6 U/L (13-61); TOT PROT 2.7 g/dl (6.4-8.2)
[2020-07-21 00:16] LABS: GLUCOSE,RANDOM 46 mg/dL (74-106)
[2020-07-21 00:17] LABS: CALCIUM < 5.0 mg/dL (8.5-10.1); PHOSPHOROUS 1.1 mg/dL (2.5-4.9); POTASSIUM 1.9 mmol/L (3.5-5.1)
[2020-07-21] MEDS: NYSTATIN 500,000 UNITS/5 ML SUSPENSION PO SCH ×4 (01:05→18:25)
[2020-07-21 01:26] LABS: CHLORIDE 110 mmol/L (98-107); POTASSIUM 3.5 mmol/L (3.5-5.1); SODIUM 144 mmol/L (136-145)
[2020-07-21 01:28] LABS: CALCIUM 7.8 mg/dL (8.5-10.1)
[2020-07-21 01:29] LABS: ALBUMIN 2.2 g/dl (3.4-5.0); ANION GAP 6 MMOL/L (8-16); BLOOD UREA NITROGEN 23.5 mg/dL (7-18); CO2 27 mmol/L (21-32); GLUCOSE,RANDOM 88 mg/dL (74-106); MAGNESIUM 2.2 mg/dL (1.8-2.4)
[2020-07-21 01:32] LABS: PHOSPHOROUS 2.2 mg/dL (2.5-4.9); SGOT/AST 12 U/L (15-37); SGPT/ALT < 6 U/L (13-61)
[2020-07-21 01:34] LABS: BILIRUBIN,TOTAL 0.2 mg/dL (0.2-1)
[2020-07-21 01:36] LABS: ALK PHOS 71 U/L (45-117)
[2020-07-21 01:41] LABS: BASO % 0.2 % (0-2.0); EOS % 0.7 % (0-4.5); HEMATOCRIT 23.5 % (32.4-45.2); HEMOGLOBIN 7.8 GM/dL (10.7-15.3); LYMPH % 9.2 % (8-40); MCH 26.7 pg (25.7-33.7); MCHC 33.1 g/dl (32.0-36.0); MEAN CELL VOLUME 80.6 fl (80-96); MONO % 5.9 % (3.8-10.2); PLATELET COUNT 190 K/MM3 (134-434); RBC 2.91 M/mm3 (3.60-5.2); RDW 17.5 % (11.6-15.6); WHITE BLOOD COUNT 8.9 K/mm3 (4.0-10.0)
[2020-07-21] MEDS ORDERED: NAPH,MB-DB/K PH,MBDB POWDER PACKET PO ONE (04:55)
[2020-07-21] MEDS ORDERED: POTASSIUM CHLORIDE 20 MEQ PREMIX IVPB 100 ML IVPB ONE (05:00)
[2020-07-21] MEDS ORDERED: POTASSIUM PHOSPHATE 30 MM in DEXTROSE 5%-WATER - 250 ML IVPB ONE (06:00)
[2020-07-21 07:08] LABS: BASO % 0.3 % (0-2.0); EOS % 0.6 % (0-4.5); HEMATOCRIT 23.2 % (32.4-45.2); HEMOGLOBIN 7.8 GM/dL (10.7-15.3); LYMPH % 14.8 % (8-40); MCH 27.1 pg (25.7-33.7); MCHC 33.5 g/dl (32.0-36.0); MEAN CELL VOLUME 80.9 fl (80-96); MEAN PLT VOLUME 9.3 fl (7.5-11.1); MONO % 8.4 % (3.8-10.2); NEUT % 75.9 % (42.8-82.8); PLATELET COUNT 162 K/MM3 (134-434); RBC 2.86 M/mm3 (3.60-5.2); RDW 17.6 % (11.6-15.6); WHITE BLOOD COUNT 9.1 K/mm3 (4.0-10.0)
[2020-07-21 07:23] LABS: CHLORIDE 109 mmol/L (98-107); POTASSIUM 3.4 mmol/L (3.5-5.1); SODIUM 143 mmol/L (136-145)
[2020-07-21 07:29] LABS: CALCIUM 7.7 mg/dL (8.5-10.1)
[2020-07-21 07:30] LABS: ANION GAP 7 MMOL/L (8-16); CO2 28 mmol/L (21-32); GLUCOSE,RANDOM 85 mg/dL (74-106); MAGNESIUM 2.1 mg/dL (1.8-2.4)
[2020-07-21 07:33] LABS: CREATININE 1.1 mg/dL (0.55-1.3); SGOT/AST 12 U/L (15-37); SGPT/ALT < 6 U/L (13-61)
[2020-07-21 07:34] LABS: BILIRUBIN,TOTAL 0.4 mg/dL (0.2-1); TOT PROT 5.8 g/dl (6.4-8.2)
[2020-07-21 07:36] LABS: ALK PHOS 67 U/L (45-117)
[2020-07-21] MEDS ORDERED: DEXTROSE 50%-WATER - 25 GM/50 ML VIAL IVPUSH ONE (08:33)
[2020-07-21] MEDS: levETIRAcetam 500 MG/5 ML INJECTION VIAL IVPB SCH ×2 (10:18→21:26)
[2020-07-21] MEDS: ENOXAPARIN NA (PORCINE) 30 MG/0.3 ML DISP.SYRIN SQ SCH (10:19)
[2020-07-21] MEDS: LISINOPRIL 20 MG TABLET PO SCH (10:42)
[2020-07-21] MEDS: amLODIPine BESYLATE 10 MG TABLET (FP) PO SCH (10:42)
[2020-07-21] MEDS: FUROSEMIDE 20 MG TABLET (FP) PO SCH (10:43)
[2020-07-21] MEDS: PANTOPRAZOLE 40 MG TABLET PO SCH (10:47)
[2020-07-21] MEDS: POLYETHYLENE GLYCOL 3350 119 GM BTL PO SCH (10:52)
[2020-07-21] MEDS: AMINO ACIDS/PROTEIN HYDROLYS 30 ML LIQUID.PKT PO SCH ×2 (10:54→18:25)
[2020-07-21 12:43] LABS: PHOSPHOROUS 2.2 mg/dL (2.5-4.9)
[2020-07-21] MEDS ORDERED: DEXTROSE 5%-LACTATED RINGERS 1,000 ML IV SCH ×2 (15:45)
[2020-07-21] MEDS ORDERED: PT OWN MED DRAWER 7, Y5N ONE (17:31)
[2020-07-21] MEDS: DEXTROSE 5%-LACTATED RINGERS 1,000 ML IV SCH (19:00)
[2020-07-21] MEDS: LATANOPROST 0.005% OPHTH SOLN 2.5ML BOTTLE OU SCH (21:31)
[2020-07-22] MEDS: NYSTATIN 500,000 UNITS/5 ML SUSPENSION PO SCH ×4 (00:13→17:23)
[2020-07-22 08:07] LABS: BASO % 0.7 % (0-2.0); EOS % 1.5 % (0-4.5); HEMATOCRIT 24.9 % (32.4-45.2); HEMOGLOBIN 8.5 GM/dL (10.7-15.3); LYMPH % 21.2 % (8-40); MCH 27.4 pg (25.7-33.7); MCHC 34.2 g/dl (32.0-36.0); MEAN CELL VOLUME 79.9 fl (80-96); MEAN PLT VOLUME 9.4 fl (7.5-11.1); MONO % 8.1 % (3.8-10.2); NEUT % 68.5 % (42.8-82.8); PLATELET COUNT 207 K/MM3 (134-434); RBC 3.11 M/mm3 (3.60-5.2); RDW 17.3 % (11.6-15.6); WHITE BLOOD COUNT 9.1 K/mm3 (4.0-10.0)
[2020-07-22 08:21] LABS: CHLORIDE 108 mmol/L (98-107); POTASSIUM 3.6 mmol/L (3.5-5.1); SODIUM 145 mmol/L (136-145)
[2020-07-22 08:24] LABS: CALCIUM 7.6 mg/dL (8.5-10.1)
[2020-07-22 08:25] LABS: ANION GAP 6 MMOL/L (8-16); BLOOD UREA NITROGEN 16.2 mg/dL (7-18); CO2 31 mmol/L (21-32); GLUCOSE,RANDOM 95 mg/dL (74-106); MAGNESIUM 1.6 mg/dL (1.8-2.4)
[2020-07-22 08:28] LABS: ALBUMIN 2.1 g/dl (3.4-5.0); CREATININE 0.9 mg/dL (0.55-1.3)
[2020-07-22 08:29] LABS: PHOSPHOROUS 2.7 mg/dL (2.5-4.9)
[2020-07-22 08:30] LABS: BILIRUBIN,TOTAL 0.6 mg/dL (0.2-1)
[2020-07-22 08:31] LABS: ALK PHOS 71 U/L (45-117); SGOT/AST 13 U/L (15-37)
[2020-07-22 08:44] LABS: SGPT/ALT < 6 U/L (13-61)
[2020-07-22] MEDS: ENOXAPARIN NA (PORCINE) 30 MG/0.3 ML DISP.SYRIN SQ SCH (09:24)
[2020-07-22] MEDS: levETIRAcetam 500 MG/5 ML INJECTION VIAL IVPB SCH ×2 (09:25→21:54)
[2020-07-22] MEDS: PANTOPRAZOLE 40 MG TABLET PO SCH (09:25)
[2020-07-22] MEDS: AMINO ACIDS/PROTEIN HYDROLYS 30 ML LIQUID.PKT PO SCH ×2 (09:31→16:58)
[2020-07-22] MEDS: amLODIPine BESYLATE 10 MG TABLET (FP) PO SCH (09:38)
[2020-07-22] MEDS ORDERED: MAGNESIUM SULF 50% (8.12 MEQ/2 ML-1 GM VIAL) IVPB ONE (10:21)
[2020-07-22] MEDS ORDERED: POTASSIUM PHOSPHATE 30 MM in DEXTROSE 5%-WATER - 250 ML IVPB ONE (11:00)
[2020-07-22] MEDS: FUROSEMIDE 20 MG TABLET (FP) PO SCH (11:57)
[2020-07-22] MEDS: LISINOPRIL 20 MG TABLET PO SCH (11:57)
[2020-07-22] MEDS: KCL 10 MEQ IVPB 10 MEQ/100 ML INFUS.BAG IVPB SCH ×3 (11:59→15:30)
[2020-07-22] MEDS: POLYETHYLENE GLYCOL 3350 119 GM BTL PO SCH (12:17)
[2020-07-22] MEDS: DEXTROSE 5%-LACTATED RINGERS 1,000 ML IV SCH (19:10)
[2020-07-22] MEDS: LATANOPROST 0.005% OPHTH SOLN 2.5ML BOTTLE OU SCH (21:54)
[2020-07-23] MEDS: NYSTATIN 500,000 UNITS/5 ML SUSPENSION PO SCH ×4 (00:23→20:48)
[2020-07-23 07:51] LABS: BASO % 0.7 % (0-2.0); EOS % 0.9 % (0-4.5); HEMATOCRIT 22.3 % (32.4-45.2); HEMOGLOBIN 7.7 GM/dL (10.7-15.3); LYMPH % 16.5 % (8-40); MCH 27.1 pg (25.7-33.7); MCHC 34.5 g/dl (32.0-36.0); MEAN CELL VOLUME 78.7 fl (80-96); MEAN PLT VOLUME 9.2 fl (7.5-11.1); MONO % 8.1 % (3.8-10.2); NEUT % 73.8 % (42.8-82.8); PLATELET COUNT 188 K/MM3 (134-434); RBC 2.84 M/mm3 (3.60-5.2); RDW 17.4 % (11.6-15.6); WHITE BLOOD COUNT 8.2 K/mm3 (4.0-10.0)
[2020-07-23] MEDS: AMINO ACIDS/PROTEIN HYDROLYS 30 ML LIQUID.PKT PO SCH ×2 (08:05→20:47)
[2020-07-23 08:12] LABS: CHLORIDE 109 mmol/L (98-107); POTASSIUM 3.9 mmol/L (3.5-5.1); SODIUM 145 mmol/L (136-145)
[2020-07-23 08:15] LABS: ALBUMIN 1.9 g/dl (3.4-5.0); CALCIUM 7.6 mg/dL (8.5-10.1)
[2020-07-23 08:16] LABS: ANION GAP 6 MMOL/L (8-16); BLOOD UREA NITROGEN 17.8 mg/dL (7-18); CO2 30 mmol/L (21-32); GLUCOSE,RANDOM 124 mg/dL (74-106)
[2020-07-23 08:19] LABS: CREATININE 0.9 mg/dL (0.55-1.3); PHOSPHOROUS 3.6 mg/dL (2.5-4.9); SGOT/AST 12 U/L (15-37)
[2020-07-23 08:20] LABS: BILIRUBIN,TOTAL 0.7 mg/dL (0.2-1); TOT PROT 5.5 g/dl (6.4-8.2)
[2020-07-23 08:22] LABS: ALK PHOS 67 U/L (45-117)
[2020-07-23 08:25] LABS: SGPT/ALT < 6 U/L (13-61)
[2020-07-23] MEDS: levETIRAcetam 500 MG/5 ML INJECTION VIAL IVPB SCH ×2 (10:29→21:08)
[2020-07-23] MEDS: ENOXAPARIN NA (PORCINE) 30 MG/0.3 ML DISP.SYRIN SQ SCH (10:52)
[2020-07-23] MEDS ORDERED: IRON SUCROSE INJECTION 100 MG in SODIUM CHLORIDE 95 ML IVPB ONE (11:00)
[2020-07-23] MEDS ORDERED: EPOETIN ALFA 20,000 UNIT/1 ML VIAL SQ ONE (11:00)
[2020-07-23] MEDS: FUROSEMIDE 20 MG TABLET (FP) PO SCH (11:05)
[2020-07-23] MEDS: amLODIPine BESYLATE 10 MG TABLET (FP) PO SCH (11:06)
[2020-07-23] MEDS: POLYETHYLENE GLYCOL 3350 119 GM BTL PO SCH (11:06)
[2020-07-23] MEDS: LISINOPRIL 20 MG TABLET PO SCH (11:06)
[2020-07-23] MEDS: PANTOPRAZOLE 40 MG TABLET PO SCH (11:07)
[2020-07-23] MEDS: DEXTROSE 5%-LACTATED RINGERS 1,000 ML IV SCH (20:48)
[2020-07-23] MEDS: LATANOPROST 0.005% OPHTH SOLN 2.5ML BOTTLE OU SCH (21:08)
[2020-07-24] MEDS: NYSTATIN 500,000 UNITS/5 ML SUSPENSION PO SCH ×5 (00:20→23:29)
[2020-07-24 07:23] LABS: BASO % 0.3 % (0-2.0); EOS % 0.8 % (0-4.5); HEMATOCRIT 22.3 % (32.4-45.2); HEMOGLOBIN 7.5 GM/dL (10.7-15.3); LYMPH % 17.1 % (8-40); MCH 27.1 pg (25.7-33.7); MCHC 33.8 g/dl (32.0-36.0); MEAN CELL VOLUME 80.3 fl (80-96); MEAN PLT VOLUME 9.4 fl (7.5-11.1); MONO % 8.3 % (3.8-10.2); NEUT % 73.5 % (42.8-82.8); PLATELET COUNT 165 K/MM3 (134-434); RBC 2.77 M/mm3 (3.60-5.2); RDW 17.1 % (11.6-15.6); WHITE BLOOD COUNT 9.4 K/mm3 (4.0-10.0)
[2020-07-24 07:44] LABS: CHLORIDE 111 mmol/L (98-107); POTASSIUM 3.6 mmol/L (3.5-5.1); SODIUM 143 mmol/L (136-145)
[2020-07-24 07:51] LABS: ALBUMIN 1.9 g/dl (3.4-5.0)
[2020-07-24 07:52] LABS: BLOOD UREA NITROGEN 22.2 mg/dL (7-18); GLUCOSE,RANDOM 132 mg/dL (74-106); SGOT/AST 14 U/L (15-37)
[2020-07-24 07:53] LABS: BILIRUBIN,TOTAL 0.5 mg/dL (0.2-1); TOT PROT 5.7 g/dl (6.4-8.2)
[2020-07-24 07:54] LABS: ALK PHOS 71 U/L (45-117)
[2020-07-24 07:55] LABS: CALCIUM 7.4 mg/dL (8.5-10.1); CREATININE 1.1 mg/dL (0.55-1.3); MAGNESIUM 1.9 mg/dL (1.8-2.4); PHOSPHOROUS 2.9 mg/dL (2.5-4.9)
[2020-07-24 07:56] LABS: ANION GAP 4 MMOL/L (8-16); CO2 29 mmol/L (21-32)
[2020-07-24 08:32] LABS: SGPT/ALT < 6 U/L (13-61)
[2020-07-24] MEDS ORDERED: MAGNESIUM SULF 50% (8.12 MEQ/2 ML-1 GM VIAL) IVPB ONE (09:15)
[2020-07-24] MEDS: AMINO ACIDS/PROTEIN HYDROLYS 30 ML LIQUID.PKT PO SCH ×2 (09:18→18:19)
[2020-07-24] MEDS: amLODIPine BESYLATE 10 MG TABLET (FP) PO SCH (10:18)
[2020-07-24] MEDS: POLYETHYLENE GLYCOL 3350 119 GM BTL PO SCH (10:18)
[2020-07-24] MEDS: ENOXAPARIN NA (PORCINE) 30 MG/0.3 ML DISP.SYRIN SQ SCH (10:18)
[2020-07-24] MEDS: PANTOPRAZOLE 40 MG TABLET PO SCH (10:18)
[2020-07-24] MEDS: LISINOPRIL 20 MG TABLET PO SCH (10:18)
[2020-07-24] MEDS: FUROSEMIDE 20 MG TABLET (FP) PO SCH (10:18)
[2020-07-24] MEDS: levETIRAcetam 500 MG/5 ML INJECTION VIAL IVPB SCH ×2 (10:18→21:33)
[2020-07-24] MEDS: DEXTROSE 5%-LACTATED RINGERS 1,000 ML IV SCH (18:59)
[2020-07-24] MEDS: LATANOPROST 0.005% OPHTH SOLN 2.5ML BOTTLE OU SCH (21:33)
[2020-07-25] MEDS: NYSTATIN 500,000 UNITS/5 ML SUSPENSION PO SCH ×3 (05:11→17:45)
[2020-07-25 06:52] LABS: BASO % 0.3 % (0-2.0); EOS % 1.8 % (0-4.5); HEMATOCRIT 23.8 % (32.4-45.2); HEMOGLOBIN 7.8 GM/dL (10.7-15.3); LYMPH % 10.8 % (8-40); MCH 26.9 pg (25.7-33.7); MCHC 32.9 g/dl (32.0-36.0); MEAN CELL VOLUME 81.7 fl (80-96); MEAN PLT VOLUME 9.9 fl (7.5-11.1); MONO % 6.3 % (3.8-10.2); NEUT % 80.8 % (42.8-82.8); PLATELET COUNT 160 K/MM3 (134-434); RBC 2.91 M/mm3 (3.60-5.2); RDW 17.3 % (11.6-15.6); WHITE BLOOD COUNT 11.6 K/mm3 (4.0-10.0)
[2020-07-25] MEDS: AMINO ACIDS/PROTEIN HYDROLYS 30 ML LIQUID.PKT PO SCH ×2 (08:59→17:45)
[2020-07-25] MEDS ORDERED: PT OWN MED DRAWER 7, Y5N ONE (09:11)
[2020-07-25] MEDS: levETIRAcetam 500 MG/5 ML INJECTION VIAL IVPB SCH ×2 (09:27→21:15)
[2020-07-25] MEDS: FUROSEMIDE 20 MG TABLET (FP) PO SCH (09:27)
[2020-07-25] MEDS: ENOXAPARIN NA (PORCINE) 30 MG/0.3 ML DISP.SYRIN SQ SCH (09:28)
[2020-07-25] MEDS: amLODIPine BESYLATE 10 MG TABLET (FP) PO SCH (09:33)
[2020-07-25] MEDS: LISINOPRIL 20 MG TABLET PO SCH (09:33)
[2020-07-25] MEDS: POLYETHYLENE GLYCOL 3350 119 GM BTL PO SCH (09:33)
[2020-07-25] MEDS: PANTOPRAZOLE 40 MG TABLET PO SCH (09:33)
[2020-07-25] MEDS: DEXTROSE 5%-LACTATED RINGERS 1,000 ML IV SCH ×2 (10:51→20:07)
[2020-07-25] MEDS ORDERED: MAGNESIUM SULF 50% (8.12 MEQ/2 ML-1 GM VIAL) IVPB ONE (13:00)
[2020-07-25] MEDS: LATANOPROST 0.005% OPHTH SOLN 2.5ML BOTTLE OU SCH (21:18)
[2020-07-26] MEDS: NYSTATIN 500,000 UNITS/5 ML SUSPENSION PO SCH ×4 (00:07→17:04)
[2020-07-26] MEDS ORDERED: PT OWN MED DRAWER 7, Y5N ONE ×5 (06:25→21:43)
[2020-07-26 06:39] LABS: BASO % 0.3 % (0-2.0); EOS % 3.6 % (0-4.5); HEMATOCRIT 23.2 % (32.4-45.2); HEMOGLOBIN 7.8 GM/dL (10.7-15.3); LYMPH % 14.4 % (8-40); MCHC 33.7 g/dl (32.0-36.0); MEAN CELL VOLUME 80.2 fl (80-96); MEAN PLT VOLUME 9.6 fl (7.5-11.1); NEUT % 76.7 % (42.8-82.8); PLATELET COUNT 178 K/MM3 (134-434); RBC 2.89 M/mm3 (3.60-5.2); RDW 17.5 % (11.6-15.6); WHITE BLOOD COUNT 9.9 K/mm3 (4.0-10.0)
[2020-07-26 06:59] LABS: CHLORIDE 111 mmol/L (98-107); POTASSIUM 3.2 mmol/L (3.5-5.1); SODIUM 146 mmol/L (136-145)
[2020-07-26 07:08] LABS: ALBUMIN 1.8 g/dl (3.4-5.0); ANION GAP 6 MMOL/L (8-16); BLOOD UREA NITROGEN 23.7 mg/dL (7-18); CALCIUM 7.7 mg/dL (8.5-10.1); CO2 29 mmol/L (21-32); GLUCOSE,RANDOM 112 mg/dL (74-106); MAGNESIUM 2.4 mg/dL (1.8-2.4)
[2020-07-26 07:11] LABS: SGOT/AST 17 U/L (15-37)
[2020-07-26 07:12] LABS: PHOSPHOROUS 2.6 mg/dL (2.5-4.9)
[2020-07-26 07:13] LABS: BILIRUBIN,TOTAL 0.6 mg/dL (0.2-1); TOT PROT 5.6 g/dl (6.4-8.2)
[2020-07-26 07:14] LABS: ALK PHOS 89 U/L (45-117)
[2020-07-26 07:22] LABS: SGPT/ALT < 6 U/L (13-61)
[2020-07-26] MEDS: AMINO ACIDS/PROTEIN HYDROLYS 30 ML LIQUID.PKT PO SCH ×2 (08:57→17:04)
[2020-07-26] MEDS: levETIRAcetam 500 MG/5 ML INJECTION VIAL IVPB SCH ×2 (09:00→22:42)
[2020-07-26] MEDS: LISINOPRIL 20 MG TABLET PO SCH (09:02)
[2020-07-26] MEDS: FUROSEMIDE 20 MG TABLET (FP) PO SCH (09:02)
[2020-07-26] MEDS: POLYETHYLENE GLYCOL 3350 119 GM BTL PO SCH (09:03)
[2020-07-26] MEDS: amLODIPine BESYLATE 10 MG TABLET (FP) PO SCH (09:03)
[2020-07-26] MEDS: PANTOPRAZOLE 40 MG TABLET PO SCH (09:03)
[2020-07-26] MEDS: ENOXAPARIN NA (PORCINE) 30 MG/0.3 ML DISP.SYRIN SQ SCH (09:03)
[2020-07-26] MEDS ORDERED: DEXTROSE 5%-LACTATED RINGERS 1,000 ML IV SCH (09:08)
[2020-07-26] MEDS ORDERED: POTASSIUM PHOSPHATE 30 MM in DEXTROSE 5%-WATER - 500 ML IVPB ONE (09:30)
[2020-07-26] MEDS: ACETAMINOPHEN 325 MG TABLET (FP) PO SCH ×4 (10:12→22:43)
[2020-07-26] MEDS: KCL 10 MEQ IVPB 10 MEQ/100 ML INFUS.BAG IVPB SCH ×3 (10:18→12:46)
[2020-07-26] MEDS: LATANOPROST 0.005% OPHTH SOLN 2.5ML BOTTLE OU SCH (22:44)
[2020-07-26] MEDS ORDERED: ATROPINE SO4 0.4 MG/1 ML VIAL IVPUSH ONE (23:42)
[2020-07-27] MEDS: NYSTATIN 500,000 UNITS/5 ML SUSPENSION PO SCH ×5 (00:33→17:01)
[2020-07-27] MEDS: DEXTROSE 5%-LACTATED RINGERS 1,000 ML IV SCH ×2 (06:06→13:34)
[2020-07-27] MEDS: ACETAMINOPHEN 325 MG TABLET (FP) PO SCH ×4 (06:06→22:07)
[2020-07-27 07:12] LABS: BASO % 0.4 % (0-2.0); EOS % 2.6 % (0-4.5); HEMATOCRIT 23.1 % (32.4-45.2); HEMOGLOBIN 7.5 GM/dL (10.7-15.3); LYMPH % 9.3 % (8-40); MCH 26.5 pg (25.7-33.7); MCHC 32.6 g/dl (32.0-36.0); MEAN CELL VOLUME 81.2 fl (80-96); MEAN PLT VOLUME 9.9 fl (7.5-11.1); MONO % 7.8 % (3.8-10.2); NEUT % 79.9 % (42.8-82.8); PLATELET COUNT 213 K/MM3 (134-434); RBC 2.84 M/mm3 (3.60-5.2); RDW 17.4 % (11.6-15.6); WHITE BLOOD COUNT 8.1 K/mm3 (4.0-10.0)
[2020-07-27 07:22] LABS: POTASSIUM 3.9 mmol/L (3.5-5.1)
[2020-07-27 07:28] LABS: BLOOD UREA NITROGEN 24.5 mg/dL (7-18)
[2020-07-27 07:29] LABS: CALCIUM 7.4 mg/dL (8.5-10.1); MAGNESIUM 2.3 mg/dL (1.8-2.4)
[2020-07-27 07:33] LABS: PHOSPHOROUS 5.7 mg/dL (2.5-4.9)
[2020-07-27] MEDS ORDERED: PT OWN MED DRAWER 7, Y5N ONE ×4 (07:41→21:50)
[2020-07-27] MEDS: AMINO ACIDS/PROTEIN HYDROLYS 30 ML LIQUID.PKT PO SCH ×2 (08:53→17:00)
[2020-07-27] MEDS: levETIRAcetam 500 MG/5 ML INJECTION VIAL IVPB SCH ×2 (10:22→22:06)
[2020-07-27] MEDS: LISINOPRIL 20 MG TABLET PO SCH (10:24)
[2020-07-27] MEDS: amLODIPine BESYLATE 10 MG TABLET (FP) PO SCH (10:24)
[2020-07-27] MEDS: FUROSEMIDE 20 MG TABLET (FP) PO SCH (10:24)
[2020-07-27] MEDS: PANTOPRAZOLE 40 MG TABLET PO SCH (10:24)
[2020-07-27] MEDS: ENOXAPARIN NA (PORCINE) 30 MG/0.3 ML DISP.SYRIN SQ SCH (10:25)
[2020-07-27] MEDS: POLYETHYLENE GLYCOL 3350 119 GM BTL PO SCH (10:25)
[2020-07-27] MEDS: LATANOPROST 0.005% OPHTH SOLN 2.5ML BOTTLE OU SCH (22:10)
[2020-07-28] MEDS: NYSTATIN 500,000 UNITS/5 ML SUSPENSION PO SCH ×3 (00:14→11:26)
[2020-07-28] MEDS ORDERED: PT OWN MED DRAWER 7, Y5N ONE ×4 (04:52→22:24)
[2020-07-28] MEDS: ACETAMINOPHEN 325 MG TABLET (FP) PO SCH ×3 (05:04→22:39)
[2020-07-28] MEDS: DEXTROSE 5%-LACTATED RINGERS 1,000 ML IV SCH (05:04)
[2020-07-28 06:42] LABS: BASO % 0.8 % (0-2.0); EOS % 3.9 % (0-4.5); HEMATOCRIT 23.2 % (32.4-45.2); HEMOGLOBIN 7.7 GM/dL (10.7-15.3); LYMPH % 18.1 % (8-40); MCHC 33.4 g/dl (32.0-36.0); MEAN CELL VOLUME 80.9 fl (80-96); MEAN PLT VOLUME 9.2 fl (7.5-11.1); MONO % 9.9 % (3.8-10.2); NEUT % 67.3 % (42.8-82.8); PLATELET COUNT 238 K/MM3 (134-434); RBC 2.87 M/mm3 (3.60-5.2); RDW 17.9 % (11.6-15.6); WHITE BLOOD COUNT 7.9 K/mm3 (4.0-10.0)
[2020-07-28] MEDS: AMINO ACIDS/PROTEIN HYDROLYS 30 ML LIQUID.PKT PO SCH ×2 (08:46→18:12)
[2020-07-28] MEDS: amLODIPine BESYLATE 10 MG TABLET (FP) PO SCH (10:47)
[2020-07-28] MEDS: LISINOPRIL 20 MG TABLET PO SCH (10:47)
[2020-07-28] MEDS: ENOXAPARIN NA (PORCINE) 30 MG/0.3 ML DISP.SYRIN SQ SCH (10:48)
[2020-07-28] MEDS: PANTOPRAZOLE 40 MG TABLET PO SCH (10:48)
[2020-07-28] MEDS: POLYETHYLENE GLYCOL 3350 119 GM BTL PO SCH (10:48)
[2020-07-28] MEDS: FUROSEMIDE 20 MG TABLET (FP) PO SCH (10:48)
[2020-07-28] MEDS: levETIRAcetam 500 MG/5 ML INJECTION VIAL IVPB SCH ×2 (11:26→22:38)
[2020-07-28] MEDS: AMINO ACIDS 4.25%/D5W 1,000 ML IV SCH (15:40)
[2020-07-28] MEDS ORDERED: FAT EMULSIONS 20% 500 ML PREMIX INFUS.BAG IV SCH (22:00)
[2020-07-28] MEDS: FAT EMULSIONS 500 ML IV SCH (22:38)
[2020-07-28] MEDS: LATANOPROST 0.005% OPHTH SOLN 2.5ML BOTTLE OU SCH (22:39)
[2020-07-29] MEDS: ACETAMINOPHEN 325 MG TABLET (FP) PO SCH ×3 (06:07→21:13)
[2020-07-29] MEDS: AMINO ACIDS/PROTEIN HYDROLYS 30 ML LIQUID.PKT PO SCH ×2 (08:06→18:08)
[2020-07-29 08:14] LABS: BASO % 0.9 % (0-2.0); EOS % 2.3 % (0-4.5); HEMOGLOBIN 7.3 GM/dL (10.7-15.3); LYMPH % 14.7 % (8-40); MCH 27.2 pg (25.7-33.7); MCHC 33.4 g/dl (32.0-36.0); MEAN CELL VOLUME 81.5 fl (80-96); MEAN PLT VOLUME 9.4 fl (7.5-11.1); MONO % 5.9 % (3.8-10.2); NEUT % 76.2 % (42.8-82.8); PLATELET COUNT 261 K/MM3 (134-434); WHITE BLOOD COUNT 9.1 K/mm3 (4.0-10.0)
[2020-07-29 08:34] LABS: POTASSIUM 3.3 mmol/L (3.5-5.1)
[2020-07-29 08:38] LABS: BLOOD UREA NITROGEN 25.4 mg/dL (7-18)
[2020-07-29 08:40] LABS: CALCIUM 7.2 mg/dL (8.5-10.1)
[2020-07-29 08:41] LABS: CREATININE 0.9 mg/dL (0.55-1.3); MAGNESIUM 1.9 mg/dL (1.8-2.4); PHOSPHOROUS 2.7 mg/dL (2.5-4.9)
[2020-07-29] MEDS ORDERED: MAGNESIUM SULF 50% (8.12 MEQ/2 ML-1 GM VIAL) IVPB ONE (08:47)
[2020-07-29] MEDS: AMINO ACIDS 4.25%/D5W 1,000 ML IV SCH ×2 (10:14→14:45)
[2020-07-29] MEDS: levETIRAcetam 500 MG/5 ML INJECTION VIAL IVPB SCH ×2 (10:19→21:03)
[2020-07-29] MEDS: FUROSEMIDE 20 MG TABLET (FP) PO SCH (10:25)
[2020-07-29] MEDS: PANTOPRAZOLE 40 MG TABLET PO SCH (10:25)
[2020-07-29] MEDS: ENOXAPARIN NA (PORCINE) 30 MG/0.3 ML DISP.SYRIN SQ SCH (10:25)
[2020-07-29] MEDS: amLODIPine BESYLATE 10 MG TABLET (FP) PO SCH (10:26)
[2020-07-29] MEDS: POLYETHYLENE GLYCOL 3350 119 GM BTL PO SCH (10:26)
[2020-07-29] MEDS: LISINOPRIL 20 MG TABLET PO SCH (10:27)
[2020-07-29] MEDS: KCL 10 MEQ IVPB 10 MEQ/100 ML INFUS.BAG IVPB SCH ×3 (11:03→19:32)
[2020-07-29] MEDS ORDERED: PT OWN MED DRAWER 7, Y5N ONE ×4 (14:29→21:12)
[2020-07-29] MEDS: FAT EMULSIONS 500 ML IV SCH (21:12)
[2020-07-29] MEDS: LATANOPROST 0.005% OPHTH SOLN 2.5ML BOTTLE OU SCH (21:13)
[2020-07-30] MEDS ORDERED: LORazepam 2 MG/ML SDV VIAL ONE (05:51)
[2020-07-30] MEDS ORDERED: LORazepam 2 MG/ML SDV VIAL IVPUSH ONE (05:55)
[2020-07-30] MEDS ORDERED: levETIRAcetam 500 MG/5 ML INJECTION VIAL IVPB ONE (06:15)
[2020-07-30] MEDS: ACETAMINOPHEN 325 MG TABLET (FP) PO SCH ×3 (06:32→21:13)
[2020-07-30 06:50] LABS: BASO % 0.9 % (0-2.0); EOS % 1.4 % (0-4.5); HEMATOCRIT 30.6 % (32.4-45.2); HEMOGLOBIN 10.6 GM/dL (10.7-15.3); LYMPH % 10.2 % (8-40); MCH 28.8 pg (25.7-33.7); MCHC 34.6 g/dl (32.0-36.0); MEAN CELL VOLUME 83.5 fl (80-96); MEAN PLT VOLUME 8.5 fl (7.5-11.1); MONO % 6.3 % (3.8-10.2); NEUT % 81.2 % (42.8-82.8); PLATELET COUNT 261 K/MM3 (134-434); RBC 3.67 M/mm3 (3.60-5.2); RDW 17.9 % (11.6-15.6); WHITE BLOOD COUNT 8.3 K/mm3 (4.0-10.0)
[2020-07-30 07:17] LABS: CHLORIDE 108 mmol/L (98-107); POTASSIUM 3.5 mmol/L (3.5-5.1); SODIUM 141 mmol/L (136-145)
[2020-07-30 07:23] LABS: CALCIUM 7.1 mg/dL (8.5-10.1)
[2020-07-30 07:24] LABS: ANION GAP 9 MMOL/L (8-16); BLOOD UREA NITROGEN 26.9 mg/dL (7-18); CO2 23 mmol/L (21-32); GLUCOSE,RANDOM 83 mg/dL (74-106)
[2020-07-30 07:27] LABS: BILIRUBIN,TOTAL 0.5 mg/dL (0.2-1); PHOSPHOROUS 2.8 mg/dL (2.5-4.9); SGOT/AST 16 U/L (15-37)
[2020-07-30 07:28] LABS: TOT PROT 5.8 g/dl (6.4-8.2)
[2020-07-30 07:29] LABS: ALK PHOS 92 U/L (45-117)
[2020-07-30 07:36] LABS: SGPT/ALT < 6 U/L (13-61)
[2020-07-30] MEDS: AMINO ACIDS/PROTEIN HYDROLYS 30 ML LIQUID.PKT PO SCH ×3 (08:36→16:54)
[2020-07-30] MEDS: amLODIPine BESYLATE 10 MG TABLET (FP) PO SCH (09:02)
[2020-07-30] MEDS: LISINOPRIL 20 MG TABLET PO SCH (09:02)
[2020-07-30] MEDS: FUROSEMIDE 20 MG TABLET (FP) PO SCH (09:02)
[2020-07-30] MEDS: POLYETHYLENE GLYCOL 3350 119 GM BTL PO SCH (09:02)
[2020-07-30] MEDS: PANTOPRAZOLE 40 MG TABLET PO SCH (09:03)
[2020-07-30] MEDS: levETIRAcetam 500 MG/5 ML INJECTION VIAL IVPB SCH ×2 (09:04→21:13)
[2020-07-30] MEDS: ENOXAPARIN NA (PORCINE) 30 MG/0.3 ML DISP.SYRIN SQ SCH (09:04)
[2020-07-30] MEDS: KCL 10 MEQ IVPB 10 MEQ/100 ML INFUS.BAG IVPB SCH ×3 (13:26→16:51)
[2020-07-30] MEDS: AMINO ACIDS 4.25%/D5W 1,000 ML IV SCH (13:57)
[2020-07-30] MEDS: PHENobarbital SODIUM 65 MG/1 ML VIAL IVPUSH SCH (16:54)
[2020-07-30] MEDS ORDERED: PT OWN MED DRAWER 7, Y5N ONE (21:08)
[2020-07-30] MEDS: LATANOPROST 0.005% OPHTH SOLN 2.5ML BOTTLE OU SCH (21:13)
[2020-07-30] MEDS: FAT EMULSIONS 500 ML IV SCH (21:13)
[2020-07-31] MEDS: ACETAMINOPHEN 325 MG TABLET (FP) PO SCH ×3 (05:30→21:49)
[2020-07-31 07:50] LABS: BASO % 0.7 % (0-2.0); EOS % 2.2 % (0-4.5); HEMATOCRIT 28.6 % (32.4-45.2); HEMOGLOBIN 10.1 GM/dL (10.7-15.3); LYMPH % 9.6 % (8-40); MCH 29.3 pg (25.7-33.7); MCHC 35.1 g/dl (32.0-36.0); MEAN CELL VOLUME 83.3 fl (80-96); MEAN PLT VOLUME 8.1 fl (7.5-11.1); MONO % 8.4 % (3.8-10.2); NEUT % 79.1 % (42.8-82.8); PLATELET COUNT 247 K/MM3 (134-434); RBC 3.44 M/mm3 (3.60-5.2); RDW 17.2 % (11.6-15.6); WHITE BLOOD COUNT 9.1 K/mm3 (4.0-10.0)
[2020-07-31 08:07] LABS: POTASSIUM 3.2 mmol/L (3.5-5.1)
[2020-07-31 08:09] LABS: BLOOD UREA NITROGEN 23.2 mg/dL (7-18)
[2020-07-31 08:10] LABS: MAGNESIUM 1.8 mg/dL (1.8-2.4)
[2020-07-31 08:12] LABS: CREATININE 0.9 mg/dL (0.55-1.3)
[2020-07-31 08:16] LABS: PHOSPHOROUS 2.1 mg/dL (2.5-4.9)
[2020-07-31 10:34] LABS: CALCIUM 6.8 mg/dL (8.5-10.1)
[2020-07-31] MEDS: AMINO ACIDS/PROTEIN HYDROLYS 30 ML LIQUID.PKT PO SCH ×2 (11:19→17:37)
[2020-07-31] MEDS: POLYETHYLENE GLYCOL 3350 119 GM BTL PO SCH (11:22)
[2020-07-31] MEDS: levETIRAcetam 500 MG/5 ML INJECTION VIAL IVPB SCH ×2 (11:22→22:36)
[2020-07-31] MEDS: ENOXAPARIN NA (PORCINE) 30 MG/0.3 ML DISP.SYRIN SQ SCH (11:22)
[2020-07-31] MEDS: FUROSEMIDE 20 MG TABLET (FP) PO SCH (11:22)
[2020-07-31] MEDS: LISINOPRIL 20 MG TABLET PO SCH (11:23)
[2020-07-31] MEDS: amLODIPine BESYLATE 10 MG TABLET (FP) PO SCH (11:23)
[2020-07-31] MEDS: PANTOPRAZOLE 40 MG TABLET PO SCH (11:23)
[2020-07-31] MEDS ORDERED: CALCIUM GLUCONATE 10% - 1,000 MG/10 ML VIAL IVPB ONE ×3 (11:30→15:45)
[2020-07-31] MEDS: PHENobarbital SODIUM 65 MG/1 ML VIAL IVPUSH SCH ×3 (11:41→17:37)
[2020-07-31] MEDS ORDERED: MAGNESIUM SULF 50% (8.12 MEQ/2 ML-1 GM VIAL) IVPB ONE (11:45)
[2020-07-31] MEDS ORDERED: POTASSIUM PHOSPHATE 30 MM in DEXTROSE 5%-WATER - 500 ML IVPB ONE (15:30)
[2020-07-31] MEDS: AMINO ACIDS 4.25%/D5W 1,000 ML IV SCH (15:49)
[2020-07-31] MEDS ORDERED: PT OWN MED DRAWER 7, Y5N ONE ×2 (16:04→22:31)
[2020-07-31] MEDS: KCL 10 MEQ IVPB 10 MEQ/100 ML INFUS.BAG IVPB SCH ×3 (18:45→21:45)
[2020-07-31] MEDS: LATANOPROST 0.005% OPHTH SOLN 2.5ML BOTTLE OU SCH (21:52)
[2020-07-31] MEDS: FAT EMULSIONS 500 ML IV SCH (22:36)
[2020-08-01] MEDS: PHENobarbital SODIUM 65 MG/1 ML VIAL IVPUSH SCH ×3 (02:04→17:31)
[2020-08-01] MEDS ORDERED: PT OWN MED DRAWER 7, Y5N ONE ×3 (05:49→21:03)
[2020-08-01] MEDS: ACETAMINOPHEN 325 MG TABLET (FP) PO SCH ×3 (05:54→21:35)
[2020-08-01 08:30] LABS: BASO % 0.5 % (0-2.0); EOS % 2.4 % (0-4.5); HEMATOCRIT 29.9 % (32.4-45.2); HEMOGLOBIN 10.5 GM/dL (10.7-15.3); LYMPH % 12.3 % (8-40); MCH 29.2 pg (25.7-33.7); MEAN CELL VOLUME 83.5 fl (80-96); MEAN PLT VOLUME 8.3 fl (7.5-11.1); MONO % 11.2 % (3.8-10.2); NEUT % 73.6 % (42.8-82.8); PLATELET COUNT 255 K/MM3 (134-434); RBC 3.59 M/mm3 (3.60-5.2); RDW 17.6 % (11.6-15.6); WHITE BLOOD COUNT 10.5 K/mm3 (4.0-10.0)
[2020-08-01 08:49] LABS: POTASSIUM 3.8 mmol/L (3.5-5.1)
[2020-08-01 08:54] LABS: BLOOD UREA NITROGEN 21.5 mg/dL (7-18)
[2020-08-01 08:57] LABS: CREATININE 0.8 mg/dL (0.55-1.3); MAGNESIUM 2.2 mg/dL (1.8-2.4); PHOSPHOROUS 3.7 mg/dL (2.5-4.9)
[2020-08-01 09:26] LABS: CALCIUM 6.9 mg/dL (8.5-10.1)
[2020-08-01] MEDS ORDERED: CALCIUM GLUCONATE 10% - 1,000 MG/10 ML VIAL IVPB ONE (09:41)
[2020-08-01] MEDS: levETIRAcetam 500 MG/5 ML INJECTION VIAL IVPB SCH ×2 (09:47→21:34)
[2020-08-01] MEDS: PANTOPRAZOLE 40 MG TABLET PO SCH (09:49)
[2020-08-01] MEDS: LISINOPRIL 20 MG TABLET PO SCH (09:49)
[2020-08-01] MEDS: ENOXAPARIN NA (PORCINE) 30 MG/0.3 ML DISP.SYRIN SQ SCH (09:49)
[2020-08-01] MEDS: POLYETHYLENE GLYCOL 3350 119 GM BTL PO SCH (09:49)
[2020-08-01] MEDS: FUROSEMIDE 20 MG TABLET (FP) PO SCH (09:49)
[2020-08-01] MEDS: amLODIPine BESYLATE 10 MG TABLET (FP) PO SCH (09:49)
[2020-08-01] MEDS: AMINO ACIDS/PROTEIN HYDROLYS 30 ML LIQUID.PKT PO SCH ×2 (09:50→17:30)
[2020-08-01] MEDS: AMINO ACIDS 4.25%/D5W 1,000 ML IV SCH (15:30)
[2020-08-01] MEDS: FAT EMULSIONS 500 ML IV SCH (21:34)
[2020-08-01] MEDS: LATANOPROST 0.005% OPHTH SOLN 2.5ML BOTTLE OU SCH (21:45)
[2020-08-02] MEDS: PHENobarbital SODIUM 65 MG/1 ML VIAL IVPUSH SCH ×3 (01:04→17:00)
[2020-08-02] MEDS: ACETAMINOPHEN 325 MG TABLET (FP) PO SCH ×3 (06:18→21:19)
[2020-08-02 08:26] LABS: BASO % 0.6 % (0-2.0); EOS % 2.5 % (0-4.5); HEMATOCRIT 27.7 % (32.4-45.2); HEMOGLOBIN 9.3 GM/dL (10.7-15.3); LYMPH % 4.8 % (8-40); MCH 28.4 pg (25.7-33.7); MCHC 33.7 g/dl (32.0-36.0); MEAN CELL VOLUME 84.2 fl (80-96); MEAN PLT VOLUME 8.5 fl (7.5-11.1); NEUT % 84.1 % (42.8-82.8); PLATELET COUNT 258 K/MM3 (134-434); RBC 3.29 M/mm3 (3.60-5.2); RDW 18.4 % (11.6-15.6); WHITE BLOOD COUNT 9.4 K/mm3 (4.0-10.0)
[2020-08-02 08:47] LABS: POTASSIUM 3.3 mmol/L (3.5-5.1)
[2020-08-02 08:51] LABS: BLOOD UREA NITROGEN 24.2 mg/dL (7-18); CALCIUM 7.6 mg/dL (8.5-10.1)
[2020-08-02 08:52] LABS: MAGNESIUM 1.9 mg/dL (1.8-2.4)
[2020-08-02] MEDS: AMINO ACIDS/PROTEIN HYDROLYS 30 ML LIQUID.PKT PO SCH ×2 (08:53→16:59)
[2020-08-02 08:54] LABS: CREATININE 0.7 mg/dL (0.55-1.3); PHOSPHOROUS 2.1 mg/dL (2.5-4.9)
[2020-08-02] MEDS ORDERED: MAGNESIUM SULF 50% (8.12 MEQ/2 ML-1 GM VIAL) IVPB ONE (09:00)
[2020-08-02] MEDS: levETIRAcetam 500 MG/5 ML INJECTION VIAL IVPB SCH ×2 (09:00→21:19)
[2020-08-02] MEDS: ENOXAPARIN NA (PORCINE) 30 MG/0.3 ML DISP.SYRIN SQ SCH (09:00)
[2020-08-02] MEDS: FUROSEMIDE 20 MG TABLET (FP) PO SCH (09:02)
[2020-08-02] MEDS: amLODIPine BESYLATE 10 MG TABLET (FP) PO SCH (09:02)
[2020-08-02] MEDS: POLYETHYLENE GLYCOL 3350 119 GM BTL PO SCH (09:02)
[2020-08-02] MEDS: PANTOPRAZOLE 40 MG TABLET PO SCH (09:03)
[2020-08-02] MEDS: LISINOPRIL 20 MG TABLET PO SCH (09:03)
[2020-08-02] MEDS ORDERED: POTASSIUM PHOSPHATE 30 MM in DEXTROSE 5%-WATER - 500 ML IVPB ONE (10:00)
[2020-08-02] MEDS: KCL 10 MEQ IVPB 10 MEQ/100 ML INFUS.BAG IVPB SCH ×3 (10:19→13:16)
[2020-08-02] MEDS ORDERED: PT OWN MED DRAWER 7, Y5N ONE ×3 (13:59→20:48)
[2020-08-02] MEDS: AMINO ACIDS 4.25%/D5W 1,000 ML IV SCH (14:02)
[2020-08-02] MEDS: FAT EMULSIONS 500 ML IV SCH (21:18)
[2020-08-02] MEDS: LATANOPROST 0.005% OPHTH SOLN 2.5ML BOTTLE OU SCH (21:19)
[2020-08-03] MEDS: PHENobarbital SODIUM 65 MG/1 ML VIAL IVPUSH SCH ×3 (01:18→17:57)
[2020-08-03] MEDS ORDERED: PT OWN MED DRAWER 7, Y5N ONE ×3 (05:36→20:10)
[2020-08-03] MEDS: ACETAMINOPHEN 325 MG TABLET (FP) PO SCH ×3 (05:46→21:20)
[2020-08-03] MEDS: AMINO ACIDS 4.25%/D5W 1,000 ML IV SCH ×3 (06:00→21:04)
[2020-08-03] MEDS: AMINO ACIDS/PROTEIN HYDROLYS 30 ML LIQUID.PKT PO SCH ×2 (08:59→17:57)
[2020-08-03] MEDS: levETIRAcetam 500 MG/5 ML INJECTION VIAL IVPB SCH ×2 (09:00→21:04)
[2020-08-03] MEDS: PANTOPRAZOLE 40 MG TABLET PO SCH (09:00)
[2020-08-03] MEDS: POLYETHYLENE GLYCOL 3350 119 GM BTL PO SCH (09:00)
[2020-08-03] MEDS: FUROSEMIDE 20 MG TABLET (FP) PO SCH (09:00)
[2020-08-03] MEDS: LISINOPRIL 20 MG TABLET PO SCH (09:01)
[2020-08-03] MEDS: amLODIPine BESYLATE 10 MG TABLET (FP) PO SCH (09:01)
[2020-08-03 13:07] LABS: BASO % 0.7 % (0-2.0); EOS % 2.4 % (0-4.5); HEMATOCRIT 27.6 % (32.4-45.2); HEMOGLOBIN 9.4 GM/dL (10.7-15.3); LYMPH % 8.3 % (8-40); MCH 28.3 pg (25.7-33.7); MCHC 33.9 g/dl (32.0-36.0); MEAN CELL VOLUME 83.4 fl (80-96); MEAN PLT VOLUME 8.9 fl (7.5-11.1); MONO % 7.8 % (3.8-10.2); NEUT % 80.8 % (42.8-82.8); PLATELET COUNT 276 K/MM3 (134-434); RBC 3.31 M/mm3 (3.60-5.2); RDW 18.1 % (11.6-15.6); WHITE BLOOD COUNT 7.9 K/mm3 (4.0-10.0)
[2020-08-03 13:24] LABS: POTASSIUM 3.9 mmol/L (3.5-5.1)
[2020-08-03 13:27] LABS: BLOOD UREA NITROGEN 30.1 mg/dL (7-18); CALCIUM 7.8 mg/dL (8.5-10.1)
[2020-08-03 13:28] LABS: MAGNESIUM 2.1 mg/dL (1.8-2.4)
[2020-08-03 13:30] LABS: CREATININE 0.8 mg/dL (0.55-1.3)
[2020-08-03 13:31] LABS: PHOSPHOROUS 2.8 mg/dL (2.5-4.9)
[2020-08-03] MEDS: ENOXAPARIN NA (PORCINE) 40 MG/0.4 ML DISP.SYRIN SQ SCH (14:31)
[2020-08-03] MEDS: LATANOPROST 0.005% OPHTH SOLN 2.5ML BOTTLE OU SCH (23:00)
[2020-08-03] MEDS: FAT EMULSIONS 500 ML IV SCH (23:00)
[2020-08-04] MEDS: PHENobarbital SODIUM 65 MG/1 ML VIAL IVPUSH SCH ×3 (01:19→17:32)
[2020-08-04] MEDS: AMINO ACIDS 4.25%/D5W 1,000 ML IV SCH (02:06)
[2020-08-04] MEDS: ACETAMINOPHEN 325 MG TABLET (FP) PO SCH ×3 (05:36→22:50)
[2020-08-04 07:44] LABS: BASO % 0.4 % (0-2.0); EOS % 0.6 % (0-4.5); HEMATOCRIT 25.3 % (32.4-45.2); HEMOGLOBIN 8.9 GM/dL (10.7-15.3); LYMPH % 7.9 % (8-40); MCH 29.2 pg (25.7-33.7); MCHC 35.3 g/dl (32.0-36.0); MEAN CELL VOLUME 82.8 fl (80-96); MEAN PLT VOLUME 8.9 fl (7.5-11.1); MONO % 6.4 % (3.8-10.2); NEUT % 84.7 % (42.8-82.8); PLATELET COUNT 281 K/MM3 (134-434); RBC 3.05 M/mm3 (3.60-5.2); RDW 18.6 % (11.6-15.6); WHITE BLOOD COUNT 10.7 K/mm3 (4.0-10.0)
[2020-08-04 08:01] LABS: POTASSIUM 3.2 mmol/L (3.5-5.1)
[2020-08-04 08:07] LABS: CREATININE 0.8 mg/dL (0.55-1.3); PHOSPHOROUS 2.1 mg/dL (2.5-4.9)
[2020-08-04 08:09] LABS: MAGNESIUM 1.9 mg/dL (1.8-2.4)
[2020-08-04 08:52] LABS: CALCIUM 7.2 mg/dL (8.5-10.1)
[2020-08-04] MEDS ORDERED: POTASSIUM PHOSPHATE 30 MM in DEXTROSE 5%-WATER - 500 ML IVPB ONE (09:06)
[2020-08-04] MEDS ORDERED: MAGNESIUM SULF 50% (8.12 MEQ/2 ML-1 GM VIAL) IVPB ONE (09:07)
[2020-08-04] MEDS ORDERED: PT OWN MED DRAWER 7, Y5N ONE (09:26)
[2020-08-04] MEDS: levETIRAcetam 500 MG/5 ML INJECTION VIAL IVPB SCH ×2 (09:43→22:49)
[2020-08-04] MEDS: AMINO ACIDS/PROTEIN HYDROLYS 30 ML LIQUID.PKT PO SCH ×2 (09:43→17:32)
[2020-08-04] MEDS: LISINOPRIL 20 MG TABLET PO SCH (09:43)
[2020-08-04] MEDS: amLODIPine BESYLATE 10 MG TABLET (FP) PO SCH (09:43)
[2020-08-04] MEDS: FUROSEMIDE 20 MG TABLET (FP) PO SCH (09:43)
[2020-08-04] MEDS: ENOXAPARIN NA (PORCINE) 40 MG/0.4 ML DISP.SYRIN SQ SCH (09:43)
[2020-08-04] MEDS: PANTOPRAZOLE 40 MG TABLET PO SCH (09:43)
[2020-08-04] MEDS: KCL 10 MEQ IVPB 10 MEQ/100 ML INFUS.BAG IVPB SCH ×3 (09:44→13:21)
[2020-08-04] MEDS: POLYETHYLENE GLYCOL 3350 119 GM BTL PO SCH (09:44)
[2020-08-04] MEDS ORDERED: COLLAGENASE CLOSTRIDIUM HIST. 30 GRAMS TUBE TP SCH (14:00)
[2020-08-04] MEDS: LATANOPROST 0.005% OPHTH SOLN 2.5ML BOTTLE OU SCH (23:00)
[2020-08-04] MEDS ORDERED: FUROSEMIDE 40 MG/4 ML INJECTABLE VIAL IVPUSH ONE (23:45)
[2020-08-05] MEDS: PHENobarbital SODIUM 65 MG/1 ML VIAL IVPUSH SCH ×3 (02:44→17:30)
[2020-08-05] MEDS: AMINO ACIDS 4.25%/D5W 1,000 ML IV SCH (02:44)
[2020-08-05] MEDS: ACETAMINOPHEN 325 MG TABLET (FP) PO SCH ×3 (05:41→21:54)
[2020-08-05 08:06] LABS: BASO % 0.3 % (0-2.0); EOS % 0.3 % (0-4.5); HEMATOCRIT 25.4 % (32.4-45.2); HEMOGLOBIN 8.6 GM/dL (10.7-15.3); LYMPH % 9.8 % (8-40); MCH 28.2 pg (25.7-33.7); MCHC 33.8 g/dl (32.0-36.0); MEAN CELL VOLUME 83.3 fl (80-96); MEAN PLT VOLUME 8.9 fl (7.5-11.1); MONO % 5.4 % (3.8-10.2); NEUT % 84.2 % (42.8-82.8); PLATELET COUNT 274 K/MM3 (134-434); RBC 3.04 M/mm3 (3.60-5.2); RDW 18.6 % (11.6-15.6); WHITE BLOOD COUNT 4.4 K/mm3 (4.0-10.0)
[2020-08-05 08:22] LABS: POTASSIUM 4.2 mmol/L (3.5-5.1); SODIUM 131 mmol/L (136-145)
[2020-08-05 08:23] LABS: CHLORIDE 102 mmol/L (98-107)
[2020-08-05 08:26] LABS: ALBUMIN 1.7 g/dl (3.4-5.0); BLOOD UREA NITROGEN 43.8 mg/dL (7-18); MAGNESIUM 2.1 mg/dL (1.8-2.4)
[2020-08-05 08:28] LABS: ANION GAP 12 MMOL/L (8-16); CALCIUM 7.3 mg/dL (8.5-10.1); CO2 17 mmol/L (21-32); CREATININE 0.9 mg/dL (0.55-1.3); GLUCOSE,RANDOM 82 mg/dL (74-106); PHOSPHOROUS 3.8 mg/dL (2.5-4.9); SGOT/AST 42 U/L (15-37)
[2020-08-05 08:31] LABS: BILIRUBIN,TOTAL 1.4 mg/dL (0.2-1); TOT PROT 5.6 g/dl (6.4-8.2)
[2020-08-05 08:32] LABS: ALK PHOS 159 U/L (45-117); SGPT/ALT < 6 U/L (13-61)
[2020-08-05] MEDS ORDERED: SODIUM BICARBONATE 8.4% 50 MEQ/50 ML VIAL IVPUSH ONE (08:42)
[2020-08-05] MEDS ORDERED: D5-1/2NS+10 MEQ KCL - 10 MEQ/1,000 ML INFUS.BAG IV SCH (08:45)
[2020-08-05] MEDS: levETIRAcetam 500 MG/5 ML INJECTION VIAL IVPB SCH ×2 (09:35→21:54)
[2020-08-05] MEDS: ENOXAPARIN NA (PORCINE) 40 MG/0.4 ML DISP.SYRIN SQ SCH (09:36)
[2020-08-05] MEDS: AMINO ACIDS/PROTEIN HYDROLYS 30 ML LIQUID.PKT PO SCH ×2 (09:36→17:31)
[2020-08-05] MEDS: PANTOPRAZOLE 40 MG TABLET PO SCH (09:36)
[2020-08-05] MEDS: LISINOPRIL 20 MG TABLET PO SCH (10:29)
[2020-08-05] MEDS: amLODIPine BESYLATE 10 MG TABLET (FP) PO SCH (10:29)
[2020-08-05] MEDS: COLLAGENASE CLOSTRIDIUM HIST. 30 GRAMS TUBE TP SCH (10:31)
[2020-08-05] MEDS ORDERED: CEFTRIAXONE 2 GM in DEXTROSE 5%-WATER 2 GM/100 ML BAG IVPB ONE (10:54)
[2020-08-05] MEDS ORDERED: VANCOMYCIN 1 GM in D5W (PRE-DOCKED) 1,000 MG/250 ML IVPB ONE (10:59)
[2020-08-05] MEDS ORDERED: DEXTROSE 5%-WATER 100 ML IVPB ONE (11:27)
[2020-08-05] MEDS: POLYETHYLENE GLYCOL 3350 119 GM BTL PO SCH (11:40)
[2020-08-05] MEDS: D5-1/2NS+10 MEQ KCL - 10 MEQ/1,000 ML INFUS.BAG IV SCH (17:31)
[2020-08-05] MEDS: LATANOPROST 0.005% OPHTH SOLN 2.5ML BOTTLE OU SCH (21:55)
[2020-08-06] MEDS: PHENobarbital SODIUM 65 MG/1 ML VIAL IVPUSH SCH ×3 (01:50→17:14)
[2020-08-06] MEDS: ACETAMINOPHEN 325 MG TABLET (FP) PO SCH ×3 (06:11→22:28)
[2020-08-06 07:20] LABS: BASO % 0.2 % (0-2.0); EOS % 0.2 % (0-4.5); HEMATOCRIT 26.4 % (32.4-45.2); MCH 28.8 pg (25.7-33.7); MCHC 34.2 g/dl (32.0-36.0); MEAN CELL VOLUME 84.3 fl (80-96); MEAN PLT VOLUME 9.3 fl (7.5-11.1); MONO % 2.5 % (3.8-10.2); NEUT % 87.1 % (42.8-82.8); PLATELET COUNT 273 K/MM3 (134-434); RBC 3.13 M/mm3 (3.60-5.2); RDW 18.9 % (11.6-15.6); WHITE BLOOD COUNT 3.6 K/mm3 (4.0-10.0)
[2020-08-06 07:49] LABS: CHLORIDE 104 mmol/L (98-107); POTASSIUM 4.6 mmol/L (3.5-5.1); SODIUM 131 mmol/L (136-145)
[2020-08-06 07:55] LABS: TOT PROT 5.8 g/dl (6.4-8.2)
[2020-08-06 08:00] LABS: ALBUMIN 1.7 g/dl (3.4-5.0); BLOOD UREA NITROGEN 49.5 mg/dL (7-18); CREATININE 1.2 mg/dL (0.55-1.3); GLUCOSE,RANDOM 76 mg/dL (74-106); SGPT/ALT < 6 U/L (13-61)
[2020-08-06 08:01] LABS: BILIRUBIN,TOTAL 0.6 mg/dL (0.2-1)
[2020-08-06 08:02] LABS: CALCIUM 7.3 mg/dL (8.5-10.1); PHOSPHOROUS 4.9 mg/dL (2.5-4.9)
[2020-08-06 08:03] LABS: MAGNESIUM 2.3 mg/dL (1.8-2.4)
[2020-08-06 08:06] LABS: ANION GAP 11 MMOL/L (8-16); CO2 17 mmol/L (21-32)
[2020-08-06 08:08] LABS: SGOT/AST 58 U/L (15-37)
[2020-08-06 08:17] LABS: ALK PHOS 219 U/L (45-117)
[2020-08-06] MEDS: AMINO ACIDS/PROTEIN HYDROLYS 30 ML LIQUID.PKT PO SCH ×2 (08:28→17:14)
[2020-08-06] MEDS ORDERED: DEXTROSE 5%-WATER 100 ML IVPB ONE (09:35)
[2020-08-06] MEDS ORDERED: ALBUTEROL SO4 2.5/IPRATROPIUM 0.5 INH SOL 3 ML VIAL.NEB. NEB ONE (10:45)
[2020-08-06] MEDS ORDERED: PIPERACILLIN/TAZOB 3.375 GM 3.375 GM in DEXTROSE 5%-WATER - 50 ML IVPB ONE (10:59)
[2020-08-06 11:06] LABS: ARTERIAL BLD GAS O2 SATURATION 88.6 mmHg (95-98); ARTERIAL BLOOD GAS BASE EXCESS -9.7 mmol/L (-2-2); ARTERIAL BLOOD GAS PO2 59.2 mmHg (80-100); ARTERIAL BLOOD GAS pH 7.304 (7.350-7.450)
[2020-08-06 11:07] LABS: ALLENS TEST POSITIVE
[2020-08-06] MEDS: LISINOPRIL 20 MG TABLET PO SCH (11:10)
[2020-08-06] MEDS: POLYETHYLENE GLYCOL 3350 119 GM BTL PO SCH (11:10)
[2020-08-06] MEDS: PANTOPRAZOLE 40 MG TABLET PO SCH (11:10)
[2020-08-06] MEDS: amLODIPine BESYLATE 10 MG TABLET (FP) PO SCH (11:10)
[2020-08-06] MEDS: levETIRAcetam 500 MG/5 ML INJECTION VIAL IVPB SCH ×2 (11:13→22:28)
[2020-08-06] MEDS ORDERED: methylPREDNISolone NA SUCC 125 MG/2 ML VIAL IVPUSH ONE (11:15)
[2020-08-06] MEDS ORDERED: PIPERACILLIN/TAZOBACTAM 3.375 GM VIAL IVPB ONE (11:16)
[2020-08-06] MEDS ORDERED: DEXTROSE 5%-WATER - 50 ML IVPB ONE (11:16)
[2020-08-06] MEDS: ENOXAPARIN NA (PORCINE) 40 MG/0.4 ML DISP.SYRIN SQ SCH (11:23)
[2020-08-06] MEDS: CEFTRIAXONE 2 GM in DEXTROSE 5%-WATER 2 GM/100 ML BAG IVPB SCH (11:24)
[2020-08-06] MEDS: D5-1/2NS+10 MEQ KCL - 10 MEQ/1,000 ML INFUS.BAG IV SCH (16:17)
[2020-08-06] MEDS: COLLAGENASE CLOSTRIDIUM HIST. 30 GRAMS TUBE TP SCH (16:18)
[2020-08-06] MEDS: LATANOPROST 0.005% OPHTH SOLN 2.5ML BOTTLE OU SCH (22:29)
[2020-08-07] MEDS: PHENobarbital SODIUM 65 MG/1 ML VIAL IVPUSH SCH ×3 (01:16→17:16)
[2020-08-07] MEDS: ACETAMINOPHEN 325 MG TABLET (FP) PO SCH ×3 (05:05→22:12)
[2020-08-07] MEDS: AMINO ACIDS/PROTEIN HYDROLYS 30 ML LIQUID.PKT PO SCH ×2 (08:52→17:16)
[2020-08-07 08:58] LABS: BASO % 0.2 % (0-2.0); HEMATOCRIT 26.8 % (32.4-45.2); HEMOGLOBIN 9.1 GM/dL (10.7-15.3); LYMPH % 9.4 % (8-40); MCH 28.3 pg (25.7-33.7); MCHC 33.8 g/dl (32.0-36.0); MEAN CELL VOLUME 83.7 fl (80-96); MEAN PLT VOLUME 9.7 fl (7.5-11.1); MONO % 2.4 % (3.8-10.2); PLATELET COUNT 269 K/MM3 (134-434); RBC 3.21 M/mm3 (3.60-5.2); RDW 19.6 % (11.6-15.6); WHITE BLOOD COUNT 4.4 K/mm3 (4.0-10.0)
[2020-08-07 09:08] LABS: CHLORIDE 106 mmol/L (98-107); POTASSIUM 5.1 mmol/L (3.5-5.1); SODIUM 134 mmol/L (136-145)
[2020-08-07 09:14] LABS: ALBUMIN 1.5 g/dl (3.4-5.0); ANION GAP 11 MMOL/L (8-16); BLOOD UREA NITROGEN 61.4 mg/dL (7-18); CO2 17 mmol/L (21-32); GLUCOSE,RANDOM 86 mg/dL (74-106); MAGNESIUM 2.5 mg/dL (1.8-2.4)
[2020-08-07 09:17] LABS: CREATININE 1.7 mg/dL (0.55-1.3); PHOSPHOROUS 7.2 mg/dL (2.5-4.9); SGOT/AST 39 U/L (15-37); SGPT/ALT < 6 U/L (13-61)
[2020-08-07 09:18] LABS: BILIRUBIN,TOTAL 0.5 mg/dL (0.2-1); TOT PROT 5.6 g/dl (6.4-8.2)
[2020-08-07] MEDS ORDERED: DEXTROSE 5%-WATER 100 ML IVPB ONE (09:31)
[2020-08-07 09:50] LABS: ALK PHOS 161 U/L (45-117)
[2020-08-07] MEDS: CEFTRIAXONE 2 GM in DEXTROSE 5%-WATER 2 GM/100 ML BAG IVPB SCH (10:07)
[2020-08-07] MEDS: levETIRAcetam 500 MG/5 ML INJECTION VIAL IVPB SCH ×2 (10:08→22:11)
[2020-08-07] MEDS: ENOXAPARIN NA (PORCINE) 40 MG/0.4 ML DISP.SYRIN SQ SCH (10:08)
[2020-08-07] MEDS: COLLAGENASE CLOSTRIDIUM HIST. 30 GRAMS TUBE TP SCH (10:09)
[2020-08-07] MEDS: MORPHINE SULFATE 2 MG/ML VIAL IVPUSH PRN (10:09)
[2020-08-07 10:24] LABS: ANISOCYTOSIS 1+; MACROCYTOSIS 0; PLATELET ESTIMATE NORMAL; TARGET CELLS 1+
[2020-08-07] MEDS: amLODIPine BESYLATE 10 MG TABLET (FP) PO SCH (11:40)
[2020-08-07] MEDS: LISINOPRIL 20 MG TABLET PO SCH (11:40)
[2020-08-07] MEDS: PANTOPRAZOLE 40 MG TABLET PO SCH (11:40)
[2020-08-07] MEDS: POLYETHYLENE GLYCOL 3350 119 GM BTL PO SCH (11:40)
[2020-08-07] MEDS: D5-1/2NS+10 MEQ KCL - 10 MEQ/1,000 ML INFUS.BAG IV SCH ×2 (17:20→22:11)
[2020-08-07] MEDS: LATANOPROST 0.005% OPHTH SOLN 2.5ML BOTTLE OU SCH (22:13)
[2020-08-08] MEDS: PHENobarbital SODIUM 65 MG/1 ML VIAL IVPUSH SCH ×3 (01:19→17:22)
[2020-08-08] MEDS: ACETAMINOPHEN 325 MG TABLET (FP) PO SCH ×3 (05:10→22:58)
[2020-08-08 08:17] LABS: BASO % 0.1 % (0-2.0); EOS % 0.1 % (0-4.5); HEMATOCRIT 24.3 % (32.4-45.2); HEMOGLOBIN 8.2 GM/dL (10.7-15.3); LYMPH % 20.8 % (8-40); MCH 28.2 pg (25.7-33.7); MCHC 33.7 g/dl (32.0-36.0); MEAN CELL VOLUME 83.8 fl (80-96); MEAN PLT VOLUME 9.6 fl (7.5-11.1); MONO % 1.4 % (3.8-10.2); NEUT % 77.6 % (42.8-82.8); PLATELET COUNT 233 K/MM3 (134-434); RDW 19.9 % (11.6-15.6)
[2020-08-08] MEDS ORDERED: D5-1/2NS+10 MEQ KCL - 10 MEQ/1,000 ML INFUS.BAG IV SCH (08:40)
[2020-08-08 08:46] LABS: CHLORIDE 109 mmol/L (98-107); POTASSIUM 5.6 mmol/L (3.5-5.1); SODIUM 135 mmol/L (136-145)
[2020-08-08 08:48] LABS: ALBUMIN 1.4 g/dl (3.4-5.0)
[2020-08-08 08:49] LABS: ANION GAP 13 MMOL/L (8-16); BLOOD UREA NITROGEN 69.2 mg/dL (7-18); CO2 13 mmol/L (21-32); GLUCOSE,RANDOM 102 mg/dL (74-106); MAGNESIUM 2.6 mg/dL (1.8-2.4)
[2020-08-08 08:51] LABS: CREATININE 2.1 mg/dL (0.55-1.3); PHOSPHOROUS 8.7 mg/dL (2.5-4.9); SGOT/AST 45 U/L (15-37)
[2020-08-08 08:53] LABS: BILIRUBIN,TOTAL 0.9 mg/dL (0.2-1); TOT PROT 5.2 g/dl (6.4-8.2)
[2020-08-08 08:54] LABS: ALK PHOS 139 U/L (45-117)
[2020-08-08 08:56] LABS: SGPT/ALT < 6 U/L (13-61)
[2020-08-08 08:58] LABS: CALCIUM 6.5 mg/dL (8.5-10.1)
[2020-08-08] MEDS ORDERED: DEXTROSE 5%-0.45% SALINE 1,000 ML IV SCH (09:00)
[2020-08-08] MEDS ORDERED: PT OWN MED DRAWER 7, Y5N ONE (09:02)
[2020-08-08] MEDS ORDERED: DEXTROSE 5%-WATER 100 ML IVPB ONE (09:03)
[2020-08-08] MEDS ORDERED: CALCIUM GLUCONATE 10% - 1,000 MG/10 ML VIAL IVPB ONE (09:05)
[2020-08-08] MEDS: CEFTRIAXONE 2 GM in DEXTROSE 5%-WATER 2 GM/100 ML BAG IVPB SCH (09:31)
[2020-08-08] MEDS: levETIRAcetam 500 MG/5 ML INJECTION VIAL IVPB SCH ×2 (09:31→22:57)
[2020-08-08] MEDS: ENOXAPARIN NA (PORCINE) 40 MG/0.4 ML DISP.SYRIN SQ SCH (09:32)
[2020-08-08] MEDS: POLYETHYLENE GLYCOL 3350 119 GM BTL PO SCH (10:28)
[2020-08-08] MEDS: AMINO ACIDS/PROTEIN HYDROLYS 30 ML LIQUID.PKT PO SCH ×2 (10:28→17:33)
[2020-08-08] MEDS: amLODIPine BESYLATE 10 MG TABLET (FP) PO SCH (10:28)
[2020-08-08] MEDS: LISINOPRIL 20 MG TABLET PO SCH (10:28)
[2020-08-08] MEDS: PANTOPRAZOLE 40 MG TABLET PO SCH (10:28)
[2020-08-08] MEDS: MORPHINE SULFATE 2 MG/ML VIAL IVPUSH PRN (10:29)
[2020-08-08] MEDS ORDERED: PIPERACILLIN/TAZOBACTAM 2.25 GM VIAL IVPB ONE (16:57)
[2020-08-08] MEDS ORDERED: DEXTROSE 5%-WATER - 50 ML IVPB ONE (16:57)
[2020-08-08] MEDS ORDERED: DEXTROSE 5%-NORMAL SALINE 1,000 ML IV SCH (17:00)
[2020-08-08] MEDS: PANTOPRAZOLE SODIUM 40 MG VIAL IVPUSH SCH (17:22)
[2020-08-08] MEDS: PIPERACILLIN/TAZOB 2.25 GM 2.25 GM in DEXTROSE 5%-WATER - 50 ML IVPB SCH ×2 (17:22→17:33)
[2020-08-08] MEDS: DEXTROSE 5%-NORMAL SALINE 1,000 ML IV SCH (17:23)
[2020-08-08] MEDS: COLLAGENASE CLOSTRIDIUM HIST. 30 GRAMS TUBE TP SCH (17:23)
[2020-08-08] MEDS: LATANOPROST 0.005% OPHTH SOLN 2.5ML BOTTLE OU SCH (22:57)
[2020-08-09] MEDS ORDERED: PIPERACILLIN/TAZOBACTAM 2.25 GM VIAL IVPB ONE ×2 (01:44→09:19)
[2020-08-09] MEDS ORDERED: DEXTROSE 5%-WATER - 50 ML IVPB ONE ×2 (01:44→09:19)
[2020-08-09] MEDS: PHENobarbital SODIUM 65 MG/1 ML VIAL IVPUSH SCH ×2 (01:56→10:12)
[2020-08-09] MEDS: PIPERACILLIN/TAZOB 2.25 GM 2.25 GM in DEXTROSE 5%-WATER - 50 ML IVPB SCH ×2 (01:56→10:11)
[2020-08-09] MEDS: ACETAMINOPHEN 325 MG TABLET (FP) PO SCH ×2 (06:08→14:15)
[2020-08-09 08:17] LABS: CHLORIDE 110 mmol/L (98-107); POTASSIUM 5.3 mmol/L (3.5-5.1); SODIUM 136 mmol/L (136-145)
[2020-08-09 08:56] LABS: ALBUMIN 1.3 g/dl (3.4-5.0); ANION GAP 13 MMOL/L (8-16); BLOOD UREA NITROGEN 71.4 mg/dL (7-18); CO2 14 mmol/L (21-32); GLUCOSE,RANDOM 93 mg/dL (74-106); MAGNESIUM 2.6 mg/dL (1.8-2.4)
[2020-08-09 08:59] LABS: PHOSPHOROUS 7.8 mg/dL (2.5-4.9); SGPT/ALT < 6 U/L (13-61)
[2020-08-09 09:00] LABS: CREATININE 2.4 mg/dL (0.55-1.3); SGOT/AST 53 U/L (15-37)
[2020-08-09 09:01] LABS: BILIRUBIN,TOTAL 0.6 mg/dL (0.2-1); TOT PROT 5.1 g/dl (6.4-8.2)
[2020-08-09 09:02] LABS: ALK PHOS 152 U/L (45-117)
[2020-08-09 09:07] LABS: BASO % 0.3 % (0-2.0); EOS % 0.4 % (0-4.5); HEMATOCRIT 23.8 % (32.4-45.2); HEMOGLOBIN 7.9 GM/dL (10.7-15.3); LYMPH % 15.1 % (8-40); MCH 28.1 pg (25.7-33.7); MCHC 33.1 g/dl (32.0-36.0); MEAN PLT VOLUME 9.9 fl (7.5-11.1); MONO % 1.9 % (3.8-10.2); NEUT % 82.3 % (42.8-82.8); PLATELET COUNT 166 K/MM3 (134-434); RDW 20.3 % (11.6-15.6); WHITE BLOOD COUNT 2.4 K/mm3 (4.0-10.0)
[2020-08-09 09:10] LABS: CALCIUM 6.3 mg/dL (8.5-10.1)
[2020-08-09] MEDS: DEXTROSE 5%-NORMAL SALINE 1,000 ML IV SCH (10:10)
[2020-08-09] MEDS: AMINO ACIDS/PROTEIN HYDROLYS 30 ML LIQUID.PKT PO SCH (10:10)
[2020-08-09] MEDS: levETIRAcetam 500 MG/5 ML INJECTION VIAL IVPB SCH (10:11)
[2020-08-09] MEDS: ENOXAPARIN NA (PORCINE) 40 MG/0.4 ML DISP.SYRIN SQ SCH (10:11)
[2020-08-09] MEDS: PANTOPRAZOLE SODIUM 40 MG VIAL IVPUSH SCH (10:11)
[2020-08-09] MEDS: COLLAGENASE CLOSTRIDIUM HIST. 30 GRAMS TUBE TP SCH (10:11)
[2020-08-09] MEDS: amLODIPine BESYLATE 10 MG TABLET (FP) PO SCH (10:12)
[2020-08-09] MEDS: POLYETHYLENE GLYCOL 3350 119 GM BTL PO SCH (10:12)
[2020-08-09] MEDS: LISINOPRIL 20 MG TABLET PO SCH (11:40)
[2020-08-09] MEDS ORDERED: CALCIUM GLUCONATE 10% - 1,000 MG/10 ML VIAL IVPB ONE (11:45)
[2020-08-09 11:56] LABS: ANISOCYTOSIS 0; MACROCYTOSIS 0; PLATELET ESTIMATE NORMAL
[2020-08-09] MEDS ORDERED: MORPHINE SULFATE/0.9% NACL/PF 100 MG/100 ML BAG IVPB SCH (14:15)
[2020-08-09 14:19] VITALS: BP 105/48; PULSE 75; TEMP 97.6
== END 2020-08-09 15:44 | disposition expired | DRG 698 ==
LOC: JER 15:24 → JERBED 20:16 → J6WEST-2 07-10 16:49 → J4W 07-12 13:03 → JICU 07-21 00:19 → J4S 07-26 03:10 → J7W 08-03 20:18
PROVIDERS: ADMIT Internal Medicine; ATTEND Internal Medicine
DX: T83.511A Infection and inflammatory reaction due to indwelling urethral catheter, initial encounter (principal); G93.41 Metabolic encephalopathy; R53.2 Functional quadriplegia; J18.9 Pneumonia, unspecified organism; A41.9 Sepsis, unspecified organism; N17.9 Acute kidney failure, unspecified; E87.1 Hypo-osmolality and hyponatremia; J98.11 Atelectasis; N39.0 Urinary tract infection, site not specified; G20 Parkinson's disease; F02.80 Dementia in other diseases classified elsewhere, unspecified severity, without behavioral disturbance, psychotic disturbance, mood disturbance, and anxiety; G30.9 Alzheimer's disease, unspecified; Y83.8 Other surgical procedures as the cause of abnormal reaction of the patient, or of later complication, without mention of misadventure at the time of the procedure; E86.0 Dehydration; D50.9 Iron deficiency anemia, unspecified; I10 Essential (primary) hypertension; N31.9 Neuromuscular dysfunction of bladder, unspecified; E83.42 Hypomagnesemia; E77.8 Other disorders of glycoprotein metabolism; E83.39 Other disorders of phosphorus metabolism; E88.09 Other disorders of plasma-protein metabolism, not elsewhere classified; K56.41 Fecal impaction; L89.212 Pressure ulcer of right hip, stage 2; L89.892 Pressure ulcer of other site, stage 2; I46.9 Cardiac arrest, cause unspecified; R55 Syncope and collapse; H40.9 Unspecified glaucoma; E11.9 Type 2 diabetes mellitus without complications; D72.829 Elevated white blood cell count, unspecified; F41.8 Other specified anxiety disorders; R26.81 Unsteadiness on feet; R29.898 Other symptoms and signs involving the musculoskeletal system; N28.89 Other specified disorders of kidney and ureter; M16.0 Bilateral primary osteoarthritis of hip; E87.6 Hypokalemia; K44.9 Diaphragmatic hernia without obstruction or gangrene; K80.20 Calculus of gallbladder without cholecystitis without obstruction; R60.9 Edema, unspecified; N28.1 Cyst of kidney, acquired; R00.1 Bradycardia, unspecified; G40.909 Epilepsy, unspecified, not intractable, without status epilepticus
CPT/HCPCS: 36415; 36430; 36600; 70450-TC; 71045-TC-FY; 74176-TC; 74177-TC; 80048; 80053; 80061; 81003; 82550; 82728; 82803; 82947; 82962; 83036; 83540; 83550; 83605; 83721; 83735; 83880; 84100; 84439; 84443; 84484; 85025; 85610; 85730; 86850; 86900; 86901; 86922; 87040; 87086; 93005; 93010; 94640; 94660; 95816; 97116-GP; 97162-GP; 99285-25; C9803; J0885; J1756; P9058; Q9967; U0003